=== PATIENT | male | born 1955 | race Caucasian/White ===

== ENCOUNTER 2016-10-16 20:56 | Emergency (ER) | payer MEDICARE ==
[2016-10-16 21:07] VITALS: RESP 18
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
--- NOTE | 2016-10-16 22:51 | XR ---
EXAM: XR Right Shoulder Complete, 2 or More Views CLINICAL HISTORY: Reason: Pain TECHNIQUE: Two or more views of the right shoulder. COMPARISON: No relevant prior studies available. FINDINGS: Bones/joints: Degenerative changes. No acute fracture. No dislocation. Soft tissues: No radiopaque foreign body. IMPRESSION: No acute fracture or dislocation.
--- NOTE | 2016-10-16 23:14 | XR ---
EXAM: XR Right Elbow Complete, 3 or More Views CLINICAL HISTORY: Reason: Pain TECHNIQUE: Frontal, lateral and oblique views of the right elbow. COMPARISON: No relevant prior studies available. FINDINGS: Bones/joints: Mild degenerative changes. No acute fracture. No dislocation. Soft tissues: No radiopaque foreign body. IMPRESSION: No acute fracture.
[2016-10-16 23:48] VITALS: BP 164/87; PULSE 77; TEMP 99.1
== END 2016-10-16 23:47 | disposition home or self-care (01) ==
LOC: EC 20:56
DX: G56.30 Lesion of radial nerve, unspecified upper limb (principal); M21.331 Wrist drop, right wrist; W19.XXXA Unspecified fall, initial encounter; F17.200 Nicotine dependence, unspecified, uncomplicated; Z88.0 Allergy status to penicillin
CPT/HCPCS: 99283

== ENCOUNTER → 2016-11-09 | Outpatient (CLI) | payer MEDICARE ==
[2016-11-09 16:50] LABS: Blood Urea Nitrogen 15 mg/dL (9-20); Non-African American GFR(MDRD) >60 (>60 ml/min/1.73 sqM)
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
--- NOTE | 2016-11-09 23:52 | MR ---
EXAMINATION TYPE: MR brachial plexus RT wo/w con DATE OF EXAM: 11/09/2016 10:00 PM COMPARISON: NONE HISTORY: Rt shoulder/brachial plexus injury, pain, neurpraxia CONTRAST: Standard multiplanar, multisequence MRI departmental protocol utilizing 15 mL intravenous MultiHance gadolinium contrast. FINDINGS: Cervical vertebra have normal alignment. There is a 1 cm area of increased signal in the T1 vertebral body consistent with hemangioma. There is slight biconcave change at T2 vertebra consisten t with minimal compression fracture. Cervical spinal cord has fairly normal signal pattern without ev idence of edema. There is no evidence of cervical bony spinal stenosis. I see no cervical paraspinal mass. I see no sign of a brachial plexus mass. There is no pathologic enhancement. There is mild nan a around the shoulder joint. I see no fracture. IMPRESSION: No spinal stenosis. No discrete brachial plexus abnormality. Periarticular edema seen at the right sh oulder joint.
== END | disposition home or self-care (01) ==
LOC: RADMRIMAIN 16:09
PROVIDERS: ATTEND Physician Assistant
DX: M25.411 Effusion, right shoulder (principal); S14.3XXA Injury of brachial plexus, initial encounter; G54.0 Brachial plexus disorders; S01.01XA Laceration without foreign body of scalp, initial encounter
CPT/HCPCS: 82565; 84520; 70260; 71552; 36415; A9577

== ENCOUNTER → 2016-11-26 | Outpatient (CLI) | payer MEDICARE ==
--- NOTE | 2016-11-26 23:53 | MR ---
EXAMINATION TYPE: MR humerus RT w/wo con DATE OF EXAM: 11/26/2016 COMPARISON: NONE HISTORY: upper arm shoulder pain CONTRAST: Standard multiplanar, multisequence MRI departmental protocol utilizing 15 mL intravenous MultiHance gadolinium contrast. FINDINGS: There is a small shoulder joint effusion. There is mild fluid around the biceps tendon. The re is no evidence of a fracture. Glenohumeral joint is anatomic. I see no focal bone destruction. Sca pula is intact. There is pathologic enhancement in the soft tissues around the subscapularis tendon including the mus kourtney. There is enhancement of the shoulder joint capsule. There is some spurring at the AC joint and m ild subacromial impingement. The supraspinatus tendon is not optimally evaluated but appears to show increased signal and full-thickness tear. There is no retraction. On the axial T2 images there appear s to be mild edema in the brachialis muscle in in the lower upper arm. IMPRESSION: There is shoulder joint capsule enhancement consistent with synovitis. Small shoulder joint effusion. There is probably a complete full-thickness tear of the supraspinatus tendon rotator cuff. There is edema and enhancement involving the subscapularis muscle consistent with myositis. The subscapularis tendon is intact. There is probably mild edema in the brachialis muscle in the lower arm. No fracture . Mild subacromial impingement.
== END | disposition home or self-care (01) ==
LOC: RADMRIMAIN 16:58
PROVIDERS: ATTEND Physician Assistant
DX: M25.811 Other specified joint disorders, right shoulder (principal); M25.411 Effusion, right shoulder
CPT/HCPCS: 73220; A9577

== ENCOUNTER → 2016-12-03 | Outpatient (CLI) | payer MEDICARE ==
--- NOTE | 2016-12-04 08:33 | MR ---
EXAMINATION TYPE: MR cervical spine wo con DATE OF EXAM: 12/03/2016 COMPARISON: NONE HISTORY: Pain TECHNIQUE: Multiplanar, multisequence images of the cervical spine were acquired. C2-C3: No evidence for degenerative disc disease. No disc bulge/herniation or protrusion. No Canal stenosis. Foramina are patent bilaterally. C3-C4: Central disc bulging but no canal stenosis or foraminal encroachment. Mild facet arthropathy. C4-C5: Moderate degenerative disc disease with uncovertebral joint hypertrophy and facet arthropathy and bilateral foraminal encroachment. No Canal stenosis. Posterior spondylosis. C5-C6: Moderate degenerative disc disease with broad-based central disc protrusion. Mild canal stenos is. Facet arthropathy and uncovertebral joint hypertrophy with moderate bilateral foraminal encroachm ent. C6-C7: No disc herniation or canal stenosis. No foraminal encroachment. C7-T1: No evidence for degenerative disc disease. No disc bulge/herniation or protrusion. No Canal stenosis. Foramina are patent bilaterally. Vertebral body hemangioma T1. Cervical segments are intact. There is normal alignment. Cervical spinal cord is of normal signal. Craniovertebral junction relationships are within normal limits. Heterogeneous marrow signal is non specific could been the basis of osteopenia. Myeloproliferative disorder not excluded correlate clini arnel. IMPRESSION: Multilevel degenerative disc disease with posterior spondylosis at C4-5 and more marked at C5-C6 with a broad-based disc protrusion and evidence of mild canal stenosis with bilateral foraminal encroachm ent. Nonspecific heterogeneous marrow signal. Correlate clinically as discussed above.
== END | disposition home or self-care (01) ==
LOC: RADMRIMAIN 15:17
PROVIDERS: ATTEND Physician Assistant
DX: M48.02 Spinal stenosis, cervical region (principal); M50.121 Cervical disc disorder at C4-C5 level with radiculopathy; M50.122 Cervical disc disorder at C5-C6 level with radiculopathy; M47.22 Other spondylosis with radiculopathy, cervical region
CPT/HCPCS: 72141

== ENCOUNTER 2021-07-17 18:07 | Inpatient (IN) | payer MEDICARE ==
[2021-07-17] MEDS ORDERED: SODIUM CHLORIDE 0.9% 1,000 ML IV STA ×2 (18:09→19:22)
[2021-07-17 18:26] LABS: Glucose,Whole Blood 133 mg/dL (75-99)
[2021-07-17 18:31] LABS: Basophils # (A) 0.1 k/uL (0-0.2); Basophils % (A) 0 %; Eosinophils # (A) 0.2 k/uL (0-0.7); Eosinophils % (A) 1 %; HCT 54.4 % (39.0-53.0); HGB 18.2 gm/dL (13.0-17.5); Lymphocytes # (A) 1.1 k/uL (1.0-4.8); Lymphocytes % (A) 7 %; MCH 35.1 pg (25.0-35.0); MCHC 33.5 g/dL (31.0-37.0); MCV 104.7 fL (80.0-100.0); Macrocytosis Slight; Mean Platelet Volume 7.9; Monocytes # (A) 0.7 k/uL (0-1.0); Monocytes % (A) 5 %; Neutrophils # (A) 13.1 k/uL (1.3-7.7); Neutrophils % (A) 86 %; Platelet Count 164 k/uL (150-450); RBC 5.19 m/uL (4.30-5.90); RDW 12.2 % (11.5-15.5); WBC 15.3 k/uL (3.8-10.6)
[2021-07-17 18:39] LABS: Appearance,Urine Clear (Clear); Bilirubin,Urine Negative (Negative); Blood,Urine Moderate (Negative); Color,Urine Yellow; Glucose,Urine (UA) Negative (Negative); Hyaline Casts,Urine 1 /lpf (0-2); Ketones,Urine 1+ (Negative); Leukocyte Esterase,Urine Negative (Negative); Mucus,Urine Rare /hpf; Nitrite,Urine Negative (Negative); PH, Urine 5.5 (5.0-8.0); Protein,Urine 1+ (Negative); RBC,Urine 10 /hpf (0-5); Specific Gravity,Urine 1.023 (1.001-1.035); Squamous Epithelial Cell,Urine <1 /hpf (0-4); Urobilinogen,Urine <2.0 mg/dL (<2.0); WBC,Urine <1 /hpf (0-5)
[2021-07-17] MEDS ORDERED: HEPARIN SODIUM 1,000 UN/ML (10ML VL) IV PRN (18:41)
[2021-07-17] MEDS ORDERED: DIPH,PERTUS(ACELL)TETVAC-LF 0.5 ML VIAL IM ONE (18:41)
[2021-07-17] MEDS ORDERED: HEPARIN SODIUM 1,000 UN/ML (10ML VL) IV ONE (18:41)
[2021-07-17 18:44] LABS: Amphetamine Screen,Urine Not Detected (NotDetected); Barbiturate Screen,Urine Not Detected (NotDetected); Benzodiazepines Screen,Urine Not Detected (NotDetected); Cocaine Screen,Urine Not Detected (NotDetected); Methadone Screen, Urine Not Detected (NotDetected); Opiate Screen,Urine Not Detected (NotDetected); Oxycodone Screen, Urine Not Detected (NotDetected); Phencyclidine Screen,Urine Not Detected (NotDetected); Tricyclic Antidepressant,Urine Not Detected (NotDetected); Urn Cannabinoid Scrn Not Detected (NotDetected)
[2021-07-17] MEDS ORDERED: HEPARIN SOD,PORK IN 0.45% NACL 25,000 UNIT in 0.45% NACL 1 250ML.BAG IV SCH (18:45)
[2021-07-17 18:50] LABS: INR 0.9 (<1.2); Partial Thromboplastin Time 24.7 sec (22.0-30.0); Prothrombin Time 10.2 sec (9.0-12.0)
[2021-07-17 19:00] LABS: AST 215 U/L (17-59); African American GFR (CKD) 85 (>60 ml/min/1.73 sqM); Alcohol <10 mg/dL; Alkaline Phosphatase 65 U/L (38-126); Anion Gap 9 mmol/L; Blood Urea Nitrogen 34 mg/dL (9-20); Calcium 9.1 mg/dL (8.4-10.2); Carbon Dioxide 22 mmol/L (22-30); Chloride 111 mmol/L (98-107); Glucose 118 mg/dL (74-99); Non-African American GFR(CKD) 74 (>60 ml/min/1.73 sqM); Potassium 5.2 mmol/L (3.5-5.1); Sodium 142 mmol/L (137-145); Total Protein 7.2 g/dL (6.3-8.2)
--- NOTE | 2021-07-17 19:01 | ED ---
Altered Mental Status HPI - General Chief Complaint: Altered Mental Status Stated Complaint: unresponsive Time Seen by Provider: 07/17/21 18:07 Source: EMS, RN notes reviewed, old records reviewed Mode of arrival: EMS Limitations: altered mental status - History of Present Illness Initial Comments: 66-year-old male with a history of alcohol abuse who was found in his pickup truck by family members unresponsive. His last known well about 2 days ago he was brought in by EMS he was found unresponsive. No trauma reported patient was noted to be incontinent of urine and stool. Upon arrival he was noted have a rectal temperature of 99F. No external signs of trauma reported. No history available from the patient's he is unresponsive though he was noted to move his extremities. MD Complaint: altered mental status - Related Data Home Medications Medication Instructions Recorded Confirmed No Known Home Medications 10/16/16 07/17/21 Allergies Allergy/AdvReac Type Severity Reaction Status Date / Time Penicillins Allergy Rash/Hives Verified 07/17/21 19:16 Review of Systems ROS Statement: Those systems with pertinent positive or pertinent negative responses have been documented in the HPI. ROS Other: All systems not noted in ROS Statement are negative. Limitations: ROS unobtainable due to patients medical condition Past Medical History Past Medical History: No Reported History History of Any Multi-Drug Resistant Organisms: None Reported Past Surgical History: No Surgical Hx Reported Past Psychological History: No Psychological Hx Reported Past Alcohol Use History: Abuse Past Drug Use History: None Reported General Exam - General Exam Comments Initial Comments: This is a well-developed thin appearing male unresponsive no evidence of trauma to the head neck back does have some ecchymosis seen to the left elbow both knees. Blanching of both feet with evidence of blisters on both Limitations: altered mental status Head exam: Present: atraumatic, normocephalic, normal inspection Eye exam: Present: normal appearance, PERRL, EOMI. Absent: scleral icterus, conjunctival injection, periorbital swelling ENT exam: Present: mucous membranes dry Neck exam: Present: normal inspection, other (No stridor JVD or bruits). Absent: tenderness, meningismus, lymphadenopathy Respiratory exam: Present: normal lung sounds bilaterally. Absent: respiratory distress, wheezes, rales, rhonchi, stridor Cardiovascular Exam: Present: regular rate, normal rhythm, normal heart sounds. Absent: systolic murmur, diastolic murmur, rubs, gallop, clicks GI/Abdominal exam: Present: soft, normal bowel sounds. Absent: distended, tenderness, guarding, rebound, rigid Rectal exam: Present: normal inspection, other exam: Present: normal inspection Extremities exam: Present: other (Bilateral femoral pulses and popliteal pulses are present no dorsalis pedis or posterior tibial pulses on either side both feet appear to be frozen solid with blanching tissue is solid to touch and very cold from the toes to release the mid foot and higher.). Absent: normal capillary refill Back exam: Present: normal inspection Neurological exam: Present: altered, CN II-XII intact Psychiatric exam: Present: other (Unable to evaluate) Skin exam: Present: dry, other (As noted above). Absent: normal color Course Vital Signs 07/17/21 18:08 Temperature 99.1 F Pulse Rate 98 Respiratory 26 H Rate Blood Pressure 177/98 O2 Sat by Pulse 98 Oximetry - Reevaluation(s) Reevaluation #1: 07/17/21 20:29 The patient is becoming more responsive after IV fluids and did have multiple reevaluation of the patient he did get his feet rewarmed using warm water. Patient did get IV antibiotics IV and tetanus IV pain medication. He currently is on IV heparin is chest case with initially Dr. day castro and also later with Dr. Doss as well as Dr. Zamora and Dr. jones patient will be admitted for inpatient evaluation and treatment continued warming IV antibiotics he is starting to get circulation back in his feet as well as sensation. There is blistering and evidence of some sloughing of skin are ready at this time. After he is warmed he will be placed in dry dressings with continued warming. The skin is more pliable as well as a total tissue for tissue. Medical Decision Making - Medical Decision Making Patient is responding to the warming of his feet though the dorsal and distal aspects are somewhat dusky still. He does seem to have sensation now. He is more responsive. I did discuss with the above-mentioned physicians and family patient will be admitted - Lab Data Result diagrams: 07/17/21 18:18 07/17/21 18:19 Lab Results 07/17/21 07/17/21 07/17/21 Range/Units 18:13 18:18 18:18 WBC 15.3 H (3.8-10.6) k/uL RBC 5.19 (4.30-5.90) m/uL Hgb 18.2 H (13.0-17.5) gm/dL Hct 54.4 H (39.0-53.0) % MCV 104.7 H (80.0-100.0) fL MCH 35.1 H (25.0-35.0) pg MCHC 33.5 (31.0-37.0) g/dL RDW 12.2 (11.5-15.5) % Plt Count 164 (150-450) k/uL MPV 7.9 Neutrophils % 86 % Lymphocytes % 7 % Monocytes % 5 % Eosinophils % 1 % Basophils % 0 % Neutrophils # 13.1 H (1.3-7.7) k/uL Lymphocytes # 1.1 (1.0-4.8) k/uL Monocytes # 0.7 (0-1.0) k/uL Eosinophils # 0.2 (0-0.7) k/uL Basophils # 0.1 (0-0.2) k/uL Macrocytosis Slight PT 10.2 (9.0-12.0) sec INR 0.9 (<1.2) APTT 24.7 (22.0-30.0) sec Sodium (137-145) mmol/L Potassium (3.5-5.1) mmol/L Chloride (98-107) mmol/L Carbon Dioxide (22-30) mmol/L Anion Gap mmol/L BUN (9-20) mg/dL Creatinine (0.66-1.25) mg/dL Est GFR (CKD-EPI)AfAm (>60 ml/min/1.73 sqM) Est GFR (CKD-EPI)NonAf (>60 ml/min/1.73 sqM) Glucose (74-99) mg/dL POC Glucose (mg/dL) 133 H (75-99) mg/dL POC Glu Electric[employer] Elevator Maintenance ID Eugenia Ohara Osmolality ([phone]) mosm/kg Plasma Lactic Acid Sameer (0.7-2.0) mmol/L Calcium (8.4-10.2) mg/dL Total Bilirubin (0.2-1.3) mg/dL AST (17-59) U/L ALT (4-49) U/L Alkaline Phosphatase (38-126) U/L Ammonia (<30) umol/L Creatine Kinase (55-170) U/L Troponin I (0.000-0.034) ng/mL Total Protein (6.3-8.2) g/dL Albumin (3.5-5.0) g/dL Urine Color Urine Appearance (Clear) Urine pH (5.0-8.0) Ur Specific [place] (1.001-1.035) Urine Protein (Negative) Urine Glucose (UA) (Negative) Urine Ketones (Negative) Urine Blood (Negative) Urine Nitrite (Negative) Urine Bilirubin (Negative) Urine Urobilinogen (<2.0) mg/dL Ur Leukocyte Esterase (Negative) Urine RBC (0-5) /hpf Urine WBC (0-5) /hpf Ur Squamous Epith Cells (0-4) /hpf Hyaline Casts (0-2) /lpf Urine Mucus (None) /hpf Salicylates mg/dL Urine Opiates Screen (NotDetected) Ur Oxycodone Screen (NotDetected) Urine Methadone Screen (NotDetected) Ur Propoxyphene Screen (NotDetected) Acetaminophen ug/mL Ur Barbiturates Screen (NotDetected) U Tricyclic Antidepress (NotDetected) Ur Phencyclidine Scrn (NotDetected) Ur Amphetamines Screen (NotDetected) U Methamphetamines Scrn (NotDetected) U Benzodiazepines Scrn (NotDetected) Urine Cocaine Screen (NotDetected) U Marijuana (THC) Screen (NotDetected) Serum Alcohol mg/dL Coronavirus (PCR) (Not Detectd) 07/17/21 07/17/21 07/17/21 Range/Units 18:18 18:19 18:19 WBC (3.8-10.6) k/uL RBC (4.30-5.90) m/uL Hgb (13.0-17.5) gm/dL Hct (39.0-53.0) % MCV (80.0-100.0) fL MCH (25.0-35.0) pg MCHC (31.0-37.0) g/dL RDW (11.5-15.5) % Plt Count (150-450) k/uL MPV Neutrophils % % Lymphocytes % % Monocytes % % Eosinophils % % Basophils % % Neutrophils # (1.3-7.7) k/uL Lymphocytes # (1.0-4.8) k/uL Monocytes # (0-1.0) k/uL Eosinophils # (0-0.7) k/uL Basophils # (0-0.2) k/uL Macrocytosis PT (9.0-12.0) sec INR (<1.2) APTT (22.0-30.0) sec Sodium 142 (137-145) mmol/L Potassium 5.2 H (3.5-5.1) mmol/L Chloride 111 H (98-107) mmol/L Carbon Dioxide 22 (22-30) mmol/L Anion Gap 9 mmol/L BUN 34 H (9-20) mg/dL Creatinine 1.05 (0.66-1.25) mg/dL Est GFR (CKD-EPI)AfAm 85 (>60 ml/min/1.73 sqM) Est GFR (CKD-EPI)NonAf 74 (>60 ml/min/1.73 sqM) Glucose 118 H (74-99) mg/dL POC Glucose (mg/dL) (75-99) mg/dL POC Glu Electric[employer] Elevator Maintenance ID Osmolality ([phone]) mosm/kg Plasma Lactic Acid Samere (0.7-2.0) mmol/L Calcium 9.1 (8.4-10.2) mg/dL Total Bilirubin 1.0 (0.2-1.3) mg/dL AST 215 H (17-59) U/L ALT 64 H (4-49) U/L Alkaline Phosphatase 65 (38-126) U/L Ammonia <9 (<30) umol/L Creatine Kinase 5921 H* (55-170) U/L Troponin I (0.000-0.034) ng/mL Total Protein 7.2 (6.3-8.2) g/dL Albumin 4.0 (3.5-5.0) g/dL Urine Color Yellow Urine Appearance Clear (Clear) Urine pH 5.5 (5.0-8.0) Ur Specific [place] 1.023 (1.001-1.035) Urine Protein 1+ H (Negative) Urine Glucose (UA) Negative (Negative) Urine Ketones 1+ H (Negative) Urine Blood Moderate H (Negative) Urine Nitrite Negative (Negative) Urine Bilirubin Negative (Negative) Urine Urobilinogen <2.0 (<2.0) mg/dL Ur Leukocyte Esterase Negative (Negative) Urine RBC 10 H (0-5) /hpf Urine WBC <1 (0-5) /hpf Ur Squamous Epith Cells <1 (0-4) /hpf Hyaline Casts 1 (0-2) /lpf Urine Mucus Rare H (None) /hpf Salicylates <1.0 mg/dL Urine Opiates Screen Not Detected (NotDetected) Ur Oxycodone Screen Not Detected (NotDetected) Urine Methadone Screen Not Detected (NotDetected) Ur Propoxyphene Screen Not Detected (NotDetected) Acetaminophen <10.0 ug/mL Ur Barbiturates Screen Not Detected (NotDetected) U Tricyclic Antidepress Not Detected (NotDetected) Ur Phencyclidine Scrn Not Detected (NotDetected) Ur Amphetamines Screen Not Detected (NotDetected) U Methamphetamines Scrn Not Detected (NotDetected) U Benzodiazepines Scrn Not Detected (NotDetected) Urine Cocaine Screen Not Detected (NotDetected) U Marijuana (THC) Screen Not Detected (NotDetected) Serum Alcohol <10 mg/dL Coronavirus (PCR) (Not Detectd) 07/17/21 07/17/21 07/17/21 Range/Units 18:19 18:19 18:21 WBC (3.8-10.6) k/uL RBC (4.30-5.90) m/uL Hgb (13.0-17.5) gm/dL Hct (39.0-53.0) % MCV (80.0-100.0) fL MCH (25.0-35.0) pg MCHC (31.0-37.0) g/dL RDW (11.5-15.5) % Plt Count (150-450) k/uL MPV Neutrophils % % Lymphocytes % % Monocytes % % Eosinophils % % Basophils % % Neutrophils # (1.3-7.7) k/uL Lymphocytes # (1.0-4.8) k/uL Monocytes # (0-1.0) k/uL Eosinophils # (0-0.7) k/uL Basophils # (0-0.2) k/uL Macrocytosis PT (9.0-12.0) sec INR (<1.2) APTT (22.0-30.0) sec Sodium (137-145) mmol/L Potassium (3.5-5.1) mmol/L Chloride (98-107) mmol/L Carbon Dioxide (22-30) mmol/L Anion Gap mmol/L BUN (9-20) mg/dL Creatinine (0.66-1.25) mg/dL Est GFR (CKD-EPI)AfAm (>60 ml/min/1.73 sqM) Est GFR (CKD-EPI)NonAf (>60 ml/min/1.73 sqM) Glucose (74-99) mg/dL POC Glucose (mg/dL) (75-99) mg/dL POC Glu Electrician Elevator Maintenance ID Osmolality ([phone]) mosm/kg Plasma Lactic Acid Sameer 4.3 H* (0.7-2.0) mmol/L Calcium (8.4-10.2) mg/dL Total Bilirubin (0.2-1.3) mg/dL AST (17-59) U/L ALT (4-49) U/L Alkaline Phosphatase (38-126) U/L Ammonia (<30) umol/L Creatine Kinase (55-170) U/L Troponin I 0.014 (0.000-0.034) ng/mL Total Protein (6.3-8.2) g/dL Albumin (3.5-5.0) g/dL Urine Color Urine Appearance (Clear) Urine pH (5.0-8.0) Ur Specific [place] (1.001-1.035) Urine Protein (Negative) Urine Glucose (UA) (Negative) Urine Ketones (Negative) Urine Blood (Negative) Urine Nitrite (Negative) Urine Bilirubin (Negative) Urine Urobilinogen (<2.0) mg/dL Ur Leukocyte Esterase (Negative) Urine RBC (0-5) /hpf Urine WBC (0-5) /hpf Ur Squamous Epith Cells (0-4) /hpf Hyaline Casts (0-2) /lpf Urine Mucus (None) /hpf Salicylates mg/dL Urine Opiates Screen (NotDetected) Ur Oxycodone Screen (NotDetected) Urine Methadone Screen (NotDetected) Ur Propoxyphene Screen (NotDetected) Acetaminophen ug/mL Ur Barbiturates Screen (NotDetected) U Tricyclic Antidepress (NotDetected) Ur Phencyclidine Scrn (NotDetected) Ur Amphetamines Screen (NotDetected) U Methamphetamines Scrn (NotDetected) U Benzodiazepines Scrn (NotDetected) Urine Cocaine Screen (NotDetected) U Marijuana (THC) Screen (NotDetected) Serum Alcohol mg/dL Coronavirus (PCR) Not Detected (Not Detectd) 07/17/21 Range/Units 18:24 WBC (3.8-10.6) k/uL RBC (4.30-5.90) m/uL Hgb (13.0-17.5) gm/dL Hct (39.0-53.0) % MCV (80.0-100.0) fL MCH (25.0-35.0) pg MCHC (31.0-37.0) g/dL RDW (11.5-15.5) % Plt Count (150-450) k/uL MPV Neutrophils % % Lymphocytes % % Monocytes % % Eosinophils % % Basophils % % Neutrophils # (1.3-7.7) k/uL Lymphocytes # (1.0-4.8) k/uL Monocytes # (0-1.0) k/uL Eosinophils # (0-0.7) k/uL Basophils # (0-0.2) k/uL Macrocytosis PT (9.0-12.0) sec INR (<1.2) APTT (22.0-30.0) sec Sodium (137-145) mmol/L Potassium (3.5-5.1) mmol/L Chloride (98-107) mmol/L Carbon Dioxide (22-30) mmol/L Anion Gap mmol/L BUN (9-20) mg/dL Creatinine (0.66-1.25) mg/dL Est GFR (CKD-EPI)AfAm (>60 ml/min/1.73 sqM) Est GFR (CKD-EPI)NonAf (>60 ml/min/1.73 sqM) Glucose (74-99) mg/dL POC Glucose (mg/dL) (75-99) mg/dL POC Glu Electrician Elevator Maintenance ID Osmolality 312 H (280-301) mosm/kg Plasma Lactic Acid Sameer (0.7-2.0) mmol/L Calcium (8.4-10.2) mg/dL Total Bilirubin (0.2-1.3) mg/dL AST (17-59) U/L ALT (4-49) U/L Alkaline Phosphatase (38-126) U/L Ammonia (<30) umol/L Creatine Kinase (55-170) U/L Troponin I (0.000-0.034) ng/mL Total Protein (6.3-8.2) g/dL Albumin (3.5-5.0) g/dL Urine Color Urine Appearance (Clear) Urine pH (5.0-8.0) Ur Specific [place] (1.001-1.035) Urine Protein (Negative) Urine Glucose (UA) (Negative) Urine Ketones (Negative) Urine Blood (Negative) Urine Nitrite (Negative) Urine Bilirubin (Negative) Urine Urobilinogen (<2.0) mg/dL Ur Leukocyte Esterase (Negative) Urine RBC (0-5) /hpf Urine WBC (0-5) /hpf Ur Squamous Epith Cells (0-4) /hpf Hyaline Casts (0-2) /lpf Urine Mucus (None) /hpf Salicylates mg/dL Urine Opiates Screen (NotDetected) Ur Oxycodone Screen (NotDetected) Urine Methadone Screen (NotDetected) Ur Propoxyphene Screen (NotDetected) Acetaminophen ug/mL Ur Barbiturates Screen (NotDetected) U Tricyclic Antidepress (NotDetected) Ur Phencyclidine Scrn (NotDetected) Ur Amphetamines Screen (NotDetected) U Methamphetamines Scrn (NotDetected) U Benzodiazepines Scrn (NotDetected) Urine Cocaine Screen (NotDetected) U Marijuana (THC) Screen (NotDetected) Serum Alcohol mg/dL Coronavirus (PCR) (Not Detectd) - EKG Data -: EKG Interpreted by Me EKG shows normal: sinus rhythm EKG Comments: Sinus rhythm with sinus arrhythmia rate 70. 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 This also causes admission orders Disposition Clinical Impression: Delirium due to general medical condition, Frostbite of feet, bilateral, Rhabdomyolysis, Lactic acidosis, Dehydration Disposition: ADMITTED IP TO THIS HOSP Condition: Serious Referrals: Bairon Feldman DO [Primary Care Provider] - 1-2 days
[2021-07-17 19:07] LABS: ALT 64 U/L (4-49)
[2021-07-17] MEDS ORDERED: LEVOFLOXACIN 750MG-D5W PMX 750 MG in DEXTROSE/WATER 1 150ML.BAG IVPB STA (19:16)
--- NOTE | 2021-07-17 19:23 | CT ---
EXAMINATION TYPE: CT brain ba santos DATE OF EXAM: 07/17/2021 COMPARISON: None HISTORY: Altered mental status. CT DLP: 1540.3 mGycm Automated exposure control for dose reduction was used. TECHNIQUE: CT scan of the head and cervical spine are performed without contrast. FINDINGS: There is no acute intracranial hemorrhage, mass effect, or midline shift identified. The ventricles and sulci are within normal limits in size. The globes are intact and the visualized sin uses are clear. Cervical spine is visualized in its entirety from C1 through upper thoracic levels and demonstrates s atisfactory alignment without evidence of acute fracture or dislocation. Prevertebral soft tissue ap pears within normal limits. The C1-C2 articulation is unremarkable. IMPRESSION: 1. There is no acute fracture or dislocation evident in the cervical spine. 2. No acute intracranial hemorrhage, mass effect, or midline shift is seen.
--- NOTE | 2021-07-17 19:24 | XR ---
EXAMINATION: XR chest 1V portable DATE AND TIME: 07/17/2021 6:50 PM CLINICAL INDICATION: altered mental status: Unresponsive TECHNIQUE: AP portable supine COMPARISON: None FINDINGS: The lungs are clear as seen. The pleural spaces are negative. The cardiac silhouette is not enlarged. The remainder of the mediastinal silhouette is unremarkable. The skeletal structures and soft tissues are negative for acute findings. IMPRESSION: No definite acute radiographic process, AP portable supine chest radiograph.
[2021-07-17 19:34] LABS: Acetaminophen <10.0 ug/mL; Salicylate <1.0 mg/dL
[2021-07-17 19:42] LABS: Creatine Kinase 5921 U/L (55-170)
[2021-07-17] MEDS ORDERED: MORPHINE SULFATE 4 MG/ML SYRINGE IVP STA (20:14)
[2021-07-17] MEDS ORDERED: NALOXONE 0.4 MG/ML 1 ML VIAL IV PRN (20:46)
[2021-07-17] MEDS ORDERED: NICOTINE 21MG/24HR PATCH TRANSDERM STA (20:52)
[2021-07-17] MEDS ORDERED: LORazepam 2 MG/ML INJ IV PRN ×3 (20:52)
[2021-07-17] MEDS ORDERED: THIAMINE 100 MG/ML 2 ML VIAL IM STA (20:52)
[2021-07-18] MEDS: MORPHINE SULFATE 4 MG/ML SYRINGE IV PRN ×3 (01:10→18:37)
[2021-07-18 04:43] LABS: Glucose,Whole Blood 103 mg/dL (75-99)
[2021-07-18 07:45] LABS: Basophils % (A) 0 %; Eosinophils % (A) 0 %; HCT 48.1 % (39.0-53.0); HGB 15.3 gm/dL (13.0-17.5); Lymphocytes # (A) 1.3 k/uL (1.0-4.8); Lymphocytes % (A) 9 %; MCH 33.6 pg (25.0-35.0); MCHC 31.8 g/dL (31.0-37.0); MCV 105.7 fL (80.0-100.0); Macrocytosis Slight; Mean Platelet Volume 8.3; Monocytes # (A) 0.8 k/uL (0-1.0); Monocytes % (A) 6 %; Neutrophils % (A) 84 %; Platelet Count 165 k/uL (150-450); RBC 4.55 m/uL (4.30-5.90); RDW 12.8 % (11.5-15.5); WBC 14.3 k/uL (3.8-10.6)
[2021-07-18 07:59] LABS: ALT 50 U/L (4-49); AST 139 U/L (17-59); African American GFR (CKD) >90 (>60 ml/min/1.73 sqM); Albumin 2.8 g/dL (3.5-5.0); Alkaline Phosphatase 45 U/L (38-126); Anion Gap 2 mmol/L; Bilirubin, Delta 0.2 mg/dL (0.0-0.2); Bilirubin,Unconjugated 0.6 mg/dL (0.0-1.1); Blood Urea Nitrogen 22 mg/dL (9-20); Calcium 7.5 mg/dL (8.4-10.2); Carbon Dioxide 20 mmol/L (22-30); Chloride 119 mmol/L (98-107); Glucose 105 mg/dL (74-99); Magnesium 2.3 mg/dL (1.6-2.3); Non-African American GFR(CKD) >90 (>60 ml/min/1.73 sqM); Potassium 4.4 mmol/L (3.5-5.1); Sodium 141 mmol/L (137-145); Total Bilirubin 0.8 mg/dL (0.2-1.3); Total Protein 5.4 g/dL (6.3-8.2)
[2021-07-18] MEDS: SODIUM CHLORIDE 0.9% 1,000 ML IV SCH ×2 (08:02→20:53)
[2021-07-18] MEDS: FAMOTIDINE 20 MG/2 ML VIAL IV SCH ×2 (08:05→20:56)
[2021-07-18 08:57] LABS: Creatine Kinase 3882 U/L (55-170)
--- NOTE | 2021-07-18 09:53 | P.HPIM ---
History of Present Illness This is a pleasant 66 years old male with unknown past medical history presents because of altered mental status where he was found unresponsive in his truck bed family member. As per report. He was seen doing well about 2 days ago. Patient was found with no evidence of trauma, incontinence of urine and stool. And he was hypothermic on admission with a rectal temperature of 99F. He was warmed using of the fluids. Patient found to have bilateral dusky heat suspicious for hypothermic injury. Also there was some evidence of rhabdomyolysis, lactic acidosis and dehydration and he was admitted to the intensive care unit. When I saw the patient in the ICU he was sleepy, does not wake up to verbal or tactile stimuli however he withdrawal for patient's to light. He has some deep breathing. Both feet are in dressing. Patient could not provide information. We checked him after couple hours distal clip waking up so it allowed to consult neurology service Currently vital signs stable, his temperature went up last night to 98.1-99.1. Showing mild leukocytosis. Hemoglobin is elevated 18.2, platelet 164. Carbon dioxide is 1.1, which is within the reference range. Elevated lactic acid 4.3 came back to 1.4. Elevated creatinine kinase 5921 Creatinine 1.0, potassium 5.2, liver enzymes slightly elevated with AST 215 and ALT 64. Troponin is negative at 0.014. Ammonia is negative less than 9. High serum osmolality of 312. Urine analysis showing 1+ protein, 1+ ketone, no solid evidence of infection. Urine drug screen is negative, salicylate less than 1, acetaminophen less than 10 and serum alcohol less than 10 Coronavirus nondetected. EKG showing normal sinus rhythm with incomplete right bundle branch block and left posterior fascicular block and QTC 455, no significant ST-T changes Q Chest x-ray showing no acute process. CT of the brain: No acute process CT of the cervical spine: No acute fracture or dislocation In the emergency room patient was started on IV fluids, IV heparin and started on CIWA protocol for suspicion alcohol abuse Review of Systems n/a patient could not provide information Past Medical History Past Medical History: No Reported History History of Any Multi-Drug Resistant Organisms: None Reported Past Surgical History: No Surgical Hx Reported Past Psychological History: No Psychological Hx Reported Smoking Status: Unknown if ever smoked Past Alcohol Use History: Abuse Past Drug Use History: None Reported Medications and Allergies Home Medications Medication Instructions Recorded Confirmed Type No Known Home Medications 10/16/16 07/17/21 History Allergies Allergy/AdvReac Type Severity Reaction Status Date / Time Penicillins Allergy Rash/Hives Verified 07/17/21 19:16 Physical Exam Vitals: Vital Signs Temp Pulse Resp BP Pulse Ox 07/18/21 05:00 82 14 133/84 92 L 07/18/21 03:01 36.7 F L 95 20 121/77 98 07/18/21 01:18 94 22 132/79 98 07/18/21 01:00 103 H 26 H 171/118 98 07/18/21 00:00 36.7 F L 83 17 160/86 99 07/17/21 23:35 98.1 F 85 24 160/86 99 07/17/21 22:28 98.4 F 100 24 161/93 99 07/17/21 22:00 90 22 158/85 98 07/17/21 21:00 99 12 151/87 98 07/17/21 20:50 80 20 158/87 97 07/17/21 20:35 84 22 147/85 98 07/17/21 20:25 94 22 158/100 98 07/17/21 20:00 86 15 169/97 100 07/17/21 19:00 98 19 149/103 07/17/21 18:35 73 15 07/17/21 18:08 99.1 F 98 26 H 177/98 98 Intake and Output 07/17/21 07/17/21 07/18/21 14:59 22:59 06:59 Intake Total 1323.11 Output Total 1300 Balance 23.11 Intake: IV 130 Sodium Chloride 0.9% 1, 130 000 ml @ 130 mls/hr IV . Q7H42M [facility] Rx#:[id number] Intake, IV Titration 1193.11 Amount Heparin Sod,Pork in 0.45% 43.11 NaCl 25,000 unit In 0.45 % NaCl 1 250ml.bag @ 12 UNITS/KG/HR 8.709 mls/hr IV .Q24H [facility] Rx#: [id number] Levofloxacin 750Mg-D5w 150 Pmx 750 mg In Dextrose/ Water 1 150ml.bag @ 100 mls/hr IVPB ONCE [facility] Rx#: [id number] Sodium Chloride 0.9% 1, 1000 000 ml @ 999 mls/hr IV . Q1H1M [facility] Rx#:[id number] Oral 0 Output: Urine 1300 Other: Voiding Method Indwelling Catheter Weight 73 kg 73 kg -GENERAL: The patient is unresponsive to verbal or tactile stimuli, obtunded HEENT: Pupils are round and equally reacting to light. EOMI. No scleral icterus. No conjunctival pallor. Normocephalic, atraumatic. No pharyngeal erythema. No thyromegaly. CARDIOVASCULAR: S1 and S2 present. No murmurs, rubs, or gallops. PULMONARY: Chest is clear to auscultation, no wheezing or crackles. ABDOMEN: Soft, nontender, nondistended, normoactive bowel sounds. No palpable organomegaly. MUSCULOSKELETAL: No joint swelling or deformity. -XTREMITIES: No cyanosis, clubbing, or pedal edema. Right big toe is black, where the left big toe is dusky in color. Both feet are somewhat pinkish in color NEUROLOGICAL: Gross neurological examination did not reveal any focal deficits. SKIN: No rashes. No petechiae Results CBC & Chem 7: 07/18/21 05:59 07/18/21 05:59 Labs: Abnormal Lab Results - Last 24 Hours (Table) 07/17/21 07/17/21 07/17/21 Range/Units 18:13 18:18 18:18 WBC 15.3 H (3.8-10.6) k/uL Hgb 18.2 H (13.0-17.5) gm/dL Hct 54.4 H (39.0-53.0) % MCV 104.7 H (80.0-100.0) fL MCH 35.1 H (25.0-35.0) pg Neutrophils # 13.1 H (1.3-7.7) k/uL APTT (22.0-30.0) sec Potassium (3.5-5.1) mmol/L Chloride (98-107) mmol/L BUN (9-20) mg/dL Glucose (74-99) mg/dL POC Glucose (mg/dL) 133 H (75-99) mg/dL Osmolality (280-301) mosm/kg Plasma Lactic Acid Sameer (0.7-2.0) mmol/L AST (17-59) U/L ALT (4-49) U/L Creatine Kinase (55-170) U/L Urine Protein 1+ H (Negative) Urine Ketones 1+ H (Negative) Urine Blood Moderate H (Negative) Urine RBC 10 H (0-5) /hpf Urine Mucus Rare H (None) /hpf 07/17/21 07/17/21 07/17/21 Range/Units 18:19 18:19 18:24 WBC (3.8-10.6) k/uL Hgb (13.0-17.5) gm/dL Hct (39.0-53.0) % MCV (80.0-100.0) fL MCH (25.0-35.0) pg Neutrophils # (1.3-7.7) k/uL APTT (22.0-30.0) sec Potassium 5.2 H (3.5-5.1) mmol/L Chloride 111 H (98-107) mmol/L BUN 34 H (9-20) mg/dL Glucose 118 H (74-99) mg/dL POC Glucose (mg/dL) (75-99) mg/dL Osmolality 312 H (280-301) mosm/kg Plasma Lactic Acid Sameer 4.3 H* (0.7-2.0) mmol/L AST 215 H (17-59) U/L ALT 64 H (4-49) U/L Creatine Kinase 5921 H* (55-170) U/L Urine Protein (Negative) Urine Ketones (Negative) Urine Blood (Negative) Urine RBC (0-5) /hpf Urine Mucus (None) /hpf 07/18/21 07/18/21 07/18/21 Range/Units 00:34 04:41 05:59 WBC (3.8-10.6) k/uL Hgb (13.0-17.5) gm/dL Hct (39.0-53.0) % MCV (80.0-100.0) fL MCH (25.0-35.0) pg Neutrophils # (1.3-7.7) k/uL APTT 46.1 H 37.3 H (22.0-30.0) sec Potassium (3.5-5.1) mmol/L Chloride (98-107) mmol/L BUN (9-20) mg/dL Glucose (74-99) mg/dL POC Glucose (mg/dL) 103 H (75-99) mg/dL Osmolality (280-301) mosm/kg Plasma Lactic Acid Sameer (0.7-2.0) mmol/L AST (17-59) U/L ALT (4-49) U/L Creatine Kinase (55-170) U/L Urine Protein (Negative) Urine Ketones (Negative) Urine Blood (Negative) Urine RBC (0-5) /hpf Urine Mucus (None) /hpf Assessment and Plan Assessment: Altered mental status most likely metabolic encephalopathy. Ruled out intracranial lesions Possible frostbite with hypothermic feet injury, patient was hypothermic on arrival Rhabdomyolysis Lactic acidosis, resolved Dehydration Mildly elevated liver enzymes Suspected history of alcohol abuse Plan: This is a pleasant 66 years old male who presents with AMS, hyperthermia and possible frostbite of the feet and up to my lysis. Continue with IV fluid Repeat electrolytes Neurology consult Vascular surgery and pulmonary/critical care team consult Labs and medication were reviewed.. Continue same treatment. Continue with symptomatic treatment. Resume home medication. Monitor lytes and vitals. DVT and GI prophylaxis. Further recommendations depends on the clinical course of the patient DVT prophylaxis: heparin GI Prophylaxis: Pepcid PT/OT: Pending Prognosis is guarded
--- NOTE | 2021-07-18 11:16 | P.CNPUL ---
History of Present Illness Consult date: 07/18/21 Requesting physician: Nick Valladares Reason for consult: other Chief complaint: Mental status changes, frostbite. History of present illness: Pulmonary consult dated 07/18/2021. 66-year-old male with a history of alcohol abuse, and chronic tobacco use, who apparently was found in his pickup truck by his family, unresponsive. He was brought into the emergency room, by EMS. The patient was noted to be incontinent of urine and stool. He had a rectal temperature 90.9F. There are no external signs of trauma. The patient did have significant frostbite and cold injury to his feet bilaterally. His toes were blue/black. The patient was admitted to the intensive care unit for further monitoring and management. Vascular surgery was consulted. The patient's currently on 4 L nasal cannula. He is getting heparin via weightbase protocol. He's also on saline at 100 mL an hour not much is known about his past medical history or any medications that he was on. He apparently does have an ALLERGY to penicillin. The patient was quite lethargic and somnolent. White count was 14.3, he will been 15.3, hematocrit 48.1, and platelet count was normal. PTT was 37.3. Sodium 141, potassium 4.4, chlorides 119, CO2 20, anion gap 2, UN 22, and creatinine 0.79. AST was 139 with an ALT of 50. Creatine kinase was 3882, and yesterday was 5921. Urine was negative for infection. Drug screen was negative. Testing for coronavirus was negative. All x-rays were negative. Review of Systems REVIEW OF SYSTEMS: CONSTITUTIONAL: [Negative.] NEUROLOGIC: Mental status changes, lethargy, somnolence. HEENT: [ Negative.] CARDIAC: [Negative.] PULMONARY: [Negative.] GI: [Negative.] : [Negative.] RHEUMATOLOGIC: [ Negative.] IMMUNOLOGIC: [ Negative.] ENDOCRINE: [Negative. ] DERMATOLOGIC: [Negative.] Past Medical History Past Medical History: No Reported History History of Any Multi-Drug Resistant Organisms: None Reported Past Surgical History: No Surgical Hx Reported Past Psychological History: No Psychological Hx Reported Smoking Status: Unknown if ever smoked Past Alcohol Use History: Abuse Past Drug Use History: None Reported Medications and Allergies Home Medications Medication Instructions Recorded Confirmed Type No Known Home Medications 10/16/16 07/17/21 History Allergies Allergy/AdvReac Type Severity Reaction Status Date / Time Penicillins Allergy Rash/Hives Verified 07/17/21 19:16 Physical Exam Osteopathic Statement: *. No significant issues noted on an osteopathic structural exam other than those noted in the History and Physical/Consult. Vitals: Vital Signs Temp Pulse Resp BP Pulse Ox 07/18/21 10:00 65 11 L 133/78 97 07/18/21 09:00 84 15 136/79 97 07/18/21 08:00 97.9 F 75 12 113/80 96 07/18/21 07:00 80 16 115/78 97 07/18/21 06:00 85 13 114/75 96 07/18/21 05:00 82 14 133/84 92 L 07/18/21 03:01 36.7 F L 95 20 121/77 98 07/18/21 01:18 94 22 132/79 98 07/18/21 01:00 103 H 26 H 171/118 98 07/18/21 00:00 36.7 F L 83 17 160/86 99 07/17/21 23:35 98.1 F 85 24 160/86 99 07/17/21 22:28 98.4 F 100 24 161/93 99 07/17/21 22:00 90 22 158/85 98 07/17/21 21:00 99 12 151/87 98 07/17/21 20:50 80 20 158/87 97 07/17/21 20:35 84 22 147/85 98 07/17/21 20:25 94 22 158/100 98 07/17/21 20:00 86 15 169/97 100 07/17/21 19:00 98 19 149/103 07/17/21 18:35 73 15 07/17/21 18:08 99.1 F 98 26 H 177/98 98 Intake and Output 07/17/21 07/18/21 07/18/21 22:59 06:59 14:59 Intake Total 1453.11 502.674 Output Total 1360 375 Balance 93.11 127.674 Intake: IV 260 460 Sodium Chloride 0.9% 1, 260 460 000 ml @ 130 mls/hr IV . Q7H42M [facility] Rx#:[id number] Intake, IV Titration 1193.11 42.674 Amount Heparin Sod,Pork in 0.45% 43.11 42.674 NaCl 25,000 unit In 0.45 % NaCl 1 250ml.bag @ 12 UNITS/KG/HR 8.709 mls/hr IV .Q24H [facility] Rx#: [id number] Levofloxacin 750Mg-D5w 150 Pmx 750 mg In Dextrose/ Water 1 150ml.bag @ 100 mls/hr IVPB ONCE [facility] Rx#: [id number] Sodium Chloride 0.9% 1, 1000 000 ml @ 999 mls/hr IV . Q1H1M [facility] Rx#:[id number] Oral 0 Output: Urine 1360 375 Other: Voiding Method Indwelling Catheter Indwelling Catheter Weight 73 kg 73 kg No acute distress, poorly responsive, currently on 4 L nasal cannula. HEENT examination is grossly unremarkable. Neck supple. Full range of motion. No adenopathy thyromegaly or neck vein distention. Cardiovascular examination reveals regular rhythm rate. S1-S2 normal. No S3 or S4. No discernible murmur noted. Heart rate 65 bpm. Lungs reveal clear breath sounds. Breath sounds are equal bilaterally. No adventitious lung sounds including wheezes rhonchi or crackles. Abdomen soft bowel sounds are heard. No masses or tenderness. Extremities reveal cyanotic/dark toes bilaterally. Feet are wrapped. Skin is without rash or lesion, except as above. Neurologic examination reveals a very poorly responsive, lethargic/somnolent male patient. Results - Laboratory Findings CBC and BMP: 07/18/21 05:59 07/18/21 05:59 PT/INR, D-dimer PT 10.2 sec (9.0-12.0) 07/17/21 18:18 INR 0.9 (<1.2) 07/17/21 18:18 Abnormal lab findings: Abnormal Labs 07/17/21 07/17/21 07/17/21 18:13 18:18 18:18 WBC 15.3 H Hgb 18.2 H Hct 54.4 H MCV 104.7 H MCH 35.1 H Neutrophils # 13.1 H APTT Potassium Chloride Carbon Dioxide BUN Glucose POC Glucose (mg/dL) 133 H Osmolality Plasma Lactic Acid Sameer Calcium AST ALT Creatine Kinase Total Protein Albumin Urine Protein 1+ H Urine Ketones 1+ H Urine Blood Moderate H Urine RBC 10 H Urine Mucus Rare H 07/17/21 07/17/21 07/17/21 18:19 18:19 18:24 WBC Hgb Hct MCV MCH Neutrophils # APTT Potassium 5.2 H Chloride 111 H Carbon Dioxide BUN 34 H Glucose 118 H POC Glucose (mg/dL) Osmolality 312 H Plasma Lactic Acid Sameer 4.3 H* Calcium AST 215 H ALT 64 H Creatine Kinase 5921 H* Total Protein Albumin Urine Protein Urine Ketones Urine Blood Urine RBC Urine Mucus 07/18/21 07/18/21 07/18/21 00:34 04:41 05:59 WBC Hgb Hct MCV MCH Neutrophils # APTT 46.1 H 37.3 H Potassium Chloride Carbon Dioxide BUN Glucose POC Glucose (mg/dL) 103 H Osmolality Plasma Lactic Acid Sameer Calcium AST ALT Creatine Kinase Total Protein Albumin Urine Protein Urine Ketones Urine Blood Urine RBC Urine Mucus 07/18/21 07/18/21 05:59 05:59 WBC 14.3 H Hgb Hct MCV 105.7 H MCH Neutrophils # 12.0 H APTT Potassium Chloride 119 H Carbon Dioxide 20 L BUN 22 H Glucose 105 H POC Glucose (mg/dL) Osmolality Plasma Lactic Acid Sameer Calcium 7.5 L AST 139 H ALT 50 H Creatine Kinase 3882 H* Total Protein 5.4 L Albumin 2.8 L Urine Protein Urine Ketones Urine Blood Urine RBC Urine Mucus - Diagnostic Findings Chest x-ray: image reviewed Assessment and Plan Assessment: Acute mental status changes, of unclear etiology. Brain CT was negative for any acute process. Significant cold injury/frostbite to the patient's bilateral feet and toes. Moderate rhabdomyolysis. History of chronic alcohol abuse. History of chronic tobacco use. Plan: Plan dated 07/18/2021. The patient is poorly responsive. We'll make sure that we discontinue all narcotics and sedatives and benzodiazepines. Currently as per vascular surgery, the patient's on IV heparin. Will continue on IV fluids at 100 mL an hour. Drug screen was negative. Is getting nasal O2 at 4 L. Additional recommendations and suggestions are forthcoming. Prognosis is guarded. We will continue to follow make recommendations where appropriate. Time with Patient: Greater than 30
[2021-07-18] MEDS: THIAMINE 100 MG TAB PO SCH ×2 (11:22→17:22)
--- NOTE | 2021-07-18 12:09 | P.GSCN ---
<Tierney Sorenson - Last Filed: 07/18/21 15:02> History of Present Illness Consult date: 07/18/21 Reason for Consult: Frostbite toes Requesting physician: Carlitos Freedman History of present illness: This is 66-year-old male who was brought into the emergency room emergency room after being found by his family in his pickup truck. Patient was found unresponsive. He does have a history of alcoholism. He was admitted to the ICU with altered mental status changes. He was noted to have ischemic changes to his toes on bilateral feet and vascular surgery was consulted for frostbite. He was noted on admission to have a rectal temperature of 99. He remains pretty much unresponsive other than to pain. Temperature 97.9 rectally. Vital signs are stable. WBC 14.3 hemoglobin 15.3. He was started on a heparin drip and remains currently on it. Review of Systems ROS unobtainable: due to mental status Past Medical History Past Medical History: No Reported History History of Any Multi-Drug Resistant Organisms: None Reported Past Surgical History: No Surgical Hx Reported Past Psychological History: No Psychological Hx Reported Smoking Status: Unknown if ever smoked Past Alcohol Use History: Abuse Past Drug Use History: None Reported Medications and Allergies Home Medications Medication Instructions Recorded Confirmed Type No Known Home Medications 10/16/16 07/17/21 History Allergies Allergy/AdvReac Type Severity Reaction Status Date / Time Penicillins Allergy Rash/Hives Verified 07/17/21 19:16 Surgical - Exam Vital Signs Temp Pulse Resp BP Pulse Ox 99.1 F 98 26 H 177/98 98 07/17/21 18:08 07/17/21 18:08 07/17/21 18:08 07/17/21 18:08 07/17/21 18:08 General appearance: The patient is lethargic, not responding to any questions, appears in no acute distress. HET: Head is normocephalic and atraumatic. Neck: Supple without lymphadenopathy. Trachea midline. No audible carotid bruit. Heart: S1 S2. Regular rate and rhythm. Lungs: Clear to auscultation bilaterally. Abdomen: Soft, nontender, nondistended. Extremities: Bilateral lower extremity edema. Bilateral lower extremities warm to the touch. Palpable femoral and DP pulses bilaterally. Left foot with second and third toe with purple discoloration to the distal aspect. Right foot with purple discoloration and blistering to the great toe, second toe and third toe along with purple discoloration to the fourth and fifth toes. Patient does moan with palpation to the right foot. Neurological: Patient not responding to any questions, very lethargic. Does respond to painful stimuli. Results - Labs 07/18/21 05:59 07/18/21 05:59 Abnormal Lab Results - Last 24 Hours (Table) 07/17/21 07/17/21 07/17/21 Range/Units 18:13 18:18 18:18 WBC 15.3 H (3.8-10.6) k/uL Hgb 18.2 H (13.0-17.5) gm/dL Hct 54.4 H (39.0-53.0) % MCV 104.7 H (80.0-100.0) fL MCH 35.1 H (25.0-35.0) pg Neutrophils # 13.1 H (1.3-7.7) k/uL APTT (22.0-30.0) sec Potassium (3.5-5.1) mmol/L Chloride (98-107) mmol/L BUN (9-20) mg/dL Glucose (74-99) mg/dL POC Glucose (mg/dL) 133 H (75-99) mg/dL Osmolality (280-301) mosm/kg Plasma Lactic Acid Sameer (0.7-2.0) mmol/L AST (17-59) U/L ALT (4-49) U/L Creatine Kinase (55-170) U/L Urine Protein 1+ H (Negative) Urine Ketones 1+ H (Negative) Urine Blood Moderate H (Negative) Urine RBC 10 H (0-5) /hpf Urine Mucus Rare H (None) /hpf 07/17/21 07/17/21 07/17/21 Range/Units 18:19 18:19 18:24 WBC (3.8-10.6) k/uL Hgb (13.0-17.5) gm/dL Hct (39.0-53.0) % MCV (80.0-100.0) fL MCH (25.0-35.0) pg Neutrophils # (1.3-7.7) k/uL APTT (22.0-30.0) sec Potassium 5.2 H (3.5-5.1) mmol/L Chloride 111 H (98-107) mmol/L BUN 34 H (9-20) mg/dL Glucose 118 H (74-99) mg/dL POC Glucose (mg/dL) (75-99) mg/dL Osmolality 312 H (280-301) mosm/kg Plasma Lactic Acid Sameer 4.3 H* (0.7-2.0) mmol/L AST 215 H (17-59) U/L ALT 64 H (4-49) U/L Creatine Kinase 5921 H* (55-170) U/L Urine Protein (Negative) Urine Ketones (Negative) Urine Blood (Negative) Urine RBC (0-5) /hpf Urine Mucus (None) /hpf 07/18/21 07/18/21 07/18/21 Range/Units 00:34 04:41 05:59 WBC (3.8-10.6) k/uL Hgb (13.0-17.5) gm/dL Hct (39.0-53.0) % MCV (80.0-100.0) fL MCH (25.0-35.0) pg Neutrophils # (1.3-7.7) k/uL APTT 46.1 H 37.3 H (22.0-30.0) sec Potassium (3.5-5.1) mmol/L Chloride (98-107) mmol/L BUN (9-20) mg/dL Glucose (74-99) mg/dL POC Glucose (mg/dL) 103 H (75-99) mg/dL Osmolality (280-301) mosm/kg Plasma Lactic Acid Sameer (0.7-2.0) mmol/L AST (17-59) U/L ALT (4-49) U/L Creatine Kinase (55-170) U/L Urine Protein (Negative) Urine Ketones (Negative) Urine Blood (Negative) Urine RBC (0-5) /hpf Urine Mucus (None) /hpf 07/18/21 Range/Units 05:59 WBC 14.3 H (3.8-10.6) k/uL Hgb (13.0-17.5) gm/dL Hct (39.0-53.0) % MCV 105.7 H (80.0-100.0) fL MCH (25.0-35.0) pg Neutrophils # 12.0 H (1.3-7.7) k/uL APTT (22.0-30.0) sec Potassium (3.5-5.1) mmol/L Chloride (98-107) mmol/L BUN (9-20) mg/dL Glucose (74-99) mg/dL POC Glucose (mg/dL) (75-99) mg/dL Osmolality (280-301) mosm/kg Plasma Lactic Acid Sameer (0.7-2.0) mmol/L AST (17-59) U/L ALT (4-49) U/L Creatine Kinase (55-170) U/L Urine Protein (Negative) Urine Ketones (Negative) Urine Blood (Negative) Urine RBC (0-5) /hpf Urine Mucus (None) /hpf Diabetes panel 07/17/21 Range/Units 18:19 Sodium 142 (137-145) mmol/L Potassium 5.2 H (3.5-5.1) mmol/L Chloride 111 H (98-107) mmol/L Carbon Dioxide 22 (22-30) mmol/L BUN 34 H (9-20) mg/dL Creatinine 1.05 (0.66-1.25) mg/dL Glucose 118 H (74-99) mg/dL Calcium 9.1 (8.4-10.2) mg/dL AST 215 H (17-59) U/L ALT 64 H (4-49) U/L Alkaline Phosphatase 65 (38-126) U/L Total Protein 7.2 (6.3-8.2) g/dL Albumin 4.0 (3.5-5.0) g/dL Calcium panel 07/17/21 Range/Units 18:19 Calcium 9.1 (8.4-10.2) mg/dL Albumin 4.0 (3.5-5.0) g/dL Pituitary panel 07/17/21 Range/Units 18:19 Sodium 142 (137-145) mmol/L Potassium 5.2 H (3.5-5.1) mmol/L Chloride 111 H (98-107) mmol/L Carbon Dioxide 22 (22-30) mmol/L BUN 34 H (9-20) mg/dL Creatinine 1.05 (0.66-1.25) mg/dL Glucose 118 H (74-99) mg/dL Calcium 9.1 (8.4-10.2) mg/dL Adrenal panel 07/17/21 Range/Units 18:19 Sodium 142 (137-145) mmol/L Potassium 5.2 H (3.5-5.1) mmol/L Chloride 111 H (98-107) mmol/L Carbon Dioxide 22 (22-30) mmol/L BUN 34 H (9-20) mg/dL Creatinine 1.05 (0.66-1.25) mg/dL Glucose 118 H (74-99) mg/dL Calcium 9.1 (8.4-10.2) mg/dL Total Bilirubin 1.0 (0.2-1.3) mg/dL AST 215 H (17-59) U/L ALT 64 H (4-49) U/L Alkaline Phosphatase 65 (38-126) U/L Total Protein 7.2 (6.3-8.2) g/dL Albumin 4.0 (3.5-5.0) g/dL Assessment and Plan Assessment: 1. Frostbite with ischemic changes to toes on bilateral feet 2. Altered mental status changes 3. Rhabdomyolysis 4. History of chronic alcohol abuse 5. Tobacco dependent Plan: 1. May discontinue heparin drip 2. Continue ICU management 3. Tobacco cessation 4. Alcohol abstinence 5. There is no indication for any vascular surgical intervention at this time. Thank you for this consultation, and allowing us take part in the plan of care of your patient during his hospital stay. The impression and plan of care has been dictated as directed. Dr. Doss I performed a history and examination of this patient, discussed the same with the dictator. I agree with the dictator's note ,documented as a scribe. Any additional findings or plans will be noted. <Severo Londono - Last Filed: 07/20/21 08:02> Surgical - Exam Osteopathic Statement: *. No significant issues noted on an osteopathic structural exam other than those noted in the History and Physical/Consult. Vital Signs Temp Pulse Resp BP Pulse Ox 99.1 F 98 26 H 177/98 98 07/17/21 18:08 07/17/21 18:08 07/17/21 18:08 07/17/21 18:08 07/17/21 18:08 Patient has palppable DP pulses bilaterally. Feet appear adequately perfused as do all toes save the right great toe, although this toe appears reasonable. No plan for surgical intervention, or need foe anticoagulation. Will reevaluate at your request. Thank you Results - Labs 07/20/21 06:25 07/20/21 06:25 Abnormal Lab Results - Last 24 Hours (Table) 07/19/21 07/19/21 07/19/21 Range/Units 12:45 23:30 23:42 RBC (4.30-5.90) m/uL MCV (80.0-100.0) fL Lymphocytes # (1.0-4.8) k/uL Chloride (98-107) mmol/L POC Glucose (mg/dL) 73 L 61 L 207 H (75-99) mg/dL Calcium (8.4-10.2) mg/dL Delta Bilirubin (0.0-0.2) mg/dL AST (17-59) U/L ALT (4-49) U/L Creatine Kinase (55-170) U/L Total Protein (6.3-8.2) g/dL Albumin (3.5-5.0) g/dL 07/20/21 07/20/21 Range/Units 06:25 06:25 RBC 4.07 L (4.30-5.90) m/uL MCV 104.0 H (80.0-100.0) fL Lymphocytes # 0.8 L (1.0-4.8) k/uL Chloride 119 H (98-107) mmol/L POC Glucose (mg/dL) (75-99) mg/dL Calcium 8.1 L (8.4-10.2) mg/dL Delta Bilirubin 0.4 H (0.0-0.2) mg/dL AST 128 H (17-59) U/L ALT 71 H (4-49) U/L Creatine Kinase 1225 H* (55-170) U/L Total Protein 5.5 L (6.3-8.2) g/dL Albumin 2.9 L (3.5-5.0) g/dL Diabetes panel 07/20/21 Range/Units 06:25 Sodium 144 (137-145) mmol/L Potassium 4.1 (3.5-5.1) mmol/L Chloride 119 H (98-107) mmol/L Carbon Dioxide 22 (22-30) mmol/L BUN 13 (9-20) mg/dL Creatinine 0.69 (0.66-1.25) mg/dL Glucose 94 (74-99) mg/dL Calcium 8.1 L (8.4-10.2) mg/dL AST 128 H (17-59) U/L ALT 71 H (4-49) U/L Alkaline Phosphatase 44 (38-126) U/L Total Protein 5.5 L (6.3-8.2) g/dL Albumin 2.9 L (3.5-5.0) g/dL Calcium panel 07/20/21 Range/Units 06:25 Calcium 8.1 L (8.4-10.2) mg/dL Albumin 2.9 L (3.5-5.0) g/dL Pituitary panel 07/20/21 Range/Units 06:25 Sodium 144 (137-145) mmol/L Potassium 4.1 (3.5-5.1) mmol/L Chloride 119 H (98-107) mmol/L Carbon Dioxide 22 (22-30) mmol/L BUN 13 (9-20) mg/dL Creatinine 0.69 (0.66-1.25) mg/dL Glucose 94 (74-99) mg/dL Calcium 8.1 L (8.4-10.2) mg/dL Adrenal panel 07/20/21 Range/Units 06:25 Sodium 144 (137-145) mmol/L Potassium 4.1 (3.5-5.1) mmol/L Chloride 119 H (98-107) mmol/L Carbon Dioxide 22 (22-30) mmol/L BUN 13 (9-20) mg/dL Creatinine 0.69 (0.66-1.25) mg/dL Glucose 94 (74-99) mg/dL Calcium 8.1 L (8.4-10.2) mg/dL Total Bilirubin 1.2 (0.2-1.3) mg/dL AST 128 H (17-59) U/L ALT 71 H (4-49) U/L Alkaline Phosphatase 44 (38-126) U/L Total Protein 5.5 L (6.3-8.2) g/dL Albumin 2.9 L (3.5-5.0) g/dL
[2021-07-18 13:01] LABS: Glucose,Whole Blood 92 mg/dL (75-99)
--- NOTE | 2021-07-18 16:25 | EEG ---
ELECTROENCEPHALOGRAM REPORT DATE OF SERVICE: 07/18/2021. PREAMBLE: This is a 66-year-old male with altered mental status. This study is performed to evaluate for any epileptiform activity. EEG FINDINGS: This is a 21-channel digital EEG recorded with video competent, utilizing 10/20 international system with referential and bipolar montages. Background consists of moderately well-developed and regulated, predominantly low to moderate amplitude 7 hertz activity seen best in posterior head region. Patient was drowsy almost throughout the study. Well formed awake pattern not seen in the entire study. Photic driving response was not seen. Deeper stages of sleep were not seen. Rare left temporal sharp-appearing waves were seen. IMPRESSION: This is a mildly abnormal EEG because of mild background slowing. This is suggestive of generalized cerebral dysfunction as can be seen with encephalopathy of metabolic, vascular or degenerative etiology. Rare left temporal sharply contoured waves were seen. As these were not seen frequently during the study, therefore, they have to be interpreted with caution. If your suspicion for seizures is high, consider prolonged EEG. MMODL / ROBERTON: [id number] / TRAVIS
[2021-07-18 17:54] LABS: Glucose,Whole Blood 96 mg/dL (75-99)
[2021-07-18] MEDS: HEPARIN SODIUM,PORCINE/PF 5,000 UNIT/0.5 ML SYRINGE SQ SCH (20:56)
[2021-07-18 23:21] LABS: Glucose,Whole Blood 82 mg/dL (75-99)
[2021-07-19] MEDS: THIAMINE 100 MG TAB PO SCH ×2 (03:53→17:35)
[2021-07-19 06:07] LABS: Glucose,Whole Blood 80 mg/dL (75-99)
[2021-07-19] MEDS: SODIUM CHLORIDE 0.9% 1,000 ML IV SCH ×2 (06:58→17:35)
[2021-07-19 07:21] LABS: Basophils % (A) 0 %; Eosinophils % (A) 0 %; HCT 44.2 % (39.0-53.0); HGB 14.6 gm/dL (13.0-17.5); Lymphocytes # (A) 1.4 k/uL (1.0-4.8); Lymphocytes % (A) 14 %; MCH 35.2 pg (25.0-35.0); MCHC 33.1 g/dL (31.0-37.0); MCV 106.3 fL (80.0-100.0); Macrocytosis Slight; Mean Platelet Volume 8.1; Monocytes # (A) 0.7 k/uL (0-1.0); Monocytes % (A) 7 %; Neutrophils # (A) 7.9 k/uL (1.3-7.7); Neutrophils % (A) 78 %; Platelet Count 144 k/uL (150-450); RBC 4.16 m/uL (4.30-5.90); RDW 12.2 % (11.5-15.5); WBC 10.1 k/uL (3.8-10.6)
[2021-07-19 07:35] LABS: ALT 61 U/L (4-49); AST 160 U/L (17-59); African American GFR (CKD) >90 (>60 ml/min/1.73 sqM); Alkaline Phosphatase 44 U/L (38-126); Anion Gap 4 mmol/L; Bilirubin, Delta 0.4 mg/dL (0.0-0.2); Bilirubin,Unconjugated 0.7 mg/dL (0.0-1.1); Blood Urea Nitrogen 14 mg/dL (9-20); Calcium 8.1 mg/dL (8.4-10.2); Carbon Dioxide 20 mmol/L (22-30); Chloride 118 mmol/L (98-107); Glucose 84 mg/dL (74-99); Magnesium 2.4 mg/dL (1.6-2.3); Non-African American GFR(CKD) >90 (>60 ml/min/1.73 sqM); Potassium 4.1 mmol/L (3.5-5.1); Sodium 142 mmol/L (137-145); Total Bilirubin 1.1 mg/dL (0.2-1.3); Total Protein 5.7 g/dL (6.3-8.2)
[2021-07-19 07:54] LABS: Creatine Kinase 2840 U/L (55-170)
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
--- NOTE | 2021-07-19 09:30 | US ---
EXAMINATION TYPE: US carotid duplex BILAT DATE OF EXAM: 07/19/2021 COMPARISON: NONE CLINICAL HISTORY: AMS, unresponsive. ICU patient unable to follow directions for head position as was unresponsive at exam onset; frostbite to toes bilaterally. EXAM MEASUREMENTS: Limited US exam as patient unable to follow directions, limited neck access for US probe placement and patient has high bifurcation bilaterally. RIGHT: Peak Systolic Velocity (PSV) cm/sec ----- Right CCA: 60.7 ----- Right ICA: 54.0 ----- Right ECA: 90.0 ICA/CCA ratio: 0.9 RIGHT: End Diastole cm/sec ----- Right CCA: 10.4 ----- Right ICA: 13.0 ----- Right ECA: 5.7 LEFT: Peak Systolic Velocity (PSV) cm/sec ----- Left CCA: 91.1 ----- Left ICA: 109.6 ----- Left ECA: 48.8 ICA/CCA ratio: 1.2 LEFT: End Diastole cm/sec ----- Left CCA: 17.1 ----- Left ICA: 39.5 ----- Left ECA: 13.1 VERTEBRALS (direction of flow): Right Vertebral: Antegrade Left Vertebral: Antegrade Rhythm: Arrhythmia noted on image #[id number] as heard by US technologist. Mild to moderate mixed wall plaque is noted at bilateral carotid bifurcation and PSV is wnl, bilatera lly. IMPRESSION: Mild calcified plaque in the carotid bifurcations bilaterally but no significant stenosi s. Criteria for Assigning % of Stenosis / Diameter reduction (Estimation based on the indirect measurements of the internal carotid artery velocities (ICA PSV). 1. Normal (no stenosis)=ICA PSV < 125 cm/s: ratio < 2.0: ICA EDV<40 cm/s. 2. Less than 50% stenosis=ICA PSV < 125 cm/s: ratio < 2.0: ICA EDV<40 cm/s. 3. 50 to 69% stenosis=ICA PSV of 125 to 230 cm/s: ration 2.0 ? 4.0: ICA EDV 40-100 cm/s. 4. Greater than 70% stenosis to near occlusion= ICA PSV > 230 cm/s: ratio > 4.0: ICA EDV > 100 cm/s. 5. Near occlusion= ICA PSV velocities may be low or undetectable: variable ratio and ICA EDV. 6. Total occlusion=unable to detect flow.
[2021-07-19] MEDS: HEPARIN SODIUM,PORCINE/PF 5,000 UNIT/0.5 ML SYRINGE SQ SCH ×2 (10:01→20:03)
[2021-07-19] MEDS: FAMOTIDINE 20 MG/2 ML VIAL IV SCH ×2 (10:02→20:04)
[2021-07-19] MEDS: HALOPERIDOL LACTATE 5 MG/ML 1 ML VIAL IVP PRN ×2 (12:14→20:45)
--- NOTE | 2021-07-19 12:32 | P.PN ---
Subjective Progress Note Date: 07/19/21 Principal diagnosis: Mental status changes. Pulmonary consult dated 07/18/2021. 66-year-old male with a history of alcohol abuse, and chronic tobacco use, who apparently was found in his pickup truck by his family, unresponsive. He was brought into the emergency room, by EMS. The patient was noted to be incontinent of urine and stool. He had a rectal temperature 90.9F. There are no external signs of trauma. The patient did have significant frostbite and cold injury to his feet bilaterally. His toes were blue/black. The patient was admitted to the intensive care unit for further monitoring and management. Vascular surgery was consulted. The patient's currently on 4 L nasal cannula. He is getting heparin via weightbase protocol. He's also on saline at 100 mL an hour not much is known about his past medical history or any medications that he was on. He apparently does have an ALLERGY to penicillin. The patient was quite lethargic and somnolent. White count was 14.3, he will been 15.3, hematocrit 48.1, and platelet count was normal. PTT was 37.3. Sodium 141, potassium 4.4, chlorides 119, CO2 20, anion gap 2, UN 22, and creatinine 0.79. AST was 139 with an ALT of 50. Creatine kinase was 3882, and yesterday was 5921. Urine was negative for infection. Drug screen was negative. Testing for coronavirus was negative. All x-rays were negative. Progress note dated 07/19/2021. 66-year-old male seen in consultation yesterday, July 18. The patient has a history of alcohol and tobacco abuse, he apparently was found in his pickup truck by his family, unresponsive. He was brought to the emergency room by EMS. Currently, the patient's on 2 L nasal cannula, and saline at 100 mL an hour. He is getting when necessary Ativan, when necessary morphine, and I just ordered Haldol for agitation. The patient had significant frostbite and cold injury to his feet and toes bilaterally. Current laboratory data includes a white count 10.1, hemoglobin 14.6, hematocrit 44.2, and platelet count 144,000. Sodium 142, potassium 4.1, chlorides 118, CO2 20, anion gap 4, BUN 14, and creatinine 0.72. Calcium 8.1. CK was 2840. Objective - Vital Signs Vital signs: Vital Signs Temp 98.6 F 07/19/21 12:00 Pulse 77 07/19/21 12:00 Resp 11 L 07/19/21 12:00 BP 152/92 07/19/21 12:00 Pulse Ox 98 07/19/21 12:00 Intake & Output 07/18/21 07/19/21 07/19/21 18:59 06:59 18:59 Intake Total 1284.075 3767 600 Output Total 1120 825 525 Balance 282.674 275 75 Weight 73.3 kg Intake: IV 1360 1100 600 Sodium Chloride 0.9% 1, 500 600 000 ml @ 100 mls/hr IV . Q10H [facility] Rx#:[id number] Sodium Chloride 0.9% 1, 1360 600 000 ml @ 130 mls/hr IV . Q7H42M [facility] Rx#:[id number] Intake, IV Titration 42.674 Amount Heparin Sod,Pork in 0.45% 42.674 NaCl 25,000 unit In 0.45 % NaCl 1 250ml.bag @ 12 UNITS/KG/HR 8.709 mls/hr IV .Q24H [facility] Rx#: [id number] Output: Urine 1120 825 525 Other: Voiding Method Indwelling Catheter Indwelling Catheter Indwelling Catheter - Exam No acute distress, poorly responsive, currently on 2 L nasal cannula. Saturations are 98%. HEENT examination is grossly unremarkable. Neck supple. Full range of motion. No adenopathy thyromegaly or neck vein distention. Cardiovascular examination reveals regular rhythm rate. S1-S2 normal. No S3 or S4. No discernible murmur noted. Heart rate 77 bpm. Lungs reveal clear breath sounds. Breath sounds are equal bilaterally. No adventitious lung sounds including wheezes rhonchi or crackles. Abdomen soft bowel sounds are heard. No masses or tenderness. Extremities reveal cyanotic/dark toes bilaterally. Feet are wrapped. Left foot is worse than the right. Skin is without rash or lesion, except as above. Neurologic examination reveals a very poorly responsive, lethargic/somnolent male patient. - Labs CBC & Chem 7: 07/19/21 06:39 07/19/21 06:39 Labs: Abnormal Lab Results - Last 24 Hours (Table) 07/18/21 07/19/21 07/19/21 Range/Units 05:59 06:39 06:39 RBC 4.16 L (4.30-5.90) m/uL MCV 106.3 H (80.0-100.0) fL MCH 35.2 H (25.0-35.0) pg Plt Count 144 L (150-450) k/uL Neutrophils # 7.9 H (1.3-7.7) k/uL Chloride 118 H (98-107) mmol/L Carbon Dioxide 20 L (22-30) mmol/L Calcium 8.1 L (8.4-10.2) mg/dL Magnesium 2.4 H (1.6-2.3) mg/dL Delta Bilirubin 0.4 H (0.0-0.2) mg/dL AST 160 H (17-59) U/L ALT 61 H (4-49) U/L Creatine Kinase 2840 H* (55-170) U/L Total Protein 5.7 L (6.3-8.2) g/dL Albumin 3.0 L (3.5-5.0) g/dL Procalcitonin 0.14 H (0.02-0.09) ng/mL Assessment and Plan Assessment: Acute mental status changes, of unclear etiology. Brain CT was negative for any acute process. Significant cold injury/frostbite to the patient's bilateral feet and toes. Moderate rhabdomyolysis. History of chronic alcohol abuse. History of chronic tobacco use. Plan: Plan dated 07/18/2021. The patient is poorly responsive. We'll make sure that we discontinue all narcotics and sedatives and benzodiazepines. Currently as per vascular surgery, the patient's on IV heparin. Will continue on IV fluids at 100 mL an hour. Drug screen was negative. Is getting nasal O2 at 4 L. Additional recommendations and suggestions are forthcoming. Prognosis is guarded. We will continue to follow make recommendations where appropriate. Plan dated 07/19/2021. The patient still poorly responsive. The patient's brain CT did not show an ything acute. EEG showed diffuse slowing consistent with metabolic/toxic encephalopathy. Patient is getting narcotics and benzodiazepines only as needed. I did add some Haldol for agitation. The patient's O2 is at 2 L. Labs are reviewed. Medications reviewed. We will continue to follow make r ecommendations were appropriate. The patient is not quite ready to leave the intensive care unit as I believe the agitation will be too much to handle for a floor nurse. Time with Patient: Less than 30
[2021-07-19] MEDS: MORPHINE SULFATE 4 MG/ML SYRINGE IV PRN ×4 (12:39→23:25)
[2021-07-19 12:47] LABS: Glucose,Whole Blood 73 mg/dL (75-99)
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
[2021-07-19 19:11] LABS: Glucose,Whole Blood 79 mg/dL (75-99)
--- NOTE | 2021-07-19 20:16 | P.PN ---
Subjective This is a pleasant 66 years old male with unknown past medical history presents because of altered mental status where he was found unresponsive in his truck bed family member. As per report. He was seen doing well about 2 days ago. Patient was found with no evidence of trauma, incontinence of urine and stool. And he was hypothermic on admission with a rectal temperature of 99F. He was warmed using of the fluids. Patient found to have bilateral dusky heat suspicious for hypothermic injury. Also there was some evidence of rhabdomyolysis, lactic acidosis and dehydration and he was admitted to the intensive care unit. When I saw the patient in the ICU he was sleepy, does not wake up to verbal or tactile stimuli however he withdrawal for patient's to light. He has some deep breathing. Both feet are in dressing. Patient could not provide information. We checked him after couple hours distal clip waking up so it allowed to consult neurology service Currently vital signs stable, his temperature went up last night to 98.1-99.1. Showing mild leukocytosis. Hemoglobin is elevated 18.2, platelet 164. Carbon dioxide is 1.1, which is within the reference range. Elevated lactic acid 4.3 came back to 1.4. Elevated creatinine kinase 5921 Creatinine 1.0, potassium 5.2, liver enzymes slightly elevated with AST 215 and ALT 64. Troponin is negative at 0.014. Ammonia is negative less than 9. High serum osmolality of 312. Urine analysis showing 1+ protein, 1+ ketone, no solid evidence of infection. Urine drug screen is negative, salicylate less than 1, acetaminophen less than 10 and serum alcohol less than 10 Coronavirus nondetected. EKG showing normal sinus rhythm with incomplete right bundle branch block and left posterior fascicular block and QTC 455, no significant ST-T changes Q Chest x-ray showing no acute process. CT of the brain: No acute process CT of the cervical spine: No acute fracture or dislocation In the emergency room patient was started on IV fluids, IV heparin and started on CIWA protocol for suspicion alcohol abuse 07/19/2021 Patient still confused although he opens his eyes spontaneously but he does not answer questions he does not follow commands. Hemodynamically and labs are stable. Leukocytosis improved. Liver enzymes still mildly elevated. Creatinine kinase trending down while he continues on IV fluids. She still have bluish discoloration of the right toes especially the right big toe while the left toes there are dusky pink and lukewarm compelled more called on the right side. Vascular surgery on the case and they went further rewarming and resolution before they decide before any surgical intervention. He remains on CIWA protocol and thiamine normal saline at 100 mL per hour. H aldol as needed for agitation. EEG showing mildly abnormal digital cerebral dysfunction. No evidence of epileptiform discharge. Neurology on the case. MRI of the brain is pending. While carotid Doppler's reported as negative today. Objective - Vital Signs Vital signs: Vital Signs Temp 98.6 F 07/19/21 12:00 Pulse 77 07/19/21 12:00 Resp 11 L 07/19/21 12:00 BP 152/92 07/19/21 12:00 Pulse Ox 98 07/19/21 12:00 Intake & Output 07/18/21 07/19/21 07/19/21 18:59 06:59 18:59 Intake Total 8596.273 0837 600 Output Total 1120 825 525 Balance 282.674 275 75 Weight 73.3 kg Intake: IV 1360 1100 600 Sodium Chloride 0.9% 1, 500 600 000 ml @ 100 mls/hr IV . Q10H [facility] Rx#:[id number] Sodium Chloride 0.9% 1, 1360 600 000 ml @ 130 mls/hr IV . Q7H42M [facility] Rx#:[id number] Intake, IV Titration 42.674 Amount Heparin Sod,Pork in 0.45% 42.674 NaCl 25,000 unit In 0.45 % NaCl 1 250ml.bag @ 12 UNITS/KG/HR 8.709 mls/hr IV .Q24H [facility] Rx#: [id number] Output: Urine 1120 825 525 Other: Voiding Method Indwelling Catheter Indwelling Catheter Indwelling Catheter - Exam -GENERAL: The patient open eyes spontaneously, does not follow commands, does not talk. HEENT: Pupils are round and equally reacting to light. EOMI. No scleral icterus. No conjunctival pallor. Normocephalic, atraumatic. No pharyngeal erythema. No thyromegaly. CARDIOVASCULAR: S1 and S2 present. No murmurs, rubs, or gallops. PULMONARY: Chest is clear to auscultation, no wheezing or crackles. ABDOMEN: Soft, nontender, nondistended, normoactive bowel sounds. No palpable organomegaly. MUSCULOSKELETAL: No joint swelling or deformity. -XTREMITIES: No cyanosis, clubbing, or pedal edema. Right big toe is black, where the left big toe is dusky in color. Both feet are somewhat pinkish in color NEUROLOGICAL: Gross neurological examination did not reveal any focal deficits. SKIN: No rashes. No petechiae - Labs CBC & Chem 7: 07/19/21 06:39 07/19/21 06:39 Labs: Abnormal Lab Results - Last 24 Hours (Table) 07/18/21 07/19/21 07/19/21 Range/Units 05:59 06:39 06:39 RBC 4.16 L (4.30-5.90) m/uL MCV 106.3 H (80.0-100.0) fL MCH 35.2 H (25.0-35.0) pg Plt Count 144 L (150-450) k/uL Neutrophils # 7.9 H (1.3-7.7) k/uL Chloride 118 H (98-107) mmol/L Carbon Dioxide 20 L (22-30) mmol/L POC Glucose (mg/dL) (75-99) mg/dL Calcium 8.1 L (8.4-10.2) mg/dL Magnesium 2.4 H (1.6-2.3) mg/dL Delta Bilirubin 0.4 H (0.0-0.2) mg/dL AST 160 H (17-59) U/L ALT 61 H (4-49) U/L Creatine Kinase 2840 H* (55-170) U/L Total Protein 5.7 L (6.3-8.2) g/dL Albumin 3.0 L (3.5-5.0) g/dL Procalcitonin 0.14 H (0.02-0.09) ng/mL 07/19/21 Range/Units 12:45 RBC (4.30-5.90) m/uL MCV (80.0-100.0) fL MCH (25.0-35.0) pg Plt Count (150-450) k/uL Neutrophils # (1.3-7.7) k/uL Chloride (98-107) mmol/L Carbon Dioxide (22-30) mmol/L POC Glucose (mg/dL) 73 L (75-99) mg/dL Calcium (8.4-10.2) mg/dL Magnesium (1.6-2.3) mg/dL Delta Bilirubin (0.0-0.2) mg/dL AST (17-59) U/L ALT (4-49) U/L Creatine Kinase (55-170) U/L Total Protein (6.3-8.2) g/dL Albumin (3.5-5.0) g/dL Procalcitonin (0.02-0.09) ng/mL Assessment and Plan Assessment: Altered mental status most likely metabolic encephalopathy. Ruled out intracranial lesions Possible frostbite with hypothermic feet injury, patient was hypothermic on arrival Rhabdomyolysis Lactic acidosis, resolved Dehydration Mildly elevated liver enzymes Suspected history of alcohol abuse Plan: This is a pleasant 66 years old male who presents with AMS, hyperthermia and possible frostbite of the feet and up to my lysis. Continue with IV fluid Repeat electrolytes Neurology consult Vascular surgery and pulmonary/critical care team consult Labs and medication were reviewed.. Continue same treatment. Continue with symptomatic treatment. Resume home medication. Monitor lytes and vitals. DVT and GI prophylaxis. Further recommendations depends on the clinical course of the patient DVT prophylaxis: heparin GI Prophylaxis: Pepcid PT/OT: Pending Prognosis is guarded
[2021-07-19 23:31] LABS: Glucose,Whole Blood 61 mg/dL (75-99)
[2021-07-19] MEDS ORDERED: DEXTROSE 50% SYRINGE 50 ML IVP ONE (23:32)
[2021-07-19 23:43] LABS: Glucose,Whole Blood 207 mg/dL (75-99)
[2021-07-20] MEDS: HALOPERIDOL LACTATE 5 MG/ML 1 ML VIAL IVP PRN ×3 (00:28→19:14)
[2021-07-20] MEDS: THIAMINE 100 MG TAB PO SCH ×2 (03:57→13:55)
[2021-07-20] MEDS: SODIUM CHLORIDE 0.9% 1,000 ML IV SCH ×3 (03:57→20:52)
[2021-07-20 05:34] LABS: Glucose,Whole Blood 83 mg/dL (75-99)
[2021-07-20] MEDS: MORPHINE SULFATE 4 MG/ML SYRINGE IV PRN ×2 (05:52→13:18)
[2021-07-20 06:58] LABS: Basophils % (A) 0 %; Eosinophils % (A) 0 %; HCT 42.4 % (39.0-53.0); HGB 13.8 gm/dL (13.0-17.5); Lymphocytes # (A) 0.8 k/uL (1.0-4.8); Lymphocytes % (A) 10 %; MCH 33.9 pg (25.0-35.0); MCHC 32.6 g/dL (31.0-37.0); Macrocytosis Slight; Mean Platelet Volume 7.9; Monocytes # (A) 0.3 k/uL (0-1.0); Monocytes % (A) 4 %; Neutrophils # (A) 6.4 k/uL (1.3-7.7); Neutrophils % (A) 85 %; Platelet Count 160 k/uL (150-450); RBC 4.07 m/uL (4.30-5.90); RDW 12.6 % (11.5-15.5); WBC 7.5 k/uL (3.8-10.6)
[2021-07-20 07:20] LABS: ALT 71 U/L (4-49); AST 128 U/L (17-59); African American GFR (CKD) >90 (>60 ml/min/1.73 sqM); Albumin 2.9 g/dL (3.5-5.0); Alkaline Phosphatase 44 U/L (38-126); Anion Gap 3 mmol/L; Bilirubin, Delta 0.4 mg/dL (0.0-0.2); Bilirubin,Unconjugated 0.8 mg/dL (0.0-1.1); Blood Urea Nitrogen 13 mg/dL (9-20); Calcium 8.1 mg/dL (8.4-10.2); Carbon Dioxide 22 mmol/L (22-30); Chloride 119 mmol/L (98-107); Glucose 94 mg/dL (74-99); Non-African American GFR(CKD) >90 (>60 ml/min/1.73 sqM); Potassium 4.1 mmol/L (3.5-5.1); Sodium 144 mmol/L (137-145); Total Bilirubin 1.2 mg/dL (0.2-1.3); Total Protein 5.5 g/dL (6.3-8.2)
[2021-07-20 07:24] LABS: Creatine Kinase 1225 U/L (55-170)
[2021-07-20] MEDS: FAMOTIDINE 20 MG/2 ML VIAL IV SCH ×2 (09:30→20:51)
[2021-07-20] MEDS: HEPARIN SODIUM,PORCINE/PF 5,000 UNIT/0.5 ML SYRINGE SQ SCH ×2 (09:30→20:51)
--- NOTE | 2021-07-20 13:14 | P.PN ---
Subjective Progress Note Date: 07/20/21 Principal diagnosis: Mental status changes. Pulmonary consult dated 07/18/2021. 66-year-old male with a history of alcohol abuse, and chronic tobacco use, who apparently was found in his pickup truck by his family, unresponsive. He was brought into the emergency room, by EMS. The patient was noted to be incontinent of urine and stool. He had a rectal temperature 90.9F. There are no external signs of trauma. The patient did have significant frostbite and cold injury to his feet bilaterally. His toes were blue/black. The patient was admitted to the intensive care unit for further monitoring and management. Vascular surgery was consulted. The patient's currently on 4 L nasal cannula. He is getting heparin via weightbase protocol. He's also on saline at 100 mL an hour not much is known about his past medical history or any medications that he was on. He apparently does have an ALLERGY to penicillin. The patient was quite lethargic and somnolent. White count was 14.3, he will been 15.3, hematocrit 48.1, and platelet count was normal. PTT was 37.3. Sodium 141, potassium 4.4, chlorides 119, CO2 20, anion gap 2, UN 22, and creatinine 0.79. AST was 139 with an ALT of 50. Creatine kinase was 3882, and yesterday was 5921. Urine was negative for infection. Drug screen was negative. Testing for coronavirus was negative. All x-rays were negative. Progress note dated 07/19/2021. 66-year-old male seen in consultation yesterday, July 18. The patient has a history of alcohol and tobacco abuse, he apparently was found in his pickup truck by his family, unresponsive. He was brought to the emergency room by EMS. Currently, the patient's on 2 L nasal cannula, and saline at 100 mL an hour. He is getting when necessary Ativan, when necessary morphine, and I just ordered Haldol for agitation. The patient had significant frostbite and cold injury to his feet and toes bilaterally. Current laboratory data includes a white count 10.1, hemoglobin 14.6, hematocrit 44.2, and platelet count 144,000. Sodium 142, potassium 4.1, chlorides 118, CO2 20, anion gap 4, BUN 14, and creatinine 0.72. Calcium 8.1. CK was 2840. Progress note dated 07/20/2021. 66-year-old male, seen in consultation on 07/18/2021. The patient has a history of alcohol and tobacco abuse. He apparently was found in his pickup truck, by his family, unresponsive. He was brought to the emergency room by EMS. Currently, the patient's on 2 L nasal cannula. The patient's getting saline 100 mL an hour. The patient is still quite lethargic and somnolent. He does arouse. He has been getting periodic Ativan, morphine, and Haldol. The patient sustained a significant frostbite injury and cold injury to his feet and toes bilaterally, more so on the right foot than on the left. Current white count is 7.5, hemoglobin 13.8, hematocrit 42.4, and platelet count 160,000. Sodium 144, potassium 4.1, chlorides 119, CO2 22, anion gap 3, BUN 13, and creatinine 0.69. Creatine kinase was 1225. ALT was 71 with an AST of 128. Objective - Vital Signs Vital signs: Vital Signs Temp 97.7 F 07/20/21 04:41 Pulse 60 07/20/21 04:41 Resp 18 07/20/21 04:41 BP 120/70 07/20/21 04:41 Pulse Ox 96 07/20/21 04:41 Intake & Output 07/19/21 07/20/21 07/20/21 18:59 06:59 18:59 Intake Total 1200 1100 500 Output Total 975 705 315 Balance 225 395 185 Intake: IV 1200 1100 500 Sodium Chloride 0.9% 1, 1200 1100 500 000 ml @ 100 mls/hr IV . Q10H [facility] Rx#:[id number] Oral 0 Output: Urine 975 705 315 Other: Voiding Method Indwelling Catheter Indwelling Catheter Indwelling Catheter - Exam No acute distress, poorly responsive, currently on 2 L nasal cannula. Saturations are 96%. HEENT examination is grossly unremarkable. Neck supple. Full range of motion. No adenopathy thyromegaly or neck vein distention. Cardiovascular examination reveals regular rhythm rate. S1-S2 normal. No S3 or S4. No discernible murmur noted. Heart rate 65 bpm. Heart sounds are distant. Lungs reveal clear breath sounds. Breath sounds are equal bilaterally. No adventitious lung sounds including wheezes rhonchi or crackles. Abdomen soft bowel sounds are heard. No masses or tenderness. Extremities reveal cyanotic/dark toes bilaterally. Feet are wrapped. Right foot is worse than the left. Skin is without rash or lesion, except as above. Neurologic examination reveals a very poorly responsive, lethargic/somnolent male patient. - Labs CBC & Chem 7: 07/20/21 06:25 07/20/21 06:25 Labs: Abnormal Lab Results - Last 24 Hours (Table) 07/19/21 07/19/21 07/20/21 Range/Units 23:30 23:42 06:25 RBC 4.07 L (4.30-5.90) m/uL MCV 104.0 H (80.0-100.0) fL Lymphocytes # 0.8 L (1.0-4.8) k/uL Chloride (98-107) mmol/L POC Glucose (mg/dL) 61 L 207 H (75-99) mg/dL Calcium (8.4-10.2) mg/dL Delta Bilirubin (0.0-0.2) mg/dL AST (17-59) U/L ALT (4-49) U/L Creatine Kinase (55-170) U/L Total Protein (6.3-8.2) g/dL Albumin (3.5-5.0) g/dL 07/20/21 Range/Units 06:25 RBC (4.30-5.90) m/uL MCV (80.0-100.0) fL Lymphocytes # (1.0-4.8) k/uL Chloride 119 H (98-107) mmol/L POC Glucose (mg/dL) (75-99) mg/dL Calcium 8.1 L (8.4-10.2) mg/dL Delta Bilirubin 0.4 H (0.0-0.2) mg/dL AST 128 H (17-59) U/L ALT 71 H (4-49) U/L Creatine Kinase 1225 H* (55-170) U/L Total Protein 5.5 L (6.3-8.2) g/dL Albumin 2.9 L (3.5-5.0) g/dL Assessment and Plan Assessment: Acute mental status changes/encephalopathy, of unclear etiology. Brain CT was negative for any acute process. Significant cold injury/frostbite to the patient's bilateral feet and toes. Moderate rhabdomyolysis. History of chronic alcohol abuse. History of chronic tobacco use. Plan: Plan dated 07/18/2021. The patient is poorly responsive. We'll make sure that we discontinue all narcotics and sedatives and benzodiazepines. Currently as per vascular surgery, the patient's on IV heparin. Will continue on IV fluids at 100 mL an hour. Drug screen was negative. Is getting nasal O2 at 4 L. Additional recommendations and suggestions are forthcoming. Prognosis is guarded. We will continue to follow make recommendations where appropriate. Plan dated 07/19/2021. The patient still poorly responsive. The patient's brain CT did not show anything acute. EEG showed diffuse slowing consistent with metabolic/toxic en cephalopathy. Patient is getting narcotics and benzodiazepines only as needed. I did add some Haldol for agitation. The patient's O2 is at 2 L. Labs are reviewed. Medications reviewed. We will continue to follow make recommendations were appropriate. The patient is not quite ready to leave the intensive care unit as I believe the agitation will be too much to handle for a floor nurse. Plan dated 07/20/2021. The patient is still poorly responsive. Brain CT did not show anything acute. The EEG showed slowing consistent with metabolic/toxic encephalopathy. The patient is getting narcotics, so that his pains, and Haldol, only as needed. The patient's currently on 2 L nasal cannula. His respiratory status is stable. The patient becomes agitated from time to time. I believe he would be too hard to handle on the general medical floor. The patient will stay in the intensive care unit for the time being. Prognosis is guarded. Time with Patient: Greater than 30
[2021-07-20 13:41] LABS: Glucose,Whole Blood 79 mg/dL (75-99)
--- NOTE | 2021-07-20 20:55 | P.PN ---
Subjective This is a pleasant 66 years old male with unknown past medical history presents because of altered mental status where he was found unresponsive in his truck bed family member. As per report. He was seen doing well about 2 days ago. Patient was found with no evidence of trauma, incontinence of urine and stool. And he was hypothermic on admission with a rectal temperature of 99F. He was warmed using of the fluids. Patient found to have bilateral dusky heat suspicious for hypothermic injury. Also there was some evidence of rhabdomyolysis, lactic acidosis and dehydration and he was admitted to the intensive care unit. When I saw the patient in the ICU he was sleepy, does not wake up to verbal or tactile stimuli however he withdrawal for patient's to light. He has some deep breathing. Both feet are in dressing. Patient could not provide information. We checked him after couple hours distal clip waking up so it allowed to consult neurology service Currently vital signs stable, his temperature went up last night to 98.1-99.1. Showing mild leukocytosis. Hemoglobin is elevated 18.2, platelet 164. Carbon dioxide is 1.1, which is within the reference range. Elevated lactic acid 4.3 came back to 1.4. Elevated creatinine kinase 5921 Creatinine 1.0, potassium 5.2, liver enzymes slightly elevated with AST 215 and ALT 64. Troponin is negative at 0.014. Ammonia is negative less than 9. High serum osmolality of 312. Urine analysis showing 1+ protein, 1+ ketone, no solid evidence of infection. Urine drug screen is negative, salicylate less than 1, acetaminophen less than 10 and serum alcohol less than 10 Coronavirus nondetected. EKG showing normal sinus rhythm with incomplete right bundle branch block and left posterior fascicular block and QTC 455, no significant ST-T changes Q Chest x-ray showing no acute process. CT of the brain: No acute process CT of the cervical spine: No acute fracture or dislocation In the emergency room patient was started on IV fluids, IV heparin and started on CIWA protocol for suspicion alcohol abuse 07/19/2021 Patient still confused although he opens his eyes spontaneously but he does not answer questions he does not follow commands. Hemodynamically and labs are stable. Leukocytosis improved. Liver enzymes still mildly elevated. Creatinine kinase trending down while he continues on IV fluids. She still have bluish discoloration of the right toes especially the right big toe while the left toes there are dusky pink and lukewarm compelled more called on the right side. Vascular surgery on the case and they went further rewarming and resolution before they decide before any surgical intervention. He remains on CIWA protocol and thiamine normal saline at 100 mL per hour. H aldol as needed for agitation. EEG showing mildly abnormal digital cerebral dysfunction. No evidence of epileptiform discharge. Neurology on the case. MRI of the brain is pending. While carotid Doppler's reported as negative today. 07/20/2021 Patient is seen and examined today in the ICU Patient did not show much progress regarding his mentation, he still opens his eyes spontaneously but other than that he is unresponsive and does not talk are not follow commands. He does not look in distress. His EEG showing general cerebral dysfunction and neurology on the case recommended MRI of the brain which is pending now. Carotid Doppler's is negative. Vascular surgery also on the case and following him for his right toes hypothermic injury medially on the right big toe. He kept on IV fluid normal saline 100 mL per hour and his creatinine kinase trending down today 1225, liver enzymes slightly less today. Objective - Vital Signs Vital signs: Vital Signs Temp 97.7 F 07/20/21 04:41 Pulse 60 07/20/21 04:41 Resp 18 07/20/21 04:41 BP 120/70 07/20/21 04:41 Pulse Ox 96 07/20/21 04:41 Intake & Output 07/19/21 07/20/21 07/20/21 18:59 06:59 18:59 Intake Total 1200 1100 400 Output Total 975 705 240 Balance 225 395 160 Intake: IV 1200 1100 400 Sodium Chloride 0.9% 1, 1200 1100 400 000 ml @ 100 mls/hr IV . Q10H [facility] Rx#:[id number] Oral 0 Output: Urine 975 705 240 Other: Voiding Method Indwelling Catheter Indwelling Catheter Indwelling Catheter - Exam -GENERAL: The patient open eyes spontaneously, does not follow commands, does not talk. HEENT: Pupils are round and equally reacting to light. EOMI. No scleral icterus. No conjunctival pallor. Normocephalic, atraumatic. No pharyngeal erythema. No thyromegaly. CARDIOVASCULAR: S1 and S2 present. No murmurs, rubs, or gallops. PULMONARY: Chest is clear to auscultation, no wheezing or crackles. ABDOMEN: Soft, nontender, nondistended, normoactive bowel sounds. No palpable organomegaly. MUSCULOSKELETAL: No joint swelling or deformity. -XTREMITIES: No cyanosis, clubbing, or pedal edema. Right big toe is black, where the left big toe is dusky in color. Both feet are somewhat pinkish in color NEUROLOGICAL: Gross neurological examination did not reveal any focal deficits. SKIN: No rashes. No petechiae - Labs CBC & Chem 7: 07/20/21 06:25 07/20/21 06:25 Labs: Abnormal Lab Results - Last 24 Hours (Table) 07/19/21 07/19/21 07/19/21 Range/Units 12:45 23:30 23:42 RBC (4.30-5.90) m/uL MCV (80.0-100.0) fL Lymphocytes # (1.0-4.8) k/uL Chloride (98-107) mmol/L POC Glucose (mg/dL) 73 L 61 L 207 H (75-99) mg/dL Calcium (8.4-10.2) mg/dL Delta Bilirubin (0.0-0.2) mg/dL AST (17-59) U/L ALT (4-49) U/L Creatine Kinase (55-170) U/L Total Protein (6.3-8.2) g/dL Albumin (3.5-5.0) g/dL 07/20/21 07/20/21 Range/Units 06:25 06:25 RBC 4.07 L (4.30-5.90) m/uL MCV 104.0 H (80.0-100.0) fL Lymphocytes # 0.8 L (1.0-4.8) k/uL Chloride 119 H (98-107) mmol/L POC Glucose (mg/dL) (75-99) mg/dL Calcium 8.1 L (8.4-10.2) mg/dL Delta Bilirubin 0.4 H (0.0-0.2) mg/dL AST 128 H (17-59) U/L ALT 71 H (4-49) U/L Creatine Kinase 1225 H* (55-170) U/L Total Protein 5.5 L (6.3-8.2) g/dL Albumin 2.9 L (3.5-5.0) g/dL Assessment and Plan Assessment: Altered mental status most likely metabolic encephalopathy. Ruled out intracranial lesions Possible frostbite with hypothermic feet injury, patient was hypothermic on arrival Rhabdomyolysis Lactic acidosis, resolved Dehydration Mildly elevated liver enzymes Suspected history of alcohol abuse Plan: This is a pleasant 66 years old male who presents with AMS, hyperthermia and possible frostbite of the feet and up to my lysis. Continue with IV fluid Repeat electrolytes Neurology consult Vascular surgery and pulmonary/critical care team consult Labs and medication were reviewed.. Continue same treatment. Continue with symptomatic treatment. Resume home medication. Monitor lytes and vitals. DVT and GI prophylaxis. Further recommendations depends on the clinical course of the patient DVT prophylaxis: heparin GI Prophylaxis: Pepcid PT/OT: Pending Prognosis is guarded
[2021-07-21 00:31] LABS: Glucose,Whole Blood 77 mg/dL (75-99)
[2021-07-21] MEDS ORDERED: VANCOMYCIN IV PER PHARMACY 1 EACH MISC MISCELLANE PRN (00:53)
[2021-07-21] MEDS ORDERED: ACYCLOVIR SODIUM IV ONE (00:55)
[2021-07-21] MEDS ORDERED: SODIUM CHLORIDE 0.9% IV ONE (00:55)
[2021-07-21] MEDS ORDERED: VANCOMYCIN 1,250 MG in SODIUM CHLORIDE 0.9% 250 ML IVPB ONE (01:15)
--- NOTE | 2021-07-21 01:16 | XR ---
EXAMINATION TYPE: XR chest 1V portable DATE OF EXAM: 07/21/2021 COMPARISON: 07/17/2021 HISTORY: Hypoxemia TECHNIQUE: FINDINGS: There is some diffuse reticular nodular infiltrate in the right lung. There is a mild simil ar infiltrate left lung base. No obvious heart failure. Heart size is normal. There are chest leads. No pleural effusion. There are no hilar masses. IMPRESSION: There is bilateral pneumonia which is mostly on the right side and is new compared to rec ent exam.
[2021-07-21] MEDS: ACETAMINOPHEN SUPPOSITORY 650 MG SUPP RECTAL PRN (01:18)
[2021-07-21] MEDS: HALOPERIDOL LACTATE 5 MG/ML 1 ML VIAL IVP PRN ×3 (03:12→15:15)
[2021-07-21 06:08] LABS: Glucose,Whole Blood 79 mg/dL (75-99)
[2021-07-21] MEDS: THIAMINE 100 MG TAB PO SCH ×2 (06:12→16:42)
[2021-07-21] MEDS ORDERED: PIPERACILLIN-TAZOBACTAM 3.375 GM in SODIUM CHLORIDE 0.9% 100 ML IVPB SCH (08:00)
[2021-07-21] MEDS: FAMOTIDINE 20 MG/2 ML VIAL IV SCH ×2 (08:32→21:46)
[2021-07-21] MEDS: HEPARIN SODIUM,PORCINE/PF 5,000 UNIT/0.5 ML SYRINGE SQ SCH ×2 (08:32→21:46)
[2021-07-21] MEDS ORDERED: FUROSEMIDE 10 MG/ML 4 ML VIAL IV STA (08:38)
[2021-07-21] MEDS ORDERED: IPRATROPIUM-ALBUTEROL 3 ML NEB INHALATION PRN (08:38)
[2021-07-21 09:03] LABS: ABG Base Excess -2.5 mmol/L; ABG HCO3 22 mmol/L (21-25); ABG Oxygen Saturation 90.2 % (94-97); ABG PCO2 33 mmHg (35-45); ABG PH 7.43 (7.35-7.45); ABG TCO2 23 mmol/L (19-24); Allen Test Performed? Yes
[2021-07-21 09:08] LABS: ABG PO2 57 mmHg (83-108)
[2021-07-21] MEDS: CLINDAMYCIN 600 MG in DEXTROSE 5% IN WATER 50 ML IVPB SCH ×6 (10:15→23:56)
[2021-07-21] MEDS: SODIUM CHLORIDE 0.9% 1,000 ML IV SCH ×2 (10:16→19:54)
[2021-07-21 11:01] LABS: Albumin 3.1 g/dL (3.5-5.0); Bilirubin, Delta 0.8 mg/dL (0.0-0.2); Total Bilirubin 1.8 mg/dL (0.2-1.3); Total Protein 5.9 g/dL (6.3-8.2)
[2021-07-21 11:37] LABS: African American GFR (CKD) >90 (>60 ml/min/1.73 sqM); Creatine Kinase 435 U/L (55-170); Non-African American GFR(CKD) >90 (>60 ml/min/1.73 sqM)
[2021-07-21] MEDS: IPRATROPIUM-ALBUTEROL 3 ML NEB INHALATION SCH ×3 (11:55→19:09)
[2021-07-21 11:57] LABS: Glucose,Whole Blood 96 mg/dL (75-99)
--- NOTE | 2021-07-21 13:25 | P.PN ---
Subjective Progress Note Date: 07/21/21 Patient was seen and examined today as a follow-up for frostbite toes. According to his nurse the patient had been very agitated and restless was given Haldol and has calmed down. He is on nonrebreather. Objective - Vital Signs Vital signs: Vital Signs Temp 97.8 F 07/21/21 08:00 Pulse 89 07/21/21 08:00 Resp 38 H 07/21/21 08:00 BP 185/89 07/21/21 08:00 Pulse Ox 90 L 07/21/21 08:00 Intake & Output 07/20/21 07/21/21 07/21/21 18:59 06:59 18:59 Intake Total 800 0 0 Output Total 006 708 6598 Balance 20 -750 -1650 Intake: IV 800 Sodium Chloride 0.9% 1, 800 000 ml @ 100 mls/hr IV . Q10H [facility] Rx#:[id number] Oral 0 0 Output: Urine 030 181 7072 Other: Voiding Method Indwelling Catheter Indwelling Catheter Indwelling Catheter # Voids 1 1 - Exam General appearance: The patient is lethargic, not responding to any questions, appears in no acute distress. HET: Head is normocephalic and atraumatic. Neck: Supple without lymphadenopathy. Extremities: Bilateral lower extremity edema. Full bilateral dorsalis pedis pulses. Left heel with a liter of fluid filled blister. Foot and toes pink, warm to the touch. Right foot right great toe with necrotic tissue, second and third toe with edema changes area intact blister fluid-filled on right heel. Neurological: Patient not responding to any questions, very lethargic. Does respond to painful stimuli. - Labs CBC & Chem 7: 07/20/21 06:25 07/21/21 09:36 Labs: Abnormal Lab Results - Last 24 Hours (Table) 07/21/21 Range/Units 08:50 ABG pCO2 33 L (35-45) mmHg ABG pO2 57 L* (83-108) mmHg ABG O2 Saturation 90.2 L (94-97) % Assessment and Plan Assessment: 1. Frostbite with ischemic changes to toes 2. Altered mental status changes 3. Rhabdomyolysis 4. History of chronic alcohol abuse 5. Tobacco dependent Plan: 1. Continue symptomatic and supportive care 3. Tobacco cessation 4. Alcohol abstinence 5. Will allow for further demarcation of right great toe, continue to monitor second and third toes for ischemic changes. Patient will likely need amputation at some point, for this is not urgent. Thank you for this consultation, and allowing us take part in the plan of care of your patient during his hospital stay. The impression and plan of care has been dictated as directed. Dr. Doss I performed a history and examination of this patient, discussed the same with the dictator. I agree with the dictator's note ,documented as a scribe. Any additional findings or plans will be noted.
[2021-07-21] MEDS ORDERED: VANCOMYCIN 1,250 MG in SODIUM CHLORIDE 0.9% 250 ML IVPB SCH (15:00)
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
[2021-07-21] MEDS ORDERED: THIAMINE 100 MG/ML 2 ML VIAL IVP SCH (15:45)
[2021-07-21] MEDS: DEXMEDETOMIDINE/0.9% NACL(PMX) 400 MCG in EMPTY BAG 1 BAG IV SCH (16:35)
--- NOTE | 2021-07-21 16:53 | P.PN ---
Subjective This is a pleasant 66 years old male with unknown past medical history presents because of altered mental status where he was found unresponsive in his truck bed family member. As per report. He was seen doing well about 2 days ago. Patient was found with no evidence of trauma, incontinence of urine and stool. And he was hypothermic on admission with a rectal temperature of 99F. He was warmed using of the fluids. Patient found to have bilateral dusky heat suspicious for hypothermic injury. Also there was some evidence of rhabdomyolysis, lactic acidosis and dehydration and he was admitted to the intensive care unit. When I saw the patient in the ICU he was sleepy, does not wake up to verbal or tactile stimuli however he withdrawal for patient's to light. He has some deep breathing. Both feet are in dressing. Patient could not provide information. We checked him after couple hours distal clip waking up so it allowed to consult neurology service Currently vital signs stable, his temperature went up last night to 98.1-99.1. Showing mild leukocytosis. Hemoglobin is elevated 18.2, platelet 164. Carbon dioxide is 1.1, which is within the reference range. Elevated lactic acid 4.3 came back to 1.4. Elevated creatinine kinase 5921 Creatinine 1.0, potassium 5.2, liver enzymes slightly elevated with AST 215 and ALT 64. Troponin is negative at 0.014. Ammonia is negative less than 9. High serum osmolality of 312. Urine analysis showing 1+ protein, 1+ ketone, no solid evidence of infection. Urine drug screen is negative, salicylate less than 1, acetaminophen less than 10 and serum alcohol less than 10 Coronavirus nondetected. EKG showing normal sinus rhythm with incomplete right bundle branch block and left posterior fascicular block and QTC 455, no significant ST-T changes Q Chest x-ray showing no acute process. CT of the brain: No acute process CT of the cervical spine: No acute fracture or dislocation In the emergency room patient was started on IV fluids, IV heparin and started on CIWA protocol for suspicion alcohol abuse 07/19/2021 Patient still confused although he opens his eyes spontaneously but he does not answer questions he does not follow commands. Hemodynamically and labs are stable. Leukocytosis improved. Liver enzymes still mildly elevated. Creatinine kinase trending down while he continues on IV fluids. She still have bluish discoloration of the right toes especially the right big toe while the left toes there are dusky pink and lukewarm compelled more called on the right side. Vascular surgery on the case and they went further rewarming and resolution before they decide before any surgical intervention. He remains on CIWA protocol and thiamine normal saline at 100 mL per hour. H aldol as needed for agitation. EEG showing mildly abnormal digital cerebral dysfunction. No evidence of epileptiform discharge. Neurology on the case. MRI of the brain is pending. While carotid Doppler's reported as negative today. 07/20/2021 Patient is seen and examined today in the ICU Patient did not show much progress regarding his mentation, he still opens his eyes spontaneously but other than that he is unresponsive and does not talk are not follow commands. He does not look in distress. His EEG showing general cerebral dysfunction and neurology on the case recommended MRI of the brain which is pending now. Carotid Doppler's is negative. Vascular surgery also on the case and following him for his right toes hypothermic injury medially on the right big toe. He kept on IV fluid normal saline 100 mL per hour and his creatinine kinase trending down today 1225, liver enzymes slightly less today. 07/21/2021 Patient over for right developed fever of 100.5 and he was agitated need several doses of Haldol to come down and he was becoming more hypoxic requiring 6 L/m and in the morning was the miguel Keppra minute and eventually he was placed on BiPAP. Chest x-ray was consistent with bilateral pneumonia but merely multifocal pneumonia of the right side highly suspicious for aspiration pneumonia, patient received several antibiotics and currently is on clindamycin and ceftriaxone. Other than that his CPK significantly improved to 435, liver enzymes trending down, creatinine is normal today. However her IPG showing normal pH of 7.4 but hypoxia with pO2 of 57. He received 1 dose of Lasix and we lowered the dose of normal saline down to 75 mL/h. Several attempts try to send the patient for MRI however he was agitated and he had to be transferred to the ICU to receive Precedex 2 to calm down. Vascular surgery still follow the patient for gangrenous lesion of the right first, second and third toes Objective - Vital Signs Vital signs: Vital Signs Temp 98.6 F 07/21/21 12:00 Pulse 79 07/21/21 12:00 Resp 20 07/21/21 12:00 BP 164/85 07/21/21 12:00 Pulse Ox 98 07/21/21 12:00 Intake & Output 07/20/21 07/21/21 07/21/21 18:59 06:59 18:59 Intake Total 800 0 100 Output Total 444 740 2850 Balance 99 -448 -8105 Intake: IV 800 100 Sodium Chloride 0.9% 1, 800 100 000 ml @ 100 mls/hr IV . [facility] Rx#:[id number] Oral 0 0 Output: Urine 934 490 4900 Other: Voiding Method Indwelling Catheter Indwelling Catheter Indwelling Catheter # Voids 1 1 - Exam -GENERAL: The patient open eyes spontaneously, does not follow commands, does not talk. He is placed on BiPAP HEENT: Pupils are round and equally reacting to light. EOMI. No scleral icterus. No conjunctival pallor. Normocephalic, atraumatic. No pharyngeal erythema. No thyromegaly. CARDIOVASCULAR: S1 and S2 present. No murmurs, rubs, or gallops. -PULMONARY: Chest is clear to auscultation, no wheezing or crackles. Marked crepitation on the right side ABDOMEN: Soft, nontender, nondistended, normoactive bowel sounds. No palpable organomegaly. MUSCULOSKELETAL: No joint swelling or deformity. -XTREMITIES: No cyanosis, clubbing, or pedal edema. Right big toe is black, where the left big toe is dusky in color. As well to a lesser extent this right second and third toes NEUROLOGICAL: Gross neurological examination did not reveal any focal deficits. SKIN: No rashes. No petechiae - Labs CBC & Chem 7: 07/20/21 06:25 07/21/21 09:36 Labs: Abnormal Lab Results - Last 24 Hours (Table) 07/21/21 07/21/21 07/21/21 Range/Units 08:50 09:36 09:36 ABG pCO2 33 L (35-45) mmHg ABG pO2 57 L* (83-108) mmHg ABG O2 Saturation 90.2 L (94-97) % Total Bilirubin 1.8 H (0.2-1.3) mg/dL Delta Bilirubin 0.8 H (0.0-0.2) mg/dL AST 83 H (17-59) U/L ALT 69 H (4-49) U/L Creatine Kinase 435 H (55-170) U/L Total Protein 5.9 L (6.3-8.2) g/dL Albumin 3.1 L (3.5-5.0) g/dL Assessment and Plan Assessment: Altered mental status most likely metabolic encephalopathy. Ruled out intracranial lesions aspiration pneumonia, Alexa on the right side Possible frostbite with hypothermic feet injury, patient was hypothermic on arrival Rhabdomyolysis, Improving significantly Lactic acidosis, resolved Dehydration Mildly elevated liver enzymes Suspected history of alcohol abuse Plan: This is a pleasant 66 years old male who presents with AMS, hyperthermia and possible frostbite of the feet and up to my lysis. Continue with IV fluid Continue with the clindamycin and ceftriaxone Neurology consult Vascular surgery and pulmonary/critical care team consult Labs and medication were reviewed.. Continue same treatment. Continue with symptomatic treatment. Resume home medication. Monitor lytes and vitals. DVT and GI prophylaxis. Further recommendations depends on the clinical course of the patient DVT prophylaxis: heparin GI Prophylaxis: Pepcid PT/OT: Pending Prognosis is guarded
[2021-07-21 17:49] LABS: Glucose,Whole Blood 87 mg/dL (75-99)
--- NOTE | 2021-07-21 23:13 | P.CONS ---
History of Present Illness - Reason for Consult Consult date: 07/21/21 pneumonia Requesting physician: Nick E Sheet - Chief Complaint unresponsive x 1 day - History of Present Illness History of present illness : Patient is 66-year-old male presenting to the hospital about 4 days ago, the patient was brought into the hospital after he was found in his pickup truck by family members unresponsive loss seen prior to that was about 2 days ago patient was noticed to be incontinent of urine and stool, patient also noticed to have a ischemic changes to bilateral feet more marked on the right foot concerning for frostbite for the patient has been evaluated by vascular surgery patient also have a chest x-ray initial x-ray was negative for acute cardiopulmonary process chest x-ray repeated showing bilateral pneumonia mostly on the right side which is new compared to her recent exam patient also have worsening of his respiratory status and needs to be transferred to the ICU he did spike a fever 100.5 F around midnight as well p atient did have late white count elevation subsequent white count has normalized creatinine has been normal liver enzymes are mildly elevated and the potassium mildly reported as of 0.14 urine was negative urine drug screen was negative mendez PCR was negative infectious disease was consulted for further management of antibiotic therapy most information has been obtained from review the chart and talking to nursing staff as the patient himself cannot provide any history Review of system: Positive point has been mentioned in HPI complete review could not be obtained because of underlying mental status. Past medical history : Reviewed, documented below Past surgical history : Reviewed, documented below Social history: Reviewed, documented below Medications: Reviewed, as documented below EXAMINATION: Vital sigans= Reviewed and documented below GENERAL DESCRIPTION: Elderly male lying in bed, no distress. No tachypnea or accessory muscle of respiration use. HEENT: Shows Pallor , no scleral icterus. Oral mucous membrane is dry. NECK: Trachea central, no thyromegaly. LUNGS: Unlabored breathing. Coarse breath sounds bilaterally. No wheeze or crackle. HEART: S1, S2, regular rate and rhythm. ABDOMEN: Soft, no tenderness , guarding or rigidity EXTREMITIES: No edema of feet. Right foot with necrotic toe SKIN: No rash, no masses palpable. NEUROLOGICAL: The patient is lethargic orientation could not determine LABS AND RADIOLOGY: Reviewed results see below Assessment :1-patient with a fever elevated white count with worsening of his respiratory status abnormal x-ray with infiltrate mostly on the right side in this patient admitted to hospital with unresponsiveness high clinical suspicious for aspiration pneumonia 2-penicillin allergy therapy with a number of antibiotics safe to use 3-ischemic changes to the right foot toes more likely to the armenta bite no cellulitis Plan: 1-discontinue Rocephin 2-start the patient cefepime 2 g every 8 hourly continue with clindamycin 3-obtain a sputum for Gram stain and culture We will follow on clinical condition and cultures to further adjust medication if needed Past Medical History Past Medical History: No Reported History History of Any Multi-Drug Resistant Organisms: None Reported Past Surgical History: No Surgical Hx Reported Past Psychological History: No Psychological Hx Reported Smoking Status: Unknown if ever smoked Past Alcohol Use History: Abuse Past Drug Use History: None Reported Medications and Allergies Home Medications Medication Instructions Recorded Confirmed Type No Known Home Medications 10/16/16 07/17/21 History Allergies Allergy/AdvReac Type Severity Reaction Status Date / Time Penicillins Allergy Rash/Hives Verified 07/17/21 19:16 Physical Exam Vitals: Vital Signs Temp Pulse Pulse Pulse Pulse Resp BP 07/21/21 08:00 97.8 F 89 94 38 H 07/21/21 07:34 07/21/21 06:49 07/21/21 04:30 07/21/21 04:15 90 07/21/21 04:00 98.5 F 85 18 07/21/21 02:30 98 F 07/21/21 02:00 84 22 07/21/21 01:30 99.6 F 84 18 07/21/21 01:21 100.5 F H 07/21/21 00:00 100.5 F H 83 83 22 07/20/21 20:00 98.2 F 83 22 07/20/21 16:00 99 F 84 16 07/20/21 14:00 64 17 138/71 07/20/21 13:00 98.4 F 76 27 H 138/71 07/20/21 12:00 50 L 10 L 131/75 07/20/21 11:00 46 L 20 BP BP Pulse Ox 07/21/21 08:00 185/89 90 L 07/21/21 07:34 93 L 07/21/21 06:49 91 L 07/21/21 04:30 94 L 07/21/21 04:15 07/21/21 04:00 158/79 87 L 07/21/21 02:30 07/21/21 02:00 07/21/21 01:30 171/85 92 L 07/21/21 01:21 07/21/21 00:00 163/81 90 L 07/20/21 20:00 164/80 97 07/20/21 16:00 167/67 93 L 07/20/21 14:00 94 L 07/20/21 13:00 94 L 07/20/21 12:00 07/20/21 11:00 94 L Intake and Output 07/20/21 07/21/21 07/21/21 22:59 06:59 14:59 Intake Total 0 0 Output Total 889 054 9954 Balance -350 -750 -1650 Intake: Oral 0 0 Output: Urine 709 862 5758 Other: Voiding Method Indwelling Catheter Indwelling Catheter Indwelling Catheter # Voids 1 1 Results CBC & Chem 7: 07/20/21 06:25 07/21/21 09:36 Labs: Abnormal Lab Results - Last 24 Hours (Table) 07/21/21 Range/Units 08:50 ABG pCO2 33 L (35-45) mmHg ABG pO2 57 L* (83-108) mmHg ABG O2 Saturation 90.2 L (94-97) %
[2021-07-22] MEDS: CEFEPIME 2 GM in SODIUM CHLORIDE 0.9% 100 ML IVPB SCH ×3 (00:03→20:23)
[2021-07-22 06:02] LABS: Glucose,Whole Blood 101 mg/dL (75-99)
[2021-07-22] MEDS: IPRATROPIUM-ALBUTEROL 3 ML NEB INHALATION SCH ×4 (08:00→20:36)
--- NOTE | 2021-07-22 08:04 | P.PN ---
Subjective Progress Note Date: 07/22/21 66-year-old male patient will will be transferred to the ICU because of worsening and hypoxic respiratory failure. The patient is currently on a BiPAP at a pressure of 12/6 cm of water and FiO2 part the percent and a chest x-ray showing diffuse bilateral pulmonary infiltrates mostly secondary to aspiration with a possibility of an acute lung injury/ARDS. The patient is known to have alcoholism. The patient was found in his car at a cold temperature and he had a temperature of 90.9F. He also had frostbite in his lower extremities bilaterally. The patient has gangrenous first second and third toes on the right. Frostbite on the left foot have improved. The patient was in intensive care unit for hypothermia and frostbite. He was treated and he was discharged to a medical floor to be admitted again this morning because of worsening shortness of breath and hypoxemic respiratory failure. He tested negative for occult with 19. He had an elevated CPK level consistent with rhabdomyolysis. His CPK peaked at 3882 and dropped down to 435. Meanwhile, the patient has normal electrolyte. Blood gas today showed a pH of 7.43 with a pCO2 of 33 and pO2 of 57 and for that reason the patient was placed on BiPAP and the patient got transferred to the ICU. He is lethargic. He is quite somnolent. His current antibiotic coverage including a combination of Rocephin and clindamycin covering for aspiration pneumonia. Overnight, he was given a total of 8 mg of Haldol as of a.m. this morning. The patient was quite lethargic. I transferred to the ICU and start him on Precedex for agitation and signs of any delirium tremens. He is on IV fluids normal saline at the rate of 100 mL an hour. He is on heparin subcu for DVT prophylaxis. Today's evaluation of 07/22/2021, the patient is currently in the intensive care unit for delirium tremens, encephalopathy, and acute hypoxic respiratory failure with extensive right lung pneumonia. Noted the patient got transferred to the ICU yesterday because of increased agitation and hypoxemia. He was initially placed on a BiPAP and later on in the afternoon, switch this patient with high flow oxygen currently running at 12 L per minute. I also put the patient on Precedex for agitation. In terms of his pneumonia, the patient is covered with a combination of antibiotics. He is currently on a combination of cefepime and clindamycin. The repeat chest x-ray from today still showing extensive consolidation of the right lung. The patient however remains hemodynamically stable. He is using Precedex which is running at 0.2 mics for respiratory control and per minute. At times he was becoming bradycardic and for that reason the dose of Precedex was At a lower rate. He was treated with Haldol earlier, overnight he did not receive any Haldol. This morning, he is communicating. At times, he tries to get out of bed and he gets restless in bed. He remains on IV fluids. IV fluids are running at 75 mL an hour of normal saline. His CPK level is improving. The patient had frostbite in his right toes. In fact the first toe is completely necrotic on the right. The second third and fourth and fifth toe tips are obviously necrotic and the patient has a deep tissue injury to his right heel. The left foot is in a better condition at this point in time although there is an early UTI in the left heel also. The blood work otherwise is still pending from this morning. The blood sugar is at 11. The patient remains nothing by mouth. Blood pressure is slightly elevated and needs to be under better control. Family was updated and the daughter was at the bedside yesterday. Objective - Vital Signs Vital signs: Vital Signs Temp 97.8 F 07/22/21 00:00 Pulse 48 L 07/22/21 07:00 Resp 33 H 07/22/21 07:00 BP 162/84 07/22/21 07:00 Pulse Ox 96 07/22/21 07:00 Intake & Output 07/21/21 07/22/21 07/22/21 18:59 06:59 18:59 Intake Total 704 960.506 75 Output Total 3090 450 30 Balance -2386 510.506 45 Weight 73.3 kg 75 kg Intake: IV 700 900 75 Sodium Chloride 0.9% 1, 700 900 75 000 ml @ 75 mls/hr IV . [id number] [facility] Rx#:[id number] Intake, IV Titration 4 60.506 Amount Dexmedetomidine/0.9% NaCl 4 60.506 (Pmx) 400 mcg In Empty Bag 1 bag @ 0.2 MCG/KG/HR 3.665 mls/hr IV .Q24H [facility] Rx#:[id number] Oral 0 Output: Urine 3090 450 30 Other: Voiding Method Indwelling Catheter Indwelling Catheter # Voids 1 1 - Exam poorly responsive, the patient is lethargic and the patient received higher doses of Haldol overnight. The patient is currently on oxygen at 12 L per minute nasal cannula He is a mild degree of respiratory distress and her breathing slightly labored. No agitation. No use of extremities and muscles of breathing. Head exam was generally normal. There was no scleral icterus or corneal arcus. Mucous membranes were moist. HEENT examination is grossly unremarkable. Neck supple. Full range of motion. No adenopathy thyromegaly or neck vein distention. Cardiovascular examination reveals regular rhythm rate. S1-S2 normal. No S3 or S4. No discernible murmur noted. Heart rate 65 bpm. Heart sounds are distant. Lungs reveal clear breath sounds. Breath sounds are equal bilaterally. No adventitious lung sounds including wheezes rhonchi or crackles. Abdomen soft bowel sounds are heard. No masses or tenderness. Extremities reveal cyanotic/dark toes bilaterally. Feet are wrapped. Right foot is worse than the left. Skin is without rash or lesion, except as above. The patient has gangrenous first toe in the right foot, in addition to gangrenous changes involving the tips of the second third fourth and fifth toe on the right. The patient also has a DTI in his right heel Neurologic examination patient is more responsive, at times he answers some simple commands. Other times it becomes quite restless in bed. lethargic/somnolent male patient. Pupils are equal and reactive to light. No focal neurological deficits. - Labs CBC & Chem 7: 07/20/21 06:25 07/21/21 09:36 Labs: Abnormal Lab Results - Last 24 Hours (Table) 07/21/21 07/21/21 07/21/21 Range/Units 08:50 09:36 09:36 ABG pCO2 33 L (35-45) mmHg ABG pO2 57 L* (83-108) mmHg ABG O2 Saturation 90.2 L (94-97) % POC Glucose (mg/dL) (75-99) mg/dL Total Bilirubin 1.8 H (0.2-1.3) mg/dL Delta Bilirubin 0.8 H (0.0-0.2) mg/dL AST 83 H (17-59) U/L ALT 69 H (4-49) U/L Creatine Kinase 435 H (55-170) U/L Total Protein 5.9 L (6.3-8.2) g/dL Albumin 3.1 L (3.5-5.0) g/dL 07/22/21 Range/Units 06:00 ABG pCO2 (35-45) mmHg ABG pO2 (83-108) mmHg ABG O2 Saturation (94-97) % POC Glucose (mg/dL) 101 H (75-99) mg/dL Total Bilirubin (0.2-1.3) mg/dL Delta Bilirubin (0.0-0.2) mg/dL AST (17-59) U/L ALT (4-49) U/L Creatine Kinase (55-170) U/L Total Protein (6.3-8.2) g/dL Albumin (3.5-5.0) g/dL Microbiology - Last 24 Hours (Table) 07/21/21 01:00 Blood Culture - Preliminary Blood No Growth after 24 hours Assessment and Plan Plan: 1 acute mental status change/encephalopathy, multifactorial. The patient presented hypothermic, unresponsive, and his toxicology screen showed negative alcohol, and the urine toxin was negative. The patient is currently on Precedex with improved control of his agitation and the patient also was given Haldol yesterday for delirium and agitation. Metastatic disease improved compared to yesterday. Neurologist on the case. Unable to do a CAT scan of the head overnight. Neurologic exam is nonfocal., 2 acute hypoxic respiratory failure with diffuse bilateral pulmonary infiltrates, consider aspiration, consider acute lung injury/ARDS, There is extensive extensive consolidation of the right lung which obviously raises the concern for an aspiration and the patient is A Combination of Cefepime and Zithromax. The Patient Is Currently on High Flow Oxygen and BiPAP Was Discontinued and Currently the Patient on 12 Units Per Minute Nasal Cannula. 3 acute hypothermia recovered 4 acute frostbite with gangrenous toes on the right foot, and the patient has also DTI on involving the right heel. 5 acute rhabdomyolysis, improved 6 history of alcoholism 7 history of smoking Plan Transfer this patient back to the ICU Continue High flow oxygen Precedex for any agitation and signs of delirium tremens Watch for any signs of bradycardia Antibiotic modification was done and the patient was placed on examination of cefepime and clindamycin IV fluids of normal saline today to 100 mL an hour Monitor the gangrenous changes in the right foot in addition to the deep tissue injury of the right heel Monitor mental status and proceed with a CAT scan of the brain once the patient is much more relaxed Repeat labs and electrolytes from today Condition is critical we'll continue to follow. Is a full CODE STATUS at this point in time.
--- NOTE | 2021-07-22 08:19 | XR ---
EXAMINATION TYPE: XR chest 1V portable DATE OF EXAM: 07/22/2021 COMPARISON: Chest x-ray 07/21/2021 HISTORY: Covid TECHNIQUE: Single frontal view of the chest is obtained. FINDINGS: Airspace disease persists within the right lung, some improvement in aeration is suspected at the left lung base, there is improvement in lung volume. No evident pneumothorax or pleural effus ion. Cardiac mediastinal silhouette is stable. There are overlying leads. IMPRESSION: Findings consistent with pneumonia as described.
[2021-07-22 08:51] LABS: Basophils % (A) 0 %; Eosinophils # (A) 0.1 k/uL (0-0.7); Eosinophils % (A) 1 %; HCT 41.5 % (39.0-53.0); Lymphocytes % (A) 11 %; MCHC 33.8 g/dL (31.0-37.0); MCV 103.7 fL (80.0-100.0); Macrocytosis Slight; Mean Platelet Volume 9.5; Monocytes # (A) 0.6 k/uL (0-1.0); Monocytes % (A) 7 %; Neutrophils # (A) 7.7 k/uL (1.3-7.7); Neutrophils % (A) 81 %; Platelet Count 171 k/uL (150-450); RDW 11.8 % (11.5-15.5); WBC 9.5 k/uL (3.8-10.6)
[2021-07-22 09:01] LABS: ALT 59 U/L (4-49); AST 54 U/L (17-59); African American GFR (CKD) >90 (>60 ml/min/1.73 sqM); Albumin 2.7 g/dL (3.5-5.0); Alkaline Phosphatase 44 U/L (38-126); Anion Gap 5 mmol/L; Blood Urea Nitrogen 18 mg/dL (9-20); Calcium 8.2 mg/dL (8.4-10.2); Carbon Dioxide 22 mmol/L (22-30); Chloride 120 mmol/L (98-107); Glucose 105 mg/dL (74-99); Non-African American GFR(CKD) >90 (>60 ml/min/1.73 sqM); Sodium 147 mmol/L (137-145); Total Bilirubin 1.4 mg/dL (0.2-1.3); Total Protein 5.4 g/dL (6.3-8.2)
[2021-07-22 09:26] LABS: Potassium 3.7 mmol/L (3.5-5.1)
[2021-07-22] MEDS: SODIUM CHLORIDE 0.9% 1,000 ML IV SCH ×2 (09:32→20:27)
[2021-07-22] MEDS: HEPARIN SODIUM,PORCINE/PF 5,000 UNIT/0.5 ML SYRINGE SQ SCH ×2 (09:33→20:27)
[2021-07-22] MEDS: THIAMINE 100 MG TAB PO SCH ×2 (09:33→16:20)
[2021-07-22] MEDS: FAMOTIDINE 20 MG/2 ML VIAL IV SCH ×2 (09:34→20:27)
--- NOTE | 2021-07-22 10:35 | P.CONS ---
History of Present Illness - Reason for Consult Consult date: 07/22/21 wound care - History of Present Illness This is a 66-year-old male being seen in ICU for recommendations related to frostbite to the right great toe second digit and third digit. Patient has ischemic changes to his toes on bilateral feet. Right great toe is necrotic and shows demarcation. Second and third digit of right foot show erythema and blistering. Review Of Systems: Constitutional: No fever, no chills, no night sweats. No weight change. No weakness, fatigue or lethargy. No daytime sleepiness. Integumentary:reports wounds, no lesions. No rash or pruritus. No unusual bruising. No change in hair or nails. Physical exam: General Appearance: Alert, cooperative, no distress, appears stated age. Skin: See HPI all other Skin color, texture, tugor normal, no rashes or lesions. Neurologic: Alert oriented x3 Assessment: 1. Frostbite with ischemic changes to toes Plan: 1. No therapy to right great toe at this time. More than likely will require amputation with vascular surgery. 2. Second and third digit: Apply bag balm to the area as needed Thank you for the consultation any questions contact the wound care center DNP note has been reviewed and discussed with Dr. Kay and the impression and plan of care has been directed as dictated. Past Medical History Past Medical History: No Reported History History of Any Multi-Drug Resistant Organisms: None Reported Past Surgical History: No Surgical Hx Reported Past Psychological History: No Psychological Hx Reported Smoking Status: Unknown if ever smoked Past Alcohol Use History: Abuse Past Drug Use History: None Reported Medications and Allergies Home Medications Medication Instructions Recorded Confirmed Type No Known Home Medications 10/16/16 07/17/21 History Allergies Allergy/AdvReac Type Severity Reaction Status Date / Time Penicillins Allergy Rash/Hives Verified 07/17/21 19:16 Physical Exam Vitals: Vital Signs Temp Pulse Resp BP Pulse Ox 07/22/21 09:00 59 L 19 165/99 97 07/22/21 08:13 62 19 07/22/21 08:00 97.9 F 71 21 172/85 99 07/22/21 07:00 48 L 33 H 162/84 96 07/22/21 06:00 50 L 12 171/88 97 07/22/21 05:00 52 L 19 180/143 94 L 02/01/22 04:00 42 L 13 168/86 97 07/22/21 03:00 53 L 15 182/96 96 07/22/21 02:00 49 L 32 H 159/76 98 07/22/21 01:00 41 L 17 168/93 97 07/22/21 00:16 47 L 17 168/93 97 07/22/21 00:00 97.8 F 64 20 167/98 98 07/21/21 23:00 51 L 17 175/118 96 07/21/21 22:46 96 07/21/21 22:00 64 16 155/79 96 07/21/21 21:00 48 L 18 139/75 97 07/21/21 20:00 98.0 F 43 L 15 130/70 97 07/21/21 19:00 45 L 12 131/71 97 07/21/21 18:00 49 L 15 142/77 98 07/21/21 17:00 62 14 171/74 98 07/21/21 16:00 73 42 H 175/98 98 07/21/21 15:00 65 19 170/89 98 07/21/21 14:00 60 17 153/84 100 07/21/21 13:00 60 19 160/87 100 07/21/21 12:00 98.6 F 79 19 164/85 98 07/21/21 11:54 99 07/21/21 11:17 17 99 Intake and Output 07/21/21 07/22/21 07/22/21 22:59 06:59 14:59 Intake Total 704 660.506 312.095 Output Total 365 260 180 Balance 339 400.506 132.095 Intake: IV 700 600 300 Sodium Chloride 0.9% 1, 700 600 300 000 ml @ 75 mls/hr IV . [id number] JOHN Rx#:[id number] Intake, IV Titration 4 60.506 12.095 Amount Dexmedetomidine/0.9% NaCl 4 60.506 12.095 (Pmx) 400 mcg In Empty Bag 1 bag @ 0.2 MCG/KG/HR 3.665 mls/hr IV .Q24H JOHN Rx#:[id number] Output: Urine 365 260 180 Other: Voiding Method Indwelling Catheter Indwelling Catheter # Voids 1 Weight 75 kg Results CBC & Chem 7: 07/22/21 05:36 07/22/21 05:36 Labs: Abnormal Lab Results - Last 24 Hours (Table) 07/21/21 07/21/21 07/22/21 Range/Units 09:36 09:36 05:36 RBC 4.00 L (4.30-5.90) m/uL MCV 103.7 H (80.0-100.0) fL Sodium (137-145) mmol/L Chloride (98-107) mmol/L Glucose (74-99) mg/dL POC Glucose (mg/dL) (75-99) mg/dL Calcium (8.4-10.2) mg/dL Total Bilirubin 1.8 H (0.2-1.3) mg/dL Delta Bilirubin 0.8 H (0.0-0.2) mg/dL AST 83 H (17-59) U/L ALT 69 H (4-49) U/L Creatine Kinase 435 H (55-170) U/L Total Protein 5.9 L (6.3-8.2) g/dL Albumin 3.1 L (3.5-5.0) g/dL 07/22/21 07/22/21 Range/Units 05:36 06:00 RBC (4.30-5.90) m/uL MCV (80.0-100.0) fL Sodium 147 H (137-145) mmol/L Chloride 120 H (98-107) mmol/L Glucose 105 H (74-99) mg/dL POC Glucose (mg/dL) 101 H (75-99) mg/dL Calcium 8.2 L (8.4-10.2) mg/dL Total Bilirubin 1.4 H (0.2-1.3) mg/dL Delta Bilirubin (0.0-0.2) mg/dL AST (17-59) U/L ALT 59 H (4-49) U/L Creatine Kinase (55-170) U/L Total Protein 5.4 L (6.3-8.2) g/dL Albumin 2.7 L (3.5-5.0) g/dL Microbiology - Last 24 Hours (Table) 07/21/21 01:00 Blood Culture - Preliminary Blood No Growth after 24 hours Assessment and Plan (1) Frostbite of feet, bilateral Current Visit: Yes Status: Acute Code(s): T33.821A - SUPERFICIAL FROSTBITE OF RIGHT FOOT, INITIAL ENCOUNTER; T33.822A - SUPERFICIAL FROSTBITE OF LEFT FOOT, INITIAL ENCOUNTER SNOMED Code(s): 65472360
[2021-07-22 11:38] LABS: Glucose,Whole Blood 92 mg/dL (75-99)
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
[2021-07-22] MEDS: CLINDAMYCIN 600 MG in DEXTROSE 5% IN WATER 50 ML IVPB SCH ×4 (12:13→17:57)
--- NOTE | 2021-07-22 14:16 | P.PN ---
Subjective Progress Note Date: 07/22/21 Patient is seen and examined today as a follow-up in the ICU for frostbite toes.. He is much more awake and alert today. No acute changes with patient. Patient did have some blistering on his second and third toes on the right foot that did open with some clear drainage. He's been afebrile. Objective - Vital Signs Vital signs: Vital Signs Temp 97.8 F 07/22/21 00:00 Pulse 62 07/22/21 08:13 Resp 19 07/22/21 08:13 BP 162/84 07/22/21 07:00 Pulse Ox 96 07/22/21 07:00 Intake & Output 07/21/21 07/22/21 07/22/21 18:59 06:59 18:59 Intake Total 704 960.506 75 Output Total 3090 450 30 Balance -2386 510.506 45 Weight 73.3 kg 75 kg Intake: IV 700 900 75 Sodium Chloride 0.9% 1, 700 900 75 000 ml @ 75 mls/hr IV . [id number] JOHN Rx#:[id number] Intake, IV Titration 4 60.506 Amount Dexmedetomidine/0.9% NaCl 4 60.506 (Pmx) 400 mcg In Empty Bag 1 bag @ 0.2 MCG/KG/HR 3.665 mls/hr IV .Q24H JOHN Rx#:[id number] Oral 0 Output: Urine 3090 450 30 Other: Voiding Method Indwelling Catheter Indwelling Catheter # Voids 1 1 - Exam General appearance: The patient is sitting up, alert, appears in no acute distress. HET: Head is normocephalic and atraumatic. Neck: Supple without lymphadenopathy. Extremities: Bilateral lower extremity edema. Full bilateral dorsalis pedis pulses. Left foot and toes pink, warm to the touch. Right foot right great toe with necrotic tissue, second and third toe with opened blister with red/pink viable tissue beneath. Blisters to bilateral heels. Neurological: Alert and oriented. - Labs CBC & Chem 7: 07/22/21 05:36 07/22/21 05:36 Labs: Abnormal Lab Results - Last 24 Hours (Table) 07/21/21 07/21/21 07/21/21 Range/Units 08:50 09:36 09:36 RBC (4.30-5.90) m/uL MCV (80.0-100.0) fL ABG pCO2 33 L (35-45) mmHg ABG pO2 57 L* (83-108) mmHg ABG O2 Saturation 90.2 L (94-97) % POC Glucose (mg/dL) (75-99) mg/dL Total Bilirubin 1.8 H (0.2-1.3) mg/dL Delta Bilirubin 0.8 H (0.0-0.2) mg/dL AST 83 H (17-59) U/L ALT 69 H (4-49) U/L Creatine Kinase 435 H (55-170) U/L Total Protein 5.9 L (6.3-8.2) g/dL Albumin 3.1 L (3.5-5.0) g/dL 07/22/21 07/22/21 Range/Units 05:36 06:00 RBC 4.00 L (4.30-5.90) m/uL MCV 103.7 H (80.0-100.0) fL ABG pCO2 (35-45) mmHg ABG pO2 (83-108) mmHg ABG O2 Saturation (94-97) % POC Glucose (mg/dL) 101 H (75-99) mg/dL Total Bilirubin (0.2-1.3) mg/dL Delta Bilirubin (0.0-0.2) mg/dL AST (17-59) U/L ALT (4-49) U/L Creatine Kinase (55-170) U/L Total Protein (6.3-8.2) g/dL Albumin (3.5-5.0) g/dL Microbiology - Last 24 Hours (Table) 07/21/21 01:00 Blood Culture - Preliminary Blood No Growth after 24 hours Assessment and Plan Assessment: 1. Frostbite with ischemic changes to toes 2. Dry gangrene right great toe 3. Altered mental status changes 4. Rhabdomyolysis 5. History of chronic alcohol abuse 6. Tobacco dependent Plan: 1. Continue symptomatic and supportive care 3. Tobacco cessation 4. Alcohol abstinence 5. Will allow for further demarcation of right great toe, continue to monitor second and third toes for ischemic changes. No plans for amputation at this time. Patient can follow-up in amputation can be done as an outpatient once patient is more stable. Thank you for this consultation, will be on standby if further needed. The impression and plan of care has been dictated as directed. Dr. Sparks I performed a history and examination of this patient, discussed the same with the dictator. I agree with the dictator's note ,documented as a scribe. Any additional findings or plans will be noted.
[2021-07-22] MEDS: DEXMEDETOMIDINE/0.9% NACL(PMX) 400 MCG in EMPTY BAG 1 BAG IV SCH (15:05)
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
[2021-07-22 17:47] LABS: Glucose,Whole Blood 116 mg/dL (75-99)
--- NOTE | 2021-07-22 21:47 | P.PN ---
Subjective Progress Note Date: 07/22/21 Principal diagnosis: Pneumonia Patient is a 66 year male who was brought into the hospital after the patient was found to be unresponsive in his truck this patient did have evidence of right foot frostbite with gangrenous toe patient also have worsening of his respiratory status requiring admission to the ICU and required BiPAP. On today's evaluation that is 07/22/2021, the patient is afebrile, the patient is more awake and alert today is breathing slightly comfortably, denies having any chest pain and no worsening cough or sputum production no nausea no vomiting no abdominal pain and no diarrhea Objective - Vital Signs Vital signs: Vital Signs Temp 98.7 F 07/22/21 20:00 Pulse 73 07/22/21 21:00 Resp 12 07/22/21 21:00 BP 157/85 07/22/21 21:00 Pulse Ox 96 07/22/21 21:00 Intake & Output 07/22/21 07/22/21 07/23/21 06:59 18:59 06:59 Intake Total 960.506 918.999 225 Output Total 450 390 0 Balance 510.506 528.999 225 Weight 75 kg Intake: IV 900 900 225 Sodium Chloride 0.9% 1, 900 900 225 000 ml @ 75 mls/hr IV . [id number] JOHN Rx#:[id number] Intake, IV Titration 60.506 18.999 Amount Dexmedetomidine/0.9% NaCl 60.506 18.999 (Pmx) 400 mcg In Empty Bag 1 bag @ 0.2 MCG/KG/HR 3.665 mls/hr IV .Q24H JOHN Rx#:[id number] Output: Urine 450 390 0 Other: Voiding Method Indwelling Catheter Indwelling Catheter # Voids 1 # Bowel Movements 1 - Exam GENERAL DESCRIPTION:[ Patient is awake and alert in no distress] HEENT: [Oral mucosa is dry and no pharyngeal erythema] RESPIRATORY SYSTEM: [Unlabored breathing decreased breath sounds at the base] CARDIA VASCULAR SYSTEM: [S1-S2 regular rate and rhythm no murmur] GI: [Abdominal soft there's no tenderness no organomegaly] EXTREMITIES: [No edema feet] - Labs CBC & Chem 7: 07/22/21 05:36 07/22/21 05:36 Labs: Abnormal Lab Results - Last 24 Hours (Table) 0207/22/21 07/22/21 Range/Units 05:36 05:36 06:00 RBC 4.00 L (4.30-5.90) m/uL MCV 103.7 H (80.0-100.0) fL Sodium 147 H (137-145) mmol/L Chloride 120 H (98-107) mmol/L Glucose 105 H (74-99) mg/dL POC Glucose (mg/dL) 101 H (75-99) mg/dL Calcium 8.2 L (8.4-10.2) mg/dL Total Bilirubin 1.4 H (0.2-1.3) mg/dL ALT 59 H (4-49) U/L Total Protein 5.4 L (6.3-8.2) g/dL Albumin 2.7 L (3.5-5.0) g/dL 07/22/21 Range/Units 17:45 RBC (4.30-5.90) m/uL MCV (80.0-100.0) fL Sodium (137-145) mmol/L Chloride (98-107) mmol/L Glucose (74-99) mg/dL POC Glucose (mg/dL) 116 H (75-99) mg/dL Calcium (8.4-10.2) mg/dL Total Bilirubin (0.2-1.3) mg/dL ALT (4-49) U/L Total Protein (6.3-8.2) g/dL Albumin (3.5-5.0) g/dL Microbiology - Last 24 Hours (Table) 07/21/21 01:00 Blood Culture - Preliminary Blood No Growth after 24 hours Assessment and Plan (1) Pneumonia Current Visit: Yes Status: Acute Code(s): J18.9 - PNEUMONIA, UNSPECIFIED ORGANISM SNOMED Code(s): 029596544 Plan: Patient with acute respiratory failure is multifactorial concerning for a component of pneumonia question of aspiration etiology patient to have penicillin ALLERGY, patient to continue with cefepime and clindamycin we will try to obtain sputum to narrow his antibiotics and continue supportive care Time with Patient: Less than 30
[2021-07-23 00:01] LABS: Glucose,Whole Blood 84 mg/dL (75-99)
[2021-07-23] MEDS: CLINDAMYCIN 600 MG in DEXTROSE 5% IN WATER 50 ML IVPB SCH ×6 (00:34→15:50)
[2021-07-23] MEDS: CEFEPIME 2 GM in SODIUM CHLORIDE 0.9% 100 ML IVPB SCH ×3 (01:22→15:50)
[2021-07-23] MEDS: MORPHINE SULFATE 4 MG/ML SYRINGE IV PRN ×3 (05:16→17:21)
[2021-07-23 05:48] LABS: Glucose,Whole Blood 117 mg/dL (75-99)
[2021-07-23 05:56] LABS: HCT 41.7 % (39.0-53.0); HGB 13.9 gm/dL (13.0-17.5); MCH 34.7 pg (25.0-35.0); MCHC 33.3 g/dL (31.0-37.0); MCV 104.4 fL (80.0-100.0); Macrocytosis Slight; Mean Platelet Volume 8.1; Platelet Count 210 k/uL (150-450); RDW 12.6 % (11.5-15.5); WBC 10.2 k/uL (3.8-10.6)
[2021-07-23] MEDS: THIAMINE 100 MG TAB PO SCH ×2 (06:06→16:01)
[2021-07-23 06:09] LABS: African American GFR (CKD) >90 (>60 ml/min/1.73 sqM); Anion Gap 4 mmol/L; Blood Urea Nitrogen 15 mg/dL (9-20); Calcium 8.3 mg/dL (8.4-10.2); Carbon Dioxide 25 mmol/L (22-30); Chloride 119 mmol/L (98-107); Glucose 99 mg/dL (74-99); Non-African American GFR(CKD) >90 (>60 ml/min/1.73 sqM); Potassium 3.4 mmol/L (3.5-5.1); Sodium 148 mmol/L (137-145)
[2021-07-23] MEDS ORDERED: Potassium Replacement Protocol 1 EACH MISC MISCELLANE PRN (06:18)
[2021-07-23] MEDS: POTASSIUM CHLORIDE 10 MEQ in WATER FOR INJECTION 1 100ML.BAG IVPB SCH ×4 (06:45→10:35)
[2021-07-23] MEDS: IPRATROPIUM-ALBUTEROL 3 ML NEB INHALATION SCH ×4 (07:21→20:37)
[2021-07-23] MEDS: FAMOTIDINE 20 MG/2 ML VIAL IV SCH ×2 (07:54→20:26)
[2021-07-23] MEDS: HEPARIN SODIUM,PORCINE/PF 5,000 UNIT/0.5 ML SYRINGE SQ SCH ×2 (07:55→20:26)
[2021-07-23] MEDS ORDERED: hydrALAZINE HCL 20 MG/ML 1 ML VIAL IVP PRN (09:49)
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
[2021-07-23] MEDS: SODIUM CHLORIDE 0.45% 1,000 ML IV SCH (10:36)
--- NOTE | 2021-07-23 10:42 | CT ---
EXAMINATION TYPE: CT brain wo con DATE OF EXAM: 07/23/2021 COMPARISON: 07/17/21 HISTORY: ams, moving LUE less CT DLP: 1158.[address] of the brain was performed. The ventricles, basal cisterns and sulci overlying the cerebral convexities demonstrate mild enlargem ent. There is no evidence for intracranial hemorrhage or sulcal effacement. There is decreased attenuation about the periventricular white matter and deep white matter of both c erebral hemispheres, compatible with chronic small vessel ischemia. Differential diagnosis does inclu de demyelination. No mass effects are seen.No midline shift. Osseous calvarium is intact. If symptoms persist consider MRI. IMPRESSION: 1. Age related atrophic and chronic small vessel ischemic change without acute intracranial process s een at this time.
[2021-07-23 11:22] LABS: Methylmalonic Acid 0.15 umol/L (<0.40)
[2021-07-23 11:39] LABS: Glucose,Whole Blood 96 mg/dL (75-99)
--- NOTE | 2021-07-23 11:51 | XR ---
EXAMINATION TYPE: XR chest 1V portable DATE OF EXAM: 07/23/2021 COMPARISON: 07/22/2021 chest x-ray HISTORY: Aspiration TECHNIQUE: Single frontal view of the chest is obtained. FINDINGS: Airspace disease is predominantly within the right lung. Questionable minimal retrocardiac density. No evident pneumothorax or pleural effusion. Cardiac style silhouette is stable. There are overlying artifacts. Thoracic spondylosis is noted. IMPRESSION: Correlate for pneumonia
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
--- NOTE | 2021-07-23 14:43 | P.PN ---
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 As per report. He was seen doing well about 2 days ago. Patient was found with no evidence of trauma, incontinence of urine and stool. And he was hypothermic on admission with a rectal temperature of 99F. He was warmed using of the fluids. Patient found to have bilateral dusky heat suspicious for hypothermic injury. Also there was some evidence of rhabdomyolysis, lactic acidosis and dehydration and he was admitted to the intensive care unit. When I saw the patient in the ICU he was sleepy, does not wake up to verbal or tactile stimuli however he withdrawal for patient's to light. He has some deep breathing. Both feet are in dressing. Patient could not provide information. We checked him after couple hours distal clip waking up so it allowed to consult neurology service Currently vital signs stable, his temperature went up last night to 98.1-99.1. Showing mild leukocytosis. Hemoglobin is elevated 18.2, platelet 164. Carbon dioxide is 1.1, which is within the reference range. Elevated lactic acid 4.3 came back to 1.4. Elevated creatinine kinase 5921 Creatinine 1.0, potassium 5.2, liver enzymes slightly elevated with AST 215 and ALT 64. Troponin is negative at 0.014. Ammonia is negative less than 9. High serum osmolality of 312. Urine analysis showing 1+ protein, 1+ ketone, no solid evidence of infection. Urine drug screen is negative, salicylate less than 1, acetaminophen less than 10 and serum alcohol less than 10 Coronavirus nondetected. EKG showing normal sinus rhythm with incomplete right bundle branch block and left posterior fascicular block and QTC 455, no significant ST-T changes Q Chest x-ray showing no acute process. CT of the brain: No acute process CT of the cervical spine: No acute fracture or dislocation In the emergency room patient was started on IV fluids, IV heparin and started on CIWA protocol for suspicion alcohol abuse 07/19/2021 Patient still confused although he opens his eyes spontaneously but he does not answer questions he does not follow commands. Hemodynamically and labs are stable. Leukocytosis improved. Liver enzymes still mildly elevated. Creatinine kinase trending down while he continues on IV fluids. She still have bluish discoloration of the right toes especially the right big toe while the left toes there are dusky pink and lukewarm compelled more called on the right side. Vascular surgery on the case and they went further rewarming and resolution before they decide before any surgical intervention. He remains on CIWA protocol and thiamine normal saline at 100 mL per hour. Haldol as needed for agitation. EEG showing mildly abnormal digital cerebral dysfunction. No evidence of epileptiform discharge. Neurology on the case. MRI of the brain is pending. While carotid Doppler's reported as negative today. 07/20/2021 Patient is seen and examined today in the ICU Patient did not show much progress regarding his mentation, he still opens his eyes spontaneously but other than that he is unresponsive and does not talk are not follow commands. He does not look in distress. His EEG showing general cerebral dysfunction and neurology on the case recommended MRI of the brain which is pending now. Carotid Doppler's is negative. Vascular surgery also on the case and following him for his right toes hypothermic injury medially on the right big toe. He kept on IV fluid normal saline 100 mL per hour and his creatinine kinase tr ending down today 1225, liver enzymes slightly less today. 07/21/2021 Patient over for right developed fever of 100.5 and he was agitated need several doses of Haldol to come down and he was becoming more hypoxic requiring 6 L/m and in the morning was the miguel Keppra minute and eventually he was placed on BiPAP. Chest x-ray was consistent with bilateral pneumonia but merely multifocal pneumonia of the right side highly suspicious for aspiration pneumonia, patient received several antibiotics and currently is on clindamycin and ceftriaxone. Other than that his CPK significantly improved to 435, liver enzymes trending down, creatinine is normal today. However her IPG showing normal pH of 7.4 but hypoxia with pO2 of 57. He received 1 dose of Lasix and we lowered the dose of normal saline down to 75 mL/h. Several attempts try to send the patient for MRI however he was agitated and he had to be transferred to the ICU to receive Precedex 2 to calm down. Vascular surgery still follow the patient for gangrenous lesion of the right first, second and third toes 07/22/2021 Patient seen in the ICU is slightly more awake, he can't tell his last name and he told the nurses he was in the hospital however he is a still confused. And distal MRI of the brain is pending and if is not couldn't be done then CT of the brain would be considered and neurology service on the case. His oxygen requirement trending down to 30 L the morning and 11 be Permanent in the afternoon. His chest x-ray showing improvement and antibiotics were adjusted to clindamycin and cefepime. ID team on the case as well. Sodium 147, Patient continued on gentle hydration as well. No surgical intervention by vascular surgery team for his gangrenous right big toe and the second and third toes to a lesser degree. Keep monitoring 07/23/2021 Patient elevated today in the ICU, he is awake however he is confused and is unable to tell me where he is or the year. He denies any headache, photophobia, nausea vomiting or diarrhea. His eyes do appear to be wandering around the room during conversation. Patient underwent brain CT today which shows age-related atrophic and chronic small vessel ischemic change without acute intracranial process seen at this time. Chest xray correlate for pneumonia. He continues on Precedex. RBC 4.00, WBC 10.2, Platelet count 210, sodium 148, potassium 3.4, chloride 119, blood sugars WNL. He is being followed closely by neurology who would like MRI with and without once he is able to tolerate. ROS Constitutional: Denied any fatigue denied any fever. Cardio vascular: denied any chest pain, palpitations Gastrointestinal: denied any nausea vomiting, diarrhea Pulmonary: Denied any shortness of breath cough Neurologic denied any new focal deficits All inpatient medications were reviewed and appropriate changes in these medications as dictated in the interval history and assessment and plan. PHYSICAL EXAMINATION: GENERAL: The patient is alert and oriented x0-1, not in any acute distress. Well developed, well nourished. HEENT: Pupils are round and equally reacting to light. EOMI. No scleral icterus. No conjunctival pallor. Normocephalic, atraumatic. No pharyngeal erythema. No thyromegaly. CARDIOVASCULAR: S1 and S2 present. No murmurs, rubs, or gallops. PULMONARY: Scattered rhonchi, no wheezing noted ABDOMEN: Soft, nontender, nondistended, normoactive bowel sounds. No palpable organomegaly. MUSCULOSKELETAL: No joint swelling or deformity. EXTREMITIES: No cyanosis, clubbing, or pedal edema. Right big toe is black, where the left big toe is dusky in color. As well to a lesser extent this right second and third toes. There is deep tissue injury to right heel. NEUROLOGICAL: Gross neurological examination did not reveal any focal deficits. SKIN: Linear scratches along inner thigh. Assessment and plan Assessment: Altered mental status most likely metabolic encephalopathy. Ruled out intracranial lesions, MRI pending when patient more cooperative. Following with Neurology. Aspiration pneumonia with consolidation of right lung and bilateral infiltrates, presently on room air maintaining saturation at 91% Possible frostbite with hypothermic feet injury, patient was hypothermic on arrival, vascular and wound care following as well as ID. Rhabdomyolysis, Improving significantly Lactic acidosis, resolved Dehydration Mildly elevated liver enzymes Suspected history of alcohol abuse Chronic tobacco use DVT prophylaxis: heparin GI Prophylaxis: Pepcid FULL CODE Plan: Continue with IV fluid Continue IV precedex as recommended by canvas cutter hand Continue with clindamycin and cefepime Neurology consult Vascular surgery and pulmonary/critical care team consult Possible right great toe amputation outpatient Continue with local wound care per recommendations PT/OT: Pending Prognosis is guarded Objective - Vital Signs Vital signs: Vital Signs Temp 97.0 F L 07/23/21 08:00 Pulse 90 07/23/21 11:20 Resp 12 07/23/21 11:00 BP 170/90 07/23/21 11:00 Pulse Ox 92 L 07/23/21 11:00 Intake & Output 07/22/21 07/23/21 07/23/21 18:59 06:59 18:59 Intake Total 029.224 6592.603 925 Output Total 390 708 270 Balance 904.497 4245.603 655 Weight 70.8 kg Intake: IV 900 1950 925 Cefepime 2 gm In Sodium 1000 100 Chloride 0.9% 100 ml @ 25 mls/hr IVPB Q8HR JOHN Rx# :[id number] Clindamycin 600 mg In 50 50 Dextrose 5% in Water 50 ml @ 50 mls/hr IVPB Q8HR JOHN Rx#:[id number] Potassium Chloride 10 meq 400 In Water For Injection 1 100ml.bag @ 100 mls/hr IVPB Q1HR JOHN Rx#: [id number] Sodium Chloride 0.45% 1, 150 000 ml @ 75 mls/hr IV . [id number] JOHN Rx#:[id number] Sodium Chloride 0.9% 1, 900 900 225 000 ml @ 75 mls/hr IV . [id number] [facility] Rx#:[id number] Intake, IV Titration 18.999 50.603 Amount Dexmedetomidine/0.9% NaCl 18.999 50.603 (Pmx) 400 mcg In Empty Bag 1 bag @ 0.2 MCG/KG/HR 3.665 mls/hr IV .Q24H JOHN Rx#:[id number] Output: Urine 390 400 270 Post Void Residual 308 Other: Voiding Method Indwelling Catheter Indwelling Catheter # Bowel Movements 1 - Labs CBC & Chem 7: 07/23/21 05:27 07/23/21 05:27 Labs: Abnormal Lab Results - Last 24 Hours (Table) 07/22/21 07/23/21 07/23/21 Range/Units 17:45 05:27 05:27 RBC 4.00 L (4.30-5.90) m/uL MCV 104.4 H (80.0-100.0) fL Sodium 148 H (137-145) mmol/L Potassium 3.4 L (3.5-5.1) mmol/L Chloride 119 H (98-107) mmol/L POC Glucose (mg/dL) 116 H (75-99) mg/dL Calcium 8.3 L (8.4-10.2) mg/dL 07/23/21 Range/Units 05:46 RBC (4.30-5.90) m/uL MCV (80.0-100.0) fL Sodium (137-145) mmol/L Potassium (3.5-5.1) mmol/L Chloride (98-107) mmol/L POC Glucose (mg/dL) 117 H (75-99) mg/dL Calcium (8.4-10.2) mg/dL Microbiology - Last 24 Hours (Table) 07/21/21 01:00 Blood Culture - Preliminary Blood No Growth after 48 hours Assessment and Plan Time with Patient: Less than 30
[2021-07-23] MEDS: DEXMEDETOMIDINE/0.9% NACL(PMX) 400 MCG in EMPTY BAG 1 BAG IV SCH (20:01)
--- NOTE | 2021-07-23 20:57 | P.PN ---
Subjective Progress Note Date: 07/23/21 Principal diagnosis: Pneumonia Patient is a 66 year male who was brought into the hospital after the patient was found to be unresponsive in his truck this patient did have evidence of right foot frostbite with gangrenous toe patient also have worsening of his respiratory status requiring admission to the ICU and required BiPAP. On today's evaluation that is 08/11/2021, the patient remains to be afebrile, the patient is lethargic today and did not provide any history patient not in any respiratory distress and no vomiting or diarrhea was reported by the nursing staff Objective - Vital Signs Vital signs: Vital Signs Temp 98.9 F 07/23/21 20:00 Pulse 68 07/23/21 20:52 Resp 20 07/23/21 20:00 BP 139/62 07/23/21 20:00 Pulse Ox 92 L 07/23/21 20:00 Intake & Output 07/23/21 07/23/21 07/24/21 06:59 18:59 06:59 Intake Total 2000.603 1710.276 75 Output Total 708 1195 150 Balance 1292.603 515.276 -75 Weight 70.8 kg Intake: IV 1950 1675 75 Cefepime 2 gm In Sodium 1000 200 Chloride 0.9% 100 ml @ 25 mls/hr IVPB Q8HR [facility] Rx# :[id number] Clindamycin 600 mg In 50 100 Dextrose 5% in Water 50 ml @ 50 mls/hr IVPB Q8HR [facility] Rx#:[id number] Potassium Chloride 10 meq 400 In Water For Injection 1 100ml.bag @ 100 mls/hr IVPB Q1HR [facility] Rx#: [id number] Sodium Chloride 0.45% 1, 750 75 000 ml @ 75 mls/hr IV . [id number] [facility] Rx#:[id number] Sodium Chloride 0.9% 1, 900 225 000 ml @ 75 mls/hr IV . [id number] [facility] Rx#:[id number] Intake, IV Titration 50.603 35.276 Amount Dexmedetomidine/0.9% NaCl 50.603 35.276 (Pmx) 400 mcg In Empty Bag 1 bag @ 0.2 MCG/KG/HR 3.665 mls/hr IV .Q24H [facility] Rx#:[id number] Output: Urine 400 1195 150 Post Void Residual 308 Other: Voiding Method Indwelling Catheter Indwelling Catheter # Bowel Movements 1 - Exam GENERAL DESCRIPTION:[ Patient is awake and alert in no distress] HEENT: [Oral mucosa is dry and no pharyngeal erythema] RESPIRATORY SYSTEM: [Unlabored breathing decreased breath sounds at the base] CARDIA VASCULAR SYSTEM: [S1-S2 regular rate and rhythm no murmur] GI: [Abdominal soft there's no tenderness no organomegaly] EXTREMITIES: [No edema feet] - Labs CBC & Chem 7: 07/23/21 05:27 07/23/21 05:27 Labs: Abnormal Lab Results - Last 24 Hours (Table) 07/23/21 07/23/21 07/23/21 Range/Units 05:27 05:27 05:46 RBC 4.00 L (4.30-5.90) m/uL MCV 104.4 H (80.0-100.0) fL Sodium 148 H (137-145) mmol/L Potassium 3.4 L (3.5-5.1) mmol/L Chloride 119 H (98-107) mmol/L POC Glucose (mg/dL) 117 H (75-99) mg/dL Calcium 8.3 L (8.4-10.2) mg/dL Microbiology - Last 24 Hours (Table) 07/21/21 01:00 Blood Culture - Preliminary Blood No Growth after 48 hours Assessment and Plan (1) Pneumonia Current Visit: Yes Status: Acute Code(s): J18.9 - PNEUMONIA, UNSPECIFIED ORGANISM SNOMED Code(s): 098729891 Plan: Patient with acute respiratory failure is multifactorial concerning for a component of pneumonia question of aspiration etiology patient to have penicillin ALLERGY, patient seems to have clinically responded to cefepime and clindamycin which will be continued we will try to obtain sputum to narrow his antibiotics and continue supportive care Time with Patient: Less than 30
[2021-07-24] MEDS: SODIUM CHLORIDE 0.45% 1,000 ML IV SCH (01:33)
[2021-07-24] MEDS: CEFEPIME 2 GM in SODIUM CHLORIDE 0.9% 100 ML IVPB SCH ×4 (01:42→23:31)
[2021-07-24] MEDS: CLINDAMYCIN 600 MG in DEXTROSE 5% IN WATER 50 ML IVPB SCH ×8 (01:59→23:25)
[2021-07-24] MEDS: MORPHINE SULFATE 4 MG/ML SYRINGE IV PRN ×3 (02:21→13:52)
[2021-07-24 06:41] LABS: HCT 40.7 % (39.0-53.0); HGB 14.1 gm/dL (13.0-17.5); MCH 35.1 pg (25.0-35.0); MCHC 34.7 g/dL (31.0-37.0); MCV 101.3 fL (80.0-100.0); Mean Platelet Volume 8.3; Platelet Count 219 k/uL (150-450); RBC 4.02 m/uL (4.30-5.90); RDW 11.9 % (11.5-15.5); WBC 11.1 k/uL (3.8-10.6)
[2021-07-24 07:04] LABS: ALT 44 U/L (4-49); AST 37 U/L (17-59); African American GFR (CKD) >90 (>60 ml/min/1.73 sqM); Albumin 2.8 g/dL (3.5-5.0); Alkaline Phosphatase 55 U/L (38-126); Anion Gap 6 mmol/L; Blood Urea Nitrogen 11 mg/dL (9-20); Calcium 8.3 mg/dL (8.4-10.2); Carbon Dioxide 23 mmol/L (22-30); Chloride 112 mmol/L (98-107); Glucose 78 mg/dL (74-99); Non-African American GFR(CKD) >90 (>60 ml/min/1.73 sqM); Potassium 3.4 mmol/L (3.5-5.1); Sodium 141 mmol/L (137-145); Total Bilirubin 1.5 mg/dL (0.2-1.3); Total Protein 5.6 g/dL (6.3-8.2)
[2021-07-24] MEDS: IPRATROPIUM-ALBUTEROL 3 ML NEB INHALATION SCH ×4 (08:19→21:35)
[2021-07-24] MEDS: HEPARIN SODIUM,PORCINE/PF 5,000 UNIT/0.5 ML SYRINGE SQ SCH ×2 (08:34→20:43)
[2021-07-24] MEDS: FAMOTIDINE 20 MG/2 ML VIAL IV SCH ×2 (08:34→20:43)
--- NOTE | 2021-07-24 10:25 | P.PN ---
Subjective Progress Note Date: 07/24/21 66-year-old male patient will will be transferred to the ICU because of worsening and hypoxic respiratory failure. The patient is currently on a BiPAP at a pressure of 12/6 cm of water and FiO2 part the percent and a chest x-ray showing diffuse bilateral pulmonary infiltrates mostly secondary to aspiration with a possibility of an acute lung injury/ARDS. The patient is known to have alcoholism. The patient was found in his car at a cold temperature and he had a temperature of 90.9F. He also had frostbite in his lower extremities bilaterally. The patient has gangrenous first second and third toes on the right. Frostbite on the left foot have improved. The patient was in intensive care unit for hypothermia and frostbite. He was treated and he was discharged to a medical floor to be admitted again this morning because of worsening shortness of breath and hypoxemic respiratory failure. He tested negative for occult with 19. He had an elevated CPK level consistent with rhabdomyolysis. His CPK peaked at 3882 and dropped down to 435. Meanwhile, the patient has normal electrolyte. Blood gas today showed a pH of 7.43 with a pCO2 of 33 and pO2 of 57 and for that reason the patient was placed on BiPAP and the patient got transferred to the ICU. He is lethargic. He is quite somnolent. His current antibiotic coverage including a combination of Rocephin and clindamycin covering for aspiration pneumonia. Overnight, he was given a total of 8 mg of Haldol as of a.m. this morning. The patient was quite lethargic. I transferred to the ICU and start him on Precedex for agitation and signs of any delirium tremens. He is on IV fluids normal saline at the rate of 100 mL an hour. He is on heparin subcu for DVT prophylaxis. Today's evaluation of 07/22/2021, the patient is currently in the intensive care unit for delirium tremens, encephalopathy, and acute hypoxic respiratory failure with extensive right lung pneumonia. Noted the patient got transferred to the ICU yesterday because of increased agitation and hypoxemia. He was initially placed on a BiPAP and later on in the afternoon, switch this patient with high flow oxygen currently running at 12 L per minute. I also put the patient on Precedex for agitation. In terms of his pneumonia, the patient is covered with a combination of antibiotics. He is currently on a combination of cefepime and clindamycin. The repeat chest x-ray from today still showing extensive consolidation of the right lung. The patient however remains hemodynamically stable. He is using Precedex which is running at 0.2 mics for respiratory control and per minute. At times he was becoming bradycardic and for that reason the dose of Precedex was At a lower rate. He was treated with Haldol earlier, overnight he did not receive any Haldol. This morning, he is communicating. At times, he tries to get out of bed and he gets restless in bed. He remains on IV fluids. IV fluids are running at 75 mL an hour of normal saline. His CPK level is improving. The patient had frostbite in his right toes. In fact the first toe is completely necrotic on the right. The second third and fourth and fifth toe tips are obviously necrotic and the patient has a deep tissue injury to his right heel. The left foot is in a better condition at this point in time although there is an early UTI in the left heel also. The blood work otherwise is still pending from this morning. The blood sugar is at 11. The patient remains nothing by mouth. Blood pressure is slightly elevated and needs to be under better control. Family was updated and the daughter was at the bedside yesterday. 07/23/2021, the patient is to be a bit more calm and less restless compared to earlier evaluation. He remains on Precedex in the low dose of 0.2 mcg/kg per minute. No side effects from the effusion. No bradycardia. He remains hemodynamically stable. Blood pressure slightly elevated. He has not required Ativan overnight. He remains on normal saline third of 75 mL an hour. He was unable to keep his oxygen mask on and for that reason the nasal cannula was discontinued and the patient is currently on room air oxygen maintaining a pulse ox of 91%. He has very poor dentition. He has dry oral mucosa. He will need oral care. At the same time, the patient has gangrenous toes in his right foot related to a frostbite. He also has a deep tissue injury involving the heel on the right. The patient remains on broad-spectrum antibiotics. He remains on examination cefepime and clindamycin. His blood work from today shows a sodium level of 148 with a potassium level of 3.4, serum bicarbonate 25 with a creatinine being normal at 0.7. The white cell count is currently at 10.2 with a hemoglobin of 13.9. Note that the patient also had acute rhabdomyolysis which recovered. His liver functions as of also improved. His neurologic exam is nonfocal. He was seen by neurology. Recommendations were made to proceed with an MRI of the brain. This was not done as the patient is unable to stay still to complete the study. Family has been updated on a regular basis. The daughter has been at the bedside . 07/24/2021, the patient is much more calm and rested compared to yesterday. He seems to be answering questions more appropriately although it is not sharp and fast and answering questions scale. Neurologic exam remains nonfocal. Currently off Precedex. He remains on 0.45 saline at the rate of 75 mL an hour. He is on room air oxygen. He remains on a combination of cefepime and clindamycin. Otherwise, his urine output is adequate. His blood work from today shows a white cell count of 11, BUN of 11 and a creatinine of 0.7 and the sodium level of 141 with a potassium level of 3.4. LFTs are normal. Microbio logy was essentially negative. Blood culture was negative. As stated earlier, the patient has deep tissue injury in his right heel and multiple necrotic toes in the right foot/frostbite. We also noted that the patient has a deep tissue injury to his coccyx area Objective - Vital Signs Vital signs: Vital Signs Temp 98.9 F 07/23/21 20:00 Pulse 103 H 07/24/21 10:00 Resp 18 07/24/21 10:00 BP 167/93 07/24/21 10:00 Pulse Ox 92 L 07/24/21 10:00 Intake & Output 07/23/21 07/24/21 07/24/21 18:59 06:59 18:59 Intake Total 1710.276 825 225 Output Total 1195 725 625 Balance 515.276 100 -400 Weight 72.3 kg Intake: IV 1675 825 225 Cefepime 2 gm In Sodium 200 Chloride 0.9% 100 ml @ 25 mls/hr IVPB Q8HR JOHN Rx# :[id number] Clindamycin 600 mg In 100 Dextrose 5% in Water 50 ml @ 50 mls/hr IVPB Q8HR [facility] Rx#:[id number] Potassium Chloride 10 meq 400 In Water For Injection 1 100ml.bag @ 100 mls/hr IVPB Q1HR JOHN Rx#: [id number] Sodium Chloride 0.45% 1, 750 825 225 000 ml @ 75 mls/hr IV . [id number] JOHN Rx#:[id number] Sodium Chloride 0.9% 1, 225 000 ml @ 75 mls/hr IV . [id number] JOHN Rx#:[id number] Intake, IV Titration 35.276 Amount Dexmedetomidine/0.9% NaCl 35.276 (Pmx) 400 mcg In Empty Bag 1 bag @ 0.2 MCG/KG/HR 3.665 mls/hr IV .Q24H [facility] Rx#:[id number] Output: Urine 1195 725 625 Other: Voiding Method Indwelling Catheter Indwelling Catheter - Exam poorly responsive, the patient is lethargic , awake, currently on room air oxygen. He continues to move in bed and he seems to be still restless. No significant agitation. His breathing is nonlabored at this point in time. Head exam was generally normal. There was no scleral icterus or corneal arcus. Mucous membranes were moist. HEENT examination is grossly unremarkable. Neck supple. Full range of motion. No adenopathy thyromegaly or neck vein distention. Cardiovascular examination reveals regular rhythm rate. S1-S2 normal. No S3 or S4. No discernible murmur noted. Heart rate 65 bpm. Heart sounds are distant. Lungs reveal clear breath sounds. Breath sounds are equal bilaterally. No adventitious lung sounds including wheezes rhonchi or crackles. Abdomen soft bowel sounds are heard. No masses or tenderness. Extremities reveal cyanotic/dark toes bilaterally. Feet are wrapped. Right foot is worse than the left. Skin is without rash or lesion, except as above. The patient has gangrenous first toe in the right foot, in addition to gangrenous changes involving the tips of the second third fourth and fifth toe on the right. The patient also has a DTI in his right heel and the patient also has a deep tissue injury to his coccyx area/gluteal area Neurologic examination patient is responsive, neurologic exam is nonfocal and the patient continues to be confused. His level of alertness gradually is improving. The patient is much more awake. He is able to answer some questions. He remains slow in answering questions. Neurologic exam remains nonfocal. - Labs CBC & Chem 7: 07/24/21 06:11 07/24/21 06:11 Labs: Abnormal Lab Results - Last 24 Hours (Table) 07/24/21 07/24/21 Range/Units 06:11 06:11 WBC 11.1 H (3.8-10.6) k/uL RBC 4.02 L (4.30-5.90) m/uL MCV 101.3 H (80.0-100.0) fL MCH 35.1 H (25.0-35.0) pg Potassium 3.4 L (3.5-5.1) mmol/L Chloride 112 H (98-107) mmol/L Calcium 8.3 L (8.4-10.2) mg/dL Total Bilirubin 1.5 H (0.2-1.3) mg/dL Total Protein 5.6 L (6.3-8.2) g/dL Albumin 2.8 L (3.5-5.0) g/dL Microbiology - Last 24 Hours (Table) 07/21/21 01:00 Blood Culture - Preliminary Blood No Growth after 72 hours Assessment and Plan Plan: 1 acute mental status change/encephalopathy, multifactorial. The patient presented hypothermic, unresponsive, and his toxicology screen showed negative alcohol, and the urine toxin was negative. The patient is gradually improving. His encephalopathy is still present although less active. No significant agitation. His restlessness has improved. The patient is currently off Precedex. He is following some simple commands. His low and answering questions. Laxative and waning mentation with some episodic confusion is slow in answering questions although at other times he was found to be more appropriate. Neurologist on the case. 2 acute hypoxic respiratory failure with diffuse bilateral pulmonary infiltrates, consider aspiration, consider acute lung injury/ARDS, There is extensive extensive consolidation of the right lung which obviously raises the concern for an aspiration and the patient is cefepime and clindamycin. Currently on room air oxygen 3 acute hypothermia recovered 4 acute frostbite with gangrenous toes on the right foot, and the patient has also DTI on involving the right heel. 5 acute rhabdomyolysis, improved 6 history of alcoholism 7 history of smoking 8 hypernatremia drooling and the patient remains on a half-normal saline at the rate of 75 mL an hour 9 deep tissue injury to his gluteal area. Plan Obtain a follow-up chest x-ray and this will be obtained for tomorrow The patient on room air oxygen Switched IV fluids to half-normal saline The patient is currently off Precedex unable to complete MRI of the brain, we'll discuss this with neurology Monitor the gangrenous changes in the right foot in addition to the deep tissue injury of the right heel Gradually improving neurologically although he remains confused , less encephalopathic compared to yesterday. Less agitated. The patient passed a swallow evaluation we'll gradually advance his diet Condition is critical we'll continue to follow. Is a full CODE STATUS at this point in time.
[2021-07-24] MEDS ORDERED: POTASSIUM CHLORIDE ER 20 MEQ TAB.ER PO STA (11:43)
[2021-07-24] MEDS ORDERED: lisinopriL 5 MG TAB PO SCH (11:45)
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
--- NOTE | 2021-07-24 11:54 | P.PN ---
Subjective Progress Note Date: 07/24/21 This is a pleasant 66 years old male with unknown past medical history presents because of altered mental status where he was found unresponsive in his truck bed family member. As per report. He was seen doing well about 2 days ago. Patient was found with no evidence of trauma, incontinence of urine and stool. And he was hypothermic on admission with a rectal temperature of 99F. He was warmed using of the fluids. Patient found to have bilateral dusky heat suspicious for hypothermic injury. Also there was some evidence of rhabdomyolysis, lactic acidosis and dehydration and he was admitted to the intensive care unit. When I saw the patient in the ICU he was sleepy, does not wake up to verbal or tactile stimuli however he withdrawal for patient's to light. He has some deep breathing. Both feet are in dressing. Patient could not provide information. We checked him after couple hours distal clip waking up so it allowed to consult neurology service Currently vital signs stable, his temperature went up last night to 98.1-99.1. Showing mild leukocytosis. Hemoglobin is elevated 18.2, platelet 164. Carbon dioxide is 1.1, which is within the reference range. Elevated lactic acid 4.3 came back to 1.4. Elevated creatinine kinase 5921 Creatinine 1.0, potassium 5.2, liver enzymes slightly elevated with AST 215 and ALT 64. Troponin is negative at 0.014. Ammonia is negative less than 9. High serum osmolality of 312. Urine analysis showing 1+ protein, 1+ ketone, no solid evidence of infection. Urine drug screen is negative, salicylate less than 1, acetaminophen less than 10 and serum alcohol less than 10 Coronavirus nondetected. EKG showing normal sinus rhythm with incomplete right bundle branch block and left posterior fascicular block and QTC 455, no significant ST-T changes Q Chest x-ray showing no acute process. CT of the brain: No acute process CT of the cervical spine: No acute fracture or dislocation In the emergency room patient was started on IV fluids, IV heparin and started on CIWA protocol for suspicion alcohol abuse 07/19/2021 Patient still confused although he opens his eyes spontaneously but he does not answer questions he does not follow commands. Hemodynamically and labs are stable. Leukocytosis improved. Liver enzymes still mildly elevated. Creatinine kinase trending down while he continues on IV fluids. She still have bluish discoloration of the right toes especially the right big toe while the left toes there are dusky pink and lukewarm compelled more called on the right side. Vascular surgery on the case and they went further rewarming and resolution before they decide before any surgical intervention. He remains on CIWA protocol and thiamine normal saline at 100 mL per hour. Haldol as needed for agitation. EEG showing mildly abnormal digital cerebral dysfunction. No evidence of epileptiform discharge. Neurology on the case. MRI of the brain is pending. While carotid Doppler's reported as negative today. 07/20/2021 Patient is seen and examined today in the ICU Patient did not show much progress regarding his mentation, he still opens his eyes spontaneously but other than that he is unresponsive and does not talk are not follow commands. He does not look in distress. His EEG showing general cerebral dysfunction and neurology on the case recommended MRI of the brain which is pending now. Carotid Doppler's is negative. Vascular surgery also on the case and following him for his right toes hypothermic injury medially on the right big toe. He kept on IV fluid normal saline 100 mL per hour and his creatinine kinase tr ending down today 1225, liver enzymes slightly less today. 07/21/2021 Patient over for right developed fever of 100.5 and he was agitated need several doses of Haldol to come down and he was becoming more hypoxic requiring 6 L/m and in the morning was the miguel Keppra minute and eventually he was placed on BiPAP. Chest x-ray was consistent with bilateral pneumonia but merely multifocal pneumonia of the right side highly suspicious for aspiration pneumonia, patient received several antibiotics and currently is on clindamycin and ceftriaxone. Other than that his CPK significantly improved to 435, liver enzymes trending down, creatinine is normal today. However her IPG showing normal pH of 7.4 but hypoxia with pO2 of 57. He received 1 dose of Lasix and we lowered the dose of normal saline down to 75 mL/h. Several attempts try to send the patient for MRI however he was agitated and he had to be transferred to the ICU to receive Precedex 2 to calm down. Vascular surgery still follow the patient for gangrenous lesion of the right first, second and third toes 07/22/2021 Patient seen in the ICU is slightly more awake, he can't tell his last name and he told the nurses he was in the hospital however he is a still confused. And distal MRI of the brain is pending and if is not couldn't be done then CT of the brain would be considered and neurology service on the case. His oxygen requirement trending down to 30 L the morning and 11 be Permanent in the afternoon. His chest x-ray showing improvement and antibiotics were adjusted to clindamycin and cefepime. ID team on the case as well. Sodium 147, Patient continued on gentle hydration as well. No surgical intervention by vascular surgery team for his gangrenous right big toe and the second and third toes to a lesser degree. Keep monitoring 07/23/2021 Patient elevated today in the ICU, he is awake however he is confused and is unable to tell me where he is or the year. He denies any headache, photophobia, nausea vomiting or diarrhea. His eyes do appear to be wandering around the room during conversation. Patient underwent brain CT today which shows age-related atrophic and chronic small vessel ischemic change without acute intracranial process seen at this time. Chest xray correlate for pneumonia. He continues on Precedex. RBC 4.00, WBC 10.2, Platelet count 210, sodium 148, potassium 3.4, chloride 119, blood sugars WNL. He is being followed closely by neurology who would like MRI with and without once he is able to tolerate. 07/24/2021 Patient evaluated in the ICU, worked with physical therapy. Attempt to get patient into the chair today. He did pass a swallow evaluation, and diet is being slowly advanced now. Patient off Precedex last 24 hours, agitation has improved. Patient does admit to drinking beer daily, he is more alert and oriented. He was able to tell nurse where he was today, stated that he was in the hospital. Labs today show white count 11.1, hemoglobin 14.1, sodium 141, potassium 3.4, chloride 112, total bili 1.5. Liver enzymes have normalized. Patient in the hypertensive side blood pressure 167/93, heart rate 103, pulse ox, 92% on room air. Being followed by infectious disease, vascular, neurology and pulmonary communications senior associate. ROS Unable to complete a full review of systems due to waxing and waning of mentation, patient was able to state that he does have pain to his feet. PHYSICAL EXAMINATION: GENERAL: The patient is alert and oriented x1-2, not in any acute distress. Well developed, well nourished. HEENT: Pupils are round and equally reacting to light. EOMI. No scleral icterus. No conjunctival pallor. Normocephalic, atraumatic. No pharyngeal erythema. No thyromegaly. CARDIOVASCULAR: S1 and S2 present. No murmurs, rubs, or gallops. PULMONARY: improved aeration, faint end expiratory wheeze noted. ABDOMEN: Soft, nontender, nondistended, normoactive bowel sounds. No palpable organomegaly. MUSCULOSKELETAL: No joint swelling or deformity. EXTREMITIES: No cyanosis, clubbing, or pedal edema. Right big toe is black, where the left big toe is dusky in color. As well to a lesser extent this right second and third toes. There is deep tissue injury to right heel. NEUROLOGICAL: Gross neurological examination did not reveal any focal deficits. SKIN: Linear scratches along inner thigh on the left. Assessment and plan Assessment: Altered mental status most likely metabolic encephalopathy with component of acute alcohol withdrawal delirium. Ruled out intracranial lesions, MRI pending when patient more cooperative. Following with Neurology. Mentation slightly improved today. Aspiration pneumonia with consolidation of right lung and bilateral infiltrates, presently on room air maintaining saturation at 91% Possible frostbite with hypothermic feet injury, patient was hypothermic on arrival, vascular and wound care following as well as ID. Rhabdomyolysis, Improving significantly Lactic acidosis, resolved Hypertension, unclear whether patient has history or not, started lisinopril today Hypokalemia secondary to poor oral intake Dehydration Mildly elevated liver enzymes History of chronic alcohol abuse Chronic tobacco use DVT prophylaxis: heparin GI Prophylaxis: Pepcid FULL CODE Plan: Continue with IV fluid Supplement potassium Advance diet as tolerated Continue with clindamycin and cefepime Neurology consult Vascular surgery and pulmonary/critical care team consult Possible right great toe amputation outpatient Continue with local wound care per recommendations PT/OT: Formal evaluation pending, patient will most likely require BRIDGER on discharge Prognosis is guarded Objective - Vital Signs Vital signs: Vital Signs Temp 98.9 F 07/23/21 20:00 Pulse 103 H 07/24/21 10:00 Resp 18 07/24/21 10:00 BP 167/93 07/24/21 10:00 Pulse Ox 92 L 07/24/21 10:00 Intake & Output 07/23/21 07/24/21 07/24/21 18:59 06:59 18:59 Intake Total 1710.276 825 225 Output Total 1195 725 625 Balance 515.276 100 -400 Weight 72.3 kg 72.3 kg Intake: IV 1675 825 225 Cefepime 2 gm In Sodium 200 Chloride 0.9% 100 ml @ 25 mls/hr IVPB Q8HR [facility] Rx# :[id number] Clindamycin 600 mg In 100 Dextrose 5% in Water 50 ml @ 50 mls/hr IVPB Q8HR [facility] Rx#:[id number] Potassium Chloride 10 meq 400 In Water For Injection 1 100ml.bag @ 100 mls/hr IVPB Q1HR [facility] Rx#: [id number] Sodium Chloride 0.45% 1, 750 825 225 000 ml @ 75 mls/hr IV . [id number] [facility] Rx#:[id number] Sodium Chloride 0.9% 1, 225 000 ml @ 75 mls/hr IV . [id number] [facility] Rx#:[id number] Intake, IV Titration 35.276 Amount Dexmedetomidine/0.9% NaCl 35.276 (Pmx) 400 mcg In Empty Bag 1 bag @ 0.2 MCG/KG/HR 3.665 mls/hr IV .Q24H [facility] Rx#:[id number] Output: Urine 1195 725 625 Other: Voiding Method Indwelling Catheter Indwelling Catheter Indwelling Catheter - Labs CBC & Chem 7: 07/24/21 06:11 07/24/21 06:11 Labs: Abnormal Lab Results - Last 24 Hours (Table) 07/24/21 07/24/21 Range/Units 06:11 06:11 WBC 11.1 H (3.8-10.6) k/uL RBC 4.02 L (4.30-5.90) m/uL MCV 101.3 H (80.0-100.0) fL MCH 35.1 H (25.0-35.0) pg Potassium 3.4 L (3.5-5.1) mmol/L Chloride 112 H (98-107) mmol/L Calcium 8.3 L (8.4-10.2) mg/dL Total Bilirubin 1.5 H (0.2-1.3) mg/dL Total Protein 5.6 L (6.3-8.2) g/dL Albumin 2.8 L (3.5-5.0) g/dL Microbiology - Last 24 Hours (Table) 07/21/21 01:00 Blood Culture - Preliminary Blood No Growth after 72 hours Assessment and Plan Time with Patient: Greater than 30
[2021-07-24 12:06] LABS: Glucose,Whole Blood 68 mg/dL (75-99)
[2021-07-24 12:19] LABS: Glucose,Whole Blood 74 mg/dL (75-99)
[2021-07-24] MEDS: DEXMEDETOMIDINE/0.9% NACL(PMX) 400 MCG in EMPTY BAG 1 BAG IV SCH (13:49)
[2021-07-24] MEDS: THIAMINE 100 MG TAB PO SCH ×2 (13:50→18:50)
[2021-07-24 17:34] LABS: Glucose,Whole Blood 99 mg/dL (75-99)
[2021-07-25] MEDS: THIAMINE 100 MG TAB PO SCH ×2 (06:15→16:53)
[2021-07-25 06:25] LABS: African American GFR (CKD) >90 (>60 ml/min/1.73 sqM); Anion Gap 5 mmol/L; Blood Urea Nitrogen 9 mg/dL (9-20); Calcium 7.8 mg/dL (8.4-10.2); Carbon Dioxide 26 mmol/L (22-30); Chloride 103 mmol/L (98-107); Glucose 87 mg/dL (74-99); Non-African American GFR(CKD) >90 (>60 ml/min/1.73 sqM); Sodium 134 mmol/L (137-145)
[2021-07-25 06:25] LABS: Glucose,Whole Blood 93 mg/dL (75-99)
[2021-07-25] MEDS: IPRATROPIUM-ALBUTEROL 3 ML NEB INHALATION SCH ×4 (07:21→20:13)
--- NOTE | 2021-07-25 08:55 | XR ---
EXAMINATION TYPE: XR chest 1V portable DATE OF EXAM: 07/25/2021 COMPARISON: Chest x-ray 07/23/2021, CT 07/17/2021 HISTORY: Aspiration pneumonia TECHNIQUE: Single frontal view of the chest is obtained. FINDINGS: Airspace disease present predominantly in the right lung as on prior exam. No evident pneu mothorax or pleural effusion. Cardiac mediastinal silhouette is stable. There are overlying leads. Ao rta is dense. IMPRESSION: Findings consistent with pneumonia, there is underlying emphysema.
[2021-07-25] MEDS: lisinopriL 10 MG TAB PO SCH (09:40)
[2021-07-25] MEDS: FAMOTIDINE 20 MG/2 ML VIAL IV SCH ×2 (09:40→21:46)
[2021-07-25] MEDS: CLINDAMYCIN 600 MG in DEXTROSE 5% IN WATER 50 ML IVPB SCH ×4 (09:40→21:46)
[2021-07-25] MEDS: CEFEPIME 2 GM in SODIUM CHLORIDE 0.9% 100 ML IVPB SCH ×2 (09:41→16:53)
[2021-07-25] MEDS: HEPARIN SODIUM,PORCINE/PF 5,000 UNIT/0.5 ML SYRINGE SQ SCH ×2 (09:41→21:42)
--- NOTE | 2021-07-25 10:01 | P.PN ---
Subjective Progress Note Date: 07/25/21 66-year-old male patient will will be transferred to the ICU because of worsening and hypoxic respiratory failure. The patient is currently on a BiPAP at a pressure of 12/6 cm of water and FiO2 part the percent and a chest x-ray showing diffuse bilateral pulmonary infiltrates mostly secondary to aspiration with a possibility of an acute lung injury/ARDS. The patient is known to have alcoholism. The patient was found in his car at a cold temperature and he had a temperature of 90.9F. He also had frostbite in his lower extremities bilaterally. The patient has gangrenous first second and third toes on the right. Frostbite on the left foot have improved. The patient was in intensive care unit for hypothermia and frostbite. He was treated and he was discharged to a medical floor to be admitted again this morning because of worsening shortness of breath and hypoxemic respiratory failure. He tested negative for occult with 19. He had an elevated CPK level consistent with rhabdomyolysis. His CPK peaked at 3882 and dropped down to 435. Meanwhile, the patient has normal electrolyte. Blood gas today showed a pH of 7.43 with a pCO2 of 33 and pO2 of 57 and for that reason the patient was placed on BiPAP and the patient got transferred to the ICU. He is lethargic. He is quite somnolent. His current antibiotic coverage including a combination of Rocephin and clindamycin covering for aspiration pneumonia. Overnight, he was given a total of 8 mg of Haldol as of a.m. this morning. The patient was quite lethargic. I transferred to the ICU and start him on Precedex for agitation and signs of any delirium tremens. He is on IV fluids normal saline at the rate of 100 mL an hour. He is on heparin subcu for DVT prophylaxis. Today's evaluation of 07/22/2021, the patient is currently in the intensive care unit for delirium tremens, encephalopathy, and acute hypoxic respiratory failure with extensive right lung pneumonia. Noted the patient got transferred to the ICU yesterday because of increased agitation and hypoxemia. He was initially placed on a BiPAP and later on in the afternoon, switch this patient with high flow oxygen currently running at 12 L per minute. I also put the patient on Precedex for agitation. In terms of his pneumonia, the patient is covered with a combination of antibiotics. He is currently on a combination of cefepime and clindamycin. The repeat chest x-ray from today still showing extensive consolidation of the right lung. The patient however remains hemodynamically stable. He is using Precedex which is running at 0.2 mics for respiratory control and per minute. At times he was becoming bradycardic and for that reason the dose of Precedex was At a lower rate. He was treated with Haldol earlier, overnight he did not receive any Haldol. This morning, he is communicating. At times, he tries to get out of bed and he gets restless in bed. He remains on IV fluids. IV fluids are running at 75 mL an hour of normal saline. His CPK level is improving. The patient had frostbite in his right toes. In fact the first toe is completely necrotic on the right. The second third and fourth and fifth toe tips are obviously necrotic and the patient has a deep tissue injury to his right heel. The left foot is in a better condition at this point in time although there is an early UTI in the left heel also. The blood work otherwise is still pending from this morning. The blood sugar is at 11. The patient remains nothing by mouth. Blood pressure is slightly elevated and needs to be under better control. Family was updated and the daughter was at the bedside yesterday. 07/23/2021, the patient is to be a bit more calm and less restless compared to earlier evaluation. He remains on Precedex in the low dose of 0.2 mcg/kg per minute. No side effects from the effusion. No bradycardia. He remains hemodynamically stable. Blood pressure slightly elevated. He has not required Ativan overnight. He remains on normal saline third of 75 mL an hour. He was unable to keep his oxygen mask on and for that reason the nasal cannula was discontinued and the patient is currently on room air oxygen maintaining a pulse ox of 91%. He has very poor dentition. He has dry oral mucosa. He will need oral care. At the same time, the patient has gangrenous toes in his right foot related to a frostbite. He also has a deep tissue injury involving the heel on the right. The patient remains on broad-spectrum antibiotics. He remains on examination cefepime and clindamycin. His blood work from today shows a sodium level of 148 with a potassium level of 3.4, serum bicarbonate 25 with a creatinine being normal at 0.7. The white cell count is currently at 10.2 with a hemoglobin of 13.9. Note that the patient also had acute rhabdomyolysis which recovered. His liver functions as of also improved. His neurologic exam is nonfocal. He was seen by neurology. Recommendations were made to proceed with an MRI of the brain. This was not done as the patient is unable to stay still to complete the study. Family has been updated on a regular basis. The daughter has been at the bedside . 07/24/2021, the patient is much more calm and rested compared to yesterday. He seems to be answering questions more appropriately although it is not sharp and fast and answering questions scale. Neurologic exam remains nonfocal. Currently off Precedex. He remains on 0.45 saline at the rate of 75 mL an hour. He is on room air oxygen. He remains on a combination of cefepime and clindamycin. Otherwise, his urine output is adequate. His blood work from today shows a white cell count of 11, BUN of 11 and a creatinine of 0.7 and the sodium level of 141 with a potassium level of 3.4. LFTs are normal. Microbio logy was essentially negative. Blood culture was negative. As stated earlier, the patient has deep tissue injury in his right heel and multiple necrotic toes in the right foot/frostbite. We also noted that the patient has a deep tissue injury to his coccyx area 4 2021, the patient is awake and alert and communicating. He seems to be much more appropriate. No shakiness. No restlessness. He is aware of his name, his location and he does not recall the events that end up bringing him to the hospital. He is very comfortable at this point in time. He is moving all 4 extremities. He does have a frostbite in his right foot. He also had an extensive right lung pneumonia and the patient remains on a combination of cefepime and clindamycin. Repeat chest x-ray shows significant improvement and clearing of the right lung infiltrates. He is able to tolerate diet. No reported aspiration. He is currently off Precedex. Blood work is all stable. Sodium is at 134, normal creatinine, normal electrolytes, the white cell count is currently is at 11.1. Potassium was low from this morning at 3.0 and it needs to be replaced. Vascular surgery is on the case. The patient has a deep tissue injury in his right heel and he also has a deep tissue injury on his buttock Objective - Vital Signs Vital signs: Vital Signs Temp 97.8 F 07/25/21 08:00 Pulse 75 07/25/21 09:00 Resp 13 07/25/21 09:00 BP 118/82 07/25/21 09:00 Pulse Ox 93 L 07/25/21 09:00 Intake & Output 07/24/21 07/25/21 07/25/21 18:59 06:59 18:59 Intake Total 1150 0 200 Output Total 1375 980 275 Balance -225 -980 -75 Weight 72.3 kg 71.4 kg Intake: IV 900 0 Cefepime 2 gm In Sodium 200 Chloride 0.9% 100 ml @ 25 mls/hr IVPB Q8HR [facility] Rx# :[id number] Clindamycin 600 mg In 100 Dextrose 5% in Water 50 ml @ 50 mls/hr IVPB Q8HR [facility] Rx#:[id number] Sodium Chloride 0.45% 1, 600 0 000 ml @ 75 mls/hr IV . [id number] [facility] Rx#:[id number] Intake, IV Titration 150 Amount Sodium Chloride 0.45% 1, 150 000 ml @ 75 mls/hr IV . [id number] [facility] Rx#:[id number] Oral 100 200 Output: Urine 1375 980 275 Other: Voiding Method Indwelling Catheter Indwelling Catheter # Bowel Movements 1 - Exam poorly responsive, the patient is alert, awake, currently on room air oxygen. He continues to move in bed and he seems to be still restless. No significant agitation. His breathing is nonlabored at this point in time. Head exam was generally normal. There was no scleral icterus or corneal arcus. Mucous membranes were moist. HEENT examination is grossly unremarkable. Neck supple. Full range of motion. No adenopathy thyromegaly or neck vein distention. Cardiovascular examination reveals regular rhythm rate. S1-S2 normal. No S3 or S4. No discernible murmur noted. Heart rate 65 bpm. Heart sounds are distant. Lungs reveal clear breath sounds. Breath sounds are equal bilaterally. No adventitious lung sounds including wheezes rhonchi or crackles. Abdomen soft bowel sounds are heard. No masses or tenderness. Extremities reveal cyanotic/dark toes bilaterally. Feet are wrapped. Right foot is worse than the left. Skin is without rash or lesion, except as above. The patient has gangrenous first toe in the right foot, in addition to gangrenous changes involving the tips of the second third fourth and fifth toe on the right. The patient also has a DTI in his right heel and the patient also has a deep tissue injury to his coccyx area/gluteal area Neurologic examination patient is responsive, neurologic exam is nonfocal and the patient continues to be confused. His level of alertness gradually is i mproving. The patient is awake and alert. He is able to answer questions. . Neurologic exam remains nonfocal. - Labs CBC & Chem 7: 07/24/21 06:11 07/25/21 05:17 Labs: Abnormal Lab Results - Last 24 Hours (Table) 07/24/21 07/24/21 07/25/21 Range/Units 12:04 12:17 05:17 Sodium 134 L (137-145) mmol/L Potassium 3.0 L (3.5-5.1) mmol/L Creatinine 0.62 L (0.66-1.25) mg/dL POC Glucose (mg/dL) 68 L 74 L (75-99) mg/dL Calcium 7.8 L (8.4-10.2) mg/dL Microbiology - Last 24 Hours (Table) 07/21/21 01:00 Blood Culture - Preliminary Blood No Growth after 96 hours Assessment and Plan Plan: 1 acute mental status change/encephalopathy, multifactorial. Improving. No signs of any acute delirium tremens. Neurologic exam is nonfocal at this point in time. 2 acute hypoxic respiratory failure with diffuse bilateral pulmonary infiltrates, consider aspiration, consider acute lung injury/ARDS, There is extensive extensive consolidation of the right lung which obviously raises the concern for an aspiration and the patient is cefepime and clindamycin. Currently on room air oxygen. Chest x-ray showed marked improvement in the right lung pulmonary infiltrate. 3 acute hypothermia recovered 4 acute frostbite with gangrenous toes on the right foot, and the patient has also DTI on involving the right heel. 5 acute rhabdomyolysis, improved 6 history of alcoholism 7 history of smoking 8 hypernatremia drooling and the patient remains on a half-normal saline at the rate of 75 mL an hour 9 deep tissue injury to his gluteal area. Plan Obtain a follow-up chest x-ray and this will be obtained for tomorrow The patient on room air oxygen Switched IV fluids KVO The patient is currently off Precedex CXR is improving Monitor the gangrenous changes in the right foot in addition to the deep tissue injury of the right heel The patient passed a swallow evaluation , tolerating diet I'm not seeing the need for an MRI of the brain this will be further discussed with neurology Transfer to a medical surgical floor. Continue antibiotic coverage for another 24 hours.
[2021-07-25] MEDS: POTASSIUM CHLORIDE ER 20 MEQ TAB.ER PO SCH ×2 (11:26→13:29)
--- NOTE | 2021-07-25 11:33 | P.PN ---
Subjective Progress Note Date: 07/25/21 This is a pleasant 66 years old male with unknown past medical history presents because of altered mental status where he was found unresponsive in his truck bed family member. As per report. He was seen doing well about 2 days ago. Patient was found with no evidence of trauma, incontinence of urine and stool. And he was hypothermic on admission with a rectal temperature of 99F. He was warmed using of the fluids. Patient found to have bilateral dusky heat suspicious for hypothermic injury. Also there was some evidence of rhabdomyolysis, lactic acidosis and dehydration and he was admitted to the intensive care unit. When I saw the patient in the ICU he was sleepy, does not wake up to verbal or tactile stimuli however he withdrawal for patient's to light. He has some deep breathing. Both feet are in dressing. Patient could not provide information. We checked him after couple hours distal clip waking up so it allowed to consult neurology service Currently vital signs stable, his temperature went up last night to 98.1-99.1. Showing mild leukocytosis. Hemoglobin is elevated 18.2, platelet 164. Carbon dioxide is 1.1, which is within the reference range. Elevated lactic acid 4.3 came back to 1.4. Elevated creatinine kinase 5921 Creatinine 1.0, potassium 5.2, liver enzymes slightly elevated with AST 215 and ALT 64. Troponin is negative at 0.014. Ammonia is negative less than 9. High serum osmolality of 312. Urine analysis showing 1+ protein, 1+ ketone, no solid evidence of infection. Urine drug screen is negative, salicylate less than 1, acetaminophen less than 10 and serum alcohol less than 10 Coronavirus nondetected. EKG showing normal sinus rhythm with incomplete right bundle branch block and left posterior fascicular block and QTC 455, no significant ST-T changes Q Chest x-ray showing no acute process. CT of the brain: No acute process CT of the cervical spine: No acute fracture or dislocation In the emergency room patient was started on IV fluids, IV heparin and started on CIWA protocol for suspicion alcohol abuse 07/19/2021 Patient still confused although he opens his eyes spontaneously but he does not answer questions he does not follow commands. Hemodynamically and labs are stable. Leukocytosis improved. Liver enzymes still mildly elevated. Creatinine kinase trending down while he continues on IV fluids. She still have bluish discoloration of the right toes especially the right big toe while the left toes there are dusky pink and lukewarm compelled more called on the right side. Vascular surgery on the case and they went further rewarming and resolution before they decide before any surgical intervention. He remains on CIWA protocol and thiamine normal saline at 100 mL per hour. Haldol as needed for agitation. EEG showing mildly abnormal digital cerebral dysfunction. No evidence of epileptiform discharge. Neurology on the case. MRI of the brain is pending. While carotid Doppler's reported as negative today. 07/20/2021 Patient is seen and examined today in the ICU Patient did not show much progress regarding his mentation, he still opens his eyes spontaneously but other than that he is unresponsive and does not talk are not follow commands. He does not look in distress. His EEG showing general cerebral dysfunction and neurology on the case recommended MRI of the brain which is pending now. Carotid Doppler's is negative. Vascular surgery also on the case and following him for his right toes hypothermic injury medially on the right big toe. He kept on IV fluid normal saline 100 mL per hour and his creatinine kinase tr ending down today 1225, liver enzymes slightly less today. 07/21/2021 Patient over for right developed fever of 100.5 and he was agitated need several doses of Haldol to come down and he was becoming more hypoxic requiring 6 L/m and in the morning was the miguel Keppra minute and eventually he was placed on BiPAP. Chest x-ray was consistent with bilateral pneumonia but merely multifocal pneumonia of the right side highly suspicious for aspiration pneumonia, patient received several antibiotics and currently is on clindamycin and ceftriaxone. Other than that his CPK significantly improved to 435, liver enzymes trending down, creatinine is normal today. However her IPG showing normal pH of 7.4 but hypoxia with pO2 of 57. He received 1 dose of Lasix and we lowered the dose of normal saline down to 75 mL/h. Several attempts try to send the patient for MRI however he was agitated and he had to be transferred to the ICU to receive Precedex 2 to calm down. Vascular surgery still follow the patient for gangrenous lesion of the right first, second and third toes 07/22/2021 Patient seen in the ICU is slightly more awake, he can't tell his last name and he told the nurses he was in the hospital however he is a still confused. And distal MRI of the brain is pending and if is not couldn't be done then CT of the brain would be considered and neurology service on the case. His oxygen requirement trending down to 30 L the morning and 11 be Permanent in the afternoon. His chest x-ray showing improvement and antibiotics were adjusted to clindamycin and cefepime. ID team on the case as well. Sodium 147, Patient continued on gentle hydration as well. No surgical intervention by vascular surgery team for his gangrenous right big toe and the second and third toes to a lesser degree. Keep monitoring 07/23/2021 Patient elevated today in the ICU, he is awake however he is confused and is unable to tell me where he is or the year. He denies any headache, photophobia, nausea vomiting or diarrhea. His eyes do appear to be wandering around the room during conversation. Patient underwent brain CT today which shows age-related atrophic and chronic small vessel ischemic change without acute intracranial process seen at this time. Chest xray correlate for pneumonia. He continues on Precedex. RBC 4.00, WBC 10.2, Platelet count 210, sodium 148, potassium 3.4, chloride 119, blood sugars WNL. He is being followed closely by neurology who would like MRI with and without once he is able to tolerate. 07/24/2021 Patient evaluated in the ICU, worked with physical therapy. Attempt to get patient into the chair today. He did pass a swallow evaluation, and diet is being slowly advanced now. Patient off Precedex last 24 hours, agitation has improved. Patient does admit to drinking beer daily, he is more alert and oriented. He was able to tell nurse where he was today, stated that he was in the hospital. Labs today show white count 11.1, hemoglobin 14.1, sodium 141, potassium 3.4, chloride 112, total bili 1.5. Liver enzymes have normalized. Patient in the hypertensive side blood pressure 167/93, heart rate 103, pulse ox, 92% on room air. 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 07/25/2021 Patient elevated today working with physical therapy, able to sit on edge of bed however he was leaning back. He appears more alert than yesterday. Started on 5 mg of lisinopril yesterday, blood pressure still a bit elevated, increased to 10 mg today. Franklin catheter in place. Bowels are moving and he did eat most of his breakfast today. Vitals today, afebrile, heart rate 80 sinus rhythm, blood pressure 149/84, 93% on room air. Repeat chest x-ray today shows findings consistent with pneumonia with underlying emphysema. Continues on antibiotics in the form of clindamycin and cefepime. Continues on updrafts. He is not requiri ng Haldol or Ativan and continues off Precedex. Still with extensive deep tissue injury to right heel, as well as DTI to buttock, with acute frostbite to toes on right foot. Patient will be discharged out of the ICU when bed available on the medical floor. His mentation continues to improve, followed closely by neurology. ROS Unable to complete a full review of systems due to waxing and waning of mentation, patient was able to state that his pain is ok, he denies chest pain. PHYSICAL EXAMINATION: GENERAL: The patient is alert and oriented x1-2, not in any acute distress. Well developed, well nourished. HEENT: Pupils are round and equally reacting to light. EOMI. No scleral icterus. No conjunctival pallor. Normocephalic, atraumatic. No pharyngeal erythema. No thyromegaly. CARDIOVASCULAR: S1 and S2 present. No murmurs, rubs, or gallops. PULMONARY: improved aeration, faint end expiratory wheeze noted. ABDOMEN: Soft, nontender, nondistended, normoactive bowel sounds. No palpable or ganomegaly. MUSCULOSKELETAL: No joint swelling or deformity. EXTREMITIES: No cyanosis, clubbing, or pedal edema. Right big toe is black, where the left big toe is dusky in color. As well to a lesser extent this right second and third toes. There is deep tissue injury to right heel. NEUROLOGICAL: Gross neurological examination did not reveal any focal deficits. SKIN: Linear scratches along inner thigh on the left. Assessment and plan Assessment: Altered mental status most likely metabolic encephalopathy with component of acute alcohol withdrawal delirium. Ruled out intracranial lesions. Following with Neurology. Mentation slightly improved again today. Aspiration pneumonia with consolidation of right lung and bilateral infiltrates, presently on room air maintaining saturation at 93%, patient didnt follow instructions with IS well Possible frostbite with hypothermic feet injury, patient was hypothermic on arrival, vascular and wound care following as well as ID. Rhabdomyolysis, Improving significantly Lactic acidosis, resolved Hypertension, unclear whether patient has history or not, started lisinopril today Hypokalemia secondary to poor oral intake, replaced and patient now tolerating diet Dehydration Mildly elevated liver enzymes, which are improved History of chronic alcohol abuse Chronic tobacco use DVT prophylaxis: heparin GI Prophylaxis: Pepcid FULL CODE Plan: Supplement potassium Continue with clindamycin and cefepime Neurology consult Vascular surgery and pulmonary/critical care team consult Possible right great toe amputation outpatient Continue with local wound care per recommendations PT/OT: Subacute Rehab on discharge when medically stable Prognosis is guarded Objective - Vital Signs Vital signs: Vital Signs Temp 97.8 F 07/25/21 08:00 Pulse 80 07/25/21 11:00 Resp 19 07/25/21 11:00 BP 149/84 07/25/21 11:00 Pulse Ox 93 L 07/25/21 11:00 Intake & Output 07/24/21 07/25/21 07/25/21 18:59 06:59 18:59 Intake Total 1150 0 300 Output Total 1375 980 420 Balance -225 -980 -120 Weight 72.3 kg 71.4 kg Intake: IV 900 0 Cefepime 2 gm In Sodium 200 Chloride 0.9% 100 ml @ 25 mls/hr IVPB Q8HR JOHN Rx# :[id number] Clindamycin 600 mg In 100 Dextrose 5% in Water 50 ml @ 50 mls/hr IVPB Q8HR [facility] Rx#:[id number] Sodium Chloride 0.45% 1, 600 0 000 ml @ 75 mls/hr IV . [id number] [facility] Rx#:[id number] Intake, IV Titration 150 Amount Sodium Chloride 0.45% 1, 150 000 ml @ 75 mls/hr IV . [id number] [facility] Rx#:[id number] Oral 100 300 Output: Urine 1375 980 420 Other: Voiding Method Indwelling Catheter Indwelling Catheter Indwelling Catheter # Bowel Movements 1 - Labs CBC & Chem 7: 07/24/21 06:11 07/25/21 05:17 Labs: Abnormal Lab Results - Last 24 Hours (Table) 07/24/21 07/24/21 07/25/21 Range/Units 12:04 12:17 05:17 Sodium 134 L (137-145) mmol/L Potassium 3.0 L (3.5-5.1) mmol/L Creatinine 0.62 L (0.66-1.25) mg/dL POC Glucose (mg/dL) 68 L 74 L (75-99) mg/dL Calcium 7.8 L (8.4-10.2) mg/dL Microbiology - Last 24 Hours (Table) 07/21/21 01:00 Blood Culture - Preliminary Blood No Growth after 96 hours Assessment and Plan Time with Patient: Greater than 30
[2021-07-25 12:26] LABS: Glucose,Whole Blood 148 mg/dL (75-99)
[2021-07-25] MEDS: NICOTINE 14MG/24HR PATCH TRANSDERM SCH (13:29)
--- NOTE | 2021-07-25 15:22 | P.PN ---
Subjective Progress Note Date: 07/25/21 The patient is seen at bedside and per nurse, mentation is improving. Otherwise no new neurological issues. Patient feels he is doing better. Objective - Vital Signs Vital signs: Vital Signs Temp 97.9 F 07/25/21 12:00 Pulse 79 07/25/21 15:00 Resp 17 07/25/21 15:00 BP 139/83 07/25/21 15:00 Pulse Ox 95 07/25/21 15:00 Intake & Output 07/24/21 07/25/21 07/25/21 18:59 06:59 18:59 Intake Total 1150 0 400 Output Total 1375 980 635 Balance -225 -980 -235 Weight 72.3 kg 71.4 kg Intake: IV 900 0 Cefepime 2 gm In Sodium 200 Chloride 0.9% 100 ml @ 25 mls/hr IVPB Q8HR JOHN Rx# :[id number] Clindamycin 600 mg In 100 Dextrose 5% in Water 50 ml @ 50 mls/hr IVPB Q8HR [facility] Rx#:[id number] Sodium Chloride 0.45% 1, 600 0 000 ml @ 75 mls/hr IV . [id number] [facility] Rx#:[id number] Intake, IV Titration 150 Amount Sodium Chloride 0.45% 1, 150 000 ml @ 75 mls/hr IV . [id number] [facility] Rx#:[id number] Oral 100 400 Output: Urine 1375 980 635 Other: Voiding Method Indwelling Catheter Indwelling Catheter Indwelling Catheter # Bowel Movements 1 - Exam INTEGUMENTARY: Has blackish discoloration toe over the all toe/digits of the right foots (but worse over the large toe). Neurological: Patient: Patient is awake, alert, oriented to self and place. He correctly stated the month with multiple questioning. He did not know the month. He is able to name watch and pen. He is following simple commands. No neglect. Pupils are round, equal and symmetrically reactive. Visual bunch are full to confrontation. EOM intact and no nystagmus. No facial weakness. No dysarthria. Motor: Strength is he is moving all extremities above gravity and no focality. WORK-UP: Coronavirus PCR is not detected. TSH: 2.24 AST 215-->83 ALT 64-->69 Ammonia <9 Vitamin B12: 887 serum folate: >20 MMA 0.15 (normal) Urine drug screen is not detected. Serum Alcohol is <10. Computed tomography scan of the head 07/17/21 showed no acute process. CT of th e cervical spine showed no acute fracture, dislocation in the cervical spine. Repeat CT of the head on 07/23/2021 is reported as age-related atrophic and chronic small vessel ischemic changes without acute intracranial process seen at this time. EEG was reported as was mildly abnormal because of background slowing. This is suggestive of generalized cerebral dysfunction as can be seen with enceph alopathy of metabolic, vascular or degenerative etiology. Rare left temporal sharply contoured waves were seen. Carotid Doppler revealed mild calcified plaque in the carotid bifurcations bilaterally but no significant stenosis. Antegrade flow in both vertebral arteries. - Labs CBC & Chem 7: 07/24/21 06:11 07/25/21 05:17 Labs: Abnormal Lab Results - Last 24 Hours (Table) 07/25/21 07/25/21 Range/Units 05:17 12:25 Sodium 134 L (137-145) mmol/L Potassium 3.0 L (3.5-5.1) mmol/L Creatinine 0.62 L (0.66-1.25) mg/dL POC Glucose (mg/dL) 148 H (75-99) mg/dL Calcium 7.8 L (8.4-10.2) mg/dL Microbiology - Last 24 Hours (Table) 07/21/21 01:00 Blood Culture - Preliminary Blood No Growth after 96 hours Assessment and Plan Assessment: * 66-year-old male found unresponsive inside his truck, which was parked in his driveway, in cold weather, ran out of gas for uncertain period of time. Last known well was 2 days prior. Although his core body temperature was slightly up 99.6 axillary, but he has suffered from leyva bite to his feet, right worse than left. Patient has significant encephalopathy: due to his hypothermia and was on Precedex--discontinued---mentation improving. * Leyva bite to bilateral feet, right worse than left. * Rhabdomyolysis, improving, with CPK 435 (from initial 5921) * Moderate Alcoholism, although patient's daughter denies continuous, chronic alcoholism. * Tobacco use Plan: * EEG was reported as abnormal and was mildly abnormal because of background s lowing. This is suggestive of generalized cerebral dysfunction as can be seen with encephalopathy of metabolic, vascular or degenerative etiology. Rare left temporal sharply contoured waves were seen. As these were not seen frequently during the study, therefore they have to be interpreted with caution. If your suspicion for seizures is high, consider prolonged EEG. * Had repeat CT of head on 07/23/2021 and negative for acute or subacute ischemic stroke. * Could not get MRI Brain since could not sit still. * Watch for alcohol withdrawals. * Continue Thiamine 100mg1 tab bid. * Other medical management as per IM and ICU team. The plan is discussed with the patient's nurse. There is no further neurological work-up. Neurology will sign off. Please reconsult if needed. Jose G Zamora M.D. Neuro-Hospitalist Time with Patient: Less than 30
[2021-07-25 16:48] LABS: Glucose,Whole Blood 119 mg/dL (75-99)
[2021-07-25] MEDS: MORPHINE SULFATE 4 MG/ML SYRINGE IV PRN (21:42)
--- NOTE | 2021-07-25 23:32 | P.PN ---
Subjective Progress Note Date: 07/24/21 Principal diagnosis: Pneumonia Patient is a 66 year male who was brought into the hospital after the patient was found to be unresponsive in his truck this patient did have evidence of right foot frostbite with gangrenous toe patient also have worsening of his respiratory status requiring admission to the ICU and required BiPAP. On today's evaluation that is 07/24/2021, the patient continues to be afebrile, the patient is slightly lethargic today and did not provide any history, however patient not in any respiratory distress and no vomiting or diarrhea was reported by the nursing staff Objective - Vital Signs Vital signs: Vital Signs Temp 98.9 F 07/23/21 20:00 Pulse 83 07/24/21 16:00 Resp 25 H 07/24/21 16:00 BP 154/94 07/24/21 14:00 Pulse Ox 94 L 07/24/21 14:00 Intake & Output 07/23/21 07/24/21 07/24/21 18:59 06:59 18:59 Intake Total 1710.276 825 625 Output Total 1195 725 975 Balance 515.276 100 -350 Weight 72.3 kg 72.3 kg Intake: IV 1675 825 375 Cefepime 2 gm In Sodium 200 100 Chloride 0.9% 100 ml @ 25 mls/hr IVPB Q8HR [facility] Rx# :[id number] Clindamycin 600 mg In 100 50 Dextrose 5% in Water 50 ml @ 50 mls/hr IVPB Q8HR [facility] Rx#:[id number] Potassium Chloride 10 meq 400 In Water For Injection 1 100ml.bag @ 100 mls/hr IVPB Q1HR [facility] Rx#: [id number] Sodium Chloride 0.45% 1, 750 825 225 000 ml @ 75 mls/hr IV . [id number] [facility] Rx#:[id number] Sodium Chloride 0.9% 1, 225 000 ml @ 75 mls/hr IV . [id number] [facility] Rx#:[id number] Intake, IV Titration 35.276 150 Amount Dexmedetomidine/0.9% NaCl 35.276 (Pmx) 400 mcg In Empty Bag 1 bag @ 0.2 MCG/KG/HR 3.665 mls/hr IV .Q24H [facility] Rx#:[id number] Sodium Chloride 0.45% 1, 150 000 ml @ 75 mls/hr IV . [id number] [facility] Rx#:[id number] Oral 100 Output: Urine 1195 725 975 Other: Voiding Method Indwelling Catheter Indwelling Catheter Indwelling Catheter - Exam GENERAL DESCRIPTION:[ Patient is awake and alert in no distress] HEENT: [Oral mucosa is dry and no pharyngeal erythema] RESPIRATORY SYSTEM: [Unlabored breathing decreased breath sounds at the base] CARDIA VASCULAR SYSTEM: [S1-S2 regular rate and rhythm no murmur] GI: [Abdominal soft there's no tenderness no organomegaly] EXTREMITIES: [No edema feet] - Labs CBC & Chem 7: 07/24/21 06:11 07/25/21 05:17 Labs: Abnormal Lab Results - Last 24 Hours (Table) 07/24/21 07/24/21 07/24/21 Range/Units 06:11 06:11 12:04 WBC 11.1 H (3.8-10.6) k/uL RBC 4.02 L (4.30-5.90) m/uL MCV 101.3 H (80.0-100.0) fL MCH 35.1 H (25.0-35.0) pg Potassium 3.4 L (3.5-5.1) mmol/L Chloride 112 H (98-107) mmol/L POC Glucose (mg/dL) 68 L (75-99) mg/dL Calcium 8.3 L (8.4-10.2) mg/dL Total Bilirubin 1.5 H (0.2-1.3) mg/dL Total Protein 5.6 L (6.3-8.2) g/dL Albumin 2.8 L (3.5-5.0) g/dL 07/24/21 Range/Units 12:17 WBC (3.8-10.6) k/uL RBC (4.30-5.90) m/uL MCV (80.0-100.0) fL MCH (25.0-35.0) pg Potassium (3.5-5.1) mmol/L Chloride (98-107) mmol/L POC Glucose (mg/dL) 74 L (75-99) mg/dL Calcium (8.4-10.2) mg/dL Total Bilirubin (0.2-1.3) mg/dL Total Protein (6.3-8.2) g/dL Albumin (3.5-5.0) g/dL Microbiology - Last 24 Hours (Table) 07/21/21 01:00 Blood Culture - Preliminary Blood No Growth after 72 hours Assessment and Plan (1) Pneumonia Current Visit: Yes Status: Acute Code(s): J18.9 - PNEUMONIA, UNSPECIFIED ORGANISM SNOMED Code(s): 300842501 Plan: Patient with acute respiratory failure is multifactorial concerning for a component of pneumonia question of aspiration etiology patient to have penicillin ALLERGY, patient to continue with cefepime and clindamycin , we will try to obtain sputum to narrow his antibiotics and continue supportive care Time with Patient: Less than 30
--- NOTE | 2021-07-25 23:33 | P.PN ---
Subjective Progress Note Date: 07/25/21 Principal diagnosis: Pneumonia Patient is a 66 year male who was brought into the hospital after the patient was found to be unresponsive in his truck this patient did have evidence of right foot frostbite with gangrenous toe patient also have worsening of his respiratory status requiring admission to the ICU and required BiPAP. On today's evaluation that is 07/25/2021, the patient remains to be afebrile, the patient is awake and patient is currently breathing comfortably on room air, the patient Denies any chest pain no worsening cough or sputum production no ab dominal pain no diarrhea Objective - Vital Signs Vital signs: Vital Signs Temp 99.6 F 07/25/21 17:35 Pulse 89 07/25/21 20:00 Resp 18 07/25/21 20:00 BP 138/97 07/25/21 20:00 Pulse Ox 93 L 07/25/21 17:35 Intake & Output 07/25/21 07/25/21 07/26/21 06:59 18:59 06:59 Intake Total 0 880 Output Total 980 635 Balance -980 245 Weight 71.4 kg Intake: IV 0 Sodium Chloride 0.45% 1, 0 000 ml @ 75 mls/hr IV . [id number] [facility] Rx#:[id number] Oral 880 Output: Urine 980 635 Other: Voiding Method Indwelling Catheter Indwelling Catheter Indwelling Catheter # Bowel Movements 0 - Exam GENERAL DESCRIPTION:[ Patient is awake and alert in no distress] HEENT: [Oral mucosa is dry and no pharyngeal erythema] RESPIRATORY SYSTEM: [Unlabored breathing decreased breath sounds at the base] CARDIA VASCULAR SYSTEM: [S1-S2 regular rate and rhythm no murmur] GI: [Abdominal soft there's no tenderness no organomegaly] EXTREMITIES: [No edema feet] - Labs CBC & Chem 7: 07/24/21 06:11 07/25/21 05:17 Labs: Abnormal Lab Results - Last 24 Hours (Table) 07/25/21 07/25/21 07/25/21 Range/Units 05:17 12:25 16:46 Sodium 134 L (137-145) mmol/L Potassium 3.0 L (3.5-5.1) mmol/L Creatinine 0.62 L (0.66-1.25) mg/dL POC Glucose (mg/dL) 148 H 119 H (75-99) mg/dL Calcium 7.8 L (8.4-10.2) mg/dL Microbiology - Last 24 Hours (Table) 07/21/21 01:00 Blood Culture - Preliminary Blood No Growth after 96 hours Assessment and Plan (1) Pneumonia Current Visit: Yes Status: Acute Code(s): J18.9 - PNEUMONIA, UNSPECIFIED ORGANISM SNOMED Code(s): 007520736 Plan: Patient with acute respiratory failure is multifactorial concerning for a component of pneumonia question of aspiration etiology patient to have penicillin ALLERGY, patient has shown overall Improvement, patient to continue with cefepime and clindamycin , and continue supportive care Time with Patient: Less than 30
[2021-07-26] MEDS: CEFEPIME 2 GM in SODIUM CHLORIDE 0.9% 100 ML IVPB SCH ×3 (00:25→16:22)
[2021-07-26] MEDS: MORPHINE SULFATE 4 MG/ML SYRINGE IV PRN ×3 (00:56→21:27)
[2021-07-26 06:15] LABS: Glucose,Whole Blood 90 mg/dL (75-99)
[2021-07-26] MEDS: CLINDAMYCIN 600 MG in DEXTROSE 5% IN WATER 50 ML IVPB SCH ×10 (06:27→21:27)
[2021-07-26] MEDS: THIAMINE 100 MG TAB PO SCH ×2 (06:30→16:22)
[2021-07-26] MEDS: IPRATROPIUM-ALBUTEROL 3 ML NEB INHALATION SCH ×4 (08:25→19:22)
[2021-07-26] MEDS: lisinopriL 10 MG TAB PO SCH (09:18)
[2021-07-26] MEDS: NICOTINE 14MG/24HR PATCH TRANSDERM SCH (09:18)
[2021-07-26] MEDS: HEPARIN SODIUM,PORCINE/PF 5,000 UNIT/0.5 ML SYRINGE SQ SCH ×2 (09:18→21:27)
[2021-07-26] MEDS: FAMOTIDINE 20 MG/2 ML VIAL IV SCH ×2 (09:18→21:27)
[2021-07-26] MEDS: TRIAMCINOLONE 0.1% CREAM 80 GM TUBE TOPICAL SCH ×2 (09:25→21:27)
[2021-07-26 11:39] LABS: Glucose,Whole Blood 77 mg/dL (75-99)
--- NOTE | 2021-07-26 13:05 | P.PN ---
Subjective Progress Note Date: 07/26/21 66-year-old male patient will will be transferred to the ICU because of worsening and hypoxic respiratory failure. The patient is currently on a BiPAP at a pressure of 12/6 cm of water and FiO2 part the percent and a chest x-ray showing diffuse bilateral pulmonary infiltrates mostly secondary to aspiration with a possibility of an acute lung injury/ARDS. The patient is known to have alcoholism. The patient was found in his car at a cold temperature and he had a temperature of 90.9F. He also had frostbite in his lower extremities bilaterally. The patient has gangrenous first second and third toes on the right. Frostbite on the left foot have improved. The patient was in intensive care unit for hypothermia and frostbite. He was treated and he was discharged to a medical floor to be admitted again this morning because of worsening shortness of breath and hypoxemic respiratory failure. He tested negative for occult with 19. He had an elevated CPK level consistent with rhabdomyolysis. His CPK peaked at 3882 and dropped down to 435. Meanwhile, the patient has normal electrolyte. Blood gas today showed a pH of 7.43 with a pCO2 of 33 and pO2 of 57 and for that reason the patient was placed on BiPAP and the patient got transferred to the ICU. He is lethargic. He is quite somnolent. His current antibiotic coverage including a combination of Rocephin and clindamycin covering for aspiration pneumonia. Overnight, he was given a total of 8 mg of Haldol as of a.m. this morning. The patient was quite lethargic. I transferred to the ICU and start him on Precedex for agitation and signs of any delirium tremens. He is on IV fluids normal saline at the rate of 100 mL an hour. He is on heparin subcu for DVT prophylaxis. Today's evaluation of 07/22/2021, the patient is currently in the intensive care unit for delirium tremens, encephalopathy, and acute hypoxic respiratory failure with extensive right lung pneumonia. Noted the patient got transferred to the ICU yesterday because of increased agitation and hypoxemia. He was initially placed on a BiPAP and later on in the afternoon, switch this patient with high flow oxygen currently running at 12 L per minute. I also put the patient on Precedex for agitation. In terms of his pneumonia, the patient is covered with a combination of antibiotics. He is currently on a combination of cefepime and clindamycin. The repeat chest x-ray from today still showing extensive consolidation of the right lung. The patient however remains hemodynamically stable. He is using Precedex which is running at 0.2 mics for respiratory control and per minute. At times he was becoming bradycardic and for that reason the dose of Precedex was At a lower rate. He was treated with Haldol earlier, overnight he did not receive any Haldol. This morning, he is communicating. At times, he tries to get out of bed and he gets restless in bed. He remains on IV fluids. IV fluids are running at 75 mL an hour of normal saline. His CPK level is improving. The patient had frostbite in his right toes. In fact the first toe is completely necrotic on the right. The second third and fourth and fifth toe tips are obviously necrotic and the patient has a deep tissue injury to his right heel. The left foot is in a better condition at this point in time although there is an early UTI in the left heel also. The blood work otherwise is still pending from this morning. The blood sugar is at 11. The patient remains nothing by mouth. Blood pressure is slightly elevated and needs to be under better control. Family was updated and the daughter was at the bedside yesterday. 07/23/2021, the patient is to be a bit more calm and less restless compared to earlier evaluation. He remains on Precedex in the low dose of 0.2 mcg/kg per minute. No side effects from the effusion. No bradycardia. He remains hemodynamically stable. Blood pressure slightly elevated. He has not required Ativan overnight. He remains on normal saline third of 75 mL an hour. He was unable to keep his oxygen mask on and for that reason the nasal cannula was discontinued and the patient is currently on room air oxygen maintaining a pulse ox of 91%. He has very poor dentition. He has dry oral mucosa. He will need oral care. At the same time, the patient has gangrenous toes in his right foot related to a frostbite. He also has a deep tissue injury involving the heel on the right. The patient remains on broad-spectrum antibiotics. He remains on examination cefepime and clindamycin. His blood work from today shows a sodium level of 148 with a potassium level of 3.4, serum bicarbonate 25 with a creatinine being normal at 0.7. The white cell count is currently at 10.2 with a hemoglobin of 13.9. Note that the patient also had acute rhabdomyolysis which recovered. His liver functions as of also improved. His neurologic exam is nonfocal. He was seen by neurology. Recommendations were made to proceed with an MRI of the brain. This was not done as the patient is unable to stay still to complete the study. Family has been updated on a regular basis. The daughter has been at the bedside . 07/24/2021, the patient is much more calm and rested compared to yesterday. He seems to be answering questions more appropriately although it is not sharp and fast and answering questions scale. Neurologic exam remains nonfocal. Currently off Precedex. He remains on 0.45 saline at the rate of 75 mL an hour. He is on room air oxygen. He remains on a combination of cefepime and clindamycin. Otherwise, his urine output is adequate. His blood work from today shows a white cell count of 11, BUN of 11 and a creatinine of 0.7 and the sodium level of 141 with a potassium level of 3.4. LFTs are normal. Microbio logy was essentially negative. Blood culture was negative. As stated earlier, the patient has deep tissue injury in his right heel and multiple necrotic toes in the right foot/frostbite. We also noted that the patient has a deep tissue injury to his coccyx area 4 2021, the patient is awake and alert and communicating. He seems to be much more appropriate. No shakiness. No restlessness. He is aware of his name, his location and he does not recall the events that end up bringing him to the hospital. He is very comfortable at this point in time. He is moving all 4 extremities. He does have a frostbite in his right foot. He also had an extensive right lung pneumonia and the patient remains on a combination of cefepime and clindamycin. Repeat chest x-ray shows significant improvement and clearing of the right lung infiltrates. He is able to tolerate diet. No reported aspiration. He is currently off Precedex. Blood work is all stable. Sodium is at 134, normal creatinine, normal electrolytes, the white cell count is currently is at 11.1. Potassium was low from this morning at 3.0 and it needs to be replaced. Vascular surgery is on the case. The patient has a deep tissue injury in his right heel and he also has a deep tissue injury on his buttock 07/26/2021, I'm seeing the patient for a follow-up. The patient is stable on a combination of cefepime and clindamycin. No respiratory distress and the patient is currently on room air oxygen. Neurologically improved significantly and the patient is currently alert and awake and communicating. No focal neurological deficit. No headaches. No seizure activity. No signs of any delirium tremens. Meanwhile, the patient is frostbite injury to his right foot/toe. He has a DTI in the right heel and multiple necrotic toes involving the right foot significantly involving the right toe. Vascular surgeons on the case. No active issue for now. He was transported out of the intensive care unit yesterday. Blood work not done today. Yesterday's blood work was essentially within normal and the potassium level was replaced. No hypoglycemia. Tolerating his diet. Objective - Vital Signs Vital signs: Vital Signs Temp 97.7 F 07/26/21 12:00 Pulse 58 L 07/26/21 12:00 Resp 16 07/26/21 12:00 BP 122/78 07/26/21 12:00 Pulse Ox 95 07/26/21 12:00 Intake & Output 07/25/21 07/26/21 07/26/21 18:59 06:59 18:59 Intake Total 880 Output Total 635 2450 400 Balance 245 -2450 -400 Intake: Oral 880 Output: Urine 635 2450 400 Other: Voiding Method Indwelling Catheter Indwelling Catheter Indwelling Catheter # Bowel Movements 0 - Exam poorly responsive, the patient is alert, awake, currently on room air oxygen. He continues to move in bed and he seems to be still restless. No significant agitation. His breathing is nonlabored at this point in time. Head exam was generally normal. There was no scleral icterus or corneal arcus. Mucous membranes were moist. HEENT examination is grossly unremarkable. Neck supple. Full range of motion. No adenopathy thyromegaly or neck vein distention. Cardiovascular examination reveals regular rhythm rate. S1-S2 normal. No S3 or S4. No discernible murmur noted. Heart rate 65 bpm. Heart sounds are distant. Lungs reveal clear breath sounds. Breath sounds are equal bilaterally. No adventitious lung sounds including wheezes rhonchi or crackles. Abdomen soft bowel sounds are heard. No masses or tenderness. Extremities reveal cyanotic/dark toes bilaterally. Feet are wrapped. Right foot is worse than the left. Skin is without rash or lesion, except as above. The patient has gangrenous first toe in the right foot, in addition to gangrenous changes involving the tips of the second third fourth and fifth toe on the right. The patient also has a DTI in his right heel and the patient also has a deep tissue injury to his coccyx area/gluteal area Neurologic examination patient is responsive, neurologic exam is nonfocal and the patient continues to be confused. His level of alertness gradually is improving. The patient is awake and alert. He is able to answer questions. . Neurologic exam remains nonfocal. - Labs CBC & Chem 7: 07/24/21 06:11 07/25/21 05:17 Labs: Abnormal Lab Results - Last 24 Hours (Table) 07/25/21 Range/Units 16:46 POC Glucose (mg/dL) 119 H (75-99) mg/dL Microbiology - Last 24 Hours (Table) 07/21/21 01:00 Blood Culture - Preliminary Blood No Growth after 120 hours Assessment and Plan Plan: 1 acute mental status change/encephalopathy, multifactorial. The patient is recovered in the mental status back to its normal 2 acute hypoxic respiratory failure with diffuse bilateral pulmonary infiltrates, consider aspiration, consider acute lung injury/ARDS, There is extensive extensive consolidation of the right lung which obviously raises the concern for an aspiration and the patient is cefepime and clindamycin. Currently on room air oxygen. Chest x-ray showed marked improvement in the right lung pulmonary infiltrate.. The patient is improved and the patient is currently on room air oxygen and accommodation of cefepime and clindamycin 3 acute hypothermia recovered 4 acute frostbite with gangrenous toes on the right foot, and the patient has also DTI on involving the right heel. 5 acute rhabdomyolysis, improved 6 history of alcoholism 7 history of smoking 8 hypernatremia drooling and the patient remains on a half-normal saline at the rate of 75 mL an hour 9 deep tissue injury to his gluteal area. Plan Advance diet as tolerated Unable to walk because of his frostbite The patient on room air oxygen iV fluids KVO Monitor the gangrenous changes in the right foot in addition to the deep tissue injury of the right heel transfered this patient out of the intensive care unit and currently the patient on the medical floor. Continue supportive care Vascular surgery to follow-up on the frostbite as the patient will need amputation of several toes of the later stage
[2021-07-26] MEDS: PETROLAT,WHITE/LAN/8-HYDROXYQU 227 GM OINT TOPICAL SCH (13:41)
[2021-07-26 15:22] LABS: African American GFR (CKD) >90 (>60 ml/min/1.73 sqM); Anion Gap 5 mmol/L; Blood Urea Nitrogen 12 mg/dL (9-20); Calcium 7.9 mg/dL (8.4-10.2); Carbon Dioxide 26 mmol/L (22-30); Chloride 103 mmol/L (98-107); Glucose 127 mg/dL (74-99); Non-African American GFR(CKD) >90 (>60 ml/min/1.73 sqM); Potassium 3.5 mmol/L (3.5-5.1); Sodium 134 mmol/L (137-145)
[2021-07-26] MEDS: HALOPERIDOL LACTATE 5 MG/ML 1 ML VIAL IVP PRN (15:25)
[2021-07-26 16:35] LABS: Glucose,Whole Blood 151 mg/dL (75-99)
[2021-07-27] MEDS: CEFEPIME 2 GM in SODIUM CHLORIDE 0.9% 100 ML IVPB SCH ×3 (00:03→16:07)
[2021-07-27] MEDS: MORPHINE SULFATE 4 MG/ML SYRINGE IV PRN (00:04)
[2021-07-27] MEDS: ACETAMINOPHEN SUPPOSITORY 650 MG SUPP RECTAL PRN (00:09)
[2021-07-27] MEDS ORDERED: diphenhydrAMINE 50 MG/ML 1 ML VIAL IVP PRN (03:09)
[2021-07-27] MEDS: CLINDAMYCIN 600 MG in DEXTROSE 5% IN WATER 50 ML IVPB SCH ×6 (05:46→20:47)
[2021-07-27] MEDS: THIAMINE 100 MG TAB PO SCH ×2 (05:46→18:23)
[2021-07-27] MEDS: HALOPERIDOL LACTATE 5 MG/ML 1 ML VIAL IVP PRN ×2 (07:30→20:47)
[2021-07-27] MEDS: lisinopriL 10 MG TAB PO SCH (07:30)
[2021-07-27] MEDS: NICOTINE 14MG/24HR PATCH TRANSDERM SCH (07:30)
[2021-07-27] MEDS: HEPARIN SODIUM,PORCINE/PF 5,000 UNIT/0.5 ML SYRINGE SQ SCH ×2 (07:30→20:47)
[2021-07-27] MEDS: FAMOTIDINE 20 MG/2 ML VIAL IV SCH ×2 (07:30→20:47)
[2021-07-27] MEDS: TRIAMCINOLONE 0.1% CREAM 80 GM TUBE TOPICAL SCH ×2 (07:31→20:48)
[2021-07-27] MEDS: PETROLAT,WHITE/LAN/8-HYDROXYQU 227 GM OINT TOPICAL SCH (07:31)
[2021-07-27] MEDS: IPRATROPIUM-ALBUTEROL 3 ML NEB INHALATION SCH ×4 (07:34→19:40)
[2021-07-27 08:36] LABS: African American GFR (CKD) >90 (>60 ml/min/1.73 sqM); Anion Gap 3 mmol/L; Blood Urea Nitrogen 9 mg/dL (9-20); Carbon Dioxide 27 mmol/L (22-30); Chloride 103 mmol/L (98-107); Glucose 97 mg/dL (74-99); Non-African American GFR(CKD) >90 (>60 ml/min/1.73 sqM); Potassium 3.7 mmol/L (3.5-5.1); Sodium 133 mmol/L (137-145)
[2021-07-27 08:37] LABS: Basophils # (A) 0.1 k/uL (0-0.2); Basophils % (A) 2 %; Eosinophils # (A) 0.3 k/uL (0-0.7); Eosinophils % (A) 4 %; HCT 41.1 % (39.0-53.0); HGB 14.1 gm/dL (13.0-17.5); Lymphocytes # (A) 1.3 k/uL (1.0-4.8); Lymphocytes % (A) 16 %; MCH 34.2 pg (25.0-35.0); MCHC 34.3 g/dL (31.0-37.0); MCV 99.5 fL (80.0-100.0); Mean Platelet Volume 8.1; Monocytes # (A) 0.8 k/uL (0-1.0); Monocytes % (A) 9 %; Neutrophils # (A) 5.4 k/uL (1.3-7.7); Neutrophils % (A) 66 %; Platelet Count 212 k/uL (150-450); RBC 4.13 m/uL (4.30-5.90); RDW 11.8 % (11.5-15.5); WBC 8.1 k/uL (3.8-10.6)
--- NOTE | 2021-07-27 08:57 | P.PN ---
Subjective Progress Note Date: 07/26/21 This is a pleasant 66 years old male with unknown past medical history presents because of altered mental status where he was found unresponsive in his truck bed family member. As per report. He was seen doing well about 2 days ago. Patient was found with no evidence of trauma, incontinence of urine and stool. And he was hypothermic on admission with a rectal temperature of 99F. He was warmed using of the fluids. Patient found to have bilateral dusky heat suspicious for hypothermic injury. Also there was some evidence of rhabdomyolysis, lactic acidosis and dehydration and he was admitted to the intensive care unit. When I saw the patient in the ICU he was sleepy, does not wake up to verbal or tactile stimuli however he withdrawal for patient's to light. He has some deep breathing. Both feet are in dressing. Patient could not provide information. We checked him after couple hours distal clip waking up so it allowed to consult neurology service Currently vital signs stable, his temperature went up last night to 98.1-99.1. Showing mild leukocytosis. Hemoglobin is elevated 18.2, platelet 164. Carbon dioxide is 1.1, which is within the reference range. Elevated lactic acid 4.3 came back to 1.4. Elevated creatinine kinase 5921 Creatinine 1.0, potassium 5.2, liver enzymes slightly elevated with AST 215 and ALT 64. Troponin is negative at 0.014. Ammonia is negative less than 9. High serum osmolality of 312. Urine analysis showing 1+ protein, 1+ ketone, no solid evidence of infection. Urine drug screen is negative, salicylate less than 1, acetaminophen less than 10 and serum alcohol less than 10 Coronavirus nondetected. EKG showing normal sinus rhythm with incomplete right bundle branch block and left posterior fascicular block and QTC 455, no significant ST-T changes Q Chest x-ray showing no acute process. CT of the brain: No acute process CT of the cervical spine: No acute fracture or dislocation In the emergency room patient was started on IV fluids, IV heparin and started on CIWA protocol for suspicion alcohol abuse 07/19/2021 Patient still confused although he opens his eyes spontaneously but he does not answer questions he does not follow commands. Hemodynamically and labs are stable. Leukocytosis improved. Liver enzymes still mildly elevated. Creatinine kinase trending down while he continues on IV fluids. She still have bluish discoloration of the right toes especially the right big toe while the left toes there are dusky pink and lukewarm compelled more called on the right side. Vascular surgery on the case and they went further rewarming and resolution before they decide before any surgical intervention. He remains on CIWA protocol and thiamine normal saline at 100 mL per hour. Haldol as needed for agitation. EEG showing mildly abnormal digital cerebral dysfunction. No evidence of epileptiform discharge. Neurology on the case. MRI of the brain is pending. While carotid Doppler's reported as negative today. 07/20/2021 Patient is seen and examined today in the ICU Patient did not show much progress regarding his mentation, he still opens his eyes spontaneously but other than that he is unresponsive and does not talk are not follow commands. He does not look in distress. His EEG showing general cerebral dysfunction and neurology on the case recommended MRI of the brain which is pending now. Carotid Doppler's is negative. Vascular surgery also on the case and following him for his right toes hypothermic injury medially on the right big toe. He kept on IV fluid normal saline 100 mL per hour and his creatinine kinase tr ending down today 1225, liver enzymes slightly less today. 07/21/2021 Patient over for right developed fever of 100.5 and he was agitated need several doses of Haldol to come down and he was becoming more hypoxic requiring 6 L/m and in the morning was the miguel Keppra minute and eventually he was placed on BiPAP. Chest x-ray was consistent with bilateral pneumonia but merely multifocal pneumonia of the right side highly suspicious for aspiration pneumonia, patient received several antibiotics and currently is on clindamycin and ceftriaxone. Other than that his CPK significantly improved to 435, liver enzymes trending down, creatinine is normal today. However her IPG showing normal pH of 7.4 but hypoxia with pO2 of 57. He received 1 dose of Lasix and we lowered the dose of normal saline down to 75 mL/h. Several attempts try to send the patient for MRI however he was agitated and he had to be transferred to the ICU to receive Precedex 2 to calm down. Vascular surgery still follow the patient for gangrenous lesion of the right first, second and third toes 07/22/2021 Patient seen in the ICU is slightly more awake, he can't tell his last name and he told the nurses he was in the hospital however he is a still confused. And distal MRI of the brain is pending and if is not couldn't be done then CT of the brain would be considered and neurology service on the case. His oxygen requirement trending down to 30 L the morning and 11 be Permanent in the afternoon. His chest x-ray showing improvement and antibiotics were adjusted to clindamycin and cefepime. ID team on the case as well. Sodium 147, Patient continued on gentle hydration as well. No surgical intervention by vascular surgery team for his gangrenous right big toe and the second and third toes to a lesser degree. Keep monitoring 07/23/2021 Patient elevated today in the ICU, he is awake however he is confused and is unable to tell me where he is or the year. He denies any headache, photophobia, nausea vomiting or diarrhea. His eyes do appear to be wandering around the room during conversation. Patient underwent brain CT today which shows age-related atrophic and chronic small vessel ischemic change without acute intracranial process seen at this time. Chest xray correlate for pneumonia. He continues on Precedex. RBC 4.00, WBC 10.2, Platelet count 210, sodium 148, potassium 3.4, chloride 119, blood sugars WNL. He is being followed closely by neurology who would like MRI with and without once he is able to tolerate. 07/24/2021 Patient evaluated in the ICU, worked with physical therapy. Attempt to get patient into the chair today. He did pass a swallow evaluation, and diet is being slowly advanced now. Patient off Precedex last 24 hours, agitation has improved. Patient does admit to drinking beer daily, he is more alert and oriented. He was able to tell nurse where he was today, stated that he was in the hospital. Labs today show white count 11.1, hemoglobin 14.1, sodium 141, potassium 3.4, chloride 112, total bili 1.5. Liver enzymes have normalized. Patient in the hypertensive side blood pressure 167/93, heart rate 103, pulse ox, 92% on room air. Being followed by infectious disease, vascular, neurology and pulmonary pellet post inspector. 07/25/2021 Patient elevated today working with physical therapy, able to sit on edge of bed however he was leaning back. He appears more alert than yesterday. Started on 5 mg of lisinopril yesterday, blood pressure still a bit elevated, increased to 10 mg today. Franklin catheter in place. Bowels are moving and he did eat most of his breakfast today. Vitals today, afebrile, heart rate 80 sinus rhythm, blood pressure 149/84, 93% on room air. Repeat chest x-ray today shows findings consistent with pneumonia with underlying emphysema. Continues on antibiotics in the form of clindamycin and cefepime. Continues on updrafts. He is not requiri ng Haldol or Ativan and continues off Precedex. Still with extensive deep tissue injury to right heel, as well as DTI to buttock, with acute frostbite to toes on right foot. Patient will be discharged out of the ICU when bed available on the medical floor. His mentation continues to improve, followed closely by neurology. 07/26/2021 Patient evaluated today transferred out of ICU. He is more alert today did have some breakfast. Currently denies any pain, he states his feet feel okay. He seems more alert, no agitation noted. Labs unavailable today we will recheck a potassium and repeat labs in the morning. Currently afebrile, heart rate 76, blood pressure 122/70, he is 95% room air. Continues on IV cefepime and IV clindamycin. Patient is being followed closely by pulmonary pellet post inspector, ID, neurology, and vascular services. He will need subacute rehab on discharge, most likely wednesday. Ongoing evaluation and woundcare for the DTI to right heel, as well as frostbite with dry gangrene to right great toe, 2nd toe, and 3rd toe. ROS Constitutional: Denied any fatigue denied any fever. Cardio vascular: denied any chest pain, palpitations Gastrointestinal denied any nausea vomiting Pulmonary: Denied any shortness of breath cough Neurologic denied any new focal deficits All inpatient medications were reviewed and appropriate changes in these medications as dictated in the interval history and assessment and plan. PHYSICAL EXAMINATION: GENERAL: The patient is alert and oriented x1-2, not in any acute distress. Well developed, well nourished. HEENT: Pupils are round and equally reacting to light. EOMI. No scleral icterus. No conjunctival pallor. Normocephalic, atraumatic. No pharyngeal erythema. No thyromegaly. CARDIOVASCULAR: S1 and S2 present. No murmurs, rubs, or gallops. PULMONARY: improved aeration, faint end expiratory wheeze noted. ABDOMEN: Soft, nontender, nondistended, normoactive bowel sounds. No palpable organomegaly. MUSCULOSKELETAL: No joint swelling or deformity. EXTREMITIES: No cyanosis, clubbing, or pedal edema. Right big toe is black, where the left big toe is dusky in color. As well to a lesser extent this right second and third toes. There is deep tissue injury to right heel. NEUROLOGICAL: Gross neurological examination did not reveal any focal deficits. SKIN: Linear scratches along inner thigh on the left. Assessment and plan Assessment: Altered mental status most likely metabolic encephalopathy with component of acute alcohol withdrawal delirium. Ruled out intracranial lesions. Following with Neurology. Mentation slightly improved again today. Aspiration pneumonia with consolidation of right lung and bilateral infiltrates, presently on room air maintaining saturation at 93%, patient didnt follow instructions with IS well Possible frostbite with hypothermic feet injury, patient was hypothermic on arrival, vascular and wound care following as well as ID. Rhabdomyolysis, Improving significantly Lactic acidosis, resolved Hypertension, unclear whether patient has history or not, started lisinopril today Hypokalemia secondary to poor oral intake, replaced and patient now tolerating diet Dehydration Mildly elevated liver enzymes, which are improved History of chronic alcohol abuse Chronic tobacco use DVT prophylaxis: heparin GI Prophylaxis: Pepcid FULL CODE Plan: Supplement potassium Continue with clindamycin and cefepime Neurology consult Vascular surgery and pulmonary/critical care team consult Possible right great toe amputation outpatient Continue with local wound care per recommendations PT/OT: Subacute Rehab on discharge when medically stable Prognosis is guarded Objective - Vital Signs Vital signs: Vital Signs Temp 98.4 F 07/26/21 08:00 Pulse 76 07/26/21 08:35 Resp 18 07/26/21 08:00 BP 152/90 07/26/21 08:00 Pulse Ox 95 07/26/21 08:00 Intake & Output 07/25/21 07/26/21 07/26/21 18:59 06:59 18:59 Intake Total 880 Output Total 635 2450 400 Balance 245 -2450 -400 Intake: Oral 880 Output: Urine 635 2450 400 Other: Voiding Method Indwelling Catheter Indwelling Catheter Indwelling Catheter # Bowel Movements 0 - Labs CBC & Chem 7: 07/24/21 06:11 07/25/21 05:17 Labs: Abnormal Lab Results - Last 24 Hours (Table) 07/25/21 07/25/21 Range/Units 12:25 16:46 POC Glucose (mg/dL) 148 H 119 H (75-99) mg/dL Microbiology - Last 24 Hours (Table) 07/21/21 01:00 Blood Culture - Preliminary Blood No Growth after 120 hours
[2021-07-27] MEDS: SODIUM CHLORIDE 0.9% 1,000 ML IV SCH (09:27)
[2021-07-27] MEDS ORDERED: ACETAMINOPHEN TAB 325 MG TAB PO PRN (13:58)
[2021-07-27] MEDS ORDERED: traMADol 50 MG TAB PO PRN (13:59)
--- NOTE | 2021-07-27 14:03 | P.PN ---
Subjective Progress Note Date: 07/27/21 This is a pleasant 66 years old male with unknown past medical history presents because of altered mental status where he was found unresponsive in his truck bed family member. As per report. He was seen doing well about 2 days ago. Patient was found with no evidence of trauma, incontinence of urine and stool. And he was hypothermic on admission with a rectal temperature of 99F. He was warmed using of the fluids. Patient found to have bilateral dusky heat suspicious for hypothermic injury. Also there was some evidence of rhabdomyolysis, lactic acidosis and dehydration and he was admitted to the intensive care unit. When I saw the patient in the ICU he was sleepy, does not wake up to verbal or tactile stimuli however he withdrawal for patient's to light. He has some deep breathing. Both feet are in dressing. Patient could not provide information. We checked him after couple hours distal clip waking up so it allowed to consult neurology service Currently vital signs stable, his temperature went up last night to 98.1-99.1. Showing mild leukocytosis. Hemoglobin is elevated 18.2, platelet 164. Carbon dioxide is 1.1, which is within the reference range. Elevated lactic acid 4.3 came back to 1.4. Elevated creatinine kinase 5921 Creatinine 1.0, potassium 5.2, liver enzymes slightly elevated with AST 215 and ALT 64. Troponin is negative at 0.014. Ammonia is negative less than 9. High serum osmolality of 312. Urine analysis showing 1+ protein, 1+ ketone, no solid evidence of infection. Urine drug screen is negative, salicylate less than 1, acetaminophen less than 10 and serum alcohol less than 10 Coronavirus nondetected. EKG showing normal sinus rhythm with incomplete right bundle branch block and left posterior fascicular block and QTC 455, no significant ST-T changes Q Chest x-ray showing no acute process. CT of the brain: No acute process CT of the cervical spine: No acute fracture or dislocation In the emergency room patient was started on IV fluids, IV heparin and started on CIWA protocol for suspicion alcohol abuse 07/19/2021 Patient still confused although he opens his eyes spontaneously but he does not answer questions he does not follow commands. Hemodynamically and labs are stable. Leukocytosis improved. Liver enzymes still mildly elevated. Creatinine kinase trending down while he continues on IV fluids. She still have bluish discoloration of the right toes especially the right big toe while the left toes there are dusky pink and lukewarm compelled more called on the right side. Vascular surgery on the case and they went further rewarming and resolution before they decide before any surgical intervention. He remains on CIWA protocol and thiamine normal saline at 100 mL per hour. Haldol as needed for agitation. EEG showing mildly abnormal digital cerebral dysfunction. No evidence of epileptiform discharge. Neurology on the case. MRI of the brain is pending. While carotid Doppler's reported as negative today. 07/20/2021 Patient is seen and examined today in the ICU Patient did not show much progress regarding his mentation, he still opens his eyes spontaneously but other than that he is unresponsive and does not talk are not follow commands. He does not look in distress. His EEG showing general cerebral dysfunction and neurology on the case recommended MRI of the brain which is pending now. Carotid Doppler's is negative. Vascular surgery also on the case and following him for his right toes hypothermic injury medially on the right big toe. He kept on IV fluid normal saline 100 mL per hour and his creatinine kinase tr ending down today 1225, liver enzymes slightly less today. 07/21/2021 Patient over for right developed fever of 100.5 and he was agitated need several doses of Haldol to come down and he was becoming more hypoxic requiring 6 L/m and in the morning was the miguel Keppra minute and eventually he was placed on BiPAP. Chest x-ray was consistent with bilateral pneumonia but merely multifocal pneumonia of the right side highly suspicious for aspiration pneumonia, patient received several antibiotics and currently is on clindamycin and ceftriaxone. Other than that his CPK significantly improved to 435, liver enzymes trending down, creatinine is normal today. However her IPG showing normal pH of 7.4 but hypoxia with pO2 of 57. He received 1 dose of Lasix and we lowered the dose of normal saline down to 75 mL/h. Several attempts try to send the patient for MRI however he was agitated and he had to be transferred to the ICU to receive Precedex 2 to calm down. Vascular surgery still follow the patient for gangrenous lesion of the right first, second and third toes 07/22/2021 Patient seen in the ICU is slightly more awake, he can't tell his last name and he told the nurses he was in the hospital however he is a still confused. And distal MRI of the brain is pending and if is not couldn't be done then CT of the brain would be considered and neurology service on the case. His oxygen requirement trending down to 30 L the morning and 11 be Permanent in the afternoon. His chest x-ray showing improvement and antibiotics were adjusted to clindamycin and cefepime. ID team on the case as well. Sodium 147, Patient continued on gentle hydration as well. No surgical intervention by vascular surgery team for his gangrenous right big toe and the second and third toes to a lesser degree. Keep monitoring 07/23/2021 Patient elevated today in the ICU, he is awake however he is confused and is unable to tell me where he is or the year. He denies any headache, photophobia, nausea vomiting or diarrhea. His eyes do appear to be wandering around the room during conversation. Patient underwent brain CT today which shows age-related atrophic and chronic small vessel ischemic change without acute intracranial process seen at this time. Chest xray correlate for pneumonia. He continues on Precedex. RBC 4.00, WBC 10.2, Platelet count 210, sodium 148, potassium 3.4, chloride 119, blood sugars WNL. He is being followed closely by neurology who would like MRI with and without once he is able to tolerate. 07/24/2021 Patient evaluated in the ICU, worked with physical therapy. Attempt to get patient into the chair today. He did pass a swallow evaluation, and diet is being slowly advanced now. Patient off Precedex last 24 hours, agitation has improved. Patient does admit to drinking beer daily, he is more alert and oriented. He was able to tell nurse where he was today, stated that he was in the hospital. Labs today show white count 11.1, hemoglobin 14.1, sodium 141, potassium 3.4, chloride 112, total bili 1.5. Liver enzymes have normalized. Patient in the hypertensive side blood pressure 167/93, heart rate 103, pulse ox, 92% on room air. Being followed by infectious disease, vascular, neurology and pulmonary graphic design assistant. 07/25/2021 Patient elevated today working with physical therapy, able to sit on edge of bed however he was leaning back. He appears more alert than yesterday. Started on 5 mg of lisinopril yesterday, blood pressure still a bit elevated, increased to 10 mg today. Franklin catheter in place. Bowels are moving and he did eat most of his breakfast today. Vitals today, afebrile, heart rate 80 sinus rhythm, blood pressure 149/84, 93% on room air. Repeat chest x-ray today shows findings consistent with pneumonia with underlying emphysema. Continues on antibiotics in the form of clindamycin and cefepime. Continues on updrafts. He is not requiri ng Haldol or Ativan and continues off Precedex. Still with extensive deep tissue injury to right heel, as well as DTI to buttock, with acute frostbite to toes on right foot. Patient will be discharged out of the ICU when bed available on the medical floor. His mentation continues to improve, followed closely by neurology. 07/26/2021 Patient evaluated today transferred out of ICU. He is more alert today did have some breakfast. Currently denies any pain, he states his feet feel okay. He seems more alert, no agitation noted. Labs unavailable today we will recheck a potassium and repeat labs in the morning. Currently afebrile, heart rate 76, blood pressure 122/70, he is 95% room air. Continues on IV cefepime and IV clindamycin. Patient is being followed closely by pulmonary graphic design assistant, ID, neurology, and vascular services. He will need subacute rehab on discharge, most likely wednesday. Ongoing evaluation and woundcare for the DTI to right heel, as well as frostbite with dry gangrene to right great toe, 2nd toe, and 3rd toe. 07/27/2021 Patient evaluated today out of the ICU on the 3rd floor alert to 1 poor historian. He does have a generalized rash on upper back and on chest wall. Appears more contact dermatitis irritation continue with the kenalog cream and keep skin clean and dry. With Pressure injury noted to right elbow with some slough and surrounding erythema, can use therahoney with gauze and support arm with pillow. ID and wound care both following as well, wound care can reevaluate tomorrow if needed. RBC 4.13, sodium 133, potassium 3.7, creatinine 0.64, gluc ose stable, calcium 8.0. Fair oral intake, patient was started on some mild hydration. Adjusted pain medications to orals as patient only complains of minimal pain to his right foot. Followed closely by ID, pulmonary, vascular, and neurology. Vitals stable today. ROS Constitutional: Denied any fatigue denied any fever. Cardio vascular: denied any chest pain, palpitations Gastrointestinal denied any nausea vomiting Pulmonary: Denied any shortness of breath cough Neurologic denied any new focal deficits All inpatient medications were reviewed and appropriate changes in these medications as dictated in the interval history and assessment and plan. PHYSICAL EXAMINATION: GENERAL: The patient is alert and oriented x2, not in any acute distress. Well developed, well nourished. HEENT: Pupils are round and equally reacting to light. EOMI. No scleral icterus. No conjunctival pallor. Normocephalic, atraumatic. No pharyngeal erythema. No thyromegaly. CARDIOVASCULAR: S1 and S2 present. No murmurs, rubs, or gallops. PULMONARY: improved aeration, faint end expiratory wheeze noted. ABDOMEN: Soft, nontender, nondistended, normoactive bowel sounds. No palpable organomegaly. MUSCULOSKELETAL: No joint swelling or deformity. EXTREMITIES: No cyanosis, clubbing, or pedal edema. Right big toe is black, where the left big toe is dusky in color. As well to a lesser extent this right second and third toes. There is deep tissue injury to right heel. NEUROLOGICAL: Gross neurological examination did not reveal any focal deficits. SKIN: Linear scratches along inner thigh on the left. Assessment and plan Assessment: Altered mental status most likely metabolic encephalopathy with component of acute alcohol withdrawal delirium. Ruled out intracranial lesions. Following with Neurology. Mentation slightly improved again today. Aspiration pneumonia with consolidation of right lung and bilateral infiltrates, presently on room air maintaining saturation at 93%, patient didnt follow instructions with IS well Possible frostbite with hypothermic feet injury, patient was hypothermic on arrival, vascular and wound care following as well as ID. Pressure injury with surrounding erythema to right elbow, vero ordered follow up tomorrow with wound care. Rhabdomyolysis, Improving Lactic acidosis, resolved Hypertension, unclear whether patient has history or not, started lisinopril today Hypokalemia secondary to poor oral intake, replaced and patient now tolerating diet Dehydration Mildly elevated liver enzymes, which are improved History of chronic alcohol abuse Chronic tobacco use DVT prophylaxis: heparin GI Prophylaxis: Pepcid FULL CODE Plan: Supplement potassium Continue with clindamycin and cefepime Neurology consult Vascular surgery and pulmonary/critical care team consult Possible right great toe amputation outpatient Continue with local wound care per recommendations PT/OT: Subacute Rehab on discharge when medically stable Prognosis is guarded Objective - Vital Signs Vital signs: Vital Signs Temp 98.7 F 07/27/21 11:40 Pulse 88 07/27/21 11:51 Resp 18 07/27/21 11:40 BP 133/61 07/27/21 11:40 Pulse Ox 97 07/27/21 11:40 Intake & Output 07/26/21 07/27/21 07/27/21 18:59 06:59 18:59 Intake Total 250 100 Output Total 950 2100 675 Balance -214 -6847 -315 Intake: IV 10 Invasive Line 8 10 Intake, IV Titration 100 Amount Cefepime 2 gm In Sodium 100 Chloride 0.9% 100 ml @ 25 mls/hr IVPB Q8HR [facility] Rx# :[id number] Oral 240 Output: Urine 950 2100 675 Other: Voiding Method Indwelling Catheter Indwelling Catheter Indwelling Catheter # Bowel Movements 0 0 - Labs CBC & Chem 7: 07/27/21 08:04 07/27/21 08:04 Labs: Abnormal Lab Results - Last 24 Hours (Table) 07/26/21 07/26/21 07/27/21 Range/Units 14:33 16:34 08:04 RBC 4.13 L (4.30-5.90) m/uL Sodium 134 L (137-145) mmol/L Creatinine 0.65 L (0.66-1.25) mg/dL Glucose 127 H (74-99) mg/dL POC Glucose (mg/dL) 151 H (75-99) mg/dL Calcium 7.9 L (8.4-10.2) mg/dL 07/27/21 Range/Units 08:04 RBC (4.30-5.90) m/uL Sodium 133 L (137-145) mmol/L Creatinine 0.64 L (0.66-1.25) mg/dL Glucose (74-99) mg/dL POC Glucose (mg/dL) (75-99) mg/dL Calcium 8.0 L (8.4-10.2) mg/dL Microbiology - Last 24 Hours (Table) 07/21/21 01:00 Blood Culture - Final Blood No Growth after 144 hours
--- NOTE | 2021-07-27 14:13 | P.PN ---
Subjective Progress Note Date: 07/27/21 66-year-old male patient will will be transferred to the ICU because of worsening and hypoxic respiratory failure. The patient is currently on a BiPAP at a pressure of 12/6 cm of water and FiO2 part the percent and a chest x-ray showing diffuse bilateral pulmonary infiltrates mostly secondary to aspiration with a possibility of an acute lung injury/ARDS. The patient is known to have alcoholism. The patient was found in his car at a cold temperature and he had a temperature of 90.9F. He also had frostbite in his lower extremities bilaterally. The patient has gangrenous first second and third toes on the right. Frostbite on the left foot have improved. The patient was in intensive care unit for hypothermia and frostbite. He was treated and he was discharged to a medical floor to be admitted again this morning because of worsening shortness of breath and hypoxemic respiratory failure. He tested negative for occult with 19. He had an elevated CPK level consistent with rhabdomyolysis. His CPK peaked at 3882 and dropped down to 435. Meanwhile, the patient has normal electrolyte. Blood gas today showed a pH of 7.43 with a pCO2 of 33 and pO2 of 57 and for that reason the patient was placed on BiPAP and the patient got transferred to the ICU. He is lethargic. He is quite somnolent. His current antibiotic coverage including a combination of Rocephin and clindamycin covering for aspiration pneumonia. Overnight, he was given a total of 8 mg of Haldol as of a.m. this morning. The patient was quite lethargic. I transferred to the ICU and start him on Precedex for agitation and signs of any delirium tremens. He is on IV fluids normal saline at the rate of 100 mL an hour. He is on heparin subcu for DVT prophylaxis. Today's evaluation of 07/22/2021, the patient is currently in the intensive care unit for delirium tremens, encephalopathy, and acute hypoxic respiratory failure with extensive right lung pneumonia. Noted the patient got transferred to the ICU yesterday because of increased agitation and hypoxemia. He was initially placed on a BiPAP and later on in the afternoon, switch this patient with high flow oxygen currently running at 12 L per minute. I also put the patient on Precedex for agitation. In terms of his pneumonia, the patient is covered with a combination of antibiotics. He is currently on a combination of cefepime and clindamycin. The repeat chest x-ray from today still showing extensive consolidation of the right lung. The patient however remains hemodynamically stable. He is using Precedex which is running at 0.2 mics for respiratory control and per minute. At times he was becoming bradycardic and for that reason the dose of Precedex was At a lower rate. He was treated with Haldol earlier, overnight he did not receive any Haldol. This morning, he is communicating. At times, he tries to get out of bed and he gets restless in bed. He remains on IV fluids. IV fluids are running at 75 mL an hour of normal saline. His CPK level is improving. The patient had frostbite in his right toes. In fact the first toe is completely necrotic on the right. The second third and fourth and fifth toe tips are obviously necrotic and the patient has a deep tissue injury to his right heel. The left foot is in a better condition at this point in time although there is an early UTI in the left heel also. The blood work otherwise is still pending from this morning. The blood sugar is at 11. The patient remains nothing by mouth. Blood pressure is slightly elevated and needs to be under better control. Family was updated and the daughter was at the bedside yesterday. 07/23/2021, the patient is to be a bit more calm and less restless compared to earlier evaluation. He remains on Precedex in the low dose of 0.2 mcg/kg per minute. No side effects from the effusion. No bradycardia. He remains hemodynamically stable. Blood pressure slightly elevated. He has not required Ativan overnight. He remains on normal saline third of 75 mL an hour. He was unable to keep his oxygen mask on and for that reason the nasal cannula was discontinued and the patient is currently on room air oxygen maintaining a pulse ox of 91%. He has very poor dentition. He has dry oral mucosa. He will need oral care. At the same time, the patient has gangrenous toes in his right foot related to a frostbite. He also has a deep tissue injury involving the heel on the right. The patient remains on broad-spectrum antibiotics. He remains on examination cefepime and clindamycin. His blood work from today shows a sodium level of 148 with a potassium level of 3.4, serum bicarbonate 25 with a creatinine being normal at 0.7. The white cell count is currently at 10.2 with a hemoglobin of 13.9. Note that the patient also had acute rhabdomyolysis which recovered. His liver functions as of also improved. His neurologic exam is nonfocal. He was seen by neurology. Recommendations were made to proceed with an MRI of the brain. This was not done as the patient is unable to stay still to complete the study. Family has been updated on a regular basis. The daughter has been at the bedside . 07/24/2021, the patient is much more calm and rested compared to yesterday. He seems to be answering questions more appropriately although it is not sharp and fast and answering questions scale. Neurologic exam remains nonfocal. Currently off Precedex. He remains on 0.45 saline at the rate of 75 mL an hour. He is on room air oxygen. He remains on a combination of cefepime and clindamycin. Otherwise, his urine output is adequate. His blood work from today shows a white cell count of 11, BUN of 11 and a creatinine of 0.7 and the sodium level of 141 with a potassium level of 3.4. LFTs are normal. Microbio logy was essentially negative. Blood culture was negative. As stated earlier, the patient has deep tissue injury in his right heel and multiple necrotic toes in the right foot/frostbite. We also noted that the patient has a deep tissue injury to his coccyx area 4 2021, the patient is awake and alert and communicating. He seems to be much more appropriate. No shakiness. No restlessness. He is aware of his name, his location and he does not recall the events that end up bringing him to the hospital. He is very comfortable at this point in time. He is moving all 4 extremities. He does have a frostbite in his right foot. He also had an extensive right lung pneumonia and the patient remains on a combination of cefepime and clindamycin. Repeat chest x-ray shows significant improvement and clearing of the right lung infiltrates. He is able to tolerate diet. No reported aspiration. He is currently off Precedex. Blood work is all stable. Sodium is at 134, normal creatinine, normal electrolytes, the white cell count is currently is at 11.1. Potassium was low from this morning at 3.0 and it needs to be replaced. Vascular surgery is on the case. The patient has a deep tissue injury in his right heel and he also has a deep tissue injury on his buttock 07/26/2021, I'm seeing the patient for a follow-up. The patient is stable on a combination of cefepime and clindamycin. No respiratory distress and the patient is currently on room air oxygen. Neurologically improved significantly and the patient is currently alert and awake and communicating. No focal neurological deficit. No headaches. No seizure activity. No signs of any delirium tremens. Meanwhile, the patient is frostbite injury to his right foot/toe. He has a DTI in the right heel and multiple necrotic toes involving the right foot significantly involving the right toe. Vascular surgeons on the case. No active issue for now. He was transported out of the intensive care unit yesterday. Blood work not done today. Yesterday's blood work was essentially within normal and the potassium level was replaced. No hypoglycemia. Tolerating his diet. 07/27 2021, patient is doing well on room air oxygen. No respiratory difficulties. Remains on cefepime and vancomycin. Tolerating diet. Remains on IV fluids with normal saline at the rate of 50 mL an hour. He has hospitalized and necrotic toes in the right foot. Vascular surgery is on the case. Awake and alert. Communicating. No other significant events overnight. Objective - Vital Signs Vital signs: Vital Signs Temp 98.7 F 07/27/21 11:40 Pulse 88 07/27/21 11:51 Resp 18 07/27/21 11:40 BP 133/61 07/27/21 11:40 Pulse Ox 97 07/27/21 11:40 Intake & Output 07/26/21 07/27/21 07/27/21 18:59 06:59 18:59 Intake Total 250 100 Output Total 950 2100 675 Balance -635 -0294 -415 Intake: IV 10 Invasive Line 8 10 Intake, IV Titration 100 Amount Cefepime 2 gm In Sodium 100 Chloride 0.9% 100 ml @ 25 mls/hr IVPB Q8HR [facility] Rx# :[id number] Oral 240 Output: Urine 950 2100 675 Other: Voiding Method Indwelling Catheter Indwelling Catheter Indwelling Catheter # Bowel Movements 0 0 - Exam poorly responsive, the patient is alert, awake, currently on room air oxygen. He continues to move in bed and he seems to be still restless. No significant agitation. His breathing is nonlabored at this point in time. Head exam was generally normal. There was no scleral icterus or corneal arcus. Mucous membranes were moist. HEENT examination is grossly unremarkable. Neck supple. Full range of motion. No adenopathy thyromegaly or neck vein distention. Cardiovascular examination reveals regular rhythm rate. S1-S2 normal. No S3 or S4. No discernible murmur noted. Heart rate 65 bpm. Heart sounds are distant. Lungs reveal clear breath sounds. Breath sounds are equal bilaterally. No adventitious lung sounds including wheezes rhonchi or crackles. Abdomen soft bowel sounds are heard. No masses or tenderness. Extremities reveal cyanotic/dark toes bilaterally. Feet are wrapped. Right foot is worse than the left. Skin is without rash or lesion, except as above. The patient has gangrenous first toe in the right foot, in addition to gangrenous changes involving the tips of the second third fourth and fifth toe on the right. The patient also has a DTI in his right heel and the patient also has a deep tissue injury to his coccyx area/gluteal area Neurologic examination patient is responsive, neurologic exam is nonfocal and the patient continues to be confused. His level of alertness gradually is improving. The patient is awake and alert. He is able to answer questions. . Neurologic exam remains nonfocal. - Labs CBC & Chem 7: 07/27/21 08:04 07/27/21 08:04 Labs: Abnormal Lab Results - Last 24 Hours (Table) 07/26/21 07/26/21 07/27/21 Range/Units 14:33 16:34 08:04 RBC 4.13 L (4.30-5.90) m/uL Sodium 134 L (137-145) mmol/L Creatinine 0.65 L (0.66-1.25) mg/dL Glucose 127 H (74-99) mg/dL POC Glucose (mg/dL) 151 H (75-99) mg/dL Calcium 7.9 L (8.4-10.2) mg/dL 07/27/21 Range/Units 08:04 RBC (4.30-5.90) m/uL Sodium 133 L (137-145) mmol/L Creatinine 0.64 L (0.66-1.25) mg/dL Glucose (74-99) mg/dL POC Glucose (mg/dL) (75-99) mg/dL Calcium 8.0 L (8.4-10.2) mg/dL Microbiology - Last 24 Hours (Table) 07/21/21 01:00 Blood Culture - Final Blood No Growth after 144 hours Assessment and Plan Plan: 1 acute mental status change/encephalopathy, multifactorial. The patient is recovered in the mental status back to its normal 2 acute hypoxic respiratory failure with diffuse bilateral pulmonary infiltrat es, consider aspiration, consider acute lung injury/ARDS, There is extensive extensive consolidation of the right lung which obviously raises the concern for an aspiration and the patient is cefepime and clindamycin. Currently on room air oxygen. Chest x-ray showed marked improvement in the right lung pulmonary infiltrate.. The patient is improved and the patient is currently on room air oxygen and accommodation of cefepime and clindamycin 3 acute hypothermia recovered 4 acute frostbite with gangrenous toes on the right foot, and the patient has also DTI on involving the right heel. 5 acute rhabdomyolysis, improved 6 history of alcoholism 7 history of smoking 8 hypernatremia drooling and the patient remains on a half-normal saline at the rate of 75 mL an hour 9 deep tissue injury to his gluteal area. Plan Complete a seven-day course of antibiotics Advance diet as tolerated Unable to walk because of his frostbite The patient on room air oxygen iV fluids KVO Monitor the gangrenous changes in the right foot in addition to the deep tissue injury of the right heel Follow-up with vascular surgery regarding the patient of the necrotic toes
--- NOTE | 2021-07-27 22:08 | P.PN ---
Subjective Progress Note Date: 07/26/21 Principal diagnosis: Pneumonia Patient is a 66 year male who was brought into the hospital after the patient was found to be unresponsive in his truck this patient did have evidence of right foot frostbite with gangrenous toe patient also have worsening of his respiratory status requiring admission to the ICU and required BiPAP. On today's evaluation that is 07/26/2021, the patient continues to be afebrile, the patient is breathing comfortably on room air, the patient Denies any chest pain no worsening cough or sputum production no abdominal pain no diarrhea Objective - Vital Signs Vital signs: Vital Signs Temp 98.2 F 07/26/21 16:00 Pulse 95 07/26/21 16:00 Resp 18 07/26/21 16:00 BP 144/82 07/26/21 16:00 Pulse Ox 97 07/26/21 16:00 Intake & Output 07/25/21 07/26/21 07/26/21 18:59 06:59 18:59 Intake Total 880 Output Total 635 2450 950 Balance 245 -2450 -950 Intake: Oral 880 Output: Urine 635 2450 950 Other: Voiding Method Indwelling Catheter Indwelling Catheter Indwelling Catheter # Bowel Movements 0 - Exam GENERAL DESCRIPTION:[ Patient is awake and alert in no distress] HEENT: [Oral mucosa is dry and no pharyngeal erythema] RESPIRATORY SYSTEM: [Unlabored breathing decreased breath sounds at the base] CARDIA VASCULAR SYSTEM: [S1-S2 regular rate and rhythm no murmur] GI: [Abdominal soft there's no tenderness no organomegaly] EXTREMITIES: [No edema feet] - Labs CBC & Chem 7: 07/27/21 08:04 07/27/21 08:04 Labs: Abnormal Lab Results - Last 24 Hours (Table) 07/26/21 07/26/21 Range/Units 14:33 16:34 Sodium 134 L (137-145) mmol/L Creatinine 0.65 L (0.66-1.25) mg/dL Glucose 127 H (74-99) mg/dL POC Glucose (mg/dL) 151 H (75-99) mg/dL Calcium 7.9 L (8.4-10.2) mg/dL Microbiology - Last 24 Hours (Table) 07/21/21 01:00 Blood Culture - Preliminary Blood No Growth after 120 hours Assessment and Plan (1) Pneumonia Current Visit: Yes Status: Acute Code(s): J18.9 - PNEUMONIA, UNSPECIFIED ORGANISM SNOMED Code(s): 560471912 Plan: Patient with acute respiratory failure is multifactorial concerning for a component of pneumonia question of aspiration etiology patient to have penicillin ALLERGY, patient seemed to have clinically responded to cefepime and clindamycin which will be continued , and continue supportive care Time with Patient: Less than 30
--- NOTE | 2021-07-27 22:10 | P.PN ---
Subjective Progress Note Date: 07/27/21 Principal diagnosis: Pneumonia Patient is a 66 year male who was brought into the hospital after the patient was found to be unresponsive in his truck this patient did have evidence of right foot frostbite with gangrenous toe patient also have worsening of his respiratory status requiring admission to the ICU and required BiPAP. On today's evaluation that is 07/27/2021, the patient denies any fever or any chills, the patient is breathing comfortably on room air, the patient Denies any chest pain no worsening cough or sputum production no abdominal pain no diarrhea , patient was noticed to have generalized rash to the upper torso and also a pressure ulcer to the right elbow area with some slough tissue Objective - Vital Signs Vital signs: Vital Signs Temp 98.6 F 07/27/21 16:00 Pulse 86 07/27/21 16:16 Resp 16 07/27/21 16:00 BP 150/83 07/27/21 16:00 Pulse Ox 97 07/27/21 16:00 Intake & Output 07/27/21 07/27/21 07/28/21 06:59 18:59 06:59 Intake Total 250 500 Output Total 2100 1025 Balance -1850 -525 Intake: IV 10 Invasive Line 8 10 Intake, IV Titration 500 Amount Cefepime 2 gm In Sodium 100 Chloride 0.9% 100 ml @ 25 mls/hr IVPB Q8HR [facility] Rx# :[id number] Sodium Chloride 0.9% 1, 400 000 ml @ 50 mls/hr IV . Q20H [facility] Rx#:[id number] Oral 240 Output: Urine 2100 1025 Other: Voiding Method Indwelling Catheter Indwelling Catheter # Bowel Movements 0 0 - Exam GENERAL DESCRIPTION:[ Patient is awake and alert in no distress] HEENT: [Oral mucosa is dry and no pharyngeal erythema] RESPIRATORY SYSTEM: [Unlabored breathing decreased breath sounds at the base] CARDIA VASCULAR SYSTEM: [S1-S2 regular rate and rhythm no murmur] GI: [Abdominal soft there's no tenderness no organomegaly] EXTREMITIES: [No edema feet SKIN: Generalized rash to the upper back and did have a wound to the right elbow with some slough tissue] - Labs CBC & Chem 7: 07/27/21 08:04 07/27/21 08:04 Labs: Abnormal Lab Results - Last 24 Hours (Table) 07/27/21 07/27/21 Range/Units 08:04 08:04 RBC 4.13 L (4.30-5.90) m/uL Sodium 133 L (137-145) mmol/L Creatinine 0.64 L (0.66-1.25) mg/dL Calcium 8.0 L (8.4-10.2) mg/dL Microbiology - Last 24 Hours (Table) 07/21/21 01:00 Blood Culture - Final Blood No Growth after 144 hours Assessment and Plan (1) Pneumonia Current Visit: Yes Status: Acute Code(s): J18.9 - PNEUMONIA, UNSPECIFIED ORGANISM SNOMED Code(s): 582705984 Plan: 1-Patient with acute respiratory failure is multifactorial concerning for a component of pneumonia question of aspiration etiology patient to have penicillin ALLERGY, patient now has developed a rash more likely related to cefepime which will be discontinued continue with the clindamycin and transitioned to oral Avelox on discharge. 2patient with a pressure ulcer to the right elbow area with some slough tissue we will apply medahoney and keep the area off the pressure
[2021-07-28] MEDS: CLINDAMYCIN 600 MG in DEXTROSE 5% IN WATER 50 ML IVPB SCH ×6 (05:34→20:36)
[2021-07-28] MEDS: THIAMINE 100 MG TAB PO SCH ×2 (05:35→16:28)
[2021-07-28] MEDS: SODIUM CHLORIDE 0.9% 1,000 ML IV SCH (05:35)
[2021-07-28] MEDS: HEPARIN SODIUM,PORCINE/PF 5,000 UNIT/0.5 ML SYRINGE SQ SCH ×2 (08:14→20:36)
[2021-07-28] MEDS: FAMOTIDINE 20 MG/2 ML VIAL IV SCH ×2 (08:14→20:36)
[2021-07-28] MEDS: NICOTINE 14MG/24HR PATCH TRANSDERM SCH (08:14)
[2021-07-28] MEDS: HALOPERIDOL LACTATE 5 MG/ML 1 ML VIAL IVP PRN (08:14)
[2021-07-28] MEDS: lisinopriL 10 MG TAB PO SCH (08:15)
[2021-07-28] MEDS: PETROLAT,WHITE/LAN/8-HYDROXYQU 227 GM OINT TOPICAL SCH (08:15)
[2021-07-28] MEDS: TRIAMCINOLONE 0.1% CREAM 80 GM TUBE TOPICAL SCH ×2 (08:16→20:36)
[2021-07-28] MEDS: IPRATROPIUM-ALBUTEROL 3 ML NEB INHALATION SCH ×4 (08:59→20:04)
[2021-07-28] MEDS ORDERED: POTASSIUM CHLORIDE ER 20 MEQ TAB.ER PO SCH (10:00)
--- NOTE | 2021-07-28 15:58 | P.PN ---
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 As per report. He was seen doing well about 2 days ago. Patient was found with no evidence of trauma, incontinence of urine and stool. And he was hypothermic on admission with a rectal temperature of 99F. He was warmed using of the fluids. Patient found to have bilateral dusky heat suspicious for hypothermic injury. Also there was some evidence of rhabdomyolysis, lactic acidosis and dehydration and he was admitted to the intensive care unit. When I saw the patient in the ICU he was sleepy, does not wake up to verbal or tactile stimuli however he withdrawal for patient's to light. He has some deep breathing. Both feet are in dressing. Patient could not provide information. We checked him after couple hours distal clip waking up so it allowed to consult neurology service Currently vital signs stable, his temperature went up last night to 98.1-99.1. Showing mild leukocytosis. Hemoglobin is elevated 18.2, platelet 164. Carbon dioxide is 1.1, which is within the reference range. Elevated lactic acid 4.3 came back to 1.4. Elevated creatinine kinase 5921 Creatinine 1.0, potassium 5.2, liver enzymes slightly elevated with AST 215 and ALT 64. Troponin is negative at 0.014. Ammonia is negative less than 9. High serum osmolality of 312. Urine analysis showing 1+ protein, 1+ ketone, no solid evidence of infection. Urine drug screen is negative, salicylate less than 1, acetaminophen less than 10 and serum alcohol less than 10 Coronavirus nondetected. EKG showing normal sinus rhythm with incomplete right bundle branch block and left posterior fascicular block and QTC 455, no significant ST-T changes Q Chest x-ray showing no acute process. CT of the brain: No acute process CT of the cervical spine: No acute fracture or dislocation In the emergency room patient was started on IV fluids, IV heparin and started on CIWA protocol for suspicion alcohol abuse 07/19/2021 Patient still confused although he opens his eyes spontaneously but he does not answer questions he does not follow commands. Hemodynamically and labs are stable. Leukocytosis improved. Liver enzymes still mildly elevated. Creatinine kinase trending down while he continues on IV fluids. She still have bluish discoloration of the right toes especially the right big toe while the left toes there are dusky pink and lukewarm compelled more called on the right side. Vascular surgery on the case and they went further rewarming and resolution before they decide before any surgical intervention. He remains on CIWA protocol and thiamine normal saline at 100 mL per hour. Haldol as needed for agitation. EEG showing mildly abnormal digital cerebral dysfunction. No evidence of epileptiform discharge. Neurology on the case. MRI of the brain is pending. While carotid Doppler's reported as negative today. 07/20/2021 Patient is seen and examined today in the ICU Patient did not show much progress regarding his mentation, he still opens his eyes spontaneously but other than that he is unresponsive and does not talk are not follow commands. He does not look in distress. His EEG showing general cerebral dysfunction and neurology on the case recommended MRI of the brain which is pending now. Carotid Doppler's is negative. Vascular surgery also on the case and following him for his right toes hypothermic injury medially on the right big toe. He kept on IV fluid normal saline 100 mL per hour and his creatinine kinase tr ending down today 1225, liver enzymes slightly less today. 07/21/2021 Patient over for right developed fever of 100.5 and he was agitated need several doses of Haldol to come down and he was becoming more hypoxic requiring 6 L/m and in the morning was the miguel Keppra minute and eventually he was placed on BiPAP. Chest x-ray was consistent with bilateral pneumonia but merely multifocal pneumonia of the right side highly suspicious for aspiration pneumonia, patient received several antibiotics and currently is on clindamycin and ceftriaxone. Other than that his CPK significantly improved to 435, liver enzymes trending down, creatinine is normal today. However her IPG showing normal pH of 7.4 but hypoxia with pO2 of 57. He received 1 dose of Lasix and we lowered the dose of normal saline down to 75 mL/h. Several attempts try to send the patient for MRI however he was agitated and he had to be transferred to the ICU to receive Precedex 2 to calm down. Vascular surgery still follow the patient for gangrenous lesion of the right first, second and third toes 07/22/2021 Patient seen in the ICU is slightly more awake, he can't tell his last name and he told the nurses he was in the hospital however he is a still confused. And distal MRI of the brain is pending and if is not couldn't be done then CT of the brain would be considered and neurology service on the case. His oxygen requirement trending down to 30 L the morning and 11 be Permanent in the afternoon. His chest x-ray showing improvement and antibiotics were adjusted to clindamycin and cefepime. ID team on the case as well. Sodium 147, Patient continued on gentle hydration as well. No surgical intervention by vascular surgery team for his gangrenous right big toe and the second and third toes to a lesser degree. Keep monitoring 07/23/2021 Patient elevated today in the ICU, he is awake however he is confused and is unable to tell me where he is or the year. He denies any headache, photophobia, nausea vomiting or diarrhea. His eyes do appear to be wandering around the room during conversation. Patient underwent brain CT today which shows age-related atrophic and chronic small vessel ischemic change without acute intracranial process seen at this time. Chest xray correlate for pneumonia. He continues on Precedex. RBC 4.00, WBC 10.2, Platelet count 210, sodium 148, potassium 3.4, chloride 119, blood sugars WNL. He is being followed closely by neurology who would like MRI with and without once he is able to tolerate. 07/24/2021 Patient evaluated in the ICU, worked with physical therapy. Attempt to get patient into the chair today. He did pass a swallow evaluation, and diet is being slowly advanced now. Patient off Precedex last 24 hours, agitation has improved. Patient does admit to drinking beer daily, he is more alert and oriented. He was able to tell nurse where he was today, stated that he was in the hospital. Labs today show white count 11.1, hemoglobin 14.1, sodium 141, potassium 3.4, chloride 112, total bili 1.5. Liver enzymes have normalized. Patient in the hypertensive side blood pressure 167/93, heart rate 103, pulse ox, 92% on room air. Being followed by infectious disease, vascular, neurology and pulmonary application dba. 07/25/2021 Patient elevated today working with physical therapy, able to sit on edge of bed however he was leaning back. He appears more alert than yesterday. Started on 5 mg of lisinopril yesterday, blood pressure still a bit elevated, increased to 10 mg today. Franklin catheter in place. Bowels are moving and he did eat most of his breakfast today. Vitals today, afebrile, heart rate 80 sinus rhythm, blood pressure 149/84, 93% on room air. Repeat chest x-ray today shows findings consistent with pneumonia with underlying emphysema. Continues on antibiotics in the form of clindamycin and cefepime. Continues on updrafts. He is not requiri ng Haldol or Ativan and continues off Precedex. Still with extensive deep tissue injury to right heel, as well as DTI to buttock, with acute frostbite to toes on right foot. Patient will be discharged out of the ICU when bed available on the medical floor. His mentation continues to improve, followed closely by neurology. 07/26/2021 Patient evaluated today transferred out of ICU. He is more alert today did have some breakfast. Currently denies any pain, he states his feet feel okay. He seems more alert, no agitation noted. Labs unavailable today we will recheck a potassium and repeat labs in the morning. Currently afebrile, heart rate 76, blood pressure 122/70, he is 95% room air. Continues on IV cefepime and IV clindamycin. Patient is being followed closely by pulmonary application dba, ID, neurology, and vascular services. He will need subacute rehab on discharge, most likely wednesday. Ongoing evaluation and woundcare for the DTI to right heel, as well as frostbite with dry gangrene to right great toe, 2nd toe, and 3rd toe. 07/27/2021 Patient evaluated today out of the ICU on the 3rd floor alert to 1 poor historian. He does have a generalized rash on upper back and on chest wall. Appears more contact dermatitis irritation continue with the kenalog cream and keep skin clean and dry. With Pressure injury noted to right elbow with some slough and surrounding erythema, can use therahoney with gauze and support arm with pillow. ID and wound care both following as well, wound care can reevaluate tomorrow if needed. RBC 4.13, sodium 133, potassium 3.7, creatinine 0.64, gluc ose stable, calcium 8.0. Fair oral intake, patient was started on some mild hydration. Adjusted pain medications to orals as patient only complains of minimal pain to his right foot. Followed closely by ID, pulmonary, vascular, and neurology. Vitals stable today. 07/28/2021 Patient evaluated today in bed. He appears more confused than yesterday. Being followed by ID, pulmonary application dba services, neurology, vascular, and wound care. Labs today show white count unremarkable except for RBC of 4.13, sodium 133, potassium 3.7. Patient afebrile, heart rate 82 sinus rhythm, blood pressure 158/56 and he is 98% on room air. Bag balm to the areas of armenta bite, metahoney to right elbow pressure injury. He continues on IV clindamycin, and will transition to PO Avelox on DC per ID recommendations. Monitor patient over night, open blinds during day. Reorient patient frequently, up in chair for meals. Will try seroquel at HS, discontinue haldol. review of Systems Unable to complete, patient not answering questions at this time. PHYSICAL EXAMINATION: GENERAL: The patient is alert and oriented x1, not in any acute distress. Well developed, well nourished. HEENT: Pupils are round and equally reacting to light. EOMI. No scleral icterus. No conjunctival pallor. Normocephalic, atraumatic. No pharyngeal erythema. No thyromegaly. CARDIOVASCULAR: S1 and S2 present. No murmurs, rubs, or gallops. PULMONARY: improved aeration, faint end expiratory wheeze noted. ABDOMEN: Soft, nontender, nondistended, normoactive bowel sounds. No palpable organomegaly. MUSCULOSKELETAL: No joint swelling or deformity. EXTREMITIES: No cyanosis, clubbing, or pedal edema. Right big toe is black, where the left big toe is dusky in color. As well to a lesser extent this right second and third toes. There is deep tissue injury to right heel. NEUROLOGICAL: Gross neurological examination did not reveal any focal deficits. SKIN: Linear scratches along inner thigh on the left. pressure injury right el bow Assessment and plan Assessment: Altered mental status most likely metabolic encephalopathy with component of acute alcohol withdrawal delirium. Ruled out intracranial lesions. Following with Neurology. Discontinue Haldol, initiate seroquel at HS Aspiration pneumonia with consolidation of right lung and bilateral infiltrates, presently on room air maintaining saturation at 93%, patient didnt follow instructions with IS well Possible frostbite with hypothermic feet injury, patient was hypothermic on arrival, vascular and wound care following as well as ID. Pressure injury with surrounding erythema to right elbow, Metahoney for local wound care Rhabdomyolysis,resolved Lactic acidosis, resolved Hypertension, unclear whether patient has history or not, increase lisinopril Hypokalemia secondary to poor oral intake, replaced and patient now tolerating diet Dehydration Mildly elevated liver enzymes, which are improved History of chronic alcohol abuse Chronic tobacco use DVT prophylaxis: heparin GI Prophylaxis: Pepcid FULL CODE Plan: Supplement potassium Continue IV antibiotics, PO on discharge Neurology consult Vascular surgery and pulmonary/critical care team consult Possible right great toe amputation outpatient Continue with local wound care per recommendations PT/OT: Subacute Rehab on discharge when medically stable Prognosis is guarded Objective - Vital Signs Vital signs: Vital Signs Temp 98.7 F 07/28/21 12:10 Pulse 82 07/28/21 12:22 Resp 20 07/28/21 12:10 BP 158/56 07/28/21 12:10 Pulse Ox 98 07/28/21 12:10 Intake & Output 07/27/21 07/28/21 07/28/21 18:59 06:59 18:59 Intake Total 500 550 320 Output Total 1025 1600 1050 Balance -525 -1050 -730 Intake: Intake, IV Titration 500 550 Amount Cefepime 2 gm In Sodium 100 Chloride 0.9% 100 ml @ 25 mls/hr IVPB Q8HR JOHN Rx# :[id number] Clindamycin 600 mg In 50 Dextrose 5% in Water 50 ml @ 50 mls/hr IVPB Q8H JOHN Rx#:[id number] Sodium Chloride 0.9% 1, 400 500 000 ml @ 50 mls/hr IV . Q20H JOHN Rx#:[id number] Oral 320 Output: Urine 1025 1600 1050 Other: Voiding Method Indwelling Catheter Indwelling Catheter Indwelling Catheter # Bowel Movements 0 1 - Labs CBC & Chem 7: 07/27/21 08:04 07/27/21 08:04
--- NOTE | 2021-07-28 17:31 | P.PN ---
Subjective Progress Note Date: 07/28/21 Principal diagnosis: Altered mental status On 07/28/2021 patient seen in follow-up on [facility] care unit, he is resting in bed, he still confused, but not agitated, he is answering simple questions, he is breathing comfortably in room air pulse ox is 98%. Denies any dyspnea, no cough, rest of his vitals have been stable, no fever or chills. His labs have been reviewed, his white blood cell count is 8.1, hemoglobin is 14.1, sodium is 133, the rest of electrolytes are within normal limits, BUN is 9 creatinine 0.64. His last chest x-ray on 07/25/2021 showed airspace disease predominantly in the right lung no evident pneumothorax. Patient currently remains on breathing treatments, he is on clindamycin for antibiotic coverage and possibility of aspiration related pneumonia, he is on subcu heparin. His blood cultures have been negative, clinically his been stable, being very comfortably, is currently being considered for discharge to [facility], possibly to [facility] and rehab likely in the next 24 hours. Objective - Vital Signs Vital signs: Vital Signs Temp 98.2 F 07/28/21 16:00 Pulse 83 07/28/21 16:00 Resp 18 07/28/21 16:00 BP 135/80 07/28/21 16:00 Pulse Ox 97 07/28/21 16:00 Intake & Output 07/27/21 07/28/21 07/28/21 18:59 06:59 18:59 Intake Total 500 550 320 Output Total 1025 1600 1050 Balance -525 1050 730 Intake: Intake, IV Titration 500 550 Amount Cefepime 2 gm In Sodium 100 Chloride 0.9% 100 ml @ 25 mls/hr IVPB Q8HR JOHN Rx# :[id number] Clindamycin 600 mg In 50 Dextrose 5% in Water 50 ml @ 50 mls/hr IVPB Q8H JOHN Rx#:[id number] Sodium Chloride 0.9% 1, 400 500 000 ml @ 50 mls/hr IV . Q20H JOHN Rx#:[id number] Oral 320 Output: Urine 1025 1600 1050 Other: Voiding Method Indwelling Catheter Indwelling Catheter Indwelling Catheter # Bowel Movements 0 1 - Exam GENERAL EXAM: Alert, pleasant, calm, 66-year-old thin built white male, resting comfortably in bed, with a pulse ox of 98% on room air, comfortable in no apparent distress. HEAD: Normocephalic/atraumatic. EYES: Normal reaction of pupils, equal size. Conjunctiva pink, sclera white. NOSE: Clear with pink turbinates. THROAT: No erythema or exudates. NECK: No masses, no JVD, no thyroid enlargement, no adenopathy. CHEST: No chest wall deformity. Symmetrical expansion. LUNGS: Equal air entry with no crackles, wheeze, rhonchi or dullness. CVS: Regular rate and rhythm, normal S1 and S2, no gallops, no murmurs, no rubs ABDOMEN: Soft, nontender. No hepatosplenomegaly, normal bowel sounds, no guarding or rigidity. EXTREMITIES: No clubbing, no edema, no cyanosis, 2+ pulses and upper and lower extremities. Patient has gangrenous changes of the toes on the right foot related to recent history of frostbite MUSCULOSKELETAL: Muscle strength and tone normal. SPINE: No scoliosis or deformity SKIN: No rashes CENTRAL NERVOUS SYSTEM: Alert and oriented -2. No focal deficits, tone is normal in all 4 extremities. PSYCHIATRIC: Alert and oriented -2. - Labs CBC & Chem 7: 07/27/21 08:04 07/27/21 08:04 Assessment and Plan Plan: Assessment: #1. Acute mental status change/encephalopathy, multifactorial. The patient is recovered in the mental status back to its normal #2. Acute hypoxic respiratory failure with diffuse bilateral pulmonary infiltrates, consider aspiration, consider acute lung injury/ARDS, There is extensive extensive consolidation of the right lung which obviously raises the concern for an aspiration and the patient is cefepime and clindamycin. Currently on room air oxygen. Chest x-ray showed marked improvement in the right lung pulmonary infiltrate.. The patient is improved and the patient is currently on room air oxygen and accommodation of cefepime and clindamycin #3. Acute hypothermia recovered #4. Acute frostbite with gangrenous toes on the right foot, and the patient has also DTI on involving the right heel. #5. Acute rhabdomyolysis, improved #6. History of alcoholism #7. History of smoking #8. Hypernatremia drooling and the patient remains on a half-normal saline at the rate of 75 mL an hour #9. Deep tissue injury to his gluteal area Plan: Stable from pulmonary perspective Breathing comfortably, patient is on room air, vital signs have been stable No acute events overnight Awake and alert, still intermittent confused, but not agitated Discharge planning is in progress for discharge to ECF for rehabilitation No changes to the gangrenous changes of the right foot Patient is to see vascular surgery regarding the necrotic toes Stable for discharge to the ECF from pulmonary perspective I performed a history & physical examination of the patient and discussed their management with my nurse practitioner, Sangeeta Ramirez. I reviewed the nurse practitioner's note and agree with the documented findings and plan of care. Lung sounds are positive for dim breath sounds throughout the lung bunch. The findings and the impression was discussed with the patient. I attest to the documentation by the nurse practitioner. Time with Patient: Less than 30
[2021-07-28] MEDS: QUEtiapine 25 MG TAB PO SCH (20:36)
--- NOTE | 2021-07-28 23:52 | P.PN ---
Subjective Progress Note Date: 07/28/21 Principal diagnosis: Pneumonia Patient is a 66 year male who was brought into the hospital after the patient was found to be unresponsive in his truck this patient did have evidence of right foot frostbite with gangrenous toe patient also have worsening of his respiratory status requiring admission to the ICU and required BiPAP. On today's evaluation that is 07/28/2021, the patient remains to be febrile, the patient is breathing comfortably on room air, patient denies chest pain no worsening cough or sputum production no abdominal pain no diarrhea, patient overall rash seemed to slightly decreased in intensity Objective - Vital Signs Vital signs: Vital Signs Temp 99.1 F 07/28/21 20:00 Pulse 82 07/28/21 20:14 Resp 17 07/28/21 20:00 BP 154/80 07/28/21 20:00 Pulse Ox 95 07/28/21 20:04 Intake & Output 07/28/21 07/28/21 07/29/21 06:59 18:59 06:59 Intake Total 550 320 Output Total 1600 1050 Balance -1050 -730 Intake: Intake, IV Titration 550 Amount Clindamycin 600 mg In 50 Dextrose 5% in Water 50 ml @ 50 mls/hr IVPB Q8H JOHN Rx#:[id number] Sodium Chloride 0.9% 1, 500 000 ml @ 50 mls/hr IV . Q20H JOHN Rx#:[id number] Oral 320 Output: Urine 1600 1050 Other: Voiding Method Indwelling Catheter Indwelling Catheter Indwelling Catheter # Bowel Movements 1 - Exam GENERAL DESCRIPTION:[ Patient is awake and alert in no distress] HEENT: [Oral mucosa is dry and no pharyngeal erythema] RESPIRATORY SYSTEM: [Unlabored breathing decreased breath sounds at the base] CARDIA VASCULAR SYSTEM: [S1-S2 regular rate and rhythm no murmur] GI: [Abdominal soft there's no tenderness no organomegaly] EXTREMITIES: [No edema feet SKIN: Generalized rash to the upper back and did have a wound to the right elbow with some slough tissue] - Labs CBC & Chem 7: 07/27/21 08:04 07/27/21 08:04 Assessment and Plan (1) Pneumonia Current Visit: Yes Status: Acute Code(s): J18.9 - PNEUMONIA, UNSPECIFIED ORGANISM SNOMED Code(s): 666254671 Plan: 1-Patient with acute respiratory failure is multifactorial concerning for a component of pneumonia question of aspiration etiology patient to have penicillin ALLERGY, patient now has developed a rash more likely related to cefepime which has been discontinued continue with the clindamycin and tr ansitioned to oral Avelox on discharge. 2patient with a pressure ulcer to the right elbow area with some slough tissue we will apply medahoney and keep the area off the pressure Time with Patient: Less than 30
[2021-07-29] MEDS: CLINDAMYCIN 600 MG in DEXTROSE 5% IN WATER 50 ML IVPB SCH ×6 (05:22→22:37)
[2021-07-29] MEDS: THIAMINE 100 MG TAB PO SCH ×2 (05:23→16:40)
[2021-07-29] MEDS: IPRATROPIUM-ALBUTEROL 3 ML NEB INHALATION SCH ×4 (08:34→20:15)
[2021-07-29 09:06] VITALS: BMI 22.6
[2021-07-29] MEDS: FAMOTIDINE 20 MG/2 ML VIAL IV SCH ×2 (10:02→20:48)
[2021-07-29] MEDS: HEPARIN SODIUM,PORCINE/PF 5,000 UNIT/0.5 ML SYRINGE SQ SCH ×2 (10:03→20:47)
[2021-07-29] MEDS: lisinopriL 20 MG TAB PO SCH (10:04)
[2021-07-29 10:45] LABS: African American GFR (CKD) >90 (>60 ml/min/1.73 sqM); Anion Gap 3 mmol/L; Blood Urea Nitrogen 15 mg/dL (9-20); Calcium 8.6 mg/dL (8.4-10.2); Carbon Dioxide 27 mmol/L (22-30); Chloride 103 mmol/L (98-107); Glucose 114 mg/dL (74-99); Non-African American GFR(CKD) >90 (>60 ml/min/1.73 sqM); Potassium 4.7 mmol/L (3.5-5.1); Sodium 133 mmol/L (137-145)
[2021-07-29] MEDS: PETROLAT,WHITE/LAN/8-HYDROXYQU 227 GM OINT TOPICAL SCH (12:39)
[2021-07-29] MEDS: TRIAMCINOLONE 0.1% CREAM 80 GM TUBE TOPICAL SCH ×2 (12:39→20:48)
[2021-07-29] MEDS: NICOTINE 14MG/24HR PATCH TRANSDERM SCH (12:39)
--- NOTE | 2021-07-29 12:52 | P.PN ---
Subjective Progress Note Date: 07/29/21 This is a pleasant 66 years old male with unknown past medical history presents because of altered mental status where he was found unresponsive in his truck bed family member. As per report. He was seen doing well about 2 days ago. Patient was found with no evidence of trauma, incontinence of urine and stool. And he was hypothermic on admission with a rectal temperature of 99F. He was warmed using of the fluids. Patient found to have bilateral dusky heat suspicious for hypothermic injury. Also there was some evidence of rhabdomyolysis, lactic acidosis and dehydration and he was admitted to the intensive care unit. When I saw the patient in the ICU he was sleepy, does not wake up to verbal or tactile stimuli however he withdrawal for patient's to light. He has some deep breathing. Both feet are in dressing. Patient could not provide information. We checked him after couple hours distal clip waking up so it allowed to consult neurology service Currently vital signs stable, his temperature went up last night to 98.1-99.1. Showing mild leukocytosis. Hemoglobin is elevated 18.2, platelet 164. Carbon dioxide is 1.1, which is within the reference range. Elevated lactic acid 4.3 came back to 1.4. Elevated creatinine kinase 5921 Creatinine 1.0, potassium 5.2, liver enzymes slightly elevated with AST 215 and ALT 64. Troponin is negative at 0.014. Ammonia is negative less than 9. High serum osmolality of 312. Urine analysis showing 1+ protein, 1+ ketone, no solid evidence of infection. Urine drug screen is negative, salicylate less than 1, acetaminophen less than 10 and serum alcohol less than 10 Coronavirus nondetected. EKG showing normal sinus rhythm with incomplete right bundle branch block and left posterior fascicular block and QTC 455, no significant ST-T changes Q Chest x-ray showing no acute process. CT of the brain: No acute process CT of the cervical spine: No acute fracture or dislocation In the emergency room patient was started on IV fluids, IV heparin and started on CIWA protocol for suspicion alcohol abuse 07/19/2021 Patient still confused although he opens his eyes spontaneously but he does not answer questions he does not follow commands. Hemodynamically and labs are stable. Leukocytosis improved. Liver enzymes still mildly elevated. Creatinine kinase trending down while he continues on IV fluids. She still have bluish discoloration of the right toes especially the right big toe while the left toes there are dusky pink and lukewarm compelled more called on the right side. Vascular surgery on the case and they went further rewarming and resolution before they decide before any surgical intervention. He remains on CIWA protocol and thiamine normal saline at 100 mL per hour. Haldol as needed for agitation. EEG showing mildly abnormal digital cerebral dysfunction. No evidence of epileptiform discharge. Neurology on the case. MRI of the brain is pending. While carotid Doppler's reported as negative today. 07/20/2021 Patient is seen and examined today in the ICU Patient did not show much progress regarding his mentation, he still opens his eyes spontaneously but other than that he is unresponsive and does not talk are not follow commands. He does not look in distress. His EEG showing general cerebral dysfunction and neurology on the case recommended MRI of the brain which is pending now. Carotid Doppler's is negative. Vascular surgery also on the case and following him for his right toes hypothermic injury medially on the right big toe. He kept on IV fluid normal saline 100 mL per hour and his creatinine kinase tr ending down today 1225, liver enzymes slightly less today. 07/21/2021 Patient over for right developed fever of 100.5 and he was agitated need several doses of Haldol to come down and he was becoming more hypoxic requiring 6 L/m and in the morning was the miguel Keppra minute and eventually he was placed on BiPAP. Chest x-ray was consistent with bilateral pneumonia but merely multifocal pneumonia of the right side highly suspicious for aspiration pneumonia, patient received several antibiotics and currently is on clindamycin and ceftriaxone. Other than that his CPK significantly improved to 435, liver enzymes trending down, creatinine is normal today. However her IPG showing normal pH of 7.4 but hypoxia with pO2 of 57. He received 1 dose of Lasix and we lowered the dose of normal saline down to 75 mL/h. Several attempts try to send the patient for MRI however he was agitated and he had to be transferred to the ICU to receive Precedex 2 to calm down. Vascular surgery still follow the patient for gangrenous lesion of the right first, second and third toes 07/22/2021 Patient seen in the ICU is slightly more awake, he can't tell his last name and he told the nurses he was in the hospital however he is a still confused. And distal MRI of the brain is pending and if is not couldn't be done then CT of the brain would be considered and neurology service on the case. His oxygen requirement trending down to 30 L the morning and 11 be Permanent in the afternoon. His chest x-ray showing improvement and antibiotics were adjusted to clindamycin and cefepime. ID team on the case as well. Sodium 147, Patient continued on gentle hydration as well. No surgical intervention by vascular surgery team for his gangrenous right big toe and the second and third toes to a lesser degree. Keep monitoring 07/23/2021 Patient elevated today in the ICU, he is awake however he is confused and is unable to tell me where he is or the year. He denies any headache, photophobia, nausea vomiting or diarrhea. His eyes do appear to be wandering around the room during conversation. Patient underwent brain CT today which shows age-related atrophic and chronic small vessel ischemic change without acute intracranial process seen at this time. Chest xray correlate for pneumonia. He continues on Precedex. RBC 4.00, WBC 10.2, Platelet count 210, sodium 148, potassium 3.4, chloride 119, blood sugars WNL. He is being followed closely by neurology who would like MRI with and without once he is able to tolerate. 07/24/2021 Patient evaluated in the ICU, worked with physical therapy. Attempt to get patient into the chair today. He did pass a swallow evaluation, and diet is being slowly advanced now. Patient off Precedex last 24 hours, agitation has improved. Patient does admit to drinking beer daily, he is more alert and oriented. He was able to tell nurse where he was today, stated that he was in the hospital. Labs today show white count 11.1, hemoglobin 14.1, sodium 141, potassium 3.4, chloride 112, total bili 1.5. Liver enzymes have normalized. Patient in the hypertensive side blood pressure 167/93, heart rate 103, pulse ox, 92% on room air. Being followed by infectious disease, vascular, neurology and pulmonary air conditioning mechanic industrial. 07/25/2021 Patient elevated today working with physical therapy, able to sit on edge of bed however he was leaning back. He appears more alert than yesterday. Started on 5 mg of lisinopril yesterday, blood pressure still a bit elevated, increased to 10 mg today. Franklin catheter in place. Bowels are moving and he did eat most of his breakfast today. Vitals today, afebrile, heart rate 80 sinus rhythm, blood pressure 149/84, 93% on room air. Repeat chest x-ray today shows findings consistent with pneumonia with underlying emphysema. Continues on antibiotics in the form of clindamycin and cefepime. Continues on updrafts. He is not requiri ng Haldol or Ativan and continues off Precedex. Still with extensive deep tissue injury to right heel, as well as DTI to buttock, with acute frostbite to toes on right foot. Patient will be discharged out of the ICU when bed available on the medical floor. His mentation continues to improve, followed closely by neurology. 07/26/2021 Patient evaluated today transferred out of ICU. He is more alert today did have some breakfast. Currently denies any pain, he states his feet feel okay. He seems more alert, no agitation noted. Labs unavailable today we will recheck a potassium and repeat labs in the morning. Currently afebrile, heart rate 76, blood pressure 122/70, he is 95% room air. Continues on IV cefepime and IV clindamycin. Patient is being followed closely by pulmonary air conditioning mechanic industrial, ID, neurology, and vascular services. He will need subacute rehab on discharge, most likely wednesday. Ongoing evaluation and woundcare for the DTI to right heel, as well as frostbite with dry gangrene to right great toe, 2nd toe, and 3rd toe. 07/27/2021 Patient evaluated today out of the ICU on the 3rd floor alert to 1 poor historian. He does have a generalized rash on upper back and on chest wall. Appears more contact dermatitis irritation continue with the kenalog cream and keep skin clean and dry. With Pressure injury noted to right elbow with some slough and surrounding erythema, can use therahoney with gauze and support arm with pillow. ID and wound care both following as well, wound care can reevaluate tomorrow if needed. RBC 4.13, sodium 133, potassium 3.7, creatinine 0.64, gluc ose stable, calcium 8.0. Fair oral intake, patient was started on some mild hydration. Adjusted pain medications to orals as patient only complains of minimal pain to his right foot. Followed closely by ID, pulmonary, vascular, and neurology. Vitals stable today. 07/28/2021 Patient evaluated today in bed. He appears more confused than yesterday. Being followed by ID, pulmonary air conditioning mechanic industrial services, neurology, vascular, and wound care. Labs today show white count unremarkable except for RBC of 4.13, sodium 133, potassium 3.7. Patient afebrile, heart rate 82 sinus rhythm, blood pressure 158/56 and he is 98% on room air. Bag balm to the areas of armenta bite, metahoney to right elbow pressure injury. He continues on IV clindamycin, and will transition to PO Avelox on DC per ID recommendations. Monitor patient over night, open blinds during day. Reorient patient frequently, up in chair for meals. Will try seroquel at HS, discontinue haldol. 07/29/2021 Patient evaluated today resting in bed. More alert than yesterday. We did discontinue the IV Haldol and he did well with seroquel at bedtime. We will monitor for one more night and if no further episodes of agitation requiring medication he may be discharged to rehab tomorrow. Franklin catheter was discontinued today for voiding trial. Frequent reorientation open lights during the day promote sleep at night. Complaints of minimal pain to right foot will need to follow up with vascular surgery on discharge. Still with low sodium 133, encourage oral intake , Vitals stable today. review of Systems Unable to complete, patient not answering questions at this time. Minimally responsive to verbal questions, he is alert though. PHYSICAL EXAMINATION: GENERAL: The patient is alert and oriented x1, not in any acute distress. Well developed, well nourished. HEENT: Pupils are round and equally reacting to light. EOMI. No scleral icterus. No conjunctival pallor. Normocephalic, atraumatic. No pharyngeal erythema. No thyromegaly. CARDIOVASCULAR: S1 and S2 present. No murmurs, rubs, or gallops. PULMONARY: improved aeration, faint end expiratory wheeze noted. ABDOMEN: Soft, nontender, nondistended, normoactive bowel sounds. No palpable organomegaly. MUSCULOSKELETAL: No joint swelling or deformity. EXTREMITIES: No cyanosis, clubbing, or pedal edema. Right big toe is black, where the left big toe is dusky in color. As well to a lesser extent this right second and third toes. There is deep tissue injury to right heel. NEUROLOGICAL: Gross neurological examination did not reveal any focal deficits. SKIN: Linear scratches along inner thigh on the left. pressure injury right elbow Assessment and plan Assessment: Altered mental status most likely metabolic encephalopathy with component of acute alcohol withdrawal delirium. Ruled out intracranial lesions. Following with Neurology. Improved, seroquel at HS Aspiration pneumonia with consolidation of right lung and bilateral infiltrates, presently on room air maintaining saturation at 93%, patient didnt follow instructions with IS well, PO avelox on discharge Possible frostbite with hypothermic feet injury, patient was hypothermic on arrival, vascular and wound care following as well as ID. Pressure injury with surrounding erythema to right elbow, Metahoney for local wound care Rhabdomyolysis,resolved Lactic acidosis, resolved Hypertension, unclear whether patient has history or not, increase lisinopril Hypokalemia secondary to poor oral intake, replaced and patient now tolerating diet Dehydration Mildly elevated liver enzymes, which are improved History of chronic alcohol abuse Chronic tobacco use DVT prophylaxis: heparin GI Prophylaxis: Pepcid FULL CODE Plan: Continue IV antibiotics, PO on discharge Neurology consult Vascular surgery and pulmonary/critical care team consult Possible right great toe amputation outpatient Continue with local wound care per recommendations PT/OT: Subacute Rehab tomorrow Prognosis is guarded Objective - Vital Signs Vital signs: Vital Signs Temp 97.4 F L 07/29/21 12:00 Pulse 77 07/29/21 12:20 Resp 17 07/29/21 12:00 BP 138/83 07/29/21 12:00 Pulse Ox 97 07/29/21 12:00 Intake & Output 07/28/21 07/29/21 07/29/21 18:59 06:59 18:59 Intake Total 320 Output Total 1050 425 620 Balance -730 -840 -620 Weight 71.4 kg Intake: Oral 320 Output: Urine 1050 425 620 Uretheral (Franklin) 310 Other: Voiding Method Indwelling Catheter Indwelling Catheter Indwelling Catheter # Bowel Movements 1 1 - Labs CBC & Chem 7: 07/27/21 08:04 07/29/21 10:07 Labs: Abnormal Lab Results - Last 24 Hours (Table) 07/29/21 Range/Units 10:07 Sodium 133 L (137-145) mmol/L Glucose 114 H (74-99) mg/dL
[2021-07-29] MEDS: TAMSULOSIN 0.4 MG CAP.ER.24H PO SCH (16:40)
[2021-07-29] MEDS: QUEtiapine 25 MG TAB PO SCH (20:47)
[2021-07-30] MEDS: CLINDAMYCIN 600 MG in DEXTROSE 5% IN WATER 50 ML IVPB SCH ×6 (05:55→21:26)
[2021-07-30] MEDS: THIAMINE 100 MG TAB PO SCH ×2 (05:56→16:35)
[2021-07-30] MEDS: IPRATROPIUM-ALBUTEROL 3 ML NEB INHALATION SCH ×4 (08:45→20:20)
[2021-07-30] MEDS: lisinopriL 20 MG TAB PO SCH (08:56)
[2021-07-30] MEDS: NICOTINE 14MG/24HR PATCH TRANSDERM SCH (08:56)
[2021-07-30] MEDS: FAMOTIDINE 20 MG/2 ML VIAL IV SCH ×2 (08:56→21:27)
[2021-07-30] MEDS: HEPARIN SODIUM,PORCINE/PF 5,000 UNIT/0.5 ML SYRINGE SQ SCH ×2 (08:56→21:27)
[2021-07-30] MEDS: TAMSULOSIN 0.4 MG CAP.ER.24H PO SCH (08:56)
[2021-07-30] MEDS: TRIAMCINOLONE 0.1% CREAM 80 GM TUBE TOPICAL SCH ×2 (08:57→21:26)
[2021-07-30] MEDS: PETROLAT,WHITE/LAN/8-HYDROXYQU 227 GM OINT TOPICAL SCH (08:57)
--- NOTE | 2021-07-30 14:31 | P.DS ---
Providers Date of admission: 07/17/21 20:46 Attending physician: Nick Valladares MD Consults: 07/17/21 20:46 Consult Physician Stat Consulting Provider: Carlitos Zamora Consult Reason/Comments: Intensive care management for frostbite Do you want consulting provider notified?: Already Contacted Consult Physician Stat Consulting Provider: Severo Londono Consult Reason/Comments: Bilateral frostbite of the Do you want consulting provider notified?: Already Contacted 07/18/21 09:46 Consult Physician Urgent Consulting Provider: Daisy Waller Consult Reason/Comments: AMS Do you want consulting provider notified?: Yes 07/21/21 00:56 Consult Physician Stat Consulting Provider: Christine Alfonso Consult Reason/Comments: febrile Do you want consulting provider notified?: Yes Primary care physician: [facility] Course: Final Diagnosis Altered mental status most likely metabolic encephalopathy with component of acute alcohol withdrawal delirium. Ruled out intracranial lesions. Following with Neurology. Acute hypoxic respiratory failure with diffuse bilateral pulmonary infiltrates, possibility of aspirations vs. ARDS. Pt did improve on antibiotics and now on room air. Aspiration pneumonia with consolidation of right lung and bilateral infiltrates, presently on room air maintaining saturation at 93%, patient didnt follow instructions with IS well, PO avelox on discharge Possible frostbite with hypothermic feet injury, patient was hypothermic on arrival, vascular and wound care following as well as ID. Pressure injury with surrounding erythema to right elbow, Metahoney for local wound care Rhabdomyolysis,resolved Lactic acidosis, resolved Hypertension, unclear whether patient has history or not, increase lisinopril Hypokalemia secondary to poor oral intake, replaced and patient now tolerating diet Dehydration Mildly elevated liver enzymes, which are improved History of chronic alcohol abuse Chronic tobacco use Discharge Disposition Patient stable for discharge to rehab today, will complete 5 more days of oral antibiotics. Follow up with vascular regarding frostbite injury to right toes and deep tissue injury to right heel. Hospital Course This is a 66-year-old male who presents to the with an unknown past medical history due to altered mental status. Once patient became responsive he did report chronic tobacco use as well as daily alcohol use. Patient was found unresponsive in his truck by a family member, as per report. Patient was found with no evidence of trauma he was incontinent of urine and stool. Patient was hypothermic on admission with a rectal temperature of 99F. He was warmed using IV fluids in the EC. Patient was transferred to the ICU with consults placed to neurology, pulmonary gravel truck driver, vascular and infectious disease services. Diagnostics on admission include head cervical spine CT shows no acute fracture or dislocation evident in the cervical spine. There is no acute intracranial hemorrhage, mass effect or midline shift is seen. Patient had repeat brain CT on July 23 which showed age-related atrophic and chronic small vessel ischemic changes without acute intracranial process seen at this time. MRI was recommended patient was unable to receive as he would not sit still. Chest x- ray on admission shows no acute radiographic process. EEG completed shows generalized cervical dysfunction as can be seen with encephalopathy or of metabolic vascular degenerative etiology, rare left temporal sharply contoured waves were seen. Carotid Doppler shows mild calcified plaque in the carotid bifurcations bilaterally but no significant stenosis. Urine drug screen was negative, serum alcohol is less than 10. Patient also started with significant rhabdomyolysis, CPK improved to 435, initially was 5921 on admission. Patient also had significant encephalopathy on admission, he was initially on IV Precedex for acute agitation which was discontinued and his mentation continued to improve. However patient is alert 1 is unable to tell you where he is or the year he does tell small things about his family that he has a daughter and he is able to communicate his needs. ID was following for component of pneumonia question of aspiration patient was treated with IV cefepime and IV clindamycin, he did have an ALLERGIC reaction to the cefepime with a generalized rash over his upper torso anteriorly and posteriorly, cefepime was discontinued and he was switched to PO avelox on discharge. Patient was found with significant frostbite to his right greater than left bilateral feet. There is necrotic eschar to the right great toe, second and third toes. Also with a deep tissue injury to his right foot and pressure injury to his right elbow. He was evaluated by vascular who would like to follow up with the patient in the outpatient setting for evaluation of amputation. For now wound care recommended bag balm daily to the toes. Labs on admission included a white count of 15.3, hemoglobin 18.2, platelet count 164, sodium 142, potassium 5.2, chloride 111, BUN 34, creatinine 1.05, blood glucose 118, lactic acid 4.3, AST 2:15, ALT 64, CK 5921, troponin negative, urinalysis negative for infection, drug toxicology negative as above. lactic acid improved to 1.4, carbon monoxide quant is 1.1. Pro-calcitonin 0.08, B12 451, methylmalonic acid 0.15, RBC folate 537. Her enzymes improved. 07/30/2021 Patient evaluated today resting in bed currently. Franklin catheter was discontinued yesterday however patient still had urinary retention continues on Flomax and urinary catheter was reinserted patient will discharge with indwelling catheter present. Mentation is stable, no acute events overnight. We did initiate Seroquel 25 mg at bedtime as needed however it does have a QT prolongation interaction with AVELOX recommended on discharge. Patient will receive 5 days of Avelox and once he is off that he may use seroquel as needed. Platelets improved to 8.1, sodium 133, potassium 4.7, BUN 15, creatinine 0.72, blood glucose 114, calcium 8.6. Also slightly elevated bili at 1.4. Vital signs stable afebrile, heart rate 83 sinus rhythm, blood pressure 119/68, 96% room air. Her crit auscultation, S1-S2 auscultated, abdomen soft nontender, bowels are moving. Patient is alert 1-2, appropriate, acute agitation has resolved. Please see medications reconciliation for a list of current medications. Thank you for allowing us to participate in the care of this patient. Patient Condition at Discharge: Fair Plan - Discharge Summary Discharge Rx Participant: No New Discharge Prescriptions: New Moxifloxacin HCl [Avelox] 400 mg PO DAILY #5 tablet Ipratropium-Albuterol Nebulize [Duoneb 0.5 mg-3 mg/3 ml Soln] 3 ml INHALATION RT-QID ml Ipratropium-Albuterol Nebulize [Duoneb 0.5 mg-3 mg/3 ml Soln] 3 ml INHALATION RT-Q2H PRN ml PRN Reason: Shortness Of Breath Or Wheezing Acetaminophen Tab [Tylenol] 650 mg PO Q6HR PRN tab PRN Reason: Fever And/ Or Pain lisinopriL [Zestril] 20 mg PO DAILY tab Petrolat,White/Rahul/8-Hydroxyqu [Bag [place]] 1 gm TOPICAL DAILY gm Tamsulosin [Flomax] 0.4 mg PO PC-BRKFST Nicotine 14Mg/24Hr Patch [Habitrol] 1 patch TRANSDERM DAILY patch Thiamine [Vitamin B-1] 100 mg PO BID-W/MEALS tab Discharge Medication List Acetaminophen Tab [Tylenol] 650 mg PO Q6HR PRN tab 07/30/21 [Rx] Ipratropium-Albuterol Nebulize [Duoneb 0.5 mg-3 mg/3 ml Soln] 3 ml INHALATION RT-Q2H PRN ml 07/30/21 [Rx] Ipratropium-Albuterol Nebulize [Duoneb 0.5 mg-3 mg/3 ml Soln] 3 ml INHALATION RT-QID ml 07/30/21 [Rx] Moxifloxacin HCl [Avelox] 400 mg PO DAILY #5 tablet 07/30/21 [Rx] Nicotine 14Mg/24Hr Patch [Habitrol] 1 patch TRANSDERM DAILY patch 07/30/21 [Rx] Petrolat,White/Rahul/8-Hydroxyqu [Bag [place]] 1 gm TOPICAL DAILY gm 07/30/21 [Rx] Tamsulosin [Flomax] 0.4 mg PO PC-BRKFST 07/30/21 [Rx] Thiamine [Vitamin B-1] 100 mg PO BID-W/MEALS tab 07/30/21 [Rx] lisinopriL [Zestril] 20 mg PO DAILY tab 07/30/21 [Rx] Follow up Appointment(s)/Referral(s): Severo Londono DO [Doctor of Osteopathic Medicine] - 1 Week Bairon Feldman DO [Primary Care Provider] - 1-2 days Christine Alfonso MD [STAFF PHYSICIAN] - 1 Week Carlitos Zamora DO [Doctor of Osteopathic Medicine] - 1 Week [facility] [NON-STAFF] - 1 Week Activity/Diet/Wound Care/Special Instructions: Patient to continue with bag balm daily to his right great toe secondary to frostbite injury. Follow up needed in the wound care clinic. Discharge Disposition: TRANSFER TO SNF/ECF
[2021-07-30] MEDS: QUEtiapine 25 MG TAB PO SCH (21:27)
--- NOTE | 2021-07-30 23:09 | P.PN ---
Subjective Progress Note Date: 07/29/21 Principal diagnosis: Pneumonia Patient is a 66 year male who was brought into the hospital after the patient was found to be unresponsive in his truck this patient did have evidence of right foot frostbite with gangrenous toe patient also have worsening of his respiratory status requiring admission to the ICU and required BiPAP. On today's evaluation that is 07/29/2021, the patient continues to be febrile, the patient is breathing comfortably on room air, patient denies chest pain , the patient did have minimal cough but no sputum production no abdominal pain no diarrhea, Objective - Vital Signs Vital signs: Vital Signs Temp 97.4 F L 07/29/21 12:00 Pulse 77 07/29/21 12:20 Resp 17 07/29/21 12:00 BP 138/83 07/29/21 12:00 Pulse Ox 97 07/29/21 12:00 Intake & Output 07/28/21 07/29/21 07/29/21 18:59 06:59 18:59 Intake Total 320 Output Total 1050 425 620 Balance -730 -425 -620 Weight 71.4 kg Intake: Oral 320 Output: Urine 1050 425 620 Uretheral ([place]) 310 Other: Voiding Method Indwelling Catheter Indwelling Catheter Indwelling Catheter # Bowel Movements 1 1 - Exam GENERAL DESCRIPTION:[ Patient is awake and alert in no distress] HEENT: [Oral mucosa is dry and no pharyngeal erythema] RESPIRATORY SYSTEM: [Unlabored breathing decreased breath sounds at the base] CARDIA VASCULAR SYSTEM: [S1-S2 regular rate and rhythm no murmur] GI: [Abdominal soft there's no tenderness no organomegaly] EXTREMITIES: [No edema feet SKIN: Generalized rash to the upper back and did have a wound to the right elbow with some slough tissue] - Labs CBC & Chem 7: 07/27/21 08:04 07/29/21 10:07 Labs: Abnormal Lab Results - Last 24 Hours (Table) 07/29/21 Range/Units 10:07 Sodium 133 L (137-145) mmol/L Glucose 114 H (74-99) mg/dL Assessment and Plan (1) Pneumonia Current Visit: Yes Status: Acute Code(s): J18.9 - PNEUMONIA, UNSPECIFIED ORGANISM SNOMED Code(s): 363917387 Plan: 1-Patient with acute respiratory failure is multifactorial concerning for a component of pneumonia question of aspiration etiology patient to have penicillin ALLERGY, patient now has developed a rash more likely related to cefepime which has been discontinued, patient is currently covered with the clindamycin with the plan to transitioned to oral Avelox on discharge. 2patient with a pressure ulcer to the right elbow area with some slough tissue we will apply medahoney and keep the area off the pressure Time with Patient: Less than 30
--- NOTE | 2021-07-30 23:10 | P.PN ---
Subjective Progress Note Date: 07/30/21 Principal diagnosis: Pneumonia Patient is a 66 year male who was brought into the hospital after the patient was found to be unresponsive in his truck this patient did have evidence of right foot frostbite with gangrenous toe patient also have worsening of his respiratory status requiring admission to the ICU and required BiPAP. On today's evaluation that is 07/30/2021, the patient denies any fever or any chills, the patient is breathing comfortably on room air, patient denies chest pain , the patient denies cough or sputum production no abdominal pain no diarrhea, Objective - Vital Signs Vital signs: Vital Signs Temp 97.4 F L 07/30/21 11:53 Pulse 84 07/30/21 12:13 Resp 18 07/30/21 11:53 BP 119/68 07/30/21 11:53 Pulse Ox 96 07/30/21 11:53 Intake & Output 07/29/21 07/30/21 07/30/21 18:59 06:59 18:59 Intake Total 770 100 236 Output Total 620 2200 500 Balance 150 -2100 -264 Intake: Intake, IV Titration 50 100 Amount Clindamycin 600 mg In 50 100 Dextrose 5% in Water 50 ml @ 50 mls/hr IVPB Q8H JOHN Rx#:[id number] Oral 720 236 Output: Urine 620 2200 500 Uretheral ([place]) 310 1100 Other: Voiding Method Indwelling Catheter Indwelling Catheter # Voids 0 # Bowel Movements 1 0 - Exam GENERAL DESCRIPTION:[ Patient is awake and alert in no distress] HEENT: [Oral mucosa is dry and no pharyngeal erythema] RESPIRATORY SYSTEM: [Unlabored breathing decreased breath sounds at the base] CARDIA VASCULAR SYSTEM: [S1-S2 regular rate and rhythm no murmur] GI: [Abdominal soft there's no tenderness no organomegaly] EXTREMITIES: [No edema feet - Labs CBC & Chem 7: 07/27/21 08:04 07/29/21 10:07 Assessment and Plan (1) Pneumonia Current Visit: Yes Status: Acute Code(s): J18.9 - PNEUMONIA, UNSPECIFIED ORGANISM SNOMED Code(s): 432823181 Plan: 1-Patient with acute respiratory failure is multifactorial concerning for a component of pneumonia question of aspiration etiology patient to have penicillin ALLERGY, patient now has developed a rash more likely related to cefepime which has been discontinued, patient is currently covered with the clindamycin with the plan to transitioned to oral Avelox 400 mg daily for 5 days on discharge. 2patient with a pressure ulcer to the right elbow area with some slough tissue we will apply medahoney and keep the area off the pressure Time with Patient: Less than 30
[2021-07-31] MEDS: CLINDAMYCIN 600 MG in DEXTROSE 5% IN WATER 50 ML IVPB SCH ×6 (06:15→21:32)
[2021-07-31] MEDS: THIAMINE 100 MG TAB PO SCH ×2 (06:16→17:42)
[2021-07-31] MEDS: IPRATROPIUM-ALBUTEROL 3 ML NEB INHALATION SCH ×4 (07:11→19:51)
[2021-07-31] MEDS: FAMOTIDINE 20 MG/2 ML VIAL IV SCH ×2 (09:00→20:17)
[2021-07-31] MEDS: HEPARIN SODIUM,PORCINE/PF 5,000 UNIT/0.5 ML SYRINGE SQ SCH ×2 (09:00→20:17)
[2021-07-31] MEDS: TAMSULOSIN 0.4 MG CAP.ER.24H PO SCH (09:00)
[2021-07-31] MEDS: lisinopriL 20 MG TAB PO SCH (09:00)
[2021-07-31] MEDS: PETROLAT,WHITE/LAN/8-HYDROXYQU 227 GM OINT TOPICAL SCH (09:01)
[2021-07-31] MEDS: NICOTINE 14MG/24HR PATCH TRANSDERM SCH (09:01)
[2021-07-31] MEDS: TRIAMCINOLONE 0.1% CREAM 80 GM TUBE TOPICAL SCH ×2 (09:01→20:18)
[2021-07-31 11:28] LABS: African American GFR (CKD) >90 (>60 ml/min/1.73 sqM); Anion Gap 5 mmol/L; Blood Urea Nitrogen 16 mg/dL (9-20); Calcium 8.7 mg/dL (8.4-10.2); Carbon Dioxide 22 mmol/L (22-30); Chloride 106 mmol/L (98-107); Glucose 118 mg/dL (74-99); Non-African American GFR(CKD) >90 (>60 ml/min/1.73 sqM); Potassium 5.2 mmol/L (3.5-5.1); Sodium 133 mmol/L (137-145)
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
[2021-07-31] MEDS: QUEtiapine 25 MG TAB PO SCH (20:17)
--- NOTE | 2021-07-31 21:19 | P.PN ---
Subjective Progress Note Date: 07/31/21 This is a pleasant 66 years old male with unknown past medical history presents because of altered mental status where he was found unresponsive in his truck bed family member. As per report. He was seen doing well about 2 days ago. Patient was found with no evidence of trauma, incontinence of urine and stool. And he was hypothermic on admission with a rectal temperature of 99F. He was warmed using of the fluids. Patient found to have bilateral dusky heat suspicious for hypothermic injury. Also there was some evidence of rhabdomyolysis, lactic acidosis and dehydration and he was admitted to the intensive care unit. When I saw the patient in the ICU he was sleepy, does not wake up to verbal or tactile stimuli however he withdrawal for patient's to light. He has some deep breathing. Both feet are in dressing. Patient could not provide information. We checked him after couple hours distal clip waking up so it allowed to consult neurology service Currently vital signs stable, his temperature went up last night to 98.1-99.1. Showing mild leukocytosis. Hemoglobin is elevated 18.2, platelet 164. Carbon dioxide is 1.1, which is within the reference range. Elevated lactic acid 4.3 came back to 1.4. Elevated creatinine kinase 5921 Creatinine 1.0, potassium 5.2, liver enzymes slightly elevated with AST 215 and ALT 64. Troponin is negative at 0.014. Ammonia is negative less than 9. High serum osmolality of 312. Urine analysis showing 1+ protein, 1+ ketone, no solid evidence of infection. Urine drug screen is negative, salicylate less than 1, acetaminophen less than 10 and serum alcohol less than 10 Coronavirus nondetected. EKG showing normal sinus rhythm with incomplete right bundle branch block and left posterior fascicular block and QTC 455, no significant ST-T changes Q Chest x-ray showing no acute process. CT of the brain: No acute process CT of the cervical spine: No acute fracture or dislocation In the emergency room patient was started on IV fluids, IV heparin and started on CIWA protocol for suspicion alcohol abuse 07/19/2021 Patient still confused although he opens his eyes spontaneously but he does not answer questions he does not follow commands. Hemodynamically and labs are stable. Leukocytosis improved. Liver enzymes still mildly elevated. Creatinine kinase trending down while he continues on IV fluids. She still have bluish discoloration of the right toes especially the right big toe while the left toes there are dusky pink and lukewarm compelled more called on the right side. Vascular surgery on the case and they went further rewarming and resolution before they decide before any surgical intervention. He remains on CIWA protocol and thiamine normal saline at 100 mL per hour. Haldol as needed for agitation. EEG showing mildly abnormal digital cerebral dysfunction. No evidence of epileptiform discharge. Neurology on the case. MRI of the brain is pending. While carotid Doppler's reported as negative today. 07/20/2021 Patient is seen and examined today in the ICU Patient did not show much progress regarding his mentation, he still opens his eyes spontaneously but other than that he is unresponsive and does not talk are not follow commands. He does not look in distress. His EEG showing general cerebral dysfunction and neurology on the case recommended MRI of the brain which is pending now. Carotid Doppler's is negative. Vascular surgery also on the case and following him for his right toes hypothermic injury medially on the right big toe. He kept on IV fluid normal saline 100 mL per hour and his creatinine kinase tr ending down today 1225, liver enzymes slightly less today. 07/21/2021 Patient over for right developed fever of 100.5 and he was agitated need several doses of Haldol to come down and he was becoming more hypoxic requiring 6 L/m and in the morning was the miguel Keppra minute and eventually he was placed on BiPAP. Chest x-ray was consistent with bilateral pneumonia but merely multifocal pneumonia of the right side highly suspicious for aspiration pneumonia, patient received several antibiotics and currently is on clindamycin and ceftriaxone. Other than that his CPK significantly improved to 435, liver enzymes trending down, creatinine is normal today. However her IPG showing normal pH of 7.4 but hypoxia with pO2 of 57. He received 1 dose of Lasix and we lowered the dose of normal saline down to 75 mL/h. Several attempts try to send the patient for MRI however he was agitated and he had to be transferred to the ICU to receive Precedex 2 to calm down. Vascular surgery still follow the patient for gangrenous lesion of the right first, second and third toes 07/22/2021 Patient seen in the ICU is slightly more awake, he can't tell his last name and he told the nurses he was in the hospital however he is a still confused. And distal MRI of the brain is pending and if is not couldn't be done then CT of the brain would be considered and neurology service on the case. His oxygen requirement trending down to 30 L the morning and 11 be Permanent in the afternoon. His chest x-ray showing improvement and antibiotics were adjusted to clindamycin and cefepime. ID team on the case as well. Sodium 147, Patient continued on gentle hydration as well. No surgical intervention by vascular surgery team for his gangrenous right big toe and the second and third toes to a lesser degree. Keep monitoring 07/23/2021 Patient elevated today in the ICU, he is awake however he is confused and is unable to tell me where he is or the year. He denies any headache, photophobia, nausea vomiting or diarrhea. His eyes do appear to be wandering around the room during conversation. Patient underwent brain CT today which shows age-related atrophic and chronic small vessel ischemic change without acute intracranial process seen at this time. Chest xray correlate for pneumonia. He continues on Precedex. RBC 4.00, WBC 10.2, Platelet count 210, sodium 148, potassium 3.4, chloride 119, blood sugars WNL. He is being followed closely by neurology who would like MRI with and without once he is able to tolerate. 07/24/2021 Patient evaluated in the ICU, worked with physical therapy. Attempt to get patient into the chair today. He did pass a swallow evaluation, and diet is being slowly advanced now. Patient off Precedex last 24 hours, agitation has improved. Patient does admit to drinking beer daily, he is more alert and oriented. He was able to tell nurse where he was today, stated that he was in the hospital. Labs today show white count 11.1, hemoglobin 14.1, sodium 141, potassium 3.4, chloride 112, total bili 1.5. Liver enzymes have normalized. Patient in the hypertensive side blood pressure 167/93, heart rate 103, pulse ox, 92% on room air. Being followed by infectious disease, vascular, neurology and pulmonary business administration instructor. 07/25/2021 Patient elevated today working with physical therapy, able to sit on edge of bed however he was leaning back. He appears more alert than yesterday. Started on 5 mg of lisinopril yesterday, blood pressure still a bit elevated, increased to 10 mg today. Franklin catheter in place. Bowels are moving and he did eat most of his breakfast today. Vitals today, afebrile, heart rate 80 sinus rhythm, blood pressure 149/84, 93% on room air. Repeat chest x-ray today shows findings consistent with pneumonia with underlying emphysema. Continues on antibiotics in the form of clindamycin and cefepime. Continues on updrafts. He is not requiri ng Haldol or Ativan and continues off Precedex. Still with extensive deep tissue injury to right heel, as well as DTI to buttock, with acute frostbite to toes on right foot. Patient will be discharged out of the ICU when bed available on the medical floor. His mentation continues to improve, followed closely by neurology. 07/26/2021 Patient evaluated today transferred out of ICU. He is more alert today did have some breakfast. Currently denies any pain, he states his feet feel okay. He seems more alert, no agitation noted. Labs unavailable today we will recheck a potassium and repeat labs in the morning. Currently afebrile, heart rate 76, blood pressure 122/70, he is 95% room air. Continues on IV cefepime and IV clindamycin. Patient is being followed closely by pulmonary business administration instructor, ID, neurology, and vascular services. He will need subacute rehab on discharge, most likely wednesday. Ongoing evaluation and woundcare for the DTI to right heel, as well as frostbite with dry gangrene to right great toe, 2nd toe, and 3rd toe. 07/27/2021 Patient evaluated today out of the ICU on the 3rd floor alert to 1 poor historian. He does have a generalized rash on upper back and on chest wall. Appears more contact dermatitis irritation continue with the kenalog cream and keep skin clean and dry. With Pressure injury noted to right elbow with some slough and surrounding erythema, can use therahoney with gauze and support arm with pillow. ID and wound care both following as well, wound care can reevaluate tomorrow if needed. RBC 4.13, sodium 133, potassium 3.7, creatinine 0.64, gluc ose stable, calcium 8.0. Fair oral intake, patient was started on some mild hydration. Adjusted pain medications to orals as patient only complains of minimal pain to his right foot. Followed closely by ID, pulmonary, vascular, and neurology. Vitals stable today. 07/28/2021 Patient evaluated today in bed. He appears more confused than yesterday. Being followed by ID, pulmonary business administration instructor services, neurology, vascular, and wound care. Labs today show white count unremarkable except for RBC of 4.13, sodium 133, potassium 3.7. Patient afebrile, heart rate 82 sinus rhythm, blood pressure 158/56 and he is 98% on room air. Bag balm to the areas of armenta bite, metahoney to right elbow pressure injury. He continues on IV clindamycin, and will transition to PO Avelox on DC per ID recommendations. Monitor patient over night, open blinds during day. Reorient patient frequently, up in chair for meals. Will try seroquel at HS, discontinue haldol. 07/29/2021 Patient evaluated today resting in bed. More alert than yesterday. We did discontinue the IV Haldol and he did well with seroquel at bedtime. We will monitor for one more night and if no further episodes of agitation requiring medication he may be discharged to rehab tomorrow. Franklin catheter was discontinued today for voiding trial. Frequent reorientation open lights during the day promote sleep at night. Complaints of minimal pain to right foot will need to follow up with vascular surgery on discharge. Still with low sodium 133, encourage oral intake , Vitals stable today. 07/30/2021 Patient evaluated today resting in bed currently. Franklin catheter was discontinued yesterday however patient still had urinary retention continues on Flomax and urinary catheter was reinserted patient will discharge with indwelling catheter present. Mentation is stable, no acute events overnight. We did initiate Seroquel 25 mg at bedtime as needed however it does have a QT prolongation interaction with AVELOX recommended on discharge. Patient will receive 5 days of Avelox and once he is off that he may use seroquel as needed. Platelets improved to 8.1, sodium 133, potassium 4.7, BUN 15, creatinine 0.72, blood glucose 114, calcium 8.6. Also slightly elevated bili at 1.4. Vital signs stable afebrile, heart rate 83 sinus rhythm, blood pressure 119/68, 96% room air. Her crit auscultation, S1-S2 auscultated, abdomen soft nontender, bowels are moving. Patient is alert 1-2, appropriate, acute agitation has resolved. 07/31/2021 No acute events overnight. Patient unable to discharge today as social work having difficulty with placement. Pt continues to be alert x1. He does talk about his daughter when asked. Unable to state where he is, the year, or circumstances surrounding hospitalization. [place] local wound care for right elbow pressure injury and bag balm to toes per wound care/ID orders. Continues on IV antibiotics, was recommended for oral on discharge for 5 more days. 4 more days of antibiotics would complete his course if he stays inpatient. Labs today show sodium 133, potassium 5.2, BUN 16, creatinine 0.74. He was started on lisinopril this admission for elevated blood pressures, currently 118/71, we will stop lisinopril and recheck a potassium level tomorrow. He has remained afebrile, oxygen saturation 96%. There was some concern for increased confusion per patients daughter and neurology was re consulted today who is recommending 2.5 hour EEG and MRI at this time to rule out CVA / seizure which have been ordered. Patient did not receive MRI while in ICU as he was agitated and uncoope rative, and mentation seemed to have improved at that time. Today during exam this AM he was following some commands, equal strength bilateral, was able to hold arms up with no drift. Oral intake is poor today as compared to previous. Negative fluid balance. review of Systems Unable to complete, patient not answering questions at this time. Minimally responsive to verbal questions, he is alert though. Denies pain. PHYSICAL EXAMINATION: GENERAL: The patient is alert and oriented x1, not in any acute distress. Well developed, well nourished. HEENT: Pupils are round and equally reacting to light. EOMI. No scleral icterus. No conjunctival pallor. Normocephalic, atraumatic. No pharyngeal erythema. No thyromegaly. CARDIOVASCULAR: S1 and S2 present. No murmurs, rubs, or gallops. PULMONARY: improved aeration, faint end expiratory wheeze noted. ABDOMEN: Soft, nontender, nondistended, normoactive bowel sounds. No palpable organomegaly. MUSCULOSKELETAL: No joint swelling or deformity. EXTREMITIES: No cyanosis, clubbing, or pedal edema. Right big toe is black, where the left big toe is dusky in color. As well to a lesser extent his right second and third toes are black. There is deep tissue injury to right heel. NEUROLOGICAL: Gross neurological examination did not reveal any focal deficits. SKIN: Linear scratches along inner thigh on the left. pressure injury right elbow Assessment and plan Assessment: Altered mental status most likely metabolic encephalopathy with component of acute alcohol withdrawal delirium. No evidence for stroke initially, patients mentation was improving, now today with worsening confusion. Following with Neurology. Acute hypoxic respiratory failure with diffuse bilateral pulmonary infiltrates, possibility of aspirations vs. ARDS. Pt did improve on antibiotics and now on room air. Aspiration pneumonia with consolidation of right lung and bilateral infiltrates, presently on room air maintaining saturation at 96%, patient didnt follow instructions with IS well, PO avelox on discharge Hyperkalemia, lisinopril discontinued Hyponatremia probably due to poor oral intake Frostbite with hypothermic feet injury, patient was hypothermic on arrival, vascular and wound care following as well as ID. Pressure injury with surrounding erythema to right elbow, Metahoney for local wound care Rhabdomyolysis,resolved Lactic acidosis, resolved Hypertension, unclear whether patient has history or not, blood pressure stable. Dehydration Mildly elevated liver enzymes, which are improved History of chronic alcohol abuse Chronic tobacco use DVT prophylaxis: heparin GI Prophylaxis: Pepcid FULL CODE Plan: Stat MRI, prolonged EEG in morning IV fluids Continue IV antibiotics, PO on discharge Discontinue lisinopril Neurology consult Vascular surgery consult Possible right great toe amputation outpatient Continue with local wound care per recommendations PT/OT: Subacute Rehab Difficulty with placement, SW will update Discharge on hold for now - change in mentation, reconsult to neurology today Prognosis is guarded Objective - Vital Signs Vital signs: Vital Signs Temp 98.3 F 07/31/21 20:00 Pulse 90 07/31/21 20:02 Resp 18 07/31/21 20:00 BP 118/71 07/31/21 20:00 Pulse Ox 96 07/31/21 20:00 Intake & Output 07/31/21 07/31/21 08/01/21 06:59 18:59 06:59 Intake Total 240 Output Total 500 450 Balance -500 -210 Intake: Oral 240 Output: Urine 500 450 Stool 0 Urine/Stool Mix 0 Other: Voiding Method Indwelling Catheter Indwelling Catheter # Voids 0 # Bowel Movements 0 - Labs CBC & Chem 7: 07/27/21 08:04 07/31/21 10:51 Labs: Abnormal Lab Results - Last 24 Hours (Table) 07/31/21 Range/Units 10:51 Sodium 133 L (137-145) mmol/L Potassium 5.2 H (3.5-5.1) mmol/L Glucose 118 H (74-99) mg/dL
[2021-08-01] MEDS: SODIUM CHLORIDE 0.9% 1,000 ML IV SCH ×2 (00:09→08:32)
[2021-08-01] MEDS: THIAMINE 100 MG TAB PO SCH ×2 (06:31→16:01)
[2021-08-01] MEDS: IPRATROPIUM-ALBUTEROL 3 ML NEB INHALATION SCH ×4 (08:03→19:30)
[2021-08-01] MEDS: FAMOTIDINE 20 MG/2 ML VIAL IV SCH ×2 (08:24→21:21)
[2021-08-01] MEDS: HEPARIN SODIUM,PORCINE/PF 5,000 UNIT/0.5 ML SYRINGE SQ SCH ×2 (08:24→21:21)
[2021-08-01] MEDS: TAMSULOSIN 0.4 MG CAP.ER.24H PO SCH (08:24)
[2021-08-01] MEDS: TRIAMCINOLONE 0.1% CREAM 80 GM TUBE TOPICAL SCH ×2 (08:25→21:21)
[2021-08-01] MEDS: PETROLAT,WHITE/LAN/8-HYDROXYQU 227 GM OINT TOPICAL SCH (08:25)
[2021-08-01] MEDS: NICOTINE 14MG/24HR PATCH TRANSDERM SCH (08:38)
[2021-08-01 08:42] LABS: African American GFR (CKD) >90 (>60 ml/min/1.73 sqM); Anion Gap 4 mmol/L; Blood Urea Nitrogen 17 mg/dL (9-20); Calcium 8.7 mg/dL (8.4-10.2); Carbon Dioxide 24 mmol/L (22-30); Chloride 106 mmol/L (98-107); Glucose 100 mg/dL (74-99); Non-African American GFR(CKD) >90 (>60 ml/min/1.73 sqM); Potassium 5.3 mmol/L (3.5-5.1); Sodium 134 mmol/L (137-145)
--- NOTE | 2021-08-01 09:46 | MR ---
EXAMINATION TYPE: MR brain wo/w con DATE OF EXAM: 08/01/2021 COMPARISON: CT 07/23/2021 HISTORY: Altered mental status, rule out CVA TECHNIQUE: Multiplanar, multisequence images of the brain and brainstem is performed without and with IV contras t, utilizing 7 mL intravenous Gadavist . FINDINGS: Exam limited by motion artifact. Diffusion weighted images demonstrate subcentimeter small foci of abnormal signal involving the righ t frontal bilateral parietal lobes. Moderate generalized degenerative change. Areas of abnormal signa l involving the anh suggestive of remote ischemia. Additional areas of nonspecific diffuse and focal areas of white matter signal suggestive of remote white matter ischemia.. Midline structures demonstrate normal morphology. The craniocervical junction appears within normal limits. Post contrast images demonstrate no abnormal enhancement. The dural venous sinuses appear pa tent. There are changes of chronic sinusitis and right mastoiditis. Orbits are symmetric. Report call ed to the patient's nurse 9:39 AM 08/01/2021. IMPRESSION: 1. There are multiple subcentimeter foci involving the parietal lobes bilaterally suspicious for tiny areas of acute to subacute ischemia. 2. Degenerative and nonspecific white matter changes most typical remote ischemia. 3. Findings most typical remote pontine infarct. 4. Chronic sinusitis.
--- NOTE | 2021-08-01 10:42 | P.PN ---
Subjective This is a pleasant 66 years old male with unknown past medical history presents because of altered mental status where he was found unresponsive in his truck by a family member. As per report. He was seen doing well about 2 days ago. Patient was found with no evidence of trauma, incontinence of urine and stool. And he was hypothermic on admission with a rectal temperature of 99F. He was warmed using of the fluids. Patient has altered mental status thought that this is multifactorial related to his hypothermic injury, gangrene of his right toes and alcohol withdrawal and pneumonia. Neurologist was on the case, at that time CT of the brain was negative as well as EEG and a neurologist was on the case the patient shows some partial improvement, MRI of the brain could not be done while in the ICU and agitated, and then he became less responsive one more time before neurologist recommended MRI of the brain which showed bilateral parietal lobe subcentimeter foci suspicious for acute versus subacute ischemia and remote pontine infarct also since admission he had frostbite of his 3 toes starting from the large big toe with gangrenous damage, vascular surgery follow the patient and recommended outpatient follow-up. Also patient was on the clindamycin for his right pneumonia. She is improved now. This morning patient was staring in space, could not follow commands although he was awake and alert. He denies any specific complaints. He is breathing quietly and abdomen soft. His right toes are still black with line of pancho rcation become more clear. carotid duplex done on 07/19 showing no significant stenosis. Labs showing mild hyperkalemia at 5.3, CBC is unremarkable. Medications reviewed with the patient is not on SHAILA inhibitor Objective - Vital Signs Vital signs: Vital Signs Temp 97.9 F 08/01/21 08:18 Pulse 79 08/01/21 08:18 Resp 16 08/01/21 08:18 BP 135/77 08/01/21 08:18 Pulse Ox 95 08/01/21 08:18 Intake & Output 07/31/21 08/01/21 08/01/21 18:59 06:59 18:59 Intake Total 240 Output Total 450 300 Balance -210 -300 Intake: Oral 240 Output: Urine 450 300 Stool 0 Urine/Stool Mix 0 Other: Voiding Method Indwelling Catheter Indwelling Catheter # Voids 0 # Bowel Movements 0 - Exam -GENERAL: The patient open eyes spontaneously, does not follow commands, does not talk. (Similar to last time I saw him, however he is more awake today) HEENT: Pupils are round and equally reacting to light. EOMI. No scleral icterus. No conjunctival pallor. Normocephalic, atraumatic. No pharyngeal erythema. No thyromegaly. CARDIOVASCULAR: S1 and S2 present. No murmurs, rubs, or gallops. -PULMONARY: Chest is clear to auscultation, no wheezing or crackles. Marked crepitation on the right side ABDOMEN: Soft, nontender, nondistended, normoactive bowel sounds. No palpable organomegaly. MUSCULOSKELETAL: No joint swelling or deformity. -XTREMITIES: No cyanosis, clubbing, or pedal edema. Right big toe is black, As well to a lesser extent this right second and third toes NEUROLOGICAL: Gross neurological examination did not reveal any focal deficits. SKIN: No rashes. No petechiae - Labs CBC & Chem 7: 07/27/21 08:04 08/01/21 07:43 Labs: Abnormal Lab Results - Last 24 Hours (Table) 07/31/21 08/01/21 Range/Units 10:51 07:43 Sodium 133 L 134 L (137-145) mmol/L Potassium 5.2 H 5.3 H (3.5-5.1) mmol/L Glucose 118 H 100 H (74-99) mg/dL Assessment and Plan Assessment: Bilateral parietal ischemic suture ANUJ acute versus subacute. With remote pontine stroke Altered mental status most likely metabolic encephalopathy. As well as stroke aspiration pneumonia, resolved armenta bite with hypothermic feet injury of the right 3 toes Rhabdomyolysis, Improving significantly Lactic acidosis, resolved Dehydration, resolved Mildly elevated liver enzymes Suspected history of alcohol abuse Plan: This is a pleasant 66 years old male who presents with AMS, hyperthermia and possible frostbite of the feet and up to my lysis. Continue with IV fluid Neurology consult on the case we will follow their further recommendation We will order echocardiogram Vascular surgery and pulmonary/critical care team consult recommend outpatient follow-up for his right toes Labs and medication were reviewed.. Continue same treatment. Continue with symptomatic treatment. Resume home medication. Monitor lytes and vitals. DVT and GI prophylaxis. Further recommendations depends on the clinical course of the patient DVT prophylaxis: heparin GI Prophylaxis: Pepcid PT/OT: Pending Prognosis is guarded
[2021-08-01 13:19] LABS: Appearance,Urine Clear (Clear); Bilirubin,Urine Negative (Negative); Blood,Urine Small (Negative); Color,Urine Yellow; Glucose,Urine (UA) Negative (Negative); Ketones,Urine 1+ (Negative); Leukocyte Esterase,Urine Negative (Negative); Mucus,Urine Rare /hpf; Nitrite,Urine Negative (Negative); PH, Urine 6.5 (5.0-8.0); Protein,Urine Trace (Negative); RBC,Urine 49 /hpf (0-5); Specific Gravity,Urine 1.032 (1.001-1.035); Squamous Epithelial Cell,Urine <1 /hpf (0-4); Urobilinogen,Urine <2.0 mg/dL (<2.0); WBC,Urine 5 /hpf (0-5)
[2021-08-01 14:44] LABS: Chol/HDL Ratio 5.29 Ratio; LDL Cholesterol,Calculated 149.7 mg/dL (0.0-131.0)
--- NOTE | 2021-08-01 15:28 | P.PN ---
Subjective Progress Note Date: 07/31/21 Principal diagnosis: Pneumonia Patient is a 66 year male who was brought into the hospital after the patient was found to be unresponsive in his truck this patient did have evidence of right foot frostbite with gangrenous toe patient also have worsening of his respiratory status requiring admission to the ICU and required BiPAP. On today's evaluation that is 07/31/2021, the patient remains to be afebrile, the patient is breathing comfortably on room air, patient slightly lethargic today and did not provide any history no vomiting or diarrhea was reported on nursing Objective - Vital Signs Vital signs: Vital Signs Temp 97.7 F 07/31/21 08:49 Pulse 88 07/31/21 11:13 Resp 16 07/31/21 08:49 BP 118/67 07/31/21 08:49 Pulse Ox 95 07/31/21 08:49 Intake & Output 07/30/21 07/31/21 07/31/21 18:59 06:59 18:59 Intake Total 708 120 Output Total 500 500 Balance 208 -500 120 Intake: Oral 708 120 Output: Urine 500 500 Other: Voiding Method Indwelling Catheter Indwelling Catheter # Voids 0 # Bowel Movements 2 - Exam GENERAL DESCRIPTION:[ Patient is awake and alert in no distress] HEENT: [Oral mucosa is dry and no pharyngeal erythema] RESPIRATORY SYSTEM: [Unlabored breathing decreased breath sounds at the base] CARDIA VASCULAR SYSTEM: [S1-S2 regular rate and rhythm no murmur] GI: [Abdominal soft there's no tenderness no organomegaly] EXTREMITIES: [No edema feet - Labs CBC & Chem 7: 07/27/21 08:04 08/01/21 07:43 Labs: Abnormal Lab Results - Last 24 Hours (Table) 07/31/21 Range/Units 10:51 Sodium 133 L (137-145) mmol/L Potassium 5.2 H (3.5-5.1) mmol/L Glucose 118 H (74-99) mg/dL Assessment and Plan (1) Pneumonia Current Visit: Yes Status: Acute Code(s): J18.9 - PNEUMONIA, UNSPECIFIED ORGANISM SNOMED Code(s): 409449830 Plan: 1-Patient with acute respiratory failure is multifactorial concerning for a component of pneumonia question of aspiration etiology patient to have penicillin ALLERGY, patient did developed a rash more likely related to cefepime which has been discontinued, patient has received adequate antibiotic for underlying pneumonia we will discontinue clindamycin and monitor the patient was of antibiotic therapy 2patient with a pressure ulcer to the right elbow area with some slough tissue we will apply medahoney and keep the area off the pressure Time with Patient: Less than 30
--- NOTE | 2021-08-01 15:30 | P.PN ---
Subjective Progress Note Date: 08/01/21 Principal diagnosis: Pneumonia Patient is a 66 year male who was brought into the hospital after the patient was found to be unresponsive in his truck this patient did have evidence of right foot frostbite with gangrenous toe patient also have worsening of his respiratory status requiring admission to the ICU and required BiPAP. On today's evaluation that is 08/01/2021, the patient continues to be afebrile, the patient is breathing comfortably on room air, patient is awake and alert today, the patient denies having any chest pain shortness of breath no cough no nausea no vomiting no abdominal pain and no diarrhea Objective - Vital Signs Vital signs: Vital Signs Temp 98.1 F 08/01/21 15:23 Pulse 96 08/01/21 15:23 Resp 16 08/01/21 15:23 BP 149/90 08/01/21 15:23 Pulse Ox 99 08/01/21 15:23 Intake & Output 07/31/21 08/01/21 08/01/21 18:59 06:59 18:59 Intake Total 240 Output Total 450 300 0 Balance -210 -300 0 Weight 71.4 kg Intake: Oral 240 Output: Urine 450 300 Stool 0 0 Urine/Stool Mix 0 Other: Voiding Method Indwelling Catheter Indwelling Catheter Indwelling Catheter # Voids 0 # Bowel Movements 0 - Exam GENERAL DESCRIPTION:[ Patient is awake and alert in no distress] HEENT: [Oral mucosa is dry and no pharyngeal erythema] RESPIRATORY SYSTEM: [Unlabored breathing decreased breath sounds at the base] CARDIA VASCULAR SYSTEM: [S1-S2 regular rate and rhythm no murmur] GI: [Abdominal soft there's no tenderness no organomegaly] EXTREMITIES: [No edema feet - Labs CBC & Chem 7: 07/27/21 08:04 08/01/21 07:43 Labs: Abnormal Lab Results - Last 24 Hours (Table) 08/01/21 08/01/21 08/01/21 Range/Units 07:43 07:43 12:35 Sodium 134 L (137-145) mmol/L Potassium 5.3 H (3.5-5.1) mmol/L Glucose 100 H (74-99) mg/dL Cholesterol 211.00 H (0.00-200.00) mg/dL LDL Cholesterol, Calc 149.7 H (0.0-131.0) mg/dL HDL Cholesterol 39.90 L (40.00-60.00) mg/dL Urine Protein Trace H (Negative) Urine Ketones 1+ H (Negative) Urine Blood Small H (Negative) Urine RBC 49 H (0-5) /hpf Urine Mucus Rare H (None) /hpf Assessment and Plan (1) Pneumonia Current Visit: Yes Status: Acute Code(s): J18.9 - PNEUMONIA, UNSPECIFIED ORGANISM SNOMED Code(s): 894456077 Plan: 1-Patient with acute respiratory failure is multifactorial concerning for a component of pneumonia question of aspiration etiology patient to have penicillin ALLERGY, patient did developed a rash more likely related to cefepime which has been discontinued, patient underlying pneumonia has been adequately treated, and monitor the patient closely off antibiotic therapy 2patient with a pressure ulcer to the right elbow area with some slough tissue we will apply medahoney and keep the area off the pressure Time with Patient: Less than 30
[2021-08-01] MEDS: ASPIRIN 325 MG TAB PO SCH (16:01)
[2021-08-01] MEDS: ATORVASTATIN 40 MG TAB PO SCH (21:21)
[2021-08-01] MEDS: QUEtiapine 25 MG TAB PO SCH (21:21)
[2021-08-02] MEDS: SODIUM CHLORIDE 0.9% 1,000 ML IV SCH ×2 (00:18→18:10)
[2021-08-02 07:25] LABS: ALT 39 U/L (4-49); AST 34 U/L (17-59); African American GFR (CKD) >90 (>60 ml/min/1.73 sqM); Albumin 3.1 g/dL (3.5-5.0); Alkaline Phosphatase 69 U/L (38-126); Anion Gap 4 mmol/L; Bilirubin, Delta 0.2 mg/dL (0.0-0.2); Bilirubin,Unconjugated 0.4 mg/dL (0.0-1.1); Blood Urea Nitrogen 14 mg/dL (9-20); Calcium 8.4 mg/dL (8.4-10.2); Carbon Dioxide 23 mmol/L (22-30); Chloride 106 mmol/L (98-107); Glucose 88 mg/dL (74-99); Non-African American GFR(CKD) >90 (>60 ml/min/1.73 sqM); Potassium 4.9 mmol/L (3.5-5.1); Sodium 133 mmol/L (137-145); Total Bilirubin 0.6 mg/dL (0.2-1.3); Total Protein 6.3 g/dL (6.3-8.2)
[2021-08-02 08:01] LABS: Basophils % (A) 1 %; Eosinophils # (A) 0.1 k/uL (0-0.7); Eosinophils % (A) 2 %; HGB 15.1 gm/dL (13.0-17.5); Lymphocytes # (A) 1.9 k/uL (1.0-4.8); Lymphocytes % (A) 38 %; MCH 33.4 pg (25.0-35.0); MCHC 32.8 g/dL (31.0-37.0); MCV 101.8 fL (80.0-100.0); Mean Platelet Volume 8.5; Monocytes # (A) 0.5 k/uL (0-1.0); Monocytes % (A) 10 %; Neutrophils # (A) 2.3 k/uL (1.3-7.7); Neutrophils % (A) 46 %; Platelet Count 291 k/uL (150-450); RBC 4.51 m/uL (4.30-5.90); RDW 12.2 % (11.5-15.5); WBC 4.9 k/uL (3.8-10.6)
[2021-08-02] MEDS: IPRATROPIUM-ALBUTEROL 3 ML NEB INHALATION SCH ×4 (08:29→20:47)
[2021-08-02] MEDS: HEPARIN SODIUM,PORCINE/PF 5,000 UNIT/0.5 ML SYRINGE SQ SCH ×2 (09:40→20:38)
[2021-08-02] MEDS: THIAMINE 100 MG TAB PO SCH ×2 (09:42→18:09)
[2021-08-02] MEDS: FAMOTIDINE 20 MG/2 ML VIAL IV SCH ×2 (09:42→20:38)
[2021-08-02] MEDS: TAMSULOSIN 0.4 MG CAP.ER.24H PO SCH (09:43)
[2021-08-02] MEDS: ASPIRIN 325 MG TAB PO SCH (09:44)
[2021-08-02] MEDS: NICOTINE 14MG/24HR PATCH TRANSDERM SCH (09:45)
[2021-08-02] MEDS: TRIAMCINOLONE 0.1% CREAM 80 GM TUBE TOPICAL SCH ×2 (09:45→20:39)
[2021-08-02] MEDS: PETROLAT,WHITE/LAN/8-HYDROXYQU 227 GM OINT TOPICAL SCH (09:46)
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
--- NOTE | 2021-08-02 17:25 | EEG ---
ELECTROENCEPHALOGRAM REPORT DATE OF PROCEDURE: 08/01/2021 ELECTROENCEPHALOGRAM (EEG) REPORT: TECHNIQUE: This is a report from a prolonged 2-1/2-hour inpatient digital video EEG performed using the 10/20 electrode placement system. HISTORY: Bilateral frostbite to the feet, acute rhabdomyolysis. The patient was found unresponsive outside of a truck. CURRENT MEDICATIONS: Tylenol, albuterol, Pepcid, Seroquel and others. FINDINGS: Recording start time: 08/01/2021 at 0940 hours. Recording end time: 08/01/2021 at 1212 hours. EVENTS: During this 2-1/2-hour EEG, no clinical or electrographic seizures were recorded. BACKGROUND: The background activity consisted of unsustained 6-7 hertz rhythmic waveforms with some intermixed delta range slowing. ACTIVATION: Hyperventilation: Not performed. Photic stimulation: Not performed. Sleep: Drowsy. ABNORMALITIES: 1. Frequent frontally predominant delta range slowing was seen with intermixed triphasic waves. 2. Diffuse 3-6 more frontally predominant slow wave activity was seen. IMPRESSION: Abnormal EEG. The triphasic waves mentioned above are not epileptiform in nature. Triphasic waves can be seen in the setting of a metabolic encephalopathy. The frontally predominant delta range slowing as well as the diffuse theta delta range slowing mentioned above is not epileptiform in nature. In combination, these findings indicate moderate diffuse cerebral dysfunction as may be seen in a toxometabolic encephalopathy. MMODL / IJN: [id number] /
[2021-08-02] MEDS: QUEtiapine 25 MG TAB PO SCH (20:38)
[2021-08-02] MEDS: ATORVASTATIN 40 MG TAB PO SCH (20:38)
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
--- NOTE | 2021-08-03 01:35 | P.PN ---
Subjective Progress Note Date: 08/02/21 08/02/2021: This is a telemedicine neurology follow performed today on 08/02/2021. Patient continues to be severely encephalopathic. Patient does not follow commands. Patient makes mild eye contact. However does not track. He would not tell me his name, or his age. Does not follow commands. 08/01/2021: Patient continues to be mute. Speaks just a few words if at all. Patient just stares off in space. Does not follow commands. Does not say anything if he has headache. Patient has just completed MRI of the brain. 07/31/2021: Patient was seen for a follow-up at request of the patient. Since I saw patient last time, patient was followed up by Dr. Jose G Zamora, and ultimately he was signed off on 07/25/[address] Zamora, as patient was showing clinical improvement. Now reconsulted for altered mental status. Apparently patient has been doing better for last few days, but today he is completely off. He appears spacey, not responding as much. This prompted neurology reconsultation. I spoke to patient's daughter Kailey on the phone. She states that he was doing much better while he was in the ICU. He was able to hold some conversation, remember some old stuff, name and address phone numbers. He was able to feed himself. Since he was moved to the third floor, on 07/25/2021, he has been getting worse. Now he cannot feed himself, not talking, is very spacey, and she feels like he is going backwards. Patient's last chest x-ray from 07/25/2021 showed findings consistent with pneumonia. Patient's last blood test from 07/27/2021 shows normal CBC. Sodium 133 potassium 5.2, normal renal functions. Calcium 8.7. Hepatic panel normal. Objective - Vital Signs Vital signs: Vital Signs Temp 98.8 F 08/02/21 20:16 Pulse 87 08/02/21 20:16 Resp 18 08/02/21 20:16 BP 149/81 08/02/21 20:16 Pulse Ox 97 08/02/21 20:16 Intake & Output 08/02/21 08/02/21 08/03/21 06:59 18:59 06:59 Intake Total 900 Output Total 350 900 Balance -350 0 Intake: Intake, IV Titration 900 Amount Sodium Chloride 0.9% 1, 900 000 ml @ 75 mls/hr IV . [id number] [facility] Rx#:[id number] Output: Urine 350 900 Other: Voiding Method Indwelling Catheter Indwelling Catheter Indwelling Catheter - Exam Patient appears significantly encephalopathic. Patient is awake, makes eye contact, but does not interact. He could not tell the month or the year. Patient not able to tell his name. He does not follow commands. Patient does not respond to blood draw to sternal rub, although he is awake. Patient's pupils are round and reacting, visual bunch could not be tested. Face appears symmetric. On muscle strength testing, there is no pronator drift. He did not cooperate for further testing. - Labs CBC & Chem 7: 08/02/21 06:14 08/02/21 06:14 Labs: Abnormal Lab Results - Last 24 Hours (Table) 08/02/21 08/02/21 Range/Units 06:14 06:14 MCV 101.8 H (80.0-100.0) fL Sodium 133 L (137-145) mmol/L Albumin 3.1 L (3.5-5.0) g/dL Assessment and Plan Assessment: * 66-year-old male found unresponsive inside his truck, which was parked in his driveway, in cold weather, ran out of gas for uncertain period of time. Last known well was 2 days prior. Although his core body temperature was slightly up 99.6 axillary, but he has suffered from armenta bite to his feet, right worse than left. Patient most likely suffered from hypoxic encephalopathy, as his oxygen saturation at the scene was 54% on room air. It then improved to 83% and then 98% subsequently with oxygen > 3 L per nasal cannula. It is un certain for how long he was hypoxic with oxygen saturation of 54% on room air. Patient was doing better for some time while in the ICU, but according to the nursing report and patient's family, he has been getting worse for last few days. MRI of the brain revealed multiple subcentimeter foci involving the parietal lobes bilaterally suspicious for tiny areas of acute to subacute ischemia. I suspect these could be resulting from hypoxic encephalopathy from the reasons mentioned above. This is also based upon the fact that these abnormal signal on the diffusion-weighted sequences in the brain, though small, are somewhat bilaterally symmetric, suggestive of diffuse processes affecting the brain. * Cold injury/armenta bite to bilateral feet, right worse than left. Gangrene in the toes of the right foot. * Rhabdomyolysis, improving, with CPK 2840 (from initial 5921) * Hyperlipidemia * Moderate Alcoholism, although patient's daughter denies continuous, chronic alcoholism. * Tobacco use Plan: * MRI of the brain with and without contrast, revealed multiple subcentimeter foci involving the parietal lobes bilaterally suspicious for tiny areas of acute to subacute ischemia. Degenerative and nonspecific white matter changes most typical remote ischemia. Findings most typical remote pontine infarct. Chronic sinusitis. I personally reviewed MRI of the brain. To me these appear either subacute small areas of ischemia, perhaps more than several days old, or perhaps could be T2 shine through, as the corresponding ADC map was negative for abnormal signals. There is significant white matter ischemic disease also noted on the T2 Flair. * Prolonged EEG for 2.5 hours was abnormal EEG due to frequent frontally predominant delta range slowing was seen with intermixed triphasic waves. Diffuse 3-6 more frontally predominant slow waves activity was seen. Overall it is an abnormal EEG. The triphasic waves mentioned above are not epileptiform in nature. Triphasic waves can be seen in the setting of metabolic encephalopathy. The frontally predominant delta range slowing as well as the diffuse theta delta range slowing mentioned above is not epileptiform in nature. In combination, these findings indicate moderate diffuse cerebral dysfunction as may be seen with toxic metabolic encephalopathy. I personally reviewed EEG, and appears there is some rhythmic delta particularly in the left temporal region, which may suggest convulsive tendency. We will empirically start patient on Keppra 1000 mg IV loading dose followed by 500 mg twice a day. We will follow clinically. * Routine EEG 07/18/2021 was mildly abnormal because of background slowing. This is suggestive of generalized cerebral dysfunction as can be seen with encephalopathy of metabolic, vascular or degenerative etiology. Rare left temporal sharply contoured waves were seen. As these were not seen frequently during the study, therefore they have to be interpreted with caution. If your suspicion for seizures is high, consider prolonged EEG. * Carotid Doppler revealed mild calcified plaque in the carotid bifurcations bilaterally but no significant stenosis. Antegrade flow in both vertebral arteries. * Patient's B12 451, methylmalonic acid 0.15, RBC folate 537, TSH normal 2.24. Ammonia was normal less than 9. * Patient started on aspirin 325 mg daily. * 2-D echo still outstanding * Hemoglobin A1c 5.7. * Lipid panel was checked, in which cholesterol is 211, LDL 149, HDL 39 and triglycerides 107. Patient started on Lipitor 40 mg daily.
[2021-08-03] MEDS ORDERED: levETIRAcetam IV 1,000 MG in SALINE 1 100ML.BAG IVPB STA (02:40)
[2021-08-03] MEDS: SODIUM CHLORIDE 0.9% 1,000 ML IV SCH ×2 (03:22→18:06)
[2021-08-03] MEDS: IPRATROPIUM-ALBUTEROL 3 ML NEB INHALATION SCH ×4 (07:27→19:21)
[2021-08-03] MEDS ORDERED: levETIRAcetam IV 500 MG in SODIUM CHLORIDE 0.9% 100 ML IVPB SCH (09:00)
[2021-08-03] MEDS: HEPARIN SODIUM,PORCINE/PF 5,000 UNIT/0.5 ML SYRINGE SQ SCH ×2 (09:24→20:17)
[2021-08-03] MEDS: FAMOTIDINE 20 MG/2 ML VIAL IV SCH ×2 (09:25→20:17)
[2021-08-03] MEDS: ASPIRIN 325 MG TAB PO SCH (09:25)
[2021-08-03] MEDS: THIAMINE 100 MG TAB PO SCH ×2 (09:25→17:15)
[2021-08-03] MEDS: TAMSULOSIN 0.4 MG CAP.ER.24H PO SCH (09:25)
[2021-08-03] MEDS: NICOTINE 14MG/24HR PATCH TRANSDERM SCH (09:25)
[2021-08-03] MEDS: PETROLAT,WHITE/LAN/8-HYDROXYQU 227 GM OINT TOPICAL SCH (09:40)
--- NOTE | 2021-08-03 09:44 | P.PN ---
Subjective Progress Note Date: 08/02/21 Principal diagnosis: Pneumonia Patient is a 66 year male who was brought into the hospital after the patient was found to be unresponsive in his truck this patient did have evidence of right foot frostbite with gangrenous toe patient also have worsening of his respiratory status requiring admission to the ICU and required BiPAP. On today's evaluation that is 08/02/2021, the patient remains to be afebrile, the patient is breathing comfortably on room air, the patient denies having any chest pain shortness of breath no cough no nausea no vomiting no abdominal pain and no diarrhea Objective - Vital Signs Vital signs: Vital Signs Temp 97.9 F 08/02/21 12:26 Pulse 86 08/02/21 12:26 Resp 17 08/02/21 12:26 BP 151/85 08/02/21 12:26 Pulse Ox 95 08/02/21 12:26 Intake & Output 08/01/21 08/02/21 08/02/21 18:59 06:59 18:59 Intake Total 120 Output Total 425 350 Balance -305 -350 Weight 71.4 kg Intake: Oral 120 Output: Urine 425 350 Stool 0 Other: Voiding Method Indwelling Catheter Indwelling Catheter Indwelling Catheter - Exam GENERAL DESCRIPTION:[ Patient is awake and alert in no distress] HEENT: [Oral mucosa is dry and no pharyngeal erythema] RESPIRATORY SYSTEM: [Unlabored breathing decreased breath sounds at the base] CARDIA VASCULAR SYSTEM: [S1-S2 regular rate and rhythm no murmur] GI: [Abdominal soft there's no tenderness no organomegaly] EXTREMITIES: [No edema feet - Labs CBC & Chem 7: 08/02/21 06:14 08/02/21 06:14 Labs: Abnormal Lab Results - Last 24 Hours (Table) 08/01/21 08/01/21 08/02/21 Range/Units 07:43 12:35 06:14 MCV 101.8 H (80.0-100.0) fL Sodium (137-145) mmol/L Albumin (3.5-5.0) g/dL Cholesterol 211.00 H (0.00-200.00) mg/dL LDL Cholesterol, Calc 149.7 H (0.0-131.0) mg/dL HDL Cholesterol 39.90 L (40.00-60.00) mg/dL Urine Protein Trace H (Negative) Urine Ketones 1+ H (Negative) Urine Blood Small H (Negative) Urine RBC 49 H (0-5) /hpf Urine Mucus Rare H (None) /hpf 08/02/21 Range/Units 06:14 MCV (80.0-100.0) fL Sodium 133 L (137-145) mmol/L Albumin 3.1 L (3.5-5.0) g/dL Cholesterol (0.00-200.00) mg/dL LDL Cholesterol, Calc (0.0-131.0) mg/dL HDL Cholesterol (40.00-60.00) mg/dL Urine Protein (Negative) Urine Ketones (Negative) Urine Blood (Negative) Urine RBC (0-5) /hpf Urine Mucus (None) /hpf Assessment and Plan (1) Pneumonia Current Visit: Yes Status: Acute Code(s): J18.9 - PNEUMONIA, UNSPECIFIED ORGANISM SNOMED Code(s): 780811724 Plan: 1-Patient with acute respiratory failure is multifactorial concerning for a component of pneumonia question of aspiration etiology patient to have penicillin ALLERGY, patient did developed a rash more likely related to cefepime which has been discontinued, patient underlying pneumonia has been adequately treated, and the patient is currently being monitored closely off antibiotic therapy 2patient with a pressure ulcer to the right elbow area with some slough tissue we will apply medahoney and keep the area off the pressure Time with Patient: Less than 30
[2021-08-03] MEDS: TRIAMCINOLONE 0.1% CREAM 80 GM TUBE TOPICAL SCH ×2 (09:47→20:19)
--- NOTE | 2021-08-03 14:19 | P.PN ---
Subjective Progress Note Date: 08/03/21 08/03/2021: Patient was seen for a follow-up via telemedicine today on 08/03/2021. Patient continues to be severely encephalopathic, not significantly improved as compared to yesterday despite receiving Keppra. The nurse reported that, the nurse last night asked him if he was having pain, said "no". Today when the nurse was giving heparin subcu injection, patient said "ouch". Otherwise patient not answering any questions. I spoke to patient's daughter on the phone. She states that when he was better in the ICU, his speech was clear, knew his name, her name, and was asking about his grandkids, eating by himself using his right arm. She concurs that he has been using his left arm less as compared to the right. This definitely has got worse as I see from the examination over the last couple days. 08/02/2021: This is a telemedicine neurology follow performed today on 08/02/2021. Patient continues to be severely encephalopathic. Patient does not follow commands. Patient makes mild eye contact. However does not track. He would not tell me his name, or his age. Does not follow commands. 08/01/2021: Patient continues to be mute. Speaks just a few words if at all. Patient just stares off in space. Does not follow commands. Does not say anything if he has headache. Patient has just completed MRI of the brain. 07/31/2021: Patient was seen for a follow-up at request of the patient. Since I saw patient last time, patient was followed up by Dr. Jose G Zamora, and ultimately he was signed off on 07/25/[address] Zamora, as patient was showing clinical improvement. Now reconsulted for altered mental status. Apparently patient has been doing better for last few days, but today he is completely off. He appears spacey, not responding as much. This prompted neurology reconsultation. I spoke to patient's daughter Kailey on the phone. She states that he was doing much better while he was in the ICU. He was able to hold some conversation, remember some old stuff, name and address phone numbers. He was able to feed himself. Since he was moved to the third floor, on 07/25/2021, he has been getting worse. Now he cannot feed himself, not talking, is very spacey, and she feels like he is going backwards. Patient's last chest x-ray from 07/25/2021 showed findings consistent with pneumonia. Patient's last blood test from 07/27/2021 shows normal CBC. Sodium 133 potassium 5.2, normal renal functions. Calcium 8.7. Hepatic panel normal. Objective - Vital Signs Vital signs: Vital Signs Temp 97.5 F L 08/03/21 05:00 Pulse 86 08/03/21 05:00 Resp 16 08/03/21 05:00 BP 159/96 08/03/21 05:00 Pulse Ox 94 L 08/03/21 05:00 Intake & Output 08/02/21 08/03/21 08/03/21 18:59 06:59 18:59 Intake Total 900 1300 Output Total 900 900 Balance 0 400 Intake: Intake, IV Titration 900 1300 Amount Sodium Chloride 0.9% 1, 900 900 000 ml @ 75 mls/hr IV . [id number] [facility] Rx#:[id number] levETIRAcetam IV 1,000 mg 400 In Saline 1 100ml.bag @ 400 mls/hr IVPB ONCE STA Rx#:[id number] Output: Urine 900 900 Other: Voiding Method Indwelling Catheter Indwelling Catheter Indwelling Catheter - Exam Patient continues to be severely encephalopathic. Patient not answering to any question, not telling his name, age or where he is at. Patient not following commands. His pupils are round and reacting. Gaze is midline. No obvious twitching noted. Only one time, I saw patient raised his right arm up in air, almost appeared like postured. There was no head or gaze deviation with it. Patient's face is symmetric. Patient's aviculturist is equal bilaterally. When the arms were held up, he had them both together. He kept them in air at least for 10 seconds and then slowly brought it down equally. Patient did not respond to moving his legs. Patient's abdomen is nontender. - Labs CBC & Chem 7: 08/02/21 06:14 08/02/21 06:14 Assessment and Plan Assessment: * 66-year-old male found unresponsive inside his truck, which was parked in his driveway, in cold weather, ran out of gas for uncertain period of time. Last known well was 2 days prior. Although his core body temperature was slightly up 99.6 axillary, but he has suffered from armenta bite to his feet, right worse than left. Patient most likely suffered from hypoxic encephalopathy, as his oxygen saturation at the scene was 54% on room air. It then improved to 83% a nd then 98% subsequently with oxygen > 3 L per nasal cannula. It is uncertain for how long he was hypoxic with oxygen saturation of 54% on room air. Patient was doing better for some time while in the ICU, but according to the nursing report and patient's family, he has been getting worse for last few days. * Abnormal brain MRI, which revealed multiple subcentimeter foci involving the parietal lobes bilaterally suspicious for tiny areas of acute to subacute ischemia. I suspect these could be resulting from hypoxic encephalopathy from the reasons mentioned above. This is also based upon the fact that these abnormal signal on the diffusion-weighted sequences in the brain, though small, are somewhat bilaterally symmetric, suggestive of diffuse processes affecting the brain. * Abnormal EEG, with evidence of severe encephalopathy. * Cold injury/armenta bite to bilateral feet, right worse than left. Gangrene in the toes of the right foot. * Rhabdomyolysis, improving, with CPK 435 (from initial 5921) * Hyperlipidemia * Moderate Alcoholism, although patient's daughter denies continuous, chronic alcoholism. * Tobacco use Plan: * MRI of the brain with and without contrast, revealed multiple subcentimeter foci involving the parietal lobes bilaterally suspicious for tiny areas of acute to subacute ischemia. Degenerative and nonspecific white matter changes most typical remote ischemia. Findings most typical remote pontine infarct. Chronic sinusitis. I personally reviewed MRI of the brain. To me these appear either subacute small areas of ischemia, perhaps more than several days old, or perhaps could be T2 shine through, as the corresponding ADC map was negative for abnormal signals. There is significant white matter ischemic disease also noted on the T2 Flair. * Prolonged EEG for 2.5 hours was abnormal EEG due to frequent frontally predominant delta range slowing was seen with intermixed triphasic waves. Diffuse 3-6 more frontally predominant slow waves activity was seen. Overall it is an abnormal EEG. The triphasic waves mentioned above are not epileptiform in nature. Triphasic waves can be seen in the setting of metabolic encephalopathy. The frontally predominant delta range slowing as well as the diffuse theta delta range slowing mentioned above is not epileptiform in nature. In combination, these findings indicate moderate diffuse cerebral dysfunction as may be seen with toxic metabolic encephalopathy. I personally reviewed EEG, and appears there is some rhythmic delta particularly in the left temporal region, which may suggest convulsive tendency. We will empirically start patient on Keppra 1000 mg IV loading dose followed by 500 mg twice a day. We will increase Keppra to 750 mg twice a day. * Routine EEG 07/18/2021 was mildly abnormal because of background slowing. This is suggestive of generalized cerebral dysfunction as can be seen with encephalopathy of metabolic, vascular or degenerative etiology. Rare left temporal sharply contoured waves were seen. As these were not seen frequently during the study, therefore they have to be interpreted with caution. If your suspicion for seizures is high, consider prolonged EEG. * Because of persistent encephalopathy, suggest lumbar puncture. * Carotid Doppler revealed mild calcified plaque in the carotid bifurcations bilaterally but no significant stenosis. Antegrade flow in both vertebral arteries. * Patient's B12 451, methylmalonic acid 0.15, RBC folate 537, TSH normal 2.24. Ammonia was normal less than 9. * Patient started on aspirin 325 mg daily. * 2-D echo still outstanding * UA shows no infection, WBC is normal. We will also check chest x-ray. * Hemoglobin A1c 5.7. * Lipid panel was checked, in which cholesterol is 211, LDL 149, HDL 39 and triglycerides 107. Patient started on Lipitor 40 mg daily. * Discussed with patient's daughter in detail, answered all the questions. She agreed to pursue with lumbar puncture. * Dr. Jose G Zamora Will resume neurology service from the morning.
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
--- NOTE | 2021-08-03 15:28 | XR ---
EXAMINATION TYPE: XR chest 1V portable DATE OF EXAM: 08/03/2021 altered mental status Comparison July 25, 2021 HISTORY: Altered mental status TECHNIQUE: Single view FINDINGS: Heart is normal. Lungs are clear of infiltrate. There is no heart failure. There are no hil ar masses. Bony thorax is intact. IMPRESSION: No active cardiopulmonary disease. There is clearing of right upper lobe pneumonia compar ed to old exam.
[2021-08-03] MEDS: QUEtiapine 25 MG TAB PO SCH (20:18)
[2021-08-03] MEDS: ATORVASTATIN 40 MG TAB PO SCH (20:18)
[2021-08-03] MEDS: levETIRAcetam IV 750 MG in SODIUM CHLORIDE 0.9% 100 ML IVPB SCH (20:20)
--- NOTE | 2021-08-03 21:33 | P.PN ---
Subjective Progress Note Date: 08/03/21 Principal diagnosis: Pneumonia Patient is a 66 year male who was brought into the hospital after the patient was found to be unresponsive in his truck this patient did have evidence of right foot frostbite with gangrenous toe patient also have worsening of his respiratory status requiring admission to the ICU and required BiPAP. On today's evaluation that is 08/03/2021, the patient continues to be afebrile, the patient is breathing comfortably on room air, the patient is slightly lethargic today and did not provide any history no vomiting or diarrhea was reported by the nursing staff Objective - Vital Signs Vital signs: Vital Signs Temp 97.5 F L 08/03/21 13:00 Pulse 84 08/03/21 13:00 Resp 16 08/03/21 05:00 BP 154/94 08/03/21 13:00 Pulse Ox 95 08/03/21 13:00 Intake & Output 08/02/21 08/03/21 08/03/21 18:59 06:59 18:59 Intake Total 900 1300 Output Total 900 900 Balance 0 400 Intake: Intake, IV Titration 900 1300 Amount Sodium Chloride 0.9% 1, 900 900 000 ml @ 75 mls/hr IV . [id number] JOHN Rx#:[id number] levETIRAcetam IV 1,000 mg 400 In Saline 1 100ml.bag @ 400 mls/hr IVPB ONCE STA Rx#:[id number] Output: Urine 900 900 Other: Voiding Method Indwelling Catheter Indwelling Catheter Indwelling Catheter - Exam GENERAL DESCRIPTION:[ Patient is awake and alert in no distress] HEENT: [Oral mucosa is dry and no pharyngeal erythema] RESPIRATORY SYSTEM: [Unlabored breathing decreased breath sounds at the base] CARDIA VASCULAR SYSTEM: [S1-S2 regular rate and rhythm no murmur] GI: [Abdominal soft there's no tenderness no organomegaly] EXTREMITIES: [No edema feet - Labs CBC & Chem 7: 08/02/21 06:14 08/02/21 06:14 Assessment and Plan (1) Pneumonia Current Visit: Yes Status: Acute Code(s): J18.9 - PNEUMONIA, UNSPECIFIED ORGANISM SNOMED Code(s): 482684898 Plan: 1-Patient with acute respiratory failure is multifactorial concerning for a component of pneumonia question of aspiration etiology patient to have penicillin ALLERGY, patient did developed a rash more likely related to cefepime which has been discontinued, patient underlying pneumonia has been adequately treated, patient chest x-ray this morning did not show any acute abnormality we will continue to monitor the patient closely off antibiotic therapy Time with Patient: Less than 30
[2021-08-04] MEDS: IPRATROPIUM-ALBUTEROL 3 ML NEB INHALATION SCH ×4 (08:20→19:38)
[2021-08-04] MEDS: levETIRAcetam IV 750 MG in SODIUM CHLORIDE 0.9% 100 ML IVPB SCH ×2 (08:56→20:02)
[2021-08-04] MEDS: FAMOTIDINE 20 MG/2 ML VIAL IV SCH ×2 (08:56→20:01)
[2021-08-04] MEDS: TAMSULOSIN 0.4 MG CAP.ER.24H PO SCH (08:56)
[2021-08-04] MEDS: THIAMINE 100 MG TAB PO SCH ×2 (08:56→17:23)
[2021-08-04] MEDS: TRIAMCINOLONE 0.1% CREAM 80 GM TUBE TOPICAL SCH ×2 (08:57→20:02)
[2021-08-04] MEDS: PETROLAT,WHITE/LAN/8-HYDROXYQU 227 GM OINT TOPICAL SCH (08:57)
[2021-08-04] MEDS: NICOTINE 14MG/24HR PATCH TRANSDERM SCH (08:58)
[2021-08-04] MEDS: SODIUM CHLORIDE 0.9% 1,000 ML IV SCH ×2 (08:58→17:59)
[2021-08-04 12:51] LABS: Partial Thromboplastin Time 30.7 sec (22.0-30.0); Prothrombin Time 10.9 sec (9.0-12.0)
[2021-08-04] MEDS ORDERED: IV FLUID CONTINUATION 700 ML IV ONE (13:29)
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
[2021-08-04] MEDS: ASPIRIN 325 MG TAB PO SCH (13:50)
[2021-08-04] MEDS: HEPARIN SODIUM,PORCINE/PF 5,000 UNIT/0.5 ML SYRINGE SQ SCH ×2 (13:50→20:01)
--- NOTE | 2021-08-04 13:56 | P.PN ---
Progress Note - Text Progress Note Date: 08/04/21 (1336) 66-year-old male for lumbar puncture. Ordered for encephalopathy. Coa gulopathies: Coags: INR normal, PTT 30.7 seconds. Medications: Subcu heparin held today, last dose last p.m.. Consent obtained and confirmed medical power of claim attorney consent as the patient is encephalopathic Timeout performed at 1336 hrs. Sterile protocol was used throughout procedure. L3 4 was identified and patient lying in bed. Chlorhexidine 2 was used to clean the patient's back. Lidocaine 1% 3 mL was used as local and was infiltrated. Spinal needle 20-gauge 3-1/2 inches was used in one attempt. CSF was obtained. Opening pressure 10 cm of water. No heme. Specimens collected 4-2 mL each. Closing pressure 6 cm water. Needle was withdrawn and Band-Aid applied. Patient tolerated procedure well without complication. Stable for transfer to floor. Procedure performed from 1336 at 1349 in recovery
[2021-08-04 16:26] LABS: Appearance,CSF Clear; CSF Tube Number 4; Nucleated Cells, CSF 1 u/L (0-5); Red Blood Cell,CSF 0 u/L (0-10)
[2021-08-04 16:30] LABS: Glucose,CSF 46 mg/dL (40-70); Total Protein,CSF 94 mg/dL (12-60)
[2021-08-04] MEDS: ATORVASTATIN 40 MG TAB PO SCH (20:01)
[2021-08-04] MEDS: QUEtiapine 25 MG TAB PO SCH (20:01)
--- NOTE | 2021-08-04 23:02 | P.PN ---
Subjective Progress Note Date: 08/04/21 Principal diagnosis: Pneumonia Patient is a 66 year male who was brought into the hospital after the patient was found to be unresponsive in his truck this patient did have evidence of right foot frostbite with gangrenous toe patient also have worsening of his respiratory status requiring admission to the ICU and required BiPAP. On today's evaluation that is 08/04/2021, the patient remains to be afebrile, the patient is breathing comfortably on room air, the patient is lethargic and did not provide any history no vomiting or diarrhea has been reported by the nursing staff Objective - Vital Signs Vital signs: Vital Signs Temp 97.7 F 08/04/21 05:00 Pulse 100 08/04/21 12:18 Resp 20 08/04/21 05:00 BP 154/81 08/04/21 05:00 Pulse Ox 96 08/04/21 05:00 Intake & Output 08/03/21 08/04/21 08/04/21 18:59 06:59 18:59 Intake Total 1030 Output Total 1100 Balance -70 Intake: Intake, IV Titration 1000 Amount Sodium Chloride 0.9% 1, 900 000 ml @ 75 mls/hr IV . [id number] JOHN Rx#:[id number] levETIRAcetam IV 750 mg 100 In Sodium Chloride 0.9% 100 ml @ 400 mls/hr IVPB Q12HR JOHN Rx#:[id number] Oral 30 Output: Urine 1100 Stool 0 Other: Voiding Method Indwelling Catheter Indwelling Catheter Indwelling Catheter # Bowel Movements 0 - Exam GENERAL DESCRIPTION:[ Patient is lethargic in no distress] HEENT: [Oral mucosa is dry and no pharyngeal erythema] RESPIRATORY SYSTEM: [Unlabored breathing decreased breath sounds at the base] CARDIA VASCULAR SYSTEM: [S1-S2 regular rate and rhythm no murmur] GI: [Abdominal soft there's no tenderness no organomegaly] EXTREMITIES: [No edema feet - Labs CBC & Chem 7: 08/02/21 06:14 08/02/21 06:14 Labs: Abnormal Lab Results - Last 24 Hours (Table) 08/04/21 Range/Units 11:45 APTT 30.7 H (22.0-30.0) sec Assessment and Plan (1) Pneumonia Current Visit: Yes Status: Acute Code(s): J18.9 - PNEUMONIA, UNSPECIFIED ORGANISM SNOMED Code(s): 398162875 Plan: 1-Patient with acute respiratory failure is multifactorial concerning for a component of pneumonia question of aspiration etiology patient to have penicillin ALLERGY, patient did developed a rash more likely related to cefepime which has been discontinued, patient underlying pneumonia has been adequately treated, patient chest x-ray completed yesterday did not show any acute abnorm ality we will continue to monitor the patient closely off antibiotic therapy
[2021-08-05] MEDS: IPRATROPIUM-ALBUTEROL 3 ML NEB INHALATION SCH ×4 (07:15→21:11)
[2021-08-05 08:59] LABS: Basophils # (A) 0.05 X 10*3/uL (0.00-0.10); Eosinophils # (A) 0.13 X 10*3/uL (0.04-0.35); Eosinophils % (A) 2.5 %; HCT 44.7 % (39.6-50.0); HGB 15.1 g/dL (13.0-17.0); Immature Grans, Automated 1.2 %; Lymphocytes # (A) 1.67 X 10*3/uL (0.90-5.00); Lymphocytes % (A) 32.4 %; MCH 32.8 pg (27.0-32.0); MCHC 33.8 g/dL (32.0-37.0); Mean Platelet Volume 9.8 fL (9.5-12.2); Monocytes # (A) 0.49 X 10*3/uL (0.20-1.00); Monocytes % (A) 9.5 %; NRBC Per 100 WBC 0 /100 WBCS (0.0-0.0); Neutrophils # (A) 2.75 X 10*3/uL (1.80-7.70); Neutrophils % (A) 53.4 %; Platelet Count 295 X 10*3/uL (140-440); RBC 4.61 X 10*6/uL (4.40-5.60); RDW 11.4 % (11.5-14.5); WBC 5.15 X 10*3/uL (4.50-10.00)
[2021-08-05] MEDS: NICOTINE 14MG/24HR PATCH TRANSDERM SCH (09:45)
[2021-08-05] MEDS: HEPARIN SODIUM,PORCINE/PF 5,000 UNIT/0.5 ML SYRINGE SQ SCH ×2 (09:46→20:15)
[2021-08-05] MEDS: FAMOTIDINE 20 MG/2 ML VIAL IV SCH ×2 (09:46→20:16)
[2021-08-05] MEDS: SODIUM CHLORIDE 0.9% 1,000 ML IV SCH ×2 (11:09→21:26)
[2021-08-05] MEDS: levETIRAcetam IV 1,000 MG in SALINE 1 100ML.BAG IVPB SCH ×2 (11:09→20:15)
[2021-08-05] MEDS: PETROLAT,WHITE/LAN/8-HYDROXYQU 227 GM OINT TOPICAL SCH (11:11)
[2021-08-05] MEDS: THIAMINE 100 MG TAB PO SCH ×2 (11:12→18:50)
[2021-08-05] MEDS: TRIAMCINOLONE 0.1% CREAM 80 GM TUBE TOPICAL SCH ×2 (11:12→20:17)
[2021-08-05] MEDS: TAMSULOSIN 0.4 MG CAP.ER.24H PO SCH (11:13)
[2021-08-05] MEDS: ASPIRIN 325 MG TAB PO SCH (11:14)
[2021-08-05] MEDS: levETIRAcetam IV 750 MG in SODIUM CHLORIDE 0.9% 100 ML IVPB SCH (11:17)
[2021-08-05 11:21] LABS: African American GFR (CKD) 120.6 (60.0-200.0); Anion Gap 12.2 mmol/L (10.00-18.00); BUN/Creat Ratio 16.5 Ratio (12.00-20.00); Blood Urea Nitrogen 9.9 mg/dL (9.0-27.0); Calcium 8.5 mg/dL (8.7-10.3); Carbon Dioxide 19.8 mmol/L (20.0-27.5); Potassium 4.5 mmol/L (3.5-5.5)
--- NOTE | 2021-08-05 14:04 | P.PN ---
Subjective Progress Note Date: 08/05/21 The patient is seen at bedside and per nurse no improvement in his mentation. He is the same as yesterday. Upon seeing him he continues to be the same as yesterday. He had a Lumbar puncture yesterday and no sign of infection. CSF: clear, colorless, 1 nucleated cells, o rbc, glucose is 46 and protein is 94. His protein is elevated. Objective - Vital Signs Vital signs: Vital Signs Temp 98.7 F 08/05/21 11:21 Pulse 80 08/05/21 11:26 Resp 18 08/05/21 11:21 BP 158/82 08/05/21 11:21 Pulse Ox 97 08/05/21 11:21 Intake & Output 08/04/21 08/05/21 08/05/21 18:59 06:59 18:59 Intake Total 100 0 Output Total 1 1100 Balance 99 -1100 Weight 71.4 kg Intake: IV 100 Oral 0 Output: Urine 1100 Stool 1 Other: Voiding Method Indwelling Catheter Indwelling Catheter Indwelling Catheter # Bowel Movements 1 - Exam Neurological: Limited because of his condition. Patient: Patient is awake, alert. No verbalizing or following commands. Pupils are round, equal and symmetrically reactive. Is tracking me throughout the room. No facial weakness. Otherwise rest of cranial nerves is limited. Motor: Strength is limited in assessing. He has increase tone of all four extremities. Upon lifting the right upper extremity and leaving up it would stay raised up then would slowly bring it down. WORK-UP: Coronavirus PCR is not detected. Hemoglobin A1c 5.7. TSH: 2.24 Lipid panel was checked, in which cholesterol is 211, LDL 149, HDL 39 and triglycerides 107 Ammonia <9 Vitamin B12: 887 serum folate: >20 MMA 0.15 (normal) Urine drug screen is not detected. Serum Alcohol is <10. Computed tomography scan of the head 07/17/21 showed no acute process. CT of the cervical spine showed no acute fracture, dislocation in the cervical spine. Repeat CT of the head on 07/23/2021 is reported as age-related atrophic and chronic small vessel ischemic changes without acute intracranial process seen at this time. MRI of the brain with and without contrast, revealed multiple subcentimeter foci involving the parietal lobes bilaterally suspicious for tiny areas of acute to subacute ischemia. Degenerative and nonspecific white matter changes most typical remote ischemia. Findings most typical remote infarct. Chronic sinusitis. Per Dr. Waller, "these appear either subacute small areas of ischemia, perhaps more than several days old, or perhaps could be T2 shine through, as the corresponding ADC map was negative for abnormal signals. There is significant white matter ischemic disease also noted on the T2 Flair". EEG was reported as was mildly abnormal because of background slowing. This is suggestive of generalized cerebral dysfunction as can be seen with encephalopathy of metabolic, vascular or degenerative etiology. Rare left temporal sharply contoured waves were seen. Prolonged EEG for 2.5 hours was reported as abnormal EEG due to frequent frontally predominant delta range slowing was seen with intermixed triphasic waves. Diffuse 3-6 more frontally predominant slow waves activity was seen. Overall it is an abnormal EEG. The triphasic waves mentioned above are not epileptiform in nature. Triphasic waves can be seen in the setting of metabolic encephalopathy. The frontally predominant delta range slowing as well as the diffuse theta delta range slowing mentioned above is not epileptiform in nature. In combination, these findings indicate moderate diffuse cerebral dysfunction as may be seen with toxic metabolic encephalopathy. Dr. Waller reviewed EEG, and appears there is some rhythmic delta particularly in the left temporal region, which may suggest convulsive tendency. Carotid Doppler revealed mild calcified plaque in the carotid bifurcations bilaterally but no significant stenosis. Antegrade flow in both vertebral arteries. He had a Lumbar puncture on 08/04/2021 and no sign of infection. CSF: clear, colorless, 1 nucleated cells, o rbc, glucose is 46 and protein is 94. His protei n is elevated. - Labs CBC & Chem 7: 08/05/21 06:33 08/05/21 06:33 Labs: Abnormal Lab Results - Last 24 Hours (Table) 08/04/21 08/05/21 08/05/21 Range/Units 13:45 06:33 06:33 MCH 32.8 H (27.0-32.0) pg RDW 11.4 L (11.5-14.5) % Immature Gran # 0.06 H (0.00-0.04) X 10*3/uL Sodium 134 L (135-145) mmol/L Carbon Dioxide 19.8 L (20.0-27.5) mmol/L Calcium 8.5 L (8.7-10.3) mg/dL CSF Total Protein 94 H (12-60) mg/dL Microbiology - Last 24 Hours (Table) 08/04/21 13:45 CSF Gram Stain - Preliminary Cerebral Spinal Fluid CSF Culture - Preliminary Assessment and Plan Assessment: * 66-year-old male found unresponsive inside his truck, which was parked in his driveway, in cold weather, ran out of gas for uncertain period of time. Last known well was 2 days prior. Although his core body temperature was slightly up 99.6 axillary, but he has suffered from armenta bite to his feet, right worse than left. Patient most likely suffered from hypoxic encephalopathy, as his oxygen saturation at the scene was 54% on room air. It then improved to 83% and then 98% subsequently with oxygen > 3 L per nasal cannula. It is uncertain for how long he was hypoxic with oxygen saturation of 54% on room air. Patient was doing better for some time while in the ICU, but according to the nursing report and patient's family, he has been getting worse for last few days * Severe Encephalopathy with increased tone throughout. of unknown etiology. Rule out neuroleptic malignant syndrome especially since on antipsychotic. CSF (08/04/2021) is negative for infection. * Abnormal brain MRI, which revealed multiple subcentimeter foci involving the parietal lobes bilaterally suspicious for tiny areas of acute to subacute ischemia. I suspect these could be resulting from hypoxic encephalopathy from the reasons mentioned above. This is also based upon the fact that these abnormal signal on the diffusion-weighted sequences in the brain, though small, are somewhat bilaterally symmetric, suggestive of diffuse processes affecting the brain. * Dysphagia due to his severe encephalopathy. * Abnormal EEG, with evidence of severe encephalopathy. * Cold injury/armenta bite to bilateral feet, right worse than left. Gangrene in the toes of the right foot. * Rhabdomyolysis, improving, with CPK 435 (from initial 5921) * Hyperlipidemia * Moderate Alcoholism, although patient's daughter denies continuous, chronic alcoholism. * Tobacco use Plan: * I ordered CK level. Patient is on Seroquel started by primary team. Recommend stopping medication. Rule out NMS. * Recommend psychiatry consultation. * CSF: clear, colorless, 1 nucleated cells, o rbc, glucose is 46 and protein is 94. His protein is elevated. Unsure cause of elevated protein. * I spoke with the patient's daughter about his work-up and she stated she does not want a repeat MRI Brain, CT head or EEG. * Prolonged EEG for 2.5 hours on 08/02/21 was reported as abnormal EEG due to frequent frontally predominant delta range slowing was seen with intermixed t riphasic waves. Diffuse 3-6 more frontally predominant slow waves activity was seen. Overall it is an abnormal EEG. The triphasic waves mentioned above are not epileptiform in nature. Triphasic waves can be seen in the setting of metabolic encephalopathy. The frontally predominant delta range slowing as well as the diffuse theta delta range slowing mentioned above is not epileptiform in nature. In combination, these findings indicate moderate diffuse cerebral dysfunction as may be seen with toxic metabolic encephalopathy. Dr. Waller reviewed EEG, and appears there is some rhythmic delta particularly in the left temporal region, which may suggest convulsive tendency. Increase IV Keppra from 750 mg twice a day to 1000mg 1 tab twice a day as prophylaxis. (was started during this admission by Dr. Waller). * Patient on aspirin 325 mg daily and Lipitor 40 mg daily (started during this admission). * Is on thiamine 100mg bid. * Will defer the rest of medical management to the primary team. * Condition is very guarded. The plan is discussed with the patient's daughter (via phone), primary attending and his nurse. Jose G Zamora M.D. Neuro-Hospitalist Time with Patient: Greater than 30
--- NOTE | 2021-08-05 15:20 | P.GSCN ---
History of Present Illness Consult date: 08/05/21 History of present illness: CHIEF COMPLAINT: Unresponsive HISTORY OF PRESENT ILLNESS: This is a 66-year-old male with history of alcohol abuse. He was found in his pickup truck by family members unresponsive. He was admitted to the hospital on 07/17/2021. He was found to have significant frostbite and cold injury to his bilateral feet. Patient followed by neurology for possible hypoxic encephalopathy. He did require in the ICU. He is currently on regular medical floor. Patient with severe encephalopathy. He remains confused and not following commands. He is not eating. Surgical service was consulted for Dobbhoff placement to start nutrition support. PAST MEDICAL HISTORY: None reported PAST SURGICAL HISTORY: None reported MEDICATIONS: See list. ALLERGIES: See list. SOCIAL HISTORY: No illicit drug use. REVIEW OF SYSTEMS: CONSTITUTIONAL: Denies fever or chills. HEENT: Denies blurred vision, vision changes, or eye pain. Denies hemoptysis CARDIOVASCULAR: Denies chest pain or pressure. RESPIRATORY: No shortness of breath. GASTROINTESTINAL: See HPI for pertinent findings HEMATOLOGIC: Denies bleeding disorders. GENITOURINARY: Denies any blood in urine or increased urinary frequency. SKIN: Denies pruitis. Denies rash. PHYSICAL EXAM: VITAL SIGNS: Reviewed GENERAL: Well-developed in no acute distress. HEENT: No sclera icterus. Extraocular movements grossly intact. Moist buccal mucosa. Head is atraumatic, normocephalic. No nasal drainage. ABDOMEN: Soft. Nondistended. Nontender NEUROLOGIC: Awake but confused LABORATORY DATA: WBC 5.15 hemoglobin 15.1 platelets 295 Sodium 134 potassium 4.5 creatinine 0.6 Albumin 3.1 IMAGING: ASSESSMENT: 1. Severe encephalopathy possibly hypoxic 2. Moderate protein calorie malnutrition 3. Unresponsive 4. Alcohol abuse PLAN: -Further recommendations forthcoming regarding Dobbhoff placement per surgeon -Continue supportive care Date for this consultation Physician Grain Receiver note has been reviewed by physician. Signing provider agrees with the documented findings, assessment, and plan of care. Past Medical History Past Medical History: No Reported History History of Any Multi-Drug Resistant Organisms: None Reported Past Surgical History: No Surgical Hx Reported Past Psychological History: No Psychological Hx Reported Smoking Status: Unknown if ever smoked Past Alcohol Use History: Abuse Past Drug Use History: None Reported Medications and Allergies Home Medications Medication Instructions Recorded Confirmed Type Acetaminophen Tab [Tylenol] 650 mg PO Q6HR PRN tab 07/30/21 Rx Famotidine [Pepcid] 20 mg PO DAILY #3 tablet 07/30/21 Rx Ipratropium-Albuterol Nebulize 3 ml INHALATION RT-Q2H PRN ml 07/30/21 Rx [Duoneb 0.5 mg-3 mg/3 ml Soln] Ipratropium-Albuterol Nebulize 3 ml INHALATION RT-QID ml 07/30/21 Rx [Duoneb 0.5 mg-3 mg/3 ml Soln] Moxifloxacin HCl [Avelox] 400 mg PO DAILY #5 tablet 07/30/21 Rx Nicotine 14Mg/24Hr Patch [Habitrol] 1 patch TRANSDERM DAILY patch 07/30/21 Rx Petrolat,White/Rahul/8-Hydroxyqu 1 gm TOPICAL DAILY gm 07/30/21 Rx [Bag [place]] Tamsulosin [Flomax] 0.4 mg PO PC-BRKFST 07/30/21 Rx Thiamine [Vitamin B-1] 100 mg PO BID-W/MEALS tab 07/30/21 Rx lisinopriL [Zestril] 20 mg PO DAILY tab 07/30/21 Rx Allergies Allergy/AdvReac Type Severity Reaction Status Date / Time Penicillins Allergy Rash/Hives Verified 07/17/21 19:16 Surgical - Exam Vital Signs Temp Pulse Resp BP Pulse Ox 99.1 F 98 26 H 177/98 98 07/17/21 18:08 07/17/21 18:08 07/17/21 18:08 07/17/21 18:08 07/17/21 18:08 Results - Labs 08/05/21 06:33 08/05/21 06:33 Abnormal Lab Results - Last 24 Hours (Table) 08/04/21 08/05/21 08/05/21 Range/Units 13:45 06:33 06:33 MCH 32.8 H (27.0-32.0) pg RDW 11.4 L (11.5-14.5) % Immature Gran # 0.06 H (0.00-0.04) X 10*3/uL Sodium 134 L (135-145) mmol/L Carbon Dioxide 19.8 L (20.0-27.5) mmol/L Calcium 8.5 L (8.7-10.3) mg/dL CSF Total Protein 94 H (12-60) mg/dL Microbiology - Last 24 Hours (Table) 08/04/21 13:45 CSF Gram Stain - Preliminary Cerebral Spinal Fluid CSF Culture - Preliminary Diabetes panel 08/05/21 Range/Units 06:33 Sodium 134 L (135-145) mmol/L Potassium 4.5 (3.5-5.5) mmol/L Chloride 102 (96-109) mmol/L Carbon Dioxide 19.8 L (20.0-27.5) mmol/L BUN 9.9 (9.0-27.0) mg/dL Creatinine 0.6 (0.6-1.5) mg/dL Glucose 79 (70-110) mg/dL Calcium 8.5 L (8.7-10.3) mg/dL Calcium panel 08/05/21 Range/Units 06:33 Calcium 8.5 L (8.7-10.3) mg/dL Pituitary panel 08/05/21 Range/Units 06:33 Sodium 134 L (135-145) mmol/L Potassium 4.5 (3.5-5.5) mmol/L Chloride 102 (96-109) mmol/L Carbon Dioxide 19.8 L (20.0-27.5) mmol/L BUN 9.9 (9.0-27.0) mg/dL Creatinine 0.6 (0.6-1.5) mg/dL Glucose 79 (70-110) mg/dL Calcium 8.5 L (8.7-10.3) mg/dL Adrenal panel 08/05/21 Range/Units 06:33 Sodium 134 L (135-145) mmol/L Potassium 4.5 (3.5-5.5) mmol/L Chloride 102 (96-109) mmol/L Carbon Dioxide 19.8 L (20.0-27.5) mmol/L BUN 9.9 (9.0-27.0) mg/dL Creatinine 0.6 (0.6-1.5) mg/dL Glucose 79 (70-110) mg/dL Calcium 8.5 L (8.7-10.3) mg/dL
[2021-08-05] MEDS: ATORVASTATIN 40 MG TAB PO SCH (20:16)
[2021-08-06] MEDS: IPRATROPIUM-ALBUTEROL 3 ML NEB INHALATION SCH ×4 (07:18→19:43)
[2021-08-06] MEDS: THIAMINE 100 MG TAB PO SCH ×2 (09:16→17:33)
[2021-08-06] MEDS: TAMSULOSIN 0.4 MG CAP.ER.24H PO SCH (09:16)
[2021-08-06] MEDS: ASPIRIN 325 MG TAB PO SCH (09:16)
[2021-08-06] MEDS: HEPARIN SODIUM,PORCINE/PF 5,000 UNIT/0.5 ML SYRINGE SQ SCH ×2 (09:19→20:31)
[2021-08-06] MEDS: NICOTINE 14MG/24HR PATCH TRANSDERM SCH (09:19)
[2021-08-06] MEDS: FAMOTIDINE 20 MG/2 ML VIAL IV SCH ×2 (09:19→20:31)
[2021-08-06] MEDS: levETIRAcetam IV 1,000 MG in SALINE 1 100ML.BAG IVPB SCH ×2 (09:20→20:31)
[2021-08-06] MEDS: PETROLAT,WHITE/LAN/8-HYDROXYQU 227 GM OINT TOPICAL SCH (09:21)
[2021-08-06] MEDS: TRIAMCINOLONE 0.1% CREAM 80 GM TUBE TOPICAL SCH ×2 (09:21→20:32)
--- NOTE | 2021-08-06 14:01 | P.CN ---
Psychiatric Consult - . Consult date: 08/06/21 Consult:: 08/06/21 13:34 IDENTIFYING DATA: This patient is a 66-year-old male who currently lives with his daughter in house is unemployed. He has 3 kids. REASON FOR REFERRAL: Psychiatry was consulted for altered mental status and to rule out possible NMS. HISTORY OF PRESENT ILLNESS: The patient presented to the hospital on 07/17 with altered mental status, was unresponsive in his truck and found by family and was noted to have frostbite and injuries related to a cold. Patient has apparent history of alcohol use. He was in the ICU for a period of time and then transferred to the medical floors. Patient is being treated for encephalopathy related to hypoxia. Neurology has been following along. Patient apparently had an EEG which showed severe encephalopathy. Patient was seen today after speaking with nursing claims that patient has had poor responsiveness. Patient's daughter was at the bedside and claims that patient has not been doing well overall and has not been very responsive today. She names that he does open his eyes sometimes however has not been speaking. She states that he was improving while in the ICU and eating him for himself and decompensated when he was transferred. He apparently has not been speaking much to the daughter. Police Clerk attempted to speak with patient however he was not responsive and was in a decorticated position with his arms flexed and was not coping any commands. He was nonverbal. Daughter claims that patient does not use any drugs excelled for drinking alcohol approximately 3 cans a day. All of the history was provided by the daughter and the EMR. Police Clerk spoke with neurology over the phone for further information about the case. PAST PSYCHIATRIC HISTORY: Patient has a a history of alcohol use. denies being on any psychiatric medications however since hospitalization patient has been on Seroquel and given a dose of Haldol but has now been discontinued. Patient denies any previous psychiatric hospitalizations. Patient denies any psychiatric outpatient follow-up. Patient denies any history of suicide attempts in the past. PAST MEDICAL HISTORY: As per medicine H&P ALLERGIES: as per EMR. CHEMICAL DEPENDENCY HISTORY: as per HPI. FAMILY PSYCHIATRIC/SUBSTANCE USE HISTORY: denies SOCIAL HISTORY: Patient was born and raised in [place], [place]. He completed high school. He apparently has never had any legal problems. He has 3 kids. He is unemployed and currently lives with his daughter in house. MENTAL STATUS EXAM: General Appearance: Patient appears to be elderly, has a woodward, unkempt appearance, stated age is somnolent and unresponsive. Patient appears to have poor hygiene and grooming wearing hospital gown Behavior: Somnolent, unresponsive. Living in a decorticate position on the bed. Speech: Unable to assess Mood/Affect: Unable to assess Suicidality/Homicidality: Unable to assess Perceptions: Unable to assess Though content/process: Unable to assess Memory and concentration: Unable to assess. Not following any commands. Judgment and insight: Unable to assess IMPRESSIONS: Delirium likely secondary to hypoxic brain injury vs cerebral edema?? r/o Neuroleptic malignant syndrome PLAN: -At this time patient DOES NOT meet criteria for inpatient psychiatric admission. -Delirium precautions recommended with patient including - avoiding use of narcotics and HOTSHOT SUPERINTENDENT sedatives, limit anticholinergic medications when possible, frequent re-orientation, minimize use of restraints, open window shades during the day and close them at night -Would recommend the following medication changes/additions: Please avoid any benzodiazepines or any sedatives at this time as this may further increase patient's delirium. No role for antipsychotics at this time. -Ruling out neuroleptic malignant syndrome, currently awaiting CPK level. CPK level is likely to be elevated given patient's current medical condition however if CPK level is greater than 10,000 then more likely to be NMS -Communicated plan to patient's nurse -continue with treatment of underlying medical condition. Appreciate neurology recommendations and help. Discussed with Neurology the fact that a repeat MRI may be beneficial to see any changes such as swelling or stroke that may have occured recently given patients recent decline. -Will sign off at this time unless requested to re-evaluate patient or if theres any further help that we can provide. -Please contact with any questions.
--- NOTE | 2021-08-06 14:31 | P.PN ---
Subjective Progress Note Date: 08/06/21 The patient is seen at bedside and per nurse his condition has not improved and continues to be same. He continues to have flexor posturing. Objective - Vital Signs Vital signs: Vital Signs Temp 99.6 F 08/06/21 12:12 Pulse 60 08/06/21 12:12 Resp 20 08/06/21 12:12 BP 148/91 08/06/21 12:12 Pulse Ox 90 L 08/06/21 12:12 Intake & Output 08/05/21 08/06/21 08/06/21 18:59 06:59 18:59 Output Total 1000 500 Balance -1000 -500 Weight 71.4 kg 71.4 kg Output: Urine 1000 500 Other: Voiding Method Indwelling Catheter Indwelling Catheter - Exam Neurological: Limited because of his condition. Patient: Patient is comatose GCS 5 (E1, V1, M3). Not a awake and would not respond to voice or verbalized or follow commands. Pupils I had to manually open his eyes and are at midline. Pupils are round, equal. No facial weakness. Otherwise rest of cranial nerves is limited. Motor: Strength is limited in assessing. He has increase tone of all four extremities and has decorticate posturing. WORK-UP: Coronavirus PCR is not detected. Hemoglobin A1c 5.7. TSH: 2.24 Lipid panel was checked, in which cholesterol is 211, LDL 149, HDL 39 and triglycerides 107 Ammonia <9 Vitamin B12: 887 serum folate: >20 MMA 0.15 (normal) Urine drug screen is not detected. Serum Alcohol is <10. Computed tomography scan of the head 07/17/21 showed no acute process. CT of the cervical spine showed no acute fracture, dislocation in the cervical spine. Repeat CT of the head on 07/23/2021 is reported as age-related atrophic and chronic small vessel ischemic changes without acute intracranial process seen at this time. MRI of the brain with and without contrast, revealed multiple subcentimeter foci involving the parietal lobes bilaterally suspicious for tiny areas of acute to subacute ischemia. Degenerative and nonspecific white matter changes most typical remote ischemia. Findings most typical remote infarct. Chronic sinusitis. Per Dr. Waller, "these appear either subacute small areas of ischemia, perhaps more than several days old, or perhaps could be T2 shine through, as the corresponding ADC map was negative for abnormal signals. There is significant white matter ischemic disease also noted on the T2 Flair". EEG was reported as was mildly abnormal because of background slowing. This is suggestive of generalized cerebral dysfunction as can be seen with encephalopathy of metabolic, vascular or degenerative etiology. Rare left temporal sharply contoured waves were seen. Prolonged EEG for 2.5 hours was reported as abnormal EEG due to frequent frontally predominant delta range slowing was seen with intermixed triphasic waves. Diffuse 3-6 more frontally predominant slow waves activity was seen. Overall it is an abnormal EEG. The triphasic waves mentioned above are not epileptiform in nature. Triphasic waves can be seen in the setting of metabolic encephalopathy. The frontally predominant delta range slowing as well as the d iffuse theta delta range slowing mentioned above is not epileptiform in nature. In combination, these findings indicate moderate diffuse cerebral dysfunction as may be seen with toxic metabolic encephalopathy. Dr. Waller reviewed EEG, and appears there is some rhythmic delta particularly in the left temporal region, which may suggest convulsive tendency. Carotid Doppler revealed mild calcified plaque in the carotid bifurcations bilaterally but no significant stenosis. Antegrade flow in both vertebral arteries. He had a Lumbar puncture on 08/04/2021 and no sign of infection. CSF: clear, colorless, 1 nucleated cells, o rbc, glucose is 46 and protein is 94. His protein is elevated. - Labs CBC & Chem 7: 08/05/21 06:33 08/05/21 06:33 Labs: Microbiology - Last 24 Hours (Table) 08/04/21 13:45 CSF Gram Stain - Preliminary Cerebral Spinal Fluid CSF Culture - Preliminary Assessment and Plan Assessment: * 66-year-old male found unresponsive inside his truck, which was parked in his driveway, in cold weather, ran out of gas for uncertain period of time. Last known well was 2 days prior. Although his core body temperature was slightly up 99.6 axillary, but he has suffered from armenta bite to his feet, right worse than left. Patient most likely suffered from hypoxic encephalopathy, as his oxygen saturation at the scene was 54% on room air. It then improved to 83% and then 98% subsequently with oxygen > 3 L per nasal cannula. It is uncertain for how long he was hypoxic with oxygen saturation of 54% on room air. Patient was doing better for some time while in the ICU, but according to the nursing report and patient's family, he has been getting worse for last few days * Severe Encephalopathy with increased tone throughout. of unknown etiology. Rule out neuroleptic malignant syndrome vs catatonia especially since on antipsychotic during this admission. CSF (08/04/2021) is negative for infection. * Abnormal brain MRI, which revealed multiple subcentimeter foci involving the parietal lobes bilaterally suspicious for tiny areas of acute to subacute ischemia. I suspect these could be resulting from hypoxic encephalopathy from the reasons mentioned above. This is also based upon the fact that these ab normal signal on the diffusion-weighted sequences in the brain, though small, are somewhat bilaterally symmetric, suggestive of diffuse processes affecting the brain. * Dysphagia due to his severe encephalopathy. * Abnormal EEG, with evidence of severe encephalopathy. * Cold injury/armenta bite to bilateral feet, right worse than left. Gangrene in the toes of the right foot. * Rhabdomyolysis, improving, with CPK 435 (from initial 5921) * Hyperlipidemia * Moderate Alcoholism, although patient's daughter denies continuous, chronic alcoholism. * Tobacco use Plan: * I ordered CK level STAT on 08/05and is still pending. Seroquel was discontinued (was started by primary team). Rule out NMS vs catatonia. Cannot rule out purely neurological process. * Recommend psychiatry consultation. * CSF: clear, colorless, 1 nucleated cells, o rbc, glucose is 46 and protein is 94. His protein is elevated. Unsure cause of elevated protein. * I spoke with the patient's daughter about his work-up and she stated she does not want a repeat MRI Brain, CT head or EEG. * Prolonged EEG for 2.5 hours on 08/02/21 was reported as abnormal EEG due to frequent frontally predominant delta range slowing was seen with intermixed triphasic waves. Diffuse 3-6 more frontally predominant slow waves activity was seen. Overall it is an abnormal EEG. The triphasic waves mentioned above are not epileptiform in nature. Triphasic waves can be seen in the setting of metabolic encephalopathy. The frontally predominant delta range slowing as well as the diffuse theta delta range slowing mentioned above is not epileptiform in nature. In combination, these findings indicate moderate diffuse cerebral dysfunction as may be seen with toxic metabolic encephalopathy. Dr. Waller reviewed EEG, and appears there is some rhythmic delta particularly in the left temporal region, which may suggest convulsive tendency. Continue IV Keppra 1000mg 1 tab twice a day as prophylaxis. (was started during this admission by Dr. Waller). * Patient on aspirin 325 mg daily and Lipitor 40 mg daily (started during this admission). * Is on thiamine 100mg bid. * Will defer the rest of medical management to the primary team. * Condition is very guarded. The plan is discussed with the patient's daughter (in person), primary attending, his nurse and psychiatry team. Jose G Zamora M.D. Neuro-Hospitalist Time with Patient: Less than 30
--- NOTE | 2021-08-06 16:13 | P.PN ---
Subjective Progress Note Date: 08/06/21 CHIEF COMPLAINT: Poor oral intake HISTORY OF PRESENT ILLNESS: Patient seen and examined with Dr. francis. Patient is not alert enough for able to follow commands to have Dobbhoff tube placed. Patient's trays sitting at bedside it appears that he ate a few bites of his food PHYSICAL EXAM: VITAL SIGNS: Reviewed. ABDOMEN: Soft. Nondistended. Nontender. NEUROLOGIC: Lethargic ASSESSMENT: 1. Severe encephalopathy possibly hypoxic 2. Moderate protein calorie malnutrition 3. Unresponsive 4. Alcohol abuse PLAN: -Patient is not a candidate for Dobbhoff placement. He is lethargic and unable to follow commands -Patient may benefit from PEG tube placement Physician [employer] note has been reviewed by physician. Signing provider agrees with the documented findings, assessment, and plan of care. Objective - Vital Signs Vital signs: Vital Signs Temp 99.6 F 08/06/21 12:12 Pulse 80 08/06/21 15:42 Resp 20 08/06/21 12:12 BP 148/91 08/06/21 12:12 Pulse Ox 90 L 08/06/21 12:12 Intake & Output 08/05/21 08/06/21 08/06/21 18:59 06:59 18:59 Output Total 1000 500 Balance -1000 -500 Weight 71.4 kg 71.4 kg Output: Urine 1000 500 Other: Voiding Method Indwelling Catheter Indwelling Catheter - Labs CBC & Chem 7: 08/05/21 06:33 08/05/21 06:33 Labs: Microbiology - Last 24 Hours (Table) 08/04/21 13:45 CSF Gram Stain - Preliminary Cerebral Spinal Fluid CSF Culture - Preliminary
--- NOTE | 2021-08-06 16:25 | P.PN ---
Subjective This is a pleasant 66 years old male with unknown past medical history presents because of altered mental status where he was found unresponsive in his truck by a family member. As per report. He was seen doing well about 2 days ago. Patient was found with no evidence of trauma, incontinence of urine and stool. And he was hypothermic on admission with a rectal temperature of 99F. He was warmed using of the fluids. Patient has altered mental status thought that this is multifactorial related to his hypothermic injury, gangrene of his right toes and alcohol withdrawal and pneumonia. Neurologist was on the case, at that time CT of the brain was negative as well as EEG and a neurologist was on the case the patient shows some partial improvement, MRI of the brain could not be done while in the ICU and agitated, and then he became less responsive one more time before neurologist recommended MRI of the brain which showed bilateral parietal lobe subcentimeter foci suspicious for acute versus subacute ischemia and remote pontine infarct also since admission he had frostbite of his 3 toes starting from the large big toe with gangrenous damage, vascular surgery follow the patient and recommended outpatient follow-up. Also patient was on the clindamycin for his right pneumonia. She is improved now. This morning patient was staring in space, could not follow commands although he was awake and alert. He denies any specific complaints. He is breathing quietly and abdomen soft. His right toes are still black with line of pancho rcation become more clear. carotid duplex done on 07/19 showing no significant stenosis. Labs showing mild hyperkalemia at 5.3, CBC is unremarkable. Medications reviewed with the patient is not on SHAILA inhibitor 08/02/2021 Patient most likely confused, could be part of his metabolic encephalopathy and suture ALSO could be related to his aphasia as he has multiple bilateral stroke definitely affecting one of them is the dominant lobe. Patient also does not follow commands although he is awakened, and he keeps tearing. It does not look in distress. Vitals and labs are stable. Yesterday he was started on aspirin 325 mg and Lipitor 40 mg. Video EEG and echocardiogram are pending. Still has Franklin catheter with no evidence of UTI. Carotid Dopplers done on 07/19 showing no significant stenosis His pneumonia has resolved and currently he is off antibiotics He is tolerating diet 25-100% of his food today 08/03/2011 Patient remains significantly confused, does not follow commands or answering questions. Most likely related to his bilateral parietal infarct, aphasia is suspected which could be combined receptive and expressive aphasia. Sensation was also suspected and he was started on Keppra however no significant improvement. EEG showing no epileptiform discharge. Triphasic wave can be seen in the setting of metabolic encephalopathy. Findings suggestive of moderate diffuse cerebral dysfunction as may be seen in toxic metabolic encephalopathy Echocardiogram is pending Also patient eating about 25% of his medial 100% of his snacks, and supplements. Therefore consult dietitian was placed. Patient remains on aspirin 325 mg, Lipitor, Flomax. Speech team already evaluated the patient but patient was brought cooperative. Subjective: Resume the care of the patient again on 08/06/2021 Patient remains in room 516, he still unresponsive and does not follow commands however clinically looks worse than 2-3 days ago, he currently does not open eyes spontaneously and he looks more spastic in both upper and lower extremity with increased muscle tone, no shakiness or seizure-like clonic tonic contraction, patient still does not follow command. No fever. Rest of vitals are stable. Labs reviewed. Creatinine kinase 51 which makes neuro neuroleptic ligament syndrome less likely. Patient remains on aspirin, Seroquel was discontinued, her metastases are Flomax, Lipitor aspirin 325 mg and Keppra increased by neurologist 502 1000. EEG showing triphasic waves and abnormal regions suspicious for metabolic encephalopathy but no obvious epileptiform discharge, please refer to the neurologist note and EED report for more details. Today I discussed with his daughter Miss Puga at bedside and updated her about the patient condition and discussed the plan of care with her, she told me she does not want PEG tube for now but may consider NG tube. And this information related to the bedside nurse as well. Also she want him to be full code for now after explaining his prognosis tumor. All her questions were answered to her satisfaction. Objective - Vital Signs Vital signs: Vital Signs Temp 97.9 F 08/06/21 04:24 Pulse 85 08/06/21 10:53 Resp 16 08/06/21 04:24 BP 159/84 08/06/21 04:24 Pulse Ox 93 L 08/06/21 04:24 Intake & Output 08/05/21 08/06/21 08/06/21 18:59 06:59 18:59 Output Total 1000 500 Balance -1000 -500 Weight 71.4 kg Output: Urine 1000 500 Other: Voiding Method Indwelling Catheter - Exam -GENERAL: The patient open eyes spontaneously, does not follow commands, does not talk. ( last time I saw him,he was more awake HEENT: Pupils are round and equally reacting to light. EOMI. No scleral icterus. No conjunctival pallor. Normocephalic, atraumatic. No pharyngeal erythema. No thyromegaly. CARDIOVASCULAR: S1 and S2 present. No murmurs, rubs, or gallops. -PULMONARY: Chest is clear to auscultation, no wheezing or crackles. Marked crepitation on the right side ABDOMEN: Soft, nontender, nondistended, normoactive bowel sounds. No palpable organomegaly. MUSCULOSKELETAL: No joint swelling or deformity. -XTREMITIES: No cyanosis, clubbing, or pedal edema. Right big toe is black, As well to a lesser extent this right second and third toes -NEUROLOGICAL: Patient remains confused, does not follow commands, does not open eyes spontaneously, spasticity of both upper and lower extremity. No seizure- like activity, meningeal signs are absent SKIN: No rashes. No petechiae - Labs CBC & Chem 7: 08/05/21 06:33 08/05/21 06:33 Labs: Abnormal Lab Results - Last 24 Hours (Table) 08/05/21 Range/Units 06:33 Sodium 134 L (135-145) mmol/L Carbon Dioxide 19.8 L (20.0-27.5) mmol/L Calcium 8.5 L (8.7-10.3) mg/dL Microbiology - Last 24 Hours (Table) 08/04/21 13:45 CSF Gram Stain - Preliminary Cerebral Spinal Fluid CSF Culture - Preliminary Assessment and Plan Assessment: Altered mental status, present since admission suspected secondary to metabolic/toxic encephalopathy. multiple subcentimeter foci involving the pa rietal lobes bilaterally suspicious for tiny areas of acute to subacute ischemia. per Neurologist, hypoxic encephalopathy is suspected. On the top of alcohol disease poor Oral intake aspiration pneumonia, resolved armenta bite with hypothermic feet injury of the right 3 toes Rhabdomyolysis, Improving significantly Lactic acidosis, resolved Dehydration, resolved Mildly elevated liver enzymes Suspected history of alcohol abuse Plan: This is a pleasant 66 years old male who presents with AMS, hyperthermia and possible frostbite of the feet and up to my lysis. Continue with aspirin, Lipitor. Discontinue Seroquel. Continue with Keppra per neurologist Neurology consult on the case we will follow their further recommendation Psychiatrist evaluated the patient today. Vascular surgery and pulmonary/critical care team consult recommend outpatient follow-up for his right toes Labs and medication were reviewed.. Continue same treatment. Continue with symptomatic treatment. Resume home medication. Monitor lytes and vitals. DVT and GI prophylaxis. Further recommendations depends on the clinical course of the patient DVT prophylaxis: heparin GI Prophylaxis: Pepcid remains full code per daughter Discussed the case with the daughter Vivien and details Prognosis is extremely guarded
[2021-08-06] MEDS: ATORVASTATIN 40 MG TAB PO SCH (20:32)
[2021-08-06] MEDS: SODIUM CHLORIDE 0.9% 1,000 ML IV SCH ×2 (20:32→23:22)
--- NOTE | 2021-08-06 22:23 | P.PN ---
Subjective Progress Note Date: 08/05/21 Principal diagnosis: Pneumonia Patient is a 66 year male who was brought into the hospital after the patient was found to be unresponsive in his truck this patient did have evidence of right foot frostbite with gangrenous toe patient also have worsening of his respiratory status requiring admission to the ICU and required BiPAP. On today's evaluation that is 08/05/2021, the patient is afebrile, the patient is breathing comfortably on room air, the patient is lethargic and unable provide any history no vomiting or diarrhea has been reported by the nursing staff Objective - Vital Signs Vital signs: Vital Signs Temp 98.7 F 08/05/21 11:21 Pulse 80 08/05/21 11:26 Resp 18 08/05/21 11:21 BP 158/82 08/05/21 11:21 Pulse Ox 97 08/05/21 11:21 Intake & Output 08/04/21 08/05/21 08/05/21 18:59 06:59 18:59 Intake Total 100 0 Output Total 1 1100 Balance 99 -1100 Weight 71.4 kg Intake: IV 100 Oral 0 Output: Urine 1100 Stool 1 Other: Voiding Method Indwelling Catheter Indwelling Catheter Indwelling Catheter # Bowel Movements 1 - Exam GENERAL DESCRIPTION:[ Patient is lethargic in no distress] HEENT: [Oral mucosa is dry and no pharyngeal erythema] RESPIRATORY SYSTEM: [Unlabored breathing decreased breath sounds at the base] CARDIA VASCULAR SYSTEM: [S1-S2 regular rate and rhythm no murmur] GI: [Abdominal soft there's no tenderness no organomegaly] EXTREMITIES: [No edema feet - Labs CBC & Chem 7: 08/05/21 06:33 08/05/21 06:33 Labs: Abnormal Lab Results - Last 24 Hours (Table) 08/04/21 08/05/21 08/05/21 Range/Units 13:45 06:33 06:33 MCH 32.8 H (27.0-32.0) pg RDW 11.4 L (11.5-14.5) % Immature Gran # 0.06 H (0.00-0.04) X 10*3/uL Sodium 134 L (135-145) mmol/L Carbon Dioxide 19.8 L (20.0-27.5) mmol/L Calcium 8.5 L (8.7-10.3) mg/dL CSF Total Protein 94 H (12-60) mg/dL Microbiology - Last 24 Hours (Table) 08/04/21 13:45 CSF Gram Stain - Preliminary Cerebral Spinal Fluid CSF Culture - Preliminary Assessment and Plan (1) Pneumonia Current Visit: Yes Status: Acute Code(s): J18.9 - PNEUMONIA, UNSPECIFIED ORGANISM SNOMED Code(s): 516624132 Plan: 1-Patient with acute respiratory failure is multifactorial concerning for a component of pneumonia question of aspiration etiology patient to have penicillin ALLERGY, patient did developed a rash more likely related to cefepime which has been discontinued, patient underlying pneumonia has been adequately treated, patient chest x-ray repeat did not show any acute abnormality patient is currently being monitored closely off antibiotic therapy Time with Patient: Less than 30
--- NOTE | 2021-08-06 22:25 | P.PN ---
Subjective Progress Note Date: 08/06/21 Principal diagnosis: Pneumonia Patient is a 66 year male who was brought into the hospital after the patient was found to be unresponsive in his truck this patient did have evidence of right foot frostbite with gangrenous toe patient also have worsening of his respiratory status requiring admission to the ICU and required BiPAP. On today's evaluation that is 08/06/2021, the patient continues to be afebrile, the patient is breathing comfortably on room air, the patient is lethargic and unable to provide any history no vomiting or diarrhea or any other changes has b een reported by the nursing staff Objective - Vital Signs Vital signs: Vital Signs Temp 99.6 F 08/06/21 12:12 Pulse 80 08/06/21 15:42 Resp 20 08/06/21 12:12 BP 148/91 08/06/21 12:12 Pulse Ox 90 L 08/06/21 12:12 Intake & Output 08/05/21 08/06/21 08/06/21 18:59 06:59 18:59 Output Total 1000 500 Balance -1000 -500 Weight 71.4 kg 71.4 kg Output: Urine 1000 500 Other: Voiding Method Indwelling Catheter Indwelling Catheter - Exam GENERAL DESCRIPTION:[ Patient is lethargic in no distress] HEENT: [Oral mucosa is dry and no pharyngeal erythema] RESPIRATORY SYSTEM: [Unlabored breathing decreased breath sounds at the base] CARDIA VASCULAR SYSTEM: [S1-S2 regular rate and rhythm no murmur] GI: [Abdominal soft there's no tenderness no organomegaly] EXTREMITIES: [No edema feet - Labs CBC & Chem 7: 08/05/21 06:33 08/05/21 06:33 Labs: Microbiology - Last 24 Hours (Table) 08/04/21 13:45 CSF Gram Stain - Preliminary Cerebral Spinal Fluid CSF Culture - Preliminary Assessment and Plan (1) Pneumonia Current Visit: Yes Status: Acute Code(s): J18.9 - PNEUMONIA, UNSPECIFIED ORGANISM SNOMED Code(s): 825134208 Plan: 1-Patient with acute respiratory failure is multifactorial concerning for a component of pneumonia question of aspiration etiology patient to have penicillin ALLERGY, patient did developed a rash more likely related to cefepime which has been discontinued, patient underlying pneumonia has been adequately treated, patient repeat chest x-ray did not show any acute abnormality patient is currently doing well off antibiotic therapy and will be monitored closely Time with Patient: Less than 30
[2021-08-07] MEDS: IPRATROPIUM-ALBUTEROL 3 ML NEB INHALATION SCH ×4 (08:26→19:39)
--- NOTE | 2021-08-07 09:01 | XR ---
EXAMINATION TYPE: XR chest 1V portable DATE OF EXAM: 08/07/2021 COMPARISON: 08/03/2021 HISTORY: Shortness of breath TECHNIQUE: Single frontal view of the chest is obtained. FINDINGS: Heart size normal. No overt failure or pleural effusion. Arthropathy of the shoulders. No pneumothorax. Hyperinflation suggests COPD. IMPRESSION: COPD.
[2021-08-07] MEDS: levETIRAcetam IV 1,000 MG in SALINE 1 100ML.BAG IVPB SCH ×2 (09:10→20:34)
[2021-08-07] MEDS: FAMOTIDINE 20 MG/2 ML VIAL IV SCH ×2 (09:11→20:34)
[2021-08-07] MEDS: ASPIRIN 325 MG TAB PO SCH (09:11)
[2021-08-07] MEDS: THIAMINE 100 MG TAB PO SCH ×2 (09:11→18:19)
[2021-08-07] MEDS: HEPARIN SODIUM,PORCINE/PF 5,000 UNIT/0.5 ML SYRINGE SQ SCH ×2 (09:11→20:35)
[2021-08-07] MEDS: TAMSULOSIN 0.4 MG CAP.ER.24H PO SCH (09:11)
[2021-08-07] MEDS: TRIAMCINOLONE 0.1% CREAM 80 GM TUBE TOPICAL SCH ×2 (09:12→20:35)
[2021-08-07] MEDS: PETROLAT,WHITE/LAN/8-HYDROXYQU 227 GM OINT TOPICAL SCH (09:12)
[2021-08-07] MEDS ORDERED: LORazepam 2 MG/ML INJ IV STA (10:13)
--- NOTE | 2021-08-07 11:16 | P.PN ---
Subjective This is a pleasant 66 years old male with unknown past medical history presents because of altered mental status where he was found unresponsive in his truck by a family member. As per report. He was seen doing well about 2 days ago. Patient was found with no evidence of trauma, incontinence of urine and stool. And he was hypothermic on admission with a rectal temperature of 99F. He was warmed using of the fluids. Patient has altered mental status thought that this is multifactorial related to his hypothermic injury, gangrene of his right toes and alcohol withdrawal and pneumonia. Neurologist was on the case, at that time CT of the brain was negative as well as EEG and a neurologist was on the case the patient shows some partial improvement, MRI of the brain could not be done while in the ICU and agitated, and then he became less responsive one more time before neurologist recommended MRI of the brain which showed bilateral parietal lobe subcentimeter foci suspicious for acute versus subacute ischemia and remote pontine infarct also since admission he had frostbite of his 3 toes starting from the large big toe with gangrenous damage, vascular surgery follow the patient and recommended outpatient follow-up. Also patient was on the clindamycin for his right pneumonia. She is improved now. This morning patient was staring in space, could not follow commands although he was awake and alert. He denies any specific complaints. He is breathing quietly and abdomen soft. His right toes are still black with line of pancho rcation become more clear. carotid duplex done on 07/19 showing no significant stenosis. Labs showing mild hyperkalemia at 5.3, CBC is unremarkable. Medications reviewed with the patient is not on SHAILA inhibitor 08/02/2021 Patient most likely confused, could be part of his metabolic encephalopathy and suture ALSO could be related to his aphasia as he has multiple bilateral stroke definitely affecting one of them is the dominant lobe. Patient also does not follow commands although he is awakened, and he keeps tearing. It does not look in distress. Vitals and labs are stable. Yesterday he was started on aspirin 325 mg and Lipitor 40 mg. Video EEG and echocardiogram are pending. Still has Franklin catheter with no evidence of UTI. Carotid Dopplers done on 07/19 showing no significant stenosis His pneumonia has resolved and currently he is off antibiotics He is tolerating diet 25-100% of his food today 08/03/2011 Patient remains significantly confused, does not follow commands or answering questions. Most likely related to his bilateral parietal infarct, aphasia is suspected which could be combined receptive and expressive aphasia. Sensation was also suspected and he was started on Keppra however no significant improvement. EEG showing no epileptiform discharge. Triphasic wave can be seen in the setting of metabolic encephalopathy. Findings suggestive of moderate diffuse cerebral dysfunction as may be seen in toxic metabolic encephalopathy Echocardiogram is pending Also patient eating about 25% of his medial 100% of his snacks, and supplements. Therefore consult dietitian was placed. Patient remains on aspirin 325 mg, Lipitor, Flomax. Speech team already evaluated the patient but patient was brought cooperative. Subjective: Resume the care of the patient again on 08/06/2021 Patient remains in room 516, he still unresponsive and does not follow commands however clinically looks worse than 2-3 days ago, he currently does not open eyes spontaneously and he looks more spastic in both upper and lower extremity with increased muscle tone, no shakiness or seizure-like clonic tonic contraction, patient still does not follow command. No fever. Rest of vitals are stable. Labs reviewed. Creatinine kinase 51 which makes neuro neuroleptic ligament syndrome less likely. Patient remains on aspirin, Seroquel was discontinued, her metastases are Flomax, Lipitor aspirin 325 mg and Keppra increased by neurologist 502 1000. EEG showing triphasic waves and abnormal regions suspicious for metabolic encephalopathy but no obvious epileptiform discharge, please refer to the neurologist note and EED report for more details. Today I discussed with his daughter Miss Puga at bedside and updated her about the patient condition and discussed the plan of care with her, she told me she does not want PEG tube for now but may consider NG tube. And this information related to the bedside nurse as well. Also she want him to be full code for now after explaining his prognosis tumor. All her questions were answered to her satisfaction. 08/07/2021 Patient still with no improvement in his mentation despite several treatment and investigations, most likely patient suffered from anoxic brain injury secondary to hypoxia upon admission complicated by his history of alcohol abuse. Patient does not follow commands, and he is not eating. Because of this feeding tube is recommended by surgery tearing for PEG tube, Dobbhoff would not be an option as patient cannot cooperate I discussed this recommendation with the daughter Vivien at bedside she verbalized understanding and however she did not want to decide while I'm in the room, I discussed all the findings again with the patient and daughter. Repeat chest x-ray this morning showed COPD, he had low-grade temperature of 99.7 After rounds it looks like the daughter decided to pursue with hospice care as she informed staff. Hospice consult was placed upon the daughter request. Objective - Vital Signs Vital signs: Vital Signs Temp 98.2 F 08/07/21 04:39 Pulse 85 08/07/21 08:41 Resp 18 08/07/21 04:39 BP 164/80 08/07/21 04:39 Pulse Ox 94 L 08/07/21 04:39 Intake & Output 08/06/21 08/07/21 08/07/21 18:59 06:59 18:59 Output Total 500 300 Balance -500 -300 Weight 71.4 kg Output: Urine 500 300 Other: Voiding Method Indwelling Catheter Indwelling Catheter - Exam -GENERAL: The patient open eyes spontaneously, does not follow commands, does not talk. ( last time I saw him,he was more awake HEENT: Pupils are round and equally reacting to light. EOMI. No scleral icterus. No conjunctival pallor. Normocephalic, atraumatic. No pharyngeal erythema. No thyromegaly. CARDIOVASCULAR: S1 and S2 present. No murmurs, rubs, or gallops. -PULMONARY: Chest is clear to auscultation, no wheezing or crackles. Marked crepitation on the right side ABDOMEN: Soft, nontender, nondistended, normoactive bowel sounds. No palpable organomegaly. MUSCULOSKELETAL: No joint swelling or deformity. -XTREMITIES: No cyanosis, clubbing, or pedal edema. Right big toe is black, As well to a lesser extent this right second and third toes -NEUROLOGICAL: Patient remains confused, does not follow commands, does not open eyes spontaneously, spasticity of both upper and lower extremity. No seizure- like activity, meningeal signs are absent SKIN: No rashes. No petechiae - Labs CBC & Chem 7: 08/05/21 06:33 08/05/21 06:33 Labs: Microbiology - Last 24 Hours (Table) 08/04/21 13:45 CSF Gram Stain - Preliminary Cerebral Spinal Fluid CSF Culture - Preliminary Assessment and Plan Assessment: Altered mental status, present since admission suspected secondary to metabolic/toxic encephalopathy. multiple subcentimeter foci involving the parietal lobes bilaterally suspicious for tiny areas of acute to subacute ischemia. per Neurologist, hypoxic encephalopathy is suspected. On the top of alcohol disease poor Oral intake aspiration pneumonia, resolved armenta bite with hypothermic feet injury of the right 3 toes Rhabdomyolysis, Improving significantly Lactic acidosis, resolved Dehydration, resolved Mildly elevated liver enzymes Suspected history of alcohol abuse Plan: This is a pleasant 66 years old male who presents with AMS, hyperthermia and possible frostbite of the feet and up to my lysis. Daughter requested hospice consult. Patient does not improve clinically and his mentation still confused and still does not follow commands. If this looks appropriate as his prognosis is very poor. Also discussed with other consultants including neurology service whom have the same impression. Several consultants were seen the patient including neurology, vascular surgery, pulmonary, infectious disease Vascular surgery and pulmonary/critical care team consult recommend outpatient follow-up for his right toes Labs and medication were reviewed.. Continue same treatment. Continue with symptomatic treatment. Resume home medication. Monitor lytes and vitals. DVT and GI prophylaxis. Further recommendations depends on the clinical course of the patient DVT prophylaxis: heparin GI Prophylaxis: Pepcid remains full code per daughter Discussed the case with the daughter Vivien and details Prognosis is extremely guarded and poor
--- NOTE | 2021-08-07 11:33 | P.PN ---
Subjective Progress Note Date: 08/07/21 The patient is seen at bedside and per the nurse he is about the same and no improvement. The patient daughter refuses PEG tube. Objective - Vital Signs Vital signs: Vital Signs Temp 98.2 F 08/07/21 04:39 Pulse 85 08/07/21 08:41 Resp 18 08/07/21 04:39 BP 164/80 08/07/21 04:39 Pulse Ox 94 L 08/07/21 04:39 Intake & Output 08/06/21 08/07/21 08/07/21 18:59 06:59 18:59 Output Total 500 300 Balance -500 -300 Weight 71.4 kg Output: Urine 500 300 Other: Voiding Method Indwelling Catheter Indwelling Catheter Indwelling Catheter - Exam Neurological: Limited because of his condition. Patient: Patient is comatose GCS 5 (E1, V1, M3). Not a awake and would not respond to voice or verbalized or follow commands. Pupils I had to manually open his eyes and are at midline. Pupils are round, equal. No facial weakness. Otherwise rest of cranial nerves is limited. Motor: Strength is limited in assessing. He has increase tone of all four extr emities and has decorticate posturing. WORK-UP: CK level on 08/05/21: 51 Coronavirus PCR is not detected. Hemoglobin A1c 5.7. TSH: 2.24 Lipid panel was checked, in which cholesterol is 211, LDL 149, HDL 39 and triglycerides 107 Ammonia <9 Vitamin B12: 887 serum folate: >20 MMA 0.15 (normal) Urine drug screen is not detected. Serum Alcohol is <10. Computed tomography scan of the head 07/17/21 showed no acute process. CT of the cervical spine showed no acute fracture, dislocation in the cervical spine. Repeat CT of the head on 07/23/2021 is reported as age-related atrophic and chronic small vessel ischemic changes without acute intracranial process seen at this time. MRI of the brain with and without contrast, revealed multiple subcentimeter foci involving the parietal lobes bilaterally suspicious for tiny areas of acute to subacute ischemia. Degenerative and nonspecific white matter changes most typical remote ischemia. Findings most typical remote infarct. Chronic sinusitis. Per Dr. Waller, "these appear either subacute small areas of ischemia, perhaps more than several days old, or perhaps could be T2 shine through, as the corresponding ADC map was negative for abnormal signals. There is significant white matter ischemic disease also noted on the T2 Flair". EEG was reported as was mildly abnormal because of background slowing. This is suggestive of generalized cerebral dysfunction as can be seen with encephalopathy of metabolic, vascular or degenerative etiology. Rare left temporal sharply contoured waves were seen. Prolonged EEG for 2.5 hours was reported as abnormal EEG due to frequent frontally predominant delta range slowing was seen with intermixed triphasic waves. Diffuse 3-6 more frontally predominant slow waves activity was seen. Overall it is an abnormal EEG. The triphasic waves mentioned above are not epileptiform in nature. Triphasic waves can be seen in the setting of metabolic encephalopathy. The frontally predominant delta range slowing as well as the diffuse theta delta range slowing mentioned above is not epileptiform in nature. In combination, these findings indicate moderate diffuse cerebral dysfunction as may be seen with toxic metabolic encephalopathy. Dr. Waller reviewed EEG, and appears there is some rhythmic delta particularly in the left temporal region, which may suggest convulsive tendency. Carotid Doppler revealed mild calcified plaque in the carotid bifurcations bilaterally but no significant stenosis. Antegrade flow in both vertebral arteries. He had a Lumbar puncture on 08/04/2021 and no sign of infection. CSF: clear, colorless, 1 nucleated cells, o rbc, glucose is 46 and protein is 94. His protein is elevated. - Labs CBC & Chem 7: 08/05/21 06:33 08/05/21 06:33 Labs: Microbiology - Last 24 Hours (Table) 08/04/21 13:45 CSF Gram Stain - Preliminary Cerebral Spinal Fluid CSF Culture - Preliminary Assessment and Plan Assessment: * 66-year-old male found unresponsive inside his truck, which was parked in his driveway, in cold weather, ran out of gas for uncertain period of time. Last known well was 2 days prior. Although his core body temperature was slightly up 99.6 axillary, but he has suffered from armenta bite to his feet, right worse than left. Patient most likely suffered from hypoxic encephalopathy, as his oxygen saturation at the scene was 54% on room air. It then improved to 83% and then 98% subsequently with oxygen > 3 L per nasal cannula. It is uncertain for how long he was hypoxic with oxygen saturation of 54% on room air. Patient was doing better for some time while in the ICU, but according to the nursing report and patient's family, he has been getting worse for last few days * Severe Encephalopathy with increased tone throughout. of unknown etiology. Rule out catatonia vs central causes. CSF (08/04/2021) is negative for infection. * Abnormal brain MRI, which revealed multiple subcentimeter foci involving the parietal lobes bilaterally suspicious for tiny areas of acute to subacute ischemia. I suspect these could be resulting from hypoxic encephalopathy from the reasons mentioned above. This is also based upon the fact that these abnormal signal on the diffusion-weighted sequences in the brain, though small, are somewhat bilaterally symmetric, suggestive of diffuse processes affecting the brain. * Dysphagia due to his severe encephalopathy. * Abnormal EEG, with evidence of severe encephalopathy. * Cold injury/armenta bite to bilateral feet, right worse than left. Gangrene in the toes of the right foot. * Rhabdomyolysis, improving, with CPK 435 (from initial 5921) * Hyperlipidemia * Moderate Alcoholism, although patient's daughter denies continuous, chronic alcoholism. * Tobacco use Plan: * Seroquel was discontinued (was started by primary team). Rule out catatonia vs purely neurological process. I notified the nurse to give him a trial of Atian 0.5mg once and if no improvement give another 0.5mg within 2-3 hours. * Recommend psychiatry consultation. * CSF: clear, colorless, 1 nucleated cells, o rbc, glucose is 46 and protein is 94. His protein is elevated. Unsure cause of elevated protein. * I spoke with the patient's daughter about his work-up and she stated she does not want a repeat MRI Brain, CT head or EEG. * Prolonged EEG for 2.5 hours on 08/02/21 was reported as abnormal EEG due to frequent frontally predominant delta range slowing was seen with intermixed triphasic waves. Diffuse 3-6 more frontally predominant slow waves activity was seen. Overall it is an abnormal EEG. The triphasic waves mentioned above are not epileptiform in nature. Triphasic waves can be seen in the setting of metabolic encephalopathy. The frontally predominant delta range slowing as well as the diffuse theta delta range slowing mentioned above is not epileptiform in nature. In combination, these findings indicate moderate diffuse cerebral dysfunction as may be seen with toxic metabolic encephalopathy. Dr. Waller reviewed EEG, and appears there is some rhythmic delta particularly in the left temporal region, which may suggest convulsive tendency. Continue IV Keppra 1000mg 1 tab twice a day as prophylaxis. (was started during this admission by Dr. Waller). * Patient on aspirin 325 mg daily and Lipitor 40 mg daily (started during this admission). * Is on thiamine 100mg bid. * Will defer the rest of medical management to the primary team. * Condition is very guarded. The plan is discussed with the patient's daughter (in person), primary attending, his nurse. The daughter has decided to make the patient home hospice. Jose G Zamora M.D. Neuro-Hospitalist Time with Patient: Less than 30
--- NOTE | 2021-08-07 13:58 | P.PN ---
Subjective Progress Note Date: 08/07/21 CHIEF COMPLAINT: Poor oral intake HISTORY OF PRESENT ILLNESS: Patient patient is not a good candidate for Dobbhoff tube. Discussed PEG tube placement with patient's daughter. At this time she has declined PEG tube placement. Patient slightly more awake but and able to follow commands. He is able to eat a few bites of pured diet. Patient seen and examined with Dr. francis PHYSICAL EXAM: VITAL SIGNS: Reviewed. ABDOMEN: Soft. Nondistended. Nontender. NEUROLOGIC: Lethargic ASSESSMENT: 1. Severe encephalopathy possibly hypoxic 2. Moderate protein calorie malnutrition 3. Unresponsive 4. Alcohol abuse PLAN: -Patient is not a candidate for Dobbhoff placement. He is lethargic and unable to follow commands -Patient's daughter has declined PEG tube placement Physician Spool Maker note has been reviewed by physician. Signing provider agrees with the documented findings, assessment, and plan of care. Objective - Vital Signs Vital signs: Vital Signs Temp 99.4 F 08/07/21 12:24 Pulse 82 08/07/21 12:24 Resp 22 08/07/21 12:24 BP 154/79 08/07/21 12:24 Pulse Ox 94 L 08/07/21 12:24 Intake & Output 08/06/21 08/07/21 08/07/21 18:59 06:59 18:59 Output Total 500 300 Balance -500 -300 Weight 71.4 kg Output: Urine 500 300 Other: Voiding Method Indwelling Catheter Indwelling Catheter Indwelling Catheter - Labs CBC & Chem 7: 08/05/21 06:33 08/05/21 06:33 Labs: Microbiology - Last 24 Hours (Table) 08/04/21 13:45 CSF Gram Stain - Preliminary Cerebral Spinal Fluid CSF Culture - Preliminary
[2021-08-07] MEDS: SODIUM CHLORIDE 0.9% 1,000 ML IV SCH ×2 (16:40→20:34)
[2021-08-07 20:15] VITALS: RESP 18
[2021-08-07] MEDS: ATORVASTATIN 40 MG TAB PO SCH (20:34)
--- NOTE | 2021-08-07 21:47 | P.PN ---
Subjective Progress Note Date: 08/07/21 Principal diagnosis: Pneumonia Patient is a 66 year male who was brought into the hospital after the patient was found to be unresponsive in his truck this patient did have evidence of right foot frostbite with gangrenous toe patient also have worsening of his respiratory status requiring admission to the ICU and required BiPAP. On today's evaluation that is 08/07/2021, the patient remains to be afebrile, the patient is breathing comfortably on room air, the patient is lethargic and unable to provide any history no vomiting or diarrhea or any other changes has been reported by the nursing staff Objective - Vital Signs Vital signs: Vital Signs Temp 98.2 F 08/07/21 04:39 Pulse 85 08/07/21 08:41 Resp 18 08/07/21 04:39 BP 164/80 08/07/21 04:39 Pulse Ox 94 L 08/07/21 04:39 Intake & Output 08/06/21 08/07/21 08/07/21 18:59 06:59 18:59 Output Total 500 300 Balance -500 -300 Weight 71.4 kg Output: Urine 500 300 Other: Voiding Method Indwelling Catheter Indwelling Catheter Indwelling Catheter - Exam GENERAL DESCRIPTION:[ Patient is lethargic in no distress] HEENT: [Oral mucosa is dry and no pharyngeal erythema] RESPIRATORY SYSTEM: [Unlabored breathing decreased breath sounds at the base] CARDIA VASCULAR SYSTEM: [S1-S2 regular rate and rhythm no murmur] GI: [Abdominal soft there's no tenderness no organomegaly] EXTREMITIES: [No edema feet - Labs CBC & Chem 7: 08/05/21 06:33 08/05/21 06:33 Labs: Microbiology - Last 24 Hours (Table) 08/04/21 13:45 CSF Gram Stain - Preliminary Cerebral Spinal Fluid CSF Culture - Preliminary Assessment and Plan (1) Pneumonia Current Visit: Yes Status: Acute Code(s): J18.9 - PNEUMONIA, UNSPECIFIED ORGANISM SNOMED Code(s): 692066668 Plan: 1-Patient with acute respiratory failure is multifactorial concerning for a component of pneumonia question of aspiration etiology patient to have penicillin ALLERGY, patient did developed a rash more likely related to cefepime which has been discontinued, patient underlying pneumonia has been adequately treated, patient repeat chest x-ray did not show any acute abnormality, there is no need for antibiotic therapy at this point, ID service will sign off please call back if any question regarding his infectious disease care, daughter at the bedside questions were answered
[2021-08-08 04:23] VITALS: BP 129/93; TEMP 98.1
[2021-08-08] MEDS: IPRATROPIUM-ALBUTEROL 3 ML NEB INHALATION SCH ×3 (07:31→15:32)
[2021-08-08] MEDS: levETIRAcetam IV 1,000 MG in SALINE 1 100ML.BAG IVPB SCH (08:09)
[2021-08-08] MEDS: FAMOTIDINE 20 MG/2 ML VIAL IV SCH (08:09)
[2021-08-08] MEDS: ASPIRIN 325 MG TAB PO SCH (08:09)
[2021-08-08] MEDS: HEPARIN SODIUM,PORCINE/PF 5,000 UNIT/0.5 ML SYRINGE SQ SCH (08:09)
[2021-08-08] MEDS: TAMSULOSIN 0.4 MG CAP.ER.24H PO SCH (08:09)
[2021-08-08] MEDS: THIAMINE 100 MG TAB PO SCH (08:09)
[2021-08-08] MEDS: PETROLAT,WHITE/LAN/8-HYDROXYQU 227 GM OINT TOPICAL SCH (08:10)
--- NOTE | 2021-08-08 09:38 | P.PN ---
Progress Note - Text Progress Note Date: 08/08/21 Patient's sleeping in bed. Per nursing staff isn't limited oral intake. The family does not wish to have any feeding tube placed. He'll continue supportive care.
[2021-08-08] MEDS: TRIAMCINOLONE 0.1% CREAM 80 GM TUBE TOPICAL SCH (10:35)
--- NOTE | 2021-08-08 11:50 | P.PN ---
Subjective Progress Note Date: 08/04/21 This is a pleasant 66 years old male with unknown past medical history presents because of altered mental status where he was found unresponsive in his truck by a family member. As per report. He was seen doing well about 2 days ago. Patient was found with no evidence of trauma, incontinence of urine and stool. And he was hypothermic on admission with a rectal temperature of 99F. He was warmed using of the fluids. Patient has altered mental status thought that this is multifactorial related to his hypothermic injury, gangrene of his right toes and alcohol withdrawal and pneumonia. Neurologist was on the case, at that time CT of the brain was negative as well as EEG and a neurologist was on the case the patient shows some partial improvement, MRI of the brain could not be done while in the ICU and agitated, and then he became less responsive one more time before neurologist recommended MRI of the brain which showed bilateral parietal lobe subcentimeter foci suspicious for acute versus subacute ischemia and remote pontine infarct also since admission he had frostbite of his 3 toes starting from the large big toe with gangrenous damage, vascular surgery follow the patient and recommended outpatient follow-up. Also patient was on the clindamycin for his right pneumonia. She is improved now. This morning patient was staring in space, could not follow commands although he was awake and alert. He denies any specific complaints. He is breathing quietly and abdomen soft. His right toes are still black with line of demarcation become more clear. carotid duplex done on 07/19 showing no significant stenosis. Labs showing mild hyperkalemia at 5.3, CBC is unremarkable. Medications reviewed with the patient is not on SHAILA inhibitor 08/02/2021 Patient most likely confused, could be part of his metabolic encephalopathy and suture ALSO could be related to his aphasia as he has multiple bilateral stroke definitely affecting one of them is the dominant lobe. Patient also does not follow commands although he is awakened, and he keeps tearing. It does not look in distress. Vitals and labs are stable. Yesterday he was started on aspirin 325 mg and Lipitor 40 mg. Video EEG and echocardiogram are pending. Still has Franklin catheter with no evidence of UTI. Carotid Dopplers done on 07/19 showing no significant stenosis His pneumonia has resolved and currently he is off antibiotics He is tolerating diet 25-100% of his food today 08/03/2011 Patient remains significantly confused, does not follow commands or answering questions. Most likely related to his bilateral parietal infarct, aphasia is suspected which could be combined receptive and expressive aphasia. Sensation was also suspected and he was started on Keppra however no significant improvement. EEG showing no epileptiform discharge. Triphasic wave can be seen in the setting of metabolic encephalopathy. Findings suggestive of moderate diffuse cerebral dysfunction as may be seen in toxic metabolic encephalopathy Echocardiogram is pending Also patient eating about 25% of his medial 100% of his snacks, and supplements. Therefore consult dietitian was placed. Patient remains on aspirin 325 mg, Lipitor, Flomax. Speech team already evaluated the patient but patient was brought cooperative. 08/04/2021 Patient is still encephalopathic. Does not follow commands. Afebrile. Possible anoxic encephalopathy is being considered. Otherwise patient is Keppra for seizure prophylaxis. Patient underwent EEG showed no epileptiform discharges. Scheduled for lumbar puncture today. Patient is IV hydration and ready for minimal oral intake. Continue Lipitor and Flomax. Neurology is on board. Current medications reviewed. Objective - Vital Signs Vital signs: Vital Signs Temp 98.5 F 08/04/21 13:49 Pulse 94 08/04/21 15:54 Resp 16 08/04/21 14:05 BP 137/79 08/04/21 14:05 Pulse Ox 96 08/04/21 14:05 Intake & Output 08/03/21 08/04/21 08/04/21 18:59 06:59 18:59 Intake Total 1030 100 Output Total 1100 Balance -70 100 Intake: IV 100 Intake, IV Titration 1000 Amount Sodium Chloride 0.9% 1, 900 000 ml @ 75 mls/hr IV . [id number] JOHN Rx#:[id number] levETIRAcetam IV 750 mg 100 In Sodium Chloride 0.9% 100 ml @ 400 mls/hr IVPB Q12HR JOHN Rx#:[id number] Oral 30 Output: Urine 1100 Stool 0 Other: Voiding Method Indwelling Catheter Indwelling Catheter Indwelling Catheter # Bowel Movements 0 - Exam - Exam -GENERAL: The patient open eyes spontaneously, does not follow commands, does not talk. HEENT: Pupils are round and equally reacting to light. EOMI. No scleral icterus. No conjunctival pallor. Normocephalic, atraumatic. No pharyngeal erythema. No thyromegaly. CARDIOVASCULAR: S1 and S2 present. No murmurs, rubs, or gallops. -PULMONARY: Chest is clear to auscultation, no wheezing or crackles. Marked crepitation on the right side ABDOMEN: Soft, nontender, nondistended, normoactive bowel sounds. No palpable organomegaly. MUSCULOSKELETAL: No joint swelling or deformity. -XTREMITIES: No cyanosis, clubbing, or pedal edema. Right big toe is black, As well to a lesser extent this right second and third toes NEUROLOGICAL: Gross neurological examination did not reveal any focal deficits. SKIN: No rashes. 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 poor Oral intake aspiration pneumonia, resolved armenta bite with hypothermic feet injury of the right 3 toes Rhabdomyolysis, Improving significantly Lactic acidosis, resolved Dehydration, resolved Mildly elevated liver enzymes Suspected history of alcohol abuse Plan: This is a pleasant 66 years old male who presents with AMS, hyperthermia and possible frostbite of the feet and up to my lysis. Continue with IV fluid Neurology is on board will follow their further recommendation. LP was done. ordered echocardiogram Dietitian consult Continue with Keppra, aspirin and Lipitor Vascular surgery and pulmonary/critical care team consult recommend outpatient follow-up for his right toes Labs and medication were reviewed. Monitor lytes and vitals. DVT and GI prophylaxis. Further recommendations depends on the clinical course of the patient DVT prophylaxis: heparin GI Prophylaxis: Pepcid Prognosis is extremely guarded Time with Patient: Greater than 30
[2021-08-08] MEDS: SODIUM CHLORIDE 0.9% 1,000 ML IV SCH (12:10)
--- NOTE | 2021-08-08 12:59 | P.PN ---
Subjective Progress Note Date: 08/05/21 This is a pleasant 66 years old male with unknown past medical history presents because of altered mental status where he was found unresponsive in his truck by a family member. As per report. He was seen doing well about 2 days ago. Patient was found with no evidence of trauma, incontinence of urine and stool. And he was hypothermic on admission with a rectal temperature of 99F. He was warmed using of the fluids. Patient has altered mental status thought that this is multifactorial related to his hypothermic injury, gangrene of his right toes and alcohol withdrawal and pneumonia. Neurologist was on the case, at that time CT of the brain was negative as well as EEG and a neurologist was on the case the patient shows some partial improvement, MRI of the brain could not be done while in the ICU and agitated, and then he became less responsive one more time before neurologist recommended MRI of the brain which showed bilateral parietal lobe subcentimeter foci suspicious for acute versus subacute ischemia and remote pontine infarct also since admission he had frostbite of his 3 toes starting from the large big toe with gangrenous damage, vascular surgery follow the patient and recommended outpatient follow-up. Also patient was on the clindamycin for his right pneumonia. She is improved now. This morning patient was staring in space, could not follow commands although he was awake and alert. He denies any specific complaints. He is breathing quietly and abdomen soft. His right toes are still black with line of demarcation become more clear. carotid duplex done on 07/19 showing no significant stenosis. Labs showing mild hyperkalemia at 5.3, CBC is unremarkable. Medications reviewed with the patient is not on SHAILA inhibitor 08/02/2021 Patient most likely confused, could be part of his metabolic encephalopathy and suture ALSO could be related to his aphasia as he has multiple bilateral stroke definitely affecting one of them is the dominant lobe. Patient also does not follow commands although he is awakened, and he keeps tearing. It does not look in distress. Vitals and labs are stable. Yesterday he was started on aspirin 325 mg and Lipitor 40 mg. Video EEG and echocardiogram are pending. Still has Franklin catheter with no evidence of UTI. Carotid Dopplers done on 07/19 showing no significant stenosis His pneumonia has resolved and currently he is off antibiotics He is tolerating diet 25-100% of his food today 08/03/2011 Patient remains significantly confused, does not follow commands or answering questions. Most likely related to his bilateral parietal infarct, aphasia is suspected which could be combined receptive and expressive aphasia. Sensation was also suspected and he was started on Keppra however no significant improvement. EEG showing no epileptiform discharge. Triphasic wave can be seen in the setting of metabolic encephalopathy. Findings suggestive of moderate diffuse cerebral dysfunction as may be seen in toxic metabolic encephalopathy Echocardiogram is pending Also patient eating about 25% of his medial 100% of his snacks, and supplements. Therefore consult dietitian was placed. Patient remains on aspirin 325 mg, Lipitor, Flomax. Speech team already evaluated the patient but patient was brought cooperative. 08/04/2021 Patient is still encephalopathic. Does not follow commands. Afebrile. Possible anoxic encephalopathy is being considered. Otherwise patient is Keppra for seizure prophylaxis. Patient underwent EEG showed no epileptiform discharges. Scheduled for lumbar puncture today. Patient is IV hydration and ready for minimal oral intake. Continue Lipitor and Flomax. Neurology is on board. 08/05/2021 Patient is currently lying in the bed. Does not respond to verbal stimuli. Patient is raising his hands involuntarily and is very stiff and rigid. Afebrile. Able to tolerate very minimal oral intake. Patient had lumbar puncture done and CSF analysis showed no evidence of infection. Neurology is on board. Patient has not had any vomiting or diarrhea. Complete review of systems could not be obtained from the patient. Psychiatry was consulted for evaluation. General surgery was consulted possible Dobbhoff tube placement for nutrition. Continue on IV hydration and monitor fluid status closely. Lab data showed WBC 5.1 hemoglobin 15.1 platelets 295 sodium 134 potassium 4.5 chloride 102 bicarb is 19.8 BUN 9.9 and creatinine 0.6 and CK level is 51. Cultures have been negative. Total protein in the CSF is 94. Current medications reviewed. Objective - Vital Signs Vital signs: Vital Signs Temp 98.7 F 08/05/21 11:21 Pulse 80 08/05/21 15:26 Resp 18 08/05/21 11:21 BP 158/82 08/05/21 11:21 Pulse Ox 97 08/05/21 11:21 Intake & Output 08/05/21 08/05/21 08/06/21 06:59 18:59 06:59 Intake Total 0 Output Total 1100 1000 Balance -1100 -1000 Weight 71.4 kg Intake: Oral 0 Output: Urine 1100 1000 Other: Voiding Method Indwelling Catheter Indwelling Catheter # Bowel Movements 1 - Exam - Exam -GENERAL: The patient open eyes spontaneously, does not follow commands, does not talk. HEENT: Pupils are round and equally reacting to light. EOMI. No scleral icterus. No conjunctival pallor. Normocephalic, atraumatic. No pharyngeal erythema. No thyromegaly. CARDIOVASCULAR: S1 and S2 present. No murmurs, rubs, or gallops. -PULMONARY: Chest is clear to auscultation, no wheezing or crackles. Marked crepitation on the right side ABDOMEN: Soft, nontender, nondistended, normoactive bowel sounds. No palpable organomegaly. MUSCULOSKELETAL: No joint swelling or deformity. -XTREMITIES: No cyanosis, clubbing, or pedal edema. Right big toe is black, As well to a lesser extent this right second and third toes NEUROLOGICAL: Gross neurological examination did not reveal any focal deficits. SKIN: No rashes. 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 poor Oral intake aspiration pneumonia, resolved armenta bite with hypothermic feet injury of the right 3 toes discolred Rhabdomyolysis, Improving significantly Lactic acidosis, resolved Dehydration, resolved Mildly elevated liver enzymes Suspected history of alcohol abuse Plan: This is a pleasant 66 years old male who presents with AMS, hyperthermia and p ossible frostbite of the feet and up to my lysis. Continue with IV fluid Neurology is on board will follow their further recommendation. LP was done. ordered echocardiogram Dietitian consult Continue with Keppra, aspirin and Lipitor Vascular surgery and pulmonary/critical care team consult recommend outpatient follow-up for his right toes Labs and medication were reviewed. Monitor lytes and vitals. DVT and GI prophylaxis. Further recommendations depends on the clinical course of the patient DVT prophylaxis: heparin GI Prophylaxis: Pepcid Prognosis is poor at this time. Will discuss with his daughter and possible considering comfort measures. Time with Patient: Greater than 30
[2021-08-08 15:43] VITALS: PULSE 86
--- NOTE | 2021-08-08 20:19 | P.DS ---
Providers Date of admission: 07/17/21 20:46 Attending physician: Nick Valladares MD Consults: 07/17/21 20:46 Consult Physician Stat Consulting Provider: Carlitos Zamora Consult Reason/Comments: Intensive care management for frostbite Do you want consulting provider notified?: Already Contacted 07/18/21 09:46 Consult Physician Urgent Consulting Provider: Daisy Waller Consult Reason/Comments: AMS Do you want consulting provider notified?: Yes 07/21/21 00:56 Consult Physician Stat Consulting Provider: Christine Alfonso Consult Reason/Comments: febrile Do you want consulting provider notified?: Yes 08/03/21 14:26 Consult to Anesthesia Stat Consulting Provider: Anesthesia,Services Consult Reason/Comments: lumbar puncture, rule out encephalitis 08/05/21 10:48 Consult Physician Routine Consulting Provider: Bruce Wilkins Consult Reason/Comments: Duboff tube placement for nutrition Do you want consulting provider notified?: Yes 08/06/21 08:44 Consult Physician Urgent Consulting Provider: Cameron Donahue Consult Reason/Comments: ams, Rule out neuroleptic malignant syndrome vs other Do you want consulting provider notified?: Yes [facility] Course: Diagnoses: - End-of-life care, hospice care -Altered mental status, present since admission suspected secondary to metabolic/toxic encephalopathy. multiple subcentimeter foci involving the pariet al lobes bilaterally suspicious for tiny areas of acute to subacute ischemia. per Neurologist, hypoxic encephalopathy is suspected. On the top of alcohol disease -poor Oral intake -aspiration pneumonia, resolved -armenta bite with hypothermic feet injury of the right 3 toes -Rhabdomyolysis, Improving significantly -Lactic acidosis, resolved -Dehydration, resolved -Mildly elevated liver enzymes -Suspected history of alcohol abuse Hospital course: This is a pleasant 66 years old male with unknown past medical history presents because of altered mental status where he was found unresponsive in his truck by a family member. As per report. He was seen doing well about 2 days earlier. Patient was found with no evidence of trauma, incontinence of urine and stool. And he was hypothermic on admission with a rectal temperature of 99F. He was warmed using of the fluids. Also per documentation patient was hypoxic on admission. Since admission he had right foot toes gangrene, altered mental status with unresponsiveness, rhabdomyolysis. He was admitted to the ICU with pulmonary/critical care team and the neurology consult. Patient monitored closely and treated with IV fluids. Vascular surgery team obtained for his right toes gangrene and the recommended conservative management and outpatient follow-up however patient developed aspiration pneumonia responded to antibiotic with the clindamycin. After that patient has prolonged hospital course and despite several consultants on the case he remains confused and unresponsive does not follow commands although opens eyes spontaneously, not talking. And on the top of that his mentation was fluctuating up and down. He develops spasms at times and Keppra was ordered by neurologist with no much benefit. EEG showing no epileptiform discharge. Triphasic wave can be seen in the setting of metabolic encephalopathy. Findings suggestive of moderate diffuse cerebral dysfunction as may be seen in toxic metabolic encephalopathy MRI of the brain which showed bilateral parietal lobe subcentimeter foci suspicious for acute versus subacute ischemia and remote pontine infarct Patient remained with poor mentation, poor oral intake, general surgery team cons were consulted and recommended PEG tube placement, however his daughter Vivien at bedside refused PEG tube and after discussing the case with me and neurologist and other consultants she decided to pursue with hospice care, hospice team were consulted and today I discussed the case with the patient daughter at bedside and just to The hospice nurse, and the plan for him is to go home with hospice. This looks appropriate given his very poor prognosis His prognosis is extremely weak and poor. Problems and management plan were discussed with the patient daughter and he ve rbalized understanding and acceptance Patient was found stable and can be discharged home however he needs follow-up as an outpatient. Patient was instructed to follow up with PCP within one week Physical exam -Gen: patient is totally confused, does not follow commands although opens eyes spontaneously. Limited movement, no seizure-like activity, no distress CVS: S1-S2, RRR, no murmur Lungs: B/L CTA, no wheezing Abdomen: soft, no distention, no tenderness, positive bowel sounds Extremity: no leg edema or induration. Right 3 toes dry gangrene with demarcation line Time spent more than 35 minutes Patient Condition at Discharge: Fair Plan - Discharge Summary Discharge Rx Participant: No New Discharge Prescriptions: New Moxifloxacin HCl [Avelox] 400 mg PO DAILY #5 tablet RX: Ipratropium-Albuterol Nebulize [Duoneb 0.5 mg-3 mg/3 ml Soln] 3 ml INHALATION RT-QID ml RX: Ipratropium-Albuterol Nebulize [Duoneb 0.5 mg-3 mg/3 ml Soln] 3 ml INHALATION RT-Q2H PRN ml PRN Reason: Shortness Of Breath Or Wheezing RX: Acetaminophen Tab [Tylenol] 650 mg PO Q6HR PRN tab PRN Reason: Fever And/ Or Pain RX: lisinopriL [Zestril] 20 mg PO DAILY tab Famotidine [Pepcid] 20 mg PO DAILY #3 tablet RX: Petrolat,White/Rahul/8-Hydroxyqu [Bag Council] 1 gm TOPICAL DAILY gm RX: Tamsulosin [Flomax] 0.4 mg PO PC-BRKFST RX: Nicotine 14Mg/24Hr Patch [Habitrol] 1 patch TRANSDERM DAILY patch RX: Thiamine [Vitamin B-1] 100 mg PO BID-W/MEALS tab Discharge Medication List Famotidine [Pepcid] 20 mg PO DAILY #3 tablet 07/30/21 [Rx] Moxifloxacin HCl [Avelox] 400 mg PO DAILY #5 tablet 07/30/21 [Rx] RX: Acetaminophen Tab [Tylenol] 650 mg PO Q6HR PRN tab 07/30/21 [Rx] RX: Ipratropium-Albuterol Nebulize [Duoneb 0.5 mg-3 mg/3 ml Soln] 3 ml INHALATION RT-Q2H PRN ml 07/30/21 [Rx] RX: Ipratropium-Albuterol Nebulize [Duoneb 0.5 mg-3 mg/3 ml Soln] 3 ml INHALAT ION RT-QID ml 07/30/21 [Rx] RX: Nicotine 14Mg/24Hr Patch [Habitrol] 1 patch TRANSDERM DAILY patch 07/30/21 [Rx] RX: Petrolat,White/Rahul/8-Hydroxyqu [Bag Council] 1 gm TOPICAL DAILY gm 07/30/21 [Rx] RX: Tamsulosin [Flomax] 0.4 mg PO PC-BRKFST 07/30/21 [Rx] RX: Thiamine [Vitamin B-1] 100 mg PO BID-W/MEALS tab 07/30/21 [Rx] RX: lisinopriL [Zestril] 20 mg PO DAILY tab 07/30/21 [Rx] Follow up Appointment(s)/Referral(s): Severo Londono DO [Doctor of Osteopathic Medicine] - 1 Week Carlitos Zamora DO [Doctor of Osteopathic Medicine] - 1 Week [facility], [NON-STAFF] - 1 Week [facility] [NON-STAFF] - 1 Week Bairon Feldman DO [Primary Care Provider] - 1-2 days Christine Alfonso MD [STAFF PHYSICIAN] - 1 Week Ambulatory/Diagnostic Orders: Basic Metabolic Panel [LAB.AMB] Time Frame: 2 Days, Location: None Selected Activity/Diet/Wound Care/Special Instructions: Patient to continue with bag balm daily to his right great toe secondary to frostbite injury. Follow up needed in the wound care clinic. Discharge Disposition: HOME WITH HOSPICE
--- NOTE | 2021-08-11 17:46 | CDI ---
Documentation Clarification Form Date: 08/11/2021 04:43:28 PM From: Margo Morales RN, CCDS Admit Date: 07/17/2021 08:46:00 PM Patient Name: Bairon Carias Visit Number: [id number] Discharge Date: 08/08/2021 04:20:00 PM ATTENTION: The Clinical Documentation Specialists (CDI) and [facility] Coding Staff appreciate your assistance in clarifying documentation. Please respond to the clarification below the line at the bottom and electronically sign. The CDI & [facility] Coding staff will review the response and follow-up if needed. Please note: Queries are made part of the Legal Health Record. If you have any questions, please contact the author of this message via ITS. Dr. Daisy Waller Rule out CVA is documented in the neurology consult on 07/19/21. Additional clarification regarding the CVA is requested. History/risk factors: Alcohol abuse Clinical Indicators 66-year-old male present with altered mental status change. In ED he was not opening his eyes to painful stimuli he was obtunded. Patient did not speak oral, answer any questions. Unable to check his lower cranial nerves or hearing or facial sensation. Rule out CVA.07/19 MRI brain ordered with and without contrast, unable to obtain related patient restlessness. 07/17 labs: WBC 15.3, Lactic acid 4.3, Creatine kinase 5921; Urine drug screen Negative; Serum Alcohol <10, Covid Not Detected 07/17 CT Brain/c spine: No acute intracranial hemorrhage, mass effect or midline shift seen 07/19 EEG: Mildly abnormal because of background slowing. This is suggestive of generalized cerebral dysfunction as can be seen with encephalopathy of metabolic, vascular or degenerative etiology 08/01 MRI: There are multiple subcentimeter foci involving the parietal lobes bilaterally suspicious for tiny areas of acute to subacute ischemia Findings most typical remote pontine infarct. Treatment: ICU/Telemetry monitoring Neuro checks per ICU protocol Watch for alcohol withdrawals .9NS Bolus 1000 mls IV (07/17) then 75 mls hr. IV Acyclovir 733MG IV Once (07/21) Please further clarify MRI results suspicious for tiny areas of acute to subacute ischemia and are you treating? [ ] Acute Ischemic CVA, possible present on admission [ ] Acute Ischemic CVA, not present on admission [ ] CVA ruled out [ ] Other (please specify acute to subacute ischemia diagnosis) [ ] Unable to Determine (Template Last Revised: August 2020) Patient had slightly abnormal MRI of the brain. I reviewed MRI of the brain with Dr. Sage, neuroradiologist, who agreed, these could be subacute (going to chronic phase) areas of ischemia, as they were positive on diffusion weighted, but negative on ADC mapping. (The MRI was performed on day #15 from the time of admission). Could also be result from some degree of hypoxic injury. No obvious embolic source identified with the echo or carotid Doppler. He was not diabetic with A1c 5.7. Did appear to have hypertension and mild hyperlipidemia. These are the 2 possibilities. Final diagnosis, likely possibility of subacute ischemia. Please let me know if you have any other concerns. TRAVIS
--- NOTE | 2021-08-12 13:35 | ECHOF ---
Referral Reason:Rule out heart disease MEASUREMENTS -------- HEIGHT: 0.0 cm WEIGHT: 0.0 kg BP: IVSd: 0.8 cm (0.6 - 1.1) LVIDd: 4.4 cm (3.9 - 5.3) LVPWd: 1.1 cm (0.6 - 1.1) IVSs: 1.3 cm LVIDs: 2.6 cm LVPWs: 1.9 cm RAP: 5.00 mmHg RVSP: 9.27 mmHg FINDINGS -------- Sinus rhythm. This was a technically difficult study with suboptimal views. Pt. not compliant. The left ventricular size is normal. Left ventricular wall thickness is normal. Overall left vent ricular systolic function is normal with, an EF between 55 - 60 %. The RV was not well visualized. The left atrium was not well visualized. The right atrium was not well visualized. Lumason used The aortic valve was not well visualized. The mitral valve was not well visualized. The tricuspid valve was not well visualized. The pulmonic valve was not well visualized. There is no pericardial effusion. CONCLUSIONS -------- 1. This was a technically difficult study with suboptimal views. 2. Left ventricular wall thickness is normal. 3. Overall left ventricular systolic function is normal with, an EF between 55 - 60 %. 4. The aortic valve was not well visualized. 5. The mitral valve was not well visualized. 6. There is no pericardial effusion. CLIP BAKER: Feli Christiansen [facility]
== END 2021-08-08 16:20 | disposition hospice, home (50) | DRG 177 ==
LOC: EC 18:07 → 2SICU 20:46 → 3SCARD 07-20 14:33 → 2SICU 07-21 11:47 → 3SCARD 07-25 15:34 → 5NMEDONC 08-01 23:47
PROVIDERS: ADMIT Internal Medicine; ATTEND Internal Medicine
PROC: 00JU3ZZ Inspection of Spinal Canal, Percutaneous Approach (ICD-10-PCS; principal; 2021-08-04 14:00)
DX: J69.0 Pneumonitis due to inhalation of food and vomit (principal); G93.41 Metabolic encephalopathy; J80 Acute respiratory distress syndrome; F10.231 Alcohol dependence with withdrawal delirium; T33.821A Superficial frostbite of right foot, initial encounter; I67.82 Cerebral ischemia; T33.822A Superficial frostbite of left foot, initial encounter; E44.0 Moderate protein-calorie malnutrition; E87.1 Hypo-osmolality and hyponatremia; E87.2 Acidosis; F05 Delirium due to known physiological condition; G93.1 Anoxic brain damage, not elsewhere classified; I45.2 Bifascicular block; M62.82 Rhabdomyolysis; I96 Gangrene, not elsewhere classified; R41.82 Altered mental status, unspecified; Z68.22 Body mass index [BMI] 22.0-22.9, adult; T68.XXXA Hypothermia, initial encounter; E78.5 Hyperlipidemia, unspecified; Z51.5 Encounter for palliative care; E86.0 Dehydration; Z20.822 Contact with and (suspected) exposure to COVID-19; E87.6 Hypokalemia; G93.89 Other specified disorders of brain; I10 Essential (primary) hypertension; J43.9 Emphysema, unspecified; L25.9 Unspecified contact dermatitis, unspecified cause; L89.019 Pressure ulcer of right elbow, unspecified stage; R13.10 Dysphagia, unspecified; R32 Unspecified urinary incontinence; I69.320 Aphasia following cerebral infarction; S90.31XA Contusion of right foot, initial encounter; X31.XXXA Exposure to excessive natural cold, initial encounter; Z72.0 Tobacco use; Z79.82 Long term (current) use of aspirin; Z79.899 Other long term (current) drug therapy; Z88.0 Allergy status to penicillin
CPT/HCPCS: 36415; 36600; 62270; 70450; 70553; 71045; 72125; 80048; 80053; 80061; 80076; 80143; 80179; 80306; 80320; 81001; 82140; 82375; 82550; 82565; 82607; 82747; 82805; 82945; 83036; 83605; 83735; 83873; 83921; 83930; 84145; 84157; 84443; 84484; 85025; 85027; 85610; 85730; 87040; 87070; 87205; 87635; 89050; 90715; 93005; 93306; 93880; 94640; 94660; 94760; 95713; 95816; 96374; 99291